=== PATIENT | male | born 1970 | race Caucasian/White ===

== ENCOUNTER 2021-07-01 11:30 | Emergency (ER) | payer OTHER, SELFPAY ==
--- NOTE | ~2021-07-01 | CT_ITS ---
EXAMINATION: CT SOFT TISSUE NECK WITH CONTRAST CLINICAL INFORMATION: Left-sided neck mass. COMPARISON: None TECHNIQUE: Following the intravenous administration of 100 mL of Omnipaque 350 intravenous contrast, helical imaging was performed in the axial plane with generation of coronal and sagittal reformatted images. This CT examination was performed using dose optimization techniques as appropriate, variously including the following: *Automated exposure control *Adjustment of mA and/or kV according to patient size (this includes techniques or standardized protocols for targeted exams where dose is matched to indication/reason for exam; i.e. extremities or head) *Use of iterative reconstruction technique DLP: 629 mGy-cm FINDINGS: There is a multiloculated solid and cystic mass anterior to the sternomastoid muscle and posterior submandibular gland and the submandibular space measuring 4.5 cm wide and approximately 5.42 cm and craniocaudad length and 3.9 cm in AP dimension. It corresponds to L3 space of the neck. The adjacent left submandibular and left parotid glands are normal. There are small shotty right neck lymph nodes visualized. The right parotid and submandibular glands are normal. No contour abnormality or pathologic enhancement is seen within the oral cavity or pharyngeal mucosal space. The laryngeal structures are normal. The parapharyngeal fat is preserved. The carotid sheath vasculature opacify normally. No extra mucosal soft tissue mass or fluid collection is seen. No retropharyngeal fluid collection is seen. The thyroid gland is normal. The superior mediastinum is unremarkable. The lung apices are clear. The mastoid air cells and visualized portions of the paranasal sinuses are well-aerated. The temporomandibular joints are normal. No periapical disease is identified. No osseous abnormalities are seen. The imaged portions of the brain parenchyma are unremarkable. Mild degenerative disc disease with mild ventral and posterior spondylosis C5-C6 disc level is noted. CT/CT soft tissue neck w con IMPRESSION: Multiloculated solid and cystic mass left neck level 3 space. Differential diagnoses includes lymphadenopathy or infection or inflammatory etiology. Metastatic disease should be considered in differential diagnosis but less likely. Question lymphoma. Recommend fine-needle aspiration biopsy by ultrasound.
[2021-07-01 12:42] VITALS: BP 142/70; PULSE 55; RESP 18; TEMP 36.7; O2SAT 100; BMI 25.8
[2021-07-01 13:06] LABS: IDNOW Serial# 08D9AD1C; Strep A Nucleic Acid Negative (Negative)
--- NOTE | 2021-07-01 13:29 | ED_ITS ---
HPI - General Adult General Chief complaint: General Medical <GABRIELA Woo - Last Filed: 07/01/21 16:32> Stated complaint: LUMP IN THROAT <GABRIELA Woo - Last Filed: 07/01/21 16:32> Time Seen by Provider: 07/01/21 13:05 <GABRIELA Woo - Last Filed: 07/01/21 16:32> Source: patient <GABRIELA Woo Last Filed: 07/01/21 16:32> Mode of arrival: ambulatory <GABRIELA Woo Last Filed: 07/01/21 16:32> Limitations: no limitations <GABRIELA Woo Last Filed: 07/01/21 16:32> History of Present Illness HPI narrative: 50-year-old healthy male presents to the ER with sore throat that started yesterday. He reports painful swallowing. Last night he said he felt like his airway was restricted. he also noted to have a lump on the left side of his neck. He states it has been there for couple weeks, but the girlfriend at the bedside no reports that it has been there for several months. he is a nonsmoker but occasionally vapes marijuana. He has no medical issues. He denies any fever, chills, headache, body aches, cough, shortness of breath or chest pain. He is not vaccinated for COVID-19. No known sick contacts. <GABRIELA Woo - Last Filed: 07/01/21 16:32> MD complaint: Sore throat <GABRIELA Woo - Last Filed: 07/01/21 16:32> Onset (ago): day(s) (1) <GABRIELA Woo - Last Filed: 07/01/21 16:32> Location: mouth and neck <GABRIELA Woo Last Filed: 07/01/21 16:32> Radiation: non-radiation <GABRIELA Woo Last Filed: 07/01/21 16:32> Severity: moderate <GABRIELA Woo Last Filed: 07/01/21 16:32> Severity scale (1-10): 6 <GABRIELA Woo Last Filed: 07/01/21 16:32> Quality: aching <GABRIELA Woo Last Filed: 07/01/21 16:32> Pain Consistency: intermittent <GABRIELA Woo Last Filed: 07/01/21 16:32> Relieving factors: none <GABRIELA Woo Last Filed: 07/01/21 16:32> Exacerbating factors: eating <GABRIELA Woo Last Filed: 07/01/21 16:32> Associated symptoms: denies other symptoms <GABRIELA Woo Last Filed: 07/01/21 16:32> Treatments prior to arrival: none <GABRIELA Woo Last Filed: 07/01/21 16:32> Related Data Home medications: Previous Rx's Medication Instructions Recorded amoxicillin 875 mg-potassium 1 tab PO Q12H #20 tab 07/01/21 clavulanate 125 mg tablet (Augmentin) <GABRIELA Woo Last Filed: 07/01/21 16:32> Allergies/adverse reactions: Allergies Allergy/AdvReac Type Severity Reaction Status Date / Time No Known Allergies Allergy Verified 07/01/21 12:41 [No Known Allergies*] <GABRIELA Woo Last Filed: 07/01/21 16:32> Review of Systems Review of Systems: Constitutional: No Fever, No Chills ENT/Mouth: + sore throat, No Rhinorrhea, + Swallowing Difficulty Cardiovascular: No Chest Pain, No SOB Respiratory: No Cough, No Sputum, No Wheezing, No dyspnea Gastrointestinal: No Nausea, No Vomiting, No abdominal Pain Musculoskeletal: No joint pain, No Myalgias Skin: No Skin Lesions, No rash Neuro: No Weakness, No Numbness, No Dizziness, No Headache Psych: + Anxiety/Panic Heme/Lymph: No Bruising, +Lymphadenopathy <GABRIELA Woo Last Filed: 07/01/21 16:32> [facility] Past Medical History Surgical History: Surgical History (Updated 07/01/21 @ 12:43 by Kristen Garcia RN) H/O removal of cyst <GABRIELA Woo Last Filed: 07/01/21 16:32> Physical Exam Vital Signs: Vital Signs: Last Vital Signs Temp 98.0 F 07/01/21 12:42 Pulse 55 07/01/21 12:42 Resp 18 07/01/21 12:42 BP 142/70 H 07/01/21 12:42 Pulse Ox 100 07/01/21 12:42 Body Mass Index 25.8 <GABRIELA Woo - Last Filed: 07/01/21 16:32> Vital Signs: Last Vital Signs Temp 98.0 F 07/01/21 12:42 Pulse 55 07/01/21 12:42 Resp 18 07/01/21 12:42 BP 142/70 H 07/01/21 12:42 Pulse Ox 100 07/01/21 12:42 Body Mass Index 25.8 <Rubio Hoyos MD - Last Filed: 07/01/21 13:39> Appearance: Alert. Oriented X3. No acute distress. HEENT: Left side of the neck with a 3 cm cystic like lesion on the lateral aspect that is somewhat mobile but with some firmness and adherence to the superior aspect. Minimal tenderness. No surrounding erythema no central fluctuance. Oropharynx with moist mucous membranes, bilateral tonsillar enlargement and erythema without exudate. Uvula midline. No submandibular or cervical chain lymphadenopathy palpable. CVS: Normal heart rate and rhythm. Pulses normal. Respiratory: No respiratory distress. Lungs are clear throughout. Skin: Skin warm and dry. Normal skin color. Normal skin turgor. No rashes. Extremities: Normal inspection, normal range of motion Neuro: Oriented X 3. No motor deficit. No sensory deficit. ambulates with a steady gait. <GABRIELA Woo - Last Filed: 07/01/21 16:32> Course Course Course Narrative: 50-year-old male presents to the ER with reports of painful swallowing and sore throat since yesterday along with a sizable left-sided neck mass that has been there for several months according to his girlfriend. Mass is somewhat mobile but appears to be fixed at the superior portion. Will get CT scan of the neck with contrast for further evaluation of the mass. <GABRIELA Woo - Last Filed: 07/01/21 16:32> Reevaluation(s) Reevaluation #1: I agree with history and plan. Patient with a fixed mass on left side of neck. The mass feels cystic. Will obtain CT of neck for what I feel might be a cystic thyroid mass. <Rubio Hoyos MD - Last Filed: 07/01/21 13:39> Time: 13:39 <Rubio Hoyos MD - Last Filed: 07/01/21 13:39> Reevaluation #2: strep negative and COVID negative. CT scan showing a 4.5 cm x 5.42 cm multi loculated solid and cystic mass in the neck level 3 space. Differential diagnosis remains quite extensive and includes lymphadenopathy versus infection versus inflammatory etiology. Also question of metastatic disease or lymphoma. Patient will require fine-needle aspiration by ultrasound To make a definitive diagnosis. Dr. Flores was contacted and is agreeable to see the patient in the office to arrange for a biopsy. Patient agreeable with plan will follow-up with surgery. Stable for DC home. Will give a empiric course of Augmentin in the event that etiology is infectious. <GABRIELA Woo - Last Filed: 07/01/21 16:32> Medical Decision Making Lab Data Result diagrams: : 07/01/21 13:46 07/01/21 13:46 <GABRIELA Woo - Last Filed: 07/01/21 16:32> Labs: Lab Results 07/01/21 07/01/21 07/01/21 Range/Units 12:47 13:21 13:46 WBC 4.4 L (4.8-10.8) X10*3/uL RBC 4.90 (4.60-5.80) X10*6/uL Hgb 15.1 (14.0-18.0) g/dl Hct 43.6 (42.0-52.0) % MCV 89.0 (80.0-98.0) fL MCH 30.8 (27.0-33.0) pg MCHC 34.6 (31.0-36.0) g/dl RDW 11.6 (11.0-16.0) % Plt Count 192 (160-400) X10*3/uL MPV 10.3 (9.4-12.4) fL Immature Gran % (Auto) 0.7 H (0.0-0.4) % Neut % (Auto) 53.4 (45-73) % Lymph % (Auto) 32.7 (20-40) % [place] % (Auto) 11.3 H (2-11) % Eos % (Auto) 1.4 (0-4) % Baso % (Auto) 0.5 (0-2) % Lymph # (Auto) 1.5 (1.2-4.9) X10*3/uL [place] # (Auto) 0.5 (0.1-1.2) X10*3/uL Eos # (Auto) 0.1 (0.0-0.4) X10*3/uL Baso # (Auto) 0.0 (0.0-0.2) X10*3/uL Abs Immat Gran (auto) 0.03 (0.00-0.03) X10*3/uL Absolute Neuts (auto) 2.4 (2.0-8.3) x10*3/uL Absolute Nucleated RBC 0.000 (0.0-0.012) X10*3/uL Nucleated RBC % (auto) 0.0 (0.0-0.2) /100WBC Sodium (135-145) mmol/L Potassium (3.3-5.1) mmol/L Chloride (96-108) mmol/L Carbon Dioxide (22-29) mmol/L Anion Gap (12-20) BUN (9-16) mg/dL Creatinine (0.5-1.4) mg/dL Estim Creat Clear Calc Estimated GFR Random Glucose (60-115) mg/dL Calcium (8.4-10.2) mg/dL COVID-19 (JAK) Negative (Negative) COVID-19 Clin Com See Note S. pyogenes GrpA JAY Negative (Negative) 07/01/21 Range/Units 13:46 WBC (4.8-10.8) X10*3/uL RBC (4.60-5.80) X10*6/uL Hgb (14.0-18.0) g/dl Hct (42.0-52.0) % MCV (80.0-98.0) fL MCH (27.0-33.0) pg MCHC (31.0-36.0) g/dl RDW (11.0-16.0) % Plt Count (160-400) X10*3/uL MPV (9.4-12.4) fL Immature Gran % (Auto) (0.0-0.4) % Neut % (Auto) (45-73) % Lymph % (Auto) (20-40) % [place] % (Auto) (2-11) % Eos % (Auto) (0-4) % Baso % (Auto) (0-2) % Lymph # (Auto) (1.2-4.9) X10*3/uL [place] # (Auto) (0.1-1.2) X10*3/uL Eos # (Auto) (0.0-0.4) X10*3/uL Baso # (Auto) (0.0-0.2) X10*3/uL Abs Immat Gran (auto) (0.00-0.03) X10*3/uL Absolute Neuts (auto) (2.0-8.3) x10*3/uL Absolute Nucleated RBC (0.0-0.012) X10*3/uL Nucleated RBC % (auto) (0.0-0.2) /100WBC Sodium 141 (135-145) mmol/L Potassium 4.2 (3.3-5.1) mmol/L Chloride 105 (96-108) mmol/L Carbon Dioxide 31 H (22-29) mmol/L Anion Gap 9 L (12-20) BUN 14 (9-16) mg/dL Creatinine 0.97 (0.5-1.4) mg/dL Estim Creat Clear Calc 93.1 Estimated GFR > 60 Random Glucose 90 (60-115) mg/dL Calcium 9.5 (8.4-10.2) mg/dL COVID-19 (JAK) (Negative) COVID-19 Clin Com S. pyogenes GrpA JAY (Negative) <GABRIELA Woo - Last Filed: 07/01/21 16:32> Lab Results 07/01/21 07/01/21 07/01/21 Range/Units 12:47 13:21 13:46 WBC 4.4 L (4.8-10.8) X10*3/uL RBC 4.90 (4.60-5.80) X10*6/uL Hgb 15.1 (14.0-18.0) g/dl Hct 43.6 (42.0-52.0) % MCV 89.0 (80.0-98.0) fL MCH 30.8 (27.0-33.0) pg MCHC 34.6 (31.0-36.0) g/dl RDW 11.6 (11.0-16.0) % Plt Count 192 (160-400) X10*3/uL MPV 10.3 (9.4-12.4) fL Immature Gran % (Auto) 0.7 H (0.0-0.4) % Neut % (Auto) 53.4 (45-73) % Lymph % (Auto) 32.7 (20-40) % [place] % (Auto) 11.3 H (2-11) % Eos % (Auto) 1.4 (0-4) % Baso % (Auto) 0.5 (0-2) % Lymph # (Auto) 1.5 (1.2-4.9) X10*3/uL [place] # (Auto) 0.5 (0.1-1.2) X10*3/uL Eos # (Auto) 0.1 (0.0-0.4) X10*3/uL Baso # (Auto) 0.0 (0.0-0.2) X10*3/uL Abs Immat Gran (auto) 0.03 (0.00-0.03) X10*3/uL Absolute Neuts (auto) 2.4 (2.0-8.3) x10*3/uL Absolute Nucleated RBC 0.000 (0.0-0.012) X10*3/uL Nucleated RBC % (auto) 0.0 (0.0-0.2) /100WBC Sodium (135-145) mmol/L Potassium (3.3-5.1) mmol/L Chloride (96-108) mmol/L Carbon Dioxide (22-29) mmol/L Anion Gap (12-20) BUN (9-16) mg/dL Creatinine (0.5-1.4) mg/dL Estim Creat Clear Calc Estimated GFR Random Glucose (60-115) mg/dL Calcium (8.4-10.2) mg/dL COVID-19 (JAK) Negative (Negative) COVID-19 Clin Com See Note S. pyogenes GrpA JAY Negative (Negative) 07/01/21 Range/Units 13:46 WBC (4.8-10.8) X10*3/uL RBC (4.60-5.80) X10*6/uL Hgb (14.0-18.0) g/dl Hct (42.0-52.0) % MCV (80.0-98.0) fL MCH (27.0-33.0) pg MCHC (31.0-36.0) g/dl RDW (11.0-16.0) % Plt Count (160-400) X10*3/uL MPV (9.4-12.4) fL Immature Gran % (Auto) (0.0-0.4) % Neut % (Auto) (45-73) % Lymph % (Auto) (20-40) % [place] % (Auto) (2-11) % Eos % (Auto) (0-4) % Baso % (Auto) (0-2) % Lymph # (Auto) (1.2-4.9) X10*3/uL [place] # (Auto) (0.1-1.2) X10*3/uL Eos # (Auto) (0.0-0.4) X10*3/uL Baso # (Auto) (0.0-0.2) X10*3/uL Abs Immat Gran (auto) (0.00-0.03) X10*3/uL Absolute Neuts (auto) (2.0-8.3) x10*3/uL Absolute Nucleated RBC (0.0-0.012) X10*3/uL Nucleated RBC % (auto) (0.0-0.2) /100WBC Sodium 141 (135-145) mmol/L Potassium 4.2 (3.3-5.1) mmol/L Chloride 105 (96-108) mmol/L Carbon Dioxide 31 H (22-29) mmol/L Anion Gap 9 L (12-20) BUN 14 (9-16) mg/dL Creatinine 0.97 (0.5-1.4) mg/dL Estim Creat Clear Calc 93.1 Estimated GFR > 60 Random Glucose 90 (60-115) mg/dL Calcium 9.5 (8.4-10.2) mg/dL COVID-19 (JAK) (Negative) COVID-19 Clin Com S. pyogenes GrpA JAY (Negative) <Rubio Hoyos MD - Last Filed: 07/01/21 13:39> Discharge Plan Discharge Clinical Impression: Mass of lateral neck Pharyngitis Qualifiers: Pharyngitis/tonsillitis etiology: unspecified etiology Qualified Code(s): J02.9 - Acute pharyngitis, unspecified <GABRIELA Woo - Last Filed: 07/01/21 16:32> Patient Disposition: Home, Self-Care <GABRIELA Woo - Last Filed: 07/01/21 16:32> Instructions: Pharyngitis (ED), Needle Biopsy (DC) <GABRIELA Woo - Last Filed: 07/01/21 16:32> Additional Instructions: Your CT scan today showed Multiloculated solid and cystic mass left neck level 3 space. Differential diagnoses includes lymphadenopathy or infection or inflammatory etiology. Metastatic disease should be considered in differential diagnosis but less likely. Question lymphoma. Recommend fine-needle aspiration biopsy by ultrasound Take the prescribed antibiotic for the next 10 days. Follow up with Dr. Flores for arragement of biopsy. <GABRIELA Woo - Last Filed: 07/01/21 16:32> Prescriptions: New amoxicillin-pot clavulanate [Augmentin] 875-125 mg tablet 1 tab PO Q12H Qty: 20 RF: 0 <GABRIELA Woo - Last Filed: 07/01/21 16:32> Referrals: Dewayne Flores MD [Physician] - 2 days (Multiloculated solid and cystic mass left neck level 3 space. Differential diagnoses includes lymphadenopathy or infection or inflammatory etiology. Metastatic disease should be considered in differential diagnosis but less likely. Question lymphoma. Recommend fine-needle aspiration biopsy by ultrasound) <GABRIELA Woo - Last Filed: 07/01/21 16:32> Interventions: ED Discharge Assessment Last Done: 07/01/21 15:38 <GABRIELA Woo - Last Filed: 07/01/21 16:32> Discharge Date/Time: 07/01/21 15:41 <GABRIELA Woo - Last Filed: 07/01/21 16:32>
[2021-07-01 13:43] LABS: COVID-19 Test Negative (Negative); IDNOW Serial# 9DD0AD1C
[2021-07-01 13:54] LABS: MANUAL DIFF FLAG NO
[2021-07-01 13:58] LABS: Basophils Percent Auto 0.5 % (0-2); Eosinophils Absolute Auto 0.1 X10*3/uL (0.0-0.4); Eosinophils Percent Auto 1.4 % (0-4); Hematocrit 43.6 % (42.0-52.0); Hemoglobin 15.1 g/dl (14.0-18.0); Imm Gran Abs Auto 0.03 X10*3/uL (0.00-0.03); Imm Gran Pct Auto 0.7 % (0.0-0.4); Lymphocytes Absolute Auto 1.5 X10*3/uL (1.2-4.9); Lymphocytes Percent Auto 32.7 % (20-40); Mean Corpuscular HGB Conc 34.6 g/dl (31.0-36.0); Mean Corpuscular Hemoglobin 30.8 pg (27.0-33.0); Mean Platelet Volume 10.3 fL (9.4-12.4); Monocytes Absolute Auto 0.5 X10*3/uL (0.1-1.2); Monocytes Percent Auto 11.3 % (2-11); Neutrophils Absolute Auto 2.4 x10*3/uL (2.0-8.3); Neutrophils Percent Auto 53.4 % (45-73); Platelet Count 192 X10*3/uL (160-400); Red Cell Distribution Width 11.6 % (11.0-16.0); White Blood Count 4.4 X10*3/uL (4.8-10.8)
[2021-07-01 14:09] LABS: Anion Gap 9 (12-20); Blood Urea Nitrogen 14 mg/dL (9-16); Calcium 9.5 mg/dL (8.4-10.2); Carbon Dioxide 31 mmol/L (22-29); Chloride 105 mmol/L (96-108); Creatinine Clr Calc Pharmacy 93.1; Estimated Glomerular Filt Rate > 60; Glucose Random 90 mg/dL (60-115); Potassium 4.2 mmol/L (3.3-5.1); Sodium 141 mmol/L (135-145)
[2021-07-01] MEDS: iohexoL 350 MG/ML 100 ML INFUS..BTL IV (14:25)
== END 2021-07-01 15:41 | disposition home or self-care (01) ==
PROVIDERS: Physician Assistant; Emergency Provider Emergency Medicine; PCP Internal Medicine
DX: R22.1 Localized swelling, mass and lump, neck (principal); Z20.822 Contact with and (suspected) exposure to COVID-19; J02.9 Acute pharyngitis, unspecified
CPT/HCPCS: 36415; 70491; 80048; 85025; 87635; 87651; 99284; Q9967

== ENCOUNTER 2021-07-25 10:57 | Outpatient (REF) | payer OTHER, SELFPAY | END 2021-07-25 10:58 | disposition home or self-care (01) | LOC: HO.LNP 10:57 | PROVIDERS: PCP Internal Medicine; Referring Provider Internal Medicine; Visit Provider Surgery | DX: R22.1 Localized swelling, mass and lump, neck (principal) | CPT/HCPCS: 10021; 88173; 88305; 88341; 88342; 99202 ==

== ENCOUNTER 2022-01-18 18:47 | Emergency (ER) | payer OTHER, SELFPAY ==
--- NOTE | 2022-01-18 | ECG_ITS ---
Test Reason : CHEST PAIN Blood Pressure : / mmHG Vent. Rate : 063 BPM Atrial Rate : 063 BPM P-R Int : 132 ms QRS Dur : 092 ms QT Int : 384 ms P-R-T Axes : 078 040 041 degrees QTc Int : 392 ms Normal sinus rhythm Nonspecific T wave abnormality Abnormal ECG No previous ECGs available Referred By: Generic ED Physician Electronically Signed By:Mark Reed
--- NOTE | ~2022-01-18 | XR_ITS ---
EXAMINATION: XR CHEST CLINICAL INFORMATION: Chest pain. COMPARISON: None TECHNIQUE: 2 views of the chest were obtained. FINDINGS: Normal appearance of the cardiomediastinal silhouette. No focal airspace opacity, pleural effusion or pneumothorax. No acute osseous abnormalities. XR/XR chest 2V IMPRESSION: No acute cardiopulmonary findings.
[2022-01-18 19:01] VITALS: BP 132/85; PULSE 60; RESP 16; TEMP 36.8; O2SAT 99; BMI 25.8
[2022-01-18 19:18] LABS: MANUAL DIFF FLAG NO
[2022-01-18 19:19] LABS: Basophils Percent Auto 0.3 % (0-2); Eosinophils Absolute Auto 0.1 X10*3/uL (0.0-0.4); Eosinophils Percent Auto 1.8 % (0-4); Hematocrit 38.5 % (42.0-52.0); Hemoglobin 13.7 g/dl (14.0-18.0); Imm Gran Abs Auto 0.03 X10*3/uL (0.00-0.03); Imm Gran Pct Auto 0.8 % (0.0-0.4); Lymphocytes Absolute Auto 0.6 X10*3/uL (1.2-4.9); Mean Corpuscular HGB Conc 35.6 g/dl (31.0-36.0); Mean Corpuscular Hemoglobin 30.4 pg (27.0-33.0); Mean Corpuscular Volume 85.6 fL (80.0-98.0); Mean Platelet Volume 9.2 fL (9.4-12.4); Monocytes Absolute Auto 0.3 X10*3/uL (0.1-1.2); Monocytes Percent Auto 8.9 % (2-11); Neutrophils Absolute Auto 2.8 x10*3/uL (2.0-8.3); Neutrophils Percent Auto 72.2 % (45-73); Platelet Count 195 X10*3/uL (160-400); Red Cell Distribution Width 11.7 % (11.0-16.0); White Blood Count 3.8 X10*3/uL (4.8-10.8)
[2022-01-18 19:31] LABS: Anion Gap 13 (12-20); Blood Urea Nitrogen 13 mg/dL (9-16); Calcium 9.1 mg/dL (8.4-10.2); Carbon Dioxide 29 mmol/L (22-29); Chloride 99 mmol/L (96-108); Estimated Glomerular Filt Rate > 60; Glucose Random 101 mg/dL (60-115); Potassium 4.1 mmol/L (3.3-5.1); Sodium 137 mmol/L (135-145)
[2022-01-18 19:37] LABS: Troponin-I High Sensitivity < 3.5 ng/L (<3.5-35.0)
--- NOTE | 2022-01-18 21:39 | ED_ITS ---
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 The patient as he has a burning feeling any tries to swallow and this is despite using opiate pain medicines and topical lidocaine. The patient has not eaten in a few days due to the pain. States that is even hard for him to swallow his saliva. He did have some burning in his upper chest but states he believes that is due to throat discomfort and radiation. He denies any fever or shortness of breath, denies abdominal pain, does feel hunger pains. Pain is 10/10, burning, worse with swallowing Related Data Previous Rx's Medication Instructions Recorded ondansetron 8 mg disintegrating 8 mg PO Q8H #50 tabs 12/10/21 tablet lidocaine HCl 2 % mucosal solution 1 appl mucous membrane QID #300 mL 01/07/22 (Lidocaine Viscous) sodium polystyrene sulfonate 15 g PO BID #453.6 grams 01/07/22 morphine 10 mg/5 mL oral solution 10 mg (5 mL) PO Q8H PRN Pain #100 01/15/22 mL morphine 30 mg tablet,extended 30 mg PO Q12H #60 tabs 01/15/22 release (MS Contin) oxycodone 5 mg tablet 5 mg PO Q4H PRN Breakthrough Pain, 01/17/22 Moderate #60 tabs hydromorphone 1 mg/mL oral liquid 2 mg (2 mL) PO Q4H PRN pain #60 mL 01/18/22 Allergies Allergy/AdvReac Type Severity Reaction Status Date / Time No Known Allergies Allergy Verified 01/18/22 19:08 [No Known Allergies*] Review of Systems Review of Systems: As per HPI Constitutional: Constitutional: Denies fever(s) Eyes: Eyes: Reports no additional eye complaints Cardiovascular: Cardiovascular: Reports no additional cardiovascular complaints Respiratory: Respiratory: Reports no additional respiratory complaints Gastrointestinal: Gastrointestinal: Reports no additional gastrointestinal complaints PMFSH Past Medical History Medical History Mass of left side of neck Surgical History H/O removal of cyst Family History Family History Maternal Grandmother Lung cancer Social History Social History Household Members: Friend(s) Housing: House Are you a primary hospice spiritual care coordinator to a significant other at home: No Do you presently have visiting nurse or other home services: No Patient Tobacco Use Status: Never used Tobacco Advance Directives: No Advance Directives Information Provided: No service: No Current occupational status: unemployed Physical Exam ED Vital Signs: Vital Signs - 24 hr 01/18/22 19:01 Temperature 98.3 F Pulse Rate 60 Respiratory Rate 16 Blood Pressure 132/85 Pulse Oximetry 99 Oxygen Delivery Method Room Air BMI result Body Mass Index 25.8 Const Other: Patient is tolerating secretions normally, does appear somewhat uncomfortable appearing, does not appear dehydrated General: no acute distress Orientation/consciousness: patient oriented x3 HENMT Head: Yes normal to inspection General nose exam: Normal external nose present Mouth: moist mucous membranes Throat: Yes posterior oropharynx normal, Yes tonsils normal and Yes uvula midline Eyes Eyelids: Yes eyelids normal Conjunctivae: conjunctivae normal Pupils: Equal, round and reactive pupils present Neck Neck: Yes supple Resp Effort & Inspection: normal respiratory effort Auscultation: clear to auscultation bilaterally Cardio Rate: regular rate Rhythm: regular rhythm Heart sounds: S1 normal heart sound present, S2 normal heart sound present, no gallops, no murmurs and no rubs GI Inspection: No distended Palpation (GI): Soft to palpation and nontender Auscultation: normal bowel sounds Skin General skin exam: other (Warm and dry) Neuro General: patient oriented x3 and CN's II-XI intact bilaterally Cranial nerves: Yes Equal, round and reactive pupils present Extrem General: Yes no pedal edema Psych Affect: normal affect Attitude: cooperative Medical Decision Making MDM Narrative Medical decision making narrative: Patient with severe throat discomfort, undergoing radiation chemotherapy for head neck cancer. Patient described of severe burning feeling with trying to swallow. Patient states he was unable the eat or drink. Labs are unremarkable with no evidence of dehydration on his chemistry. Patient was given normal saline 1 L IV. He was given Dilaudid 1 mg IV, also a GI cocktail. He did have improvement in his symptoms and was able to drink some leo silver and eat some pudding. Will prescribe Dilaudid suspension for the patient to take instead of oxycodone. The patient is advised the follow-up with his oncologist tomorrow 4 re-evaluation regarding continuation of his radiation therapy Lab Data Result diagrams: 01/18/22 19:13 01/18/22 19:13 Labs: Lab Results 01/18/22 01/18/22 01/18/22 Range/Units 19:13 19:13 19:13 WBC 3.8 L (4.8-10.8) X10*3/uL RBC 4.50 L (4.60-5.80) X10*6/uL Hgb 13.7 L (14.0-18.0) g/dl Hct 38.5 L (42.0-52.0) % MCV 85.6 (80.0-98.0) fL MCH 30.4 (27.0-33.0) pg MCHC 35.6 (31.0-36.0) g/dl RDW 11.7 (11.0-16.0) % Plt Count 195 (160-400) X10*3/uL MPV 9.2 L (9.4-12.4) fL Immature Gran % (Auto) 0.8 H (0.0-0.4) % Neut % (Auto) 72.2 (45-73) % Lymph % (Auto) 16.0 L (20-40) % [place] % (Auto) 8.9 (2-11) % Eos % (Auto) 1.8 (0-4) % Baso % (Auto) 0.3 (0-2) % Lymph # (Auto) 0.6 L (1.2-4.9) X10*3/uL [place] # (Auto) 0.3 (0.1-1.2) X10*3/uL Eos # (Auto) 0.1 (0.0-0.4) X10*3/uL Baso # (Auto) 0.0 (0.0-0.2) X10*3/uL Abs Immat Gran (auto) 0.03 (0.00-0.03) X10*3/uL Absolute Neuts (auto) 2.8 (2.0-8.3) x10*3/uL Absolute Nucleated RBC 0.000 (0.0-0.012) X10*3/uL Nucleated RBC % (auto) 0.0 (0.0-0.2) /100WBC Sodium 137 (135-145) mmol/L Potassium 4.1 (3.3-5.1) mmol/L Chloride 99 (96-108) mmol/L Carbon Dioxide 29 (22-29) mmol/L Anion Gap 13 (12-20) BUN 13 (9-16) mg/dL Creatinine 0.94 (0.5-1.4) mg/dL Estim Creat Clear Calc 95.0 Estimated GFR > 60 Random Glucose 101 (60-115) mg/dL Calcium 9.1 (8.4-10.2) mg/dL Troponin I High Sens < 3.5 (<3.5-35.0) ng/L Imaging Data Chest x-ray: Radiologist's impression: IMPRESSION: No acute cardiopulmonary findings. ECG Data Attestation: I personally reviewed and interpreted this ECG as follows: Interpretation: Sinus rhythm with a rate of 63. Baseline artifact. T-wave flattening in leads V2 through V4, somewhat difficult to interpret due to artifact. Discharge Plan Discharge Clinical Impression: Odynophagia Patient Disposition: Home, Self-Care Additional Instructions: Try to keep drinking liquids small amount of the time. Try to eat soft foods such as pudding, Jell-O. He can also try supplement shakes such as Ensure. Follow up with your oncologist Thursday. Use the liquid Dilaudid as prescribed instead of the oxycodone Prescriptions: New hydromorphone 1 mg/mL liquid 2 mg PO Q4H PRN (Reason: pain) Qty: 60 0RF Rx Instructions: Partial Fill upon patient request. No Action ondansetron 8 mg Tablet,Disintegrating 8 mg PO Q8H Qty: 50 4RF sodium polystyrene sulfonate Powder 15 g PO BID Qty: 453.6 3RF lidocaine HCl [Lidocaine Viscous] 2 % Solution 1 appl MUCOUS MEMBRANE QID Qty: 300 4RF morphine [MS Contin] 30 mg Tablet Extended Release 30 mg PO Q12H Qty: 60 0RF Rx Instructions: Partial Fill upon patient request. morphine 10 mg/5 mL Solution 10 mg PO Q8H PRN (Reason: Pain) Qty: 100 0RF Rx Instructions: Partial Fill upon patient request. oxycodone 5 mg Tablet 5 mg PO Q4H PRN (Reason: Breakthrough Pain, Moderate) Qty: 60 0RF Rx Instructions: Take 1-2 every 4-6 hours as needed . Discharge Date/Time: 01/19/22 00:12
[2022-01-18] MEDS: HYDROmorphone HCl 1 MG/ML SYRINGE IVPUSH ×2 (22:40→23:53)
[2022-01-18] MEDS: 0.9 % Sodium Chloride 1,000 ML 999 ML IV (22:46)
== END 2022-01-19 00:12 | disposition home or self-care (01) ==
PROVIDERS: Emergency Provider Emergency Medicine; PCP Internal Medicine
DX: R13.10 Dysphagia, unspecified (principal); R07.89 Other chest pain; R42 Dizziness and giddiness; R53.83 Other fatigue; Z79.899 Other long term (current) drug therapy
CPT/HCPCS: 36415; 71046; 80048; 84484; 85025; 93005; 96374; 96375; 99282; 99284; J1170

== ENCOUNTER 2022-01-23 15:14 | Inpatient (IN) | payer OTHER, SELFPAY ==
[2022-01-22] VITALS (18 sets, daily range): BP systolic 128–163; BP diastolic 60–96; PULSE 68–109; RESP 14–20; TEMP 36.3–37.2; O2SAT 97–100; BMI 25.8
[2022-01-22] MEDS: Midazolam HCl/PF 2 MG/2 ML VIAL IVPUSH (13:29)
--- NOTE | 2022-01-22 13:54 | PC.NURSE ---
patient asked and given suction/yankauer. He is able to maintain secretions, but states it hurts really bad . given for comfort
--- NOTE | 2022-01-22 14:59 | MHC.SHP ---
Pre-Procedural Eval Section A Date of Service: 01/22/22 The patient is an INPATIENT: No Changes since office visit: No Cold of Flu in the past 2 weeks, No New Medical Problems, No Changes in Medication and No Patient answered all questions The History & Physical has been completed within 30 days and I have reviewed it.: Yes Section B Chief Complaint: Dysphagia, Allergies: Allergies Allergy/AdvReac Type Severity Reaction Status Date / Time No Known Allergies Allergy Verified 01/22/22 13:44 [No Known Allergies*] Plan I have reviewed the history and physical and performed a pertinent physical examination on my patient. No changes have occurred unless specified.
--- NOTE | 2022-01-22 15:03 | P.CONAN_ITS ---
[facility] Active Problems Active Problems: All Active Problems (Updated 01/20/22 @ 00:02 by Kimberlee Costello) Squamous cell carcinoma of neck (Acute) Mass of left side of neck (Acute) Past Medical History Functional capacity: independent ambulation Family History Family History Maternal Grandmother Lung cancer Family history of problems with anesthesia: No Surgical History Surgical History H/O removal of cyst History of Problems with Anesthesia: No Social History Social History Household Members: Friend(s) Housing: House Are you a primary clinical manager home care to a significant other at home: No Do you presently have visiting nurse or other home services: No Patient Tobacco Use Status: Never used Tobacco Are you DNR?: No Advance Directives: No Advance Directives Information Provided: Yes service: No Current occupational status: unemployed Meds Allergies Allergy/AdvReac Type Severity Reaction Status Date / Time No Known Allergies Allergy Verified 01/22/22 13:44 [No Known Allergies*] Exam Exam Date and Time: January 22, 2022 1503 Height,Weight and Vital Signs: Height 5 ft 9 in Weight 79.379 kg Last Vital Signs Temp 97.4 F 01/22/22 13:25 Pulse 75 01/22/22 13:25 Resp 18 01/22/22 13:25 BP 135/75 01/22/22 13:25 Pulse Ox 98 01/22/22 13:25 O2 Del Method 01/22/22 13:25 Airway Mallampati Class: IV TM Dist: <=3cm Neck ROM: Full Heart: RRR Lungs: CTA Assessment and Plan Final Anesthetic Review Family History of Problems with Anesthesia: No History of Problems with Anesthesia: No ASA Class: III Final Preanesthetic Review: No Changes in Pt Med Stat, Meds/Allgs Chart Reviewed, Consent Obtained/Reviewed and Anes Risks/Benef Reviewed Patient Risk: Intermediate Procedure Risk: Intermediate Anesthetic Plan Anesthetic Plan: GA Disposition: Standard PACU
--- NOTE | 2022-01-22 15:29 | HP_ITS ---
DATE OF SERVICE: 01/22/2022 HISTORY OF PRESENT ILLNESS: Mr. Bianchi is seen in consultation at the request of Dr. Zamora. He is a pleasant 51-year-old man, who is evaluated for G-tube placement. He has a history of squamous cell carcinoma of the neck and is undergoing chemoradiation in preparation for possible surgery. He has been developed significant odynophagia and has been unable to eat solid food and even has difficulty swallowing secretions due to the pain. Feeding tube placement has been requested by Dr. Zamora. The patient denies any prior history of GI disease including peptic ulcer disease, dysphagia, or swallowing problems. He has never had abdominal surgery. PAST MEDICAL HISTORY: Squamous cell carcinoma of the head and neck as above. He denies other medical or surgical illnesses. CURRENT MEDICATIONS: His current medication list is reviewed in the short-stay chart. ALLERGIES: THERE ARE NONE REPORTED. FAMILY HISTORY: This is reviewed with the patient and is noncontributory. SOCIAL HISTORY: There is no current tobacco, alcohol, or substance abuse. REVIEW OF SYSTEMS: SKIN: No pruritus. HEENT: Negative. CARDIOPULMONARY: No shortness of breath or chest pain. GASTROINTESTINAL: As above. GENITOURINARY: Negative. NEUROPSYCHIATRIC: Negative. PHYSICAL EXAMINATION: GENERAL: Shows a pleasant male, lying on the stretcher, using a Yankauer suction to remove his oral secretions. VITAL SIGNS: Stable. SKIN: Anicteric. HEENT: Shows no scleral icterus. NECK: Deferred. LUNGS: Clear. HEART: Shows a regular rate and rhythm. S1, S2. No murmur. ABDOMEN: Soft without focal masses or tenderness. Bowel sounds are present. No organomegaly is noted. EXTREMITIES: Without edema. RADIOLOGY REPORTS AND LABORATORY STUDIES: Reviewed. IMPRESSION: 1. Squamous cell carcinoma of the head and neck. 2. Severe chemoradiation related odynophagia. I discussed upper endoscopy with feeding tube placement with the patient. He understands risks and benefits and agrees to proceed. MD ERROL Vaughan/ISHA / [phone] MTDD
--- NOTE | 2022-01-22 15:47 | PC.NURSE ---
left off unit at 1546 and gave report to jessica bates.
--- NOTE | 2022-01-22 16:06 | P.CONAN_ITS ---
[facility] Active Problems Active Problems: All Active Problems (Updated 01/20/22 @ 00:02 by Kimberlee Costello) Squamous cell carcinoma of neck (Acute) Mass of left side of neck (Acute) Past Medical History Functional capacity: independent ambulation Family History Family History Maternal Grandmother Lung cancer Family history of problems with anesthesia: No Surgical History Surgical History H/O removal of cyst History of Problems with Anesthesia: No Social History Social History Household Members: Friend(s) Housing: House Are you a primary career development consultant to a significant other at home: No Do you presently have visiting nurse or other home services: No Patient Tobacco Use Status: Never used Tobacco Are you DNR?: No Advance Directives: No Advance Directives Information Provided: Yes service: No Current occupational status: unemployed Meds Allergies Allergy/AdvReac Type Severity Reaction Status Date / Time No Known Allergies Allergy Verified 01/22/22 13:44 [No Known Allergies*] Active Medications: Current Medications Cefazolin Sodium/Dextrose (Ancef) 2 gm in 50 mls @ 100 mls/hr IV ONCE ONE Stop: 01/22/22 16:14 Exam Exam Date and Time: January 22, 2022 1606 Height,Weight and Vital Signs: Height 5 ft 9 in Weight 79.379 kg Last Vital Signs Temp 97.4 F 01/22/22 13:25 Pulse 75 01/22/22 13:25 Resp 18 01/22/22 13:25 BP 135/75 01/22/22 13:25 Pulse Ox 98 01/22/22 13:25 O2 Del Method 01/22/22 13:25 Airway Mallampati Class: IV (Can not open his mouth) TM Dist: <=3cm Neck ROM: Full Assessment and Plan Final Anesthetic Review Family History of Problems with Anesthesia: No History of Problems with Anesthesia: No NPO: Yes ASA Class: III Final Preanesthetic Review: No Changes in Pt Med Stat, Meds/Allgs Chart Reviewed, Consent Obtained/Reviewed and Anes Risks/Benef Reviewed Patient Risk: Intermediate Procedure Risk: Low Anesthetic Plan Anesthetic Plan: GA Disposition: Standard PACU
--- NOTE | 2022-01-22 17:05 | P.HPHOSP_ITS ---
History of Present Illness Date of Service: 01/22/22 Chief Complaint: Dysphagia and Odynophagia P 51-year-old man, who was admitted for G-tube placement. He has a history of squamous cell carcinoma of the neck and is undergoing chemoradiation in preparation for possible surgery.? He has been having lots of pain in the neck and is not able eat and therefore a PEG was arranged. I saw him just after surgery and is rather sedated and not able to offer much history but is hemodynamicall stable. Review of Systems Review of Systems: Yes Unobtainable due to mental status [facility] Medical History Mass of left side of neck Squamous cell carcinoma of neck Functional capacity: independent ambulation Family History Maternal Grandmother Lung cancer Surgical History H/O removal of cyst Social History Household Members: Other Household Members Other:: mother Housing: House Are you a primary care management associate to a significant other at home: No Do you presently have visiting nurse or other home services: No Patient Tobacco Use Status: Never used Tobacco Substance Use Type: Marijuana Substance Use Frequency: Occasionally Last Used Substance Other:: years ago Currently Displaying Signs/Symptoms of Drug Intoxication Withdrawal: No Any prior treatment program specific to substance use: No Have you been hit, kicked, punched, or otherwise hurt by someone within the past year? If so, by whom?: No Do you feel safe in your current relationship?: Yes Is there a partner from a previous relationship who is making you feel unsafe now?: No Are you made to feel afraid or neglected: No Are you DNR?: No Advance Directives: No Advance Directives Information Provided: Yes Do you have thoughts of harming others: None Do you have a plan to hurt others: No Plan How much weight loss: 2-13 pounds Eating poorly because of decreased appetite: Yes Nutrition Risks: Difficulty swallowing Poor oral hygiene: No service: No Current occupational status: unemployed Meds Allergies Allergy/AdvReac Type Severity Reaction Status Date / Time No Known Allergies Allergy Verified 01/22/22 13:44 [No Known Allergies*] Active Medications: Current Medications Fentanyl (Fentanyl Citrate/Pf 100 Mcg/2 Ml Vial) 50 mcg IVPUSH Q5M PRN; Protocol PRN Reason: Pain, Severe (Pain Scale 7-10) Lorazepam (Lorazepam 2 Mg/Ml Vial) 1 mg IVPUSH Q4H PRN PRN Reason: Anxiety Morphine Sulfate (Morphine Sulfate 4 Mg/Ml Cartridge) 3 mg IVPUSH Q4H PRN; Protocol PRN Reason: Pain, Severe (Pain Scale 7-10) Ondansetron HCl (Ondansetron Hcl 4 Mg/2 Ml Vial) 4 mg IVPUSH ONCE PRN PRN Reason: Nausea and Vomiting Oxycodone HCl (Oxycodone Hcl Immed Release 5 Mg Tablet) 10 mg PO ONCE PRN PRN Reason: Pain, Severe (Pain Scale 7-10) Physical Exam Vital Signs and Narrative: Vital Signs: Last Vital Signs Temp 97.4 F 01/22/22 13:25 Pulse 75 01/22/22 13:25 Resp 18 01/22/22 13:25 BP 135/75 01/22/22 13:25 Pulse Ox 98 01/22/22 13:25 O2 Del Method 01/22/22 13:25 BMI result Body Mass Index 25.8 Const: Other: General: no acute distress Resp: CTA bilateral CVS: S1,S2,RRR GI: +BS, NT, no distention Skin: No rash Neuro: motor grossly intact Psych: appropriate affect Results Labs CBC and Chem 7: 01/23/22 05:51 Assessment and Plan (1) Mass of left side of neck: (2) Squamous cell carcinoma of neck: Plan Odynophagia due to SQ cell carcinoma of neck s/p PEG today Plan: Observe overnight, hydrate, morphine for pain, ativan for anxiety, nutrional eval for food recommendation in the morning. Quality Stroke Does the patient have a stroke diagnosis?: No VTE Prior VTE?: No VTE Risk Level:: Medical - moderate - high VTE Device Contraindication: Treatment Not Tolerated VTE Drug Contraindication: N/A - Med Ordered
--- NOTE | 2022-01-22 17:12 | PM.OP ---
Brief Operative Note Date of Service: 01/22/22 Pre-op diagnosis: odynophagia Post-op diagnosis: same Procedure: egd/peg placement Surgeon: Simon Fisher Anesthesia: GETA and MAC Was an Park Recreation Manager used for this Procedure?: No Estimated blood loss (mL): 2 Pathology: other (antral biopsies) Condition: stable Disposition: PACU
--- NOTE | 2022-01-22 17:45 | PC.NURSE ---
Patient took off simple mask at 1730. O2 sat stable 97-99%. At 1739 O2 sat decreased to 89. RR 12, shallow resps. HR 70, SR. Simple mask 8L back on, patient told to deep breathe. O2 sat continue to decrease to 79%. Non rebreather set to 15L. O2 100%. RR 14. HR 77. BP 135/78. Dr Srivastava aware and at bedside. Patient responding to commands, states no pain or nausea. patient sleepy but opens eyes on command.
[2022-01-22] MEDS: HYDROmorphone HCl 0.5 MG/0.5 ML SYRINGE 0.25 MG IVPUSH (18:50)
[2022-01-22] MEDS: Mag&Al/Sim/Diphenhyd/Lidocaine 10 ML ORAL.SUSP PO (18:57)
[2022-01-22 18:58] LABS: COVID-19 Test Negative (Negative); IDNOW Serial# 16C4AD1C
[2022-01-22] MEDS: Dextrose 5 % 1,000 ML 125 ML IVCONT (20:19)
--- NOTE | 2022-01-22 21:26 | PHA.MEDREC ---
Patient is here to figure out a better pain control. He has recently tried several medications but has experienced the most relief from hydromorphone. Currently has a fentanyl 12 mch/hr patch ordered. Was ordered glycopyrrolate for saliva control but was not covered by insurance and has not yet been able to fill. Pharmacy Consult ? Medication Reconciliation Pharmacy has completed the medication reconciliation.
[2022-01-22] MEDS: HYDROmorphone HCl 0.5 MG/0.5 ML SYRINGE IVPUSH (21:36)
[2022-01-22] MEDS: Pantoprazole Sodium 40 MG/10 ML VIAL IVPUSH (22:13)
--- NOTE | 2022-01-22 23:08 | PM.EVENT ---
Event Note Date of Service: 01/22/22 Event Note: GI see dictations for full details. EGD showed mild gastritis. PEG placed and antral bxs taken. PPI for gastritis. start feedings 01/23. May use g tube for meds now.
[2022-01-22] MEDS: oxyCODONE HCl Immed Release 5 MG TABLET 10 MG PO (23:57)
[2022-01-22] MEDS: LORazepam 2 MG/ML VIAL 1 MG IVPUSH (23:59)
[2022-01-23] VITALS (7 sets, daily range): BP systolic 104–137; BP diastolic 59–73; PULSE 57–74; RESP 16–18; TEMP 36.8–37.6; O2SAT 96–100; BMI 25.8
--- NOTE | 2022-01-23 01:46 | OP_ITS ---
SURGEON: Simon Fisher MD INDICATIONS: Odynophagia in a patient undergoing chemoradiation for squamous cell carcinoma of the neck. PREOPERATIVE DIAGNOSIS: POSTOPERATIVE DIAGNOSIS: PROCEDURE PERFORMED: Upper endoscopy with placement of percutaneous endoscopic gastrostomy tube. ESTIMATED BLOOD LOSS: COMPLICATIONS: ANESTHESIA: ASSISTANTS: SPECIMENS: MEDICATIONS: General anesthesia. DESCRIPTION OF PROCEDURE: The history and physical performed. The risks and benefits of the procedure were explained to the patient. Informed consent was obtained. The patient was placed in the supine position. The Olympus video gastroscope was introduced into the esophagus, stomach, and duodenum. Examination was performed. The scope was removed. He tolerated the procedure well and was taken to recovery area in stable condition. FINDINGS: Upper endoscopy: 1. Esophagus: The esophagus was normal. There was some blood in the hypopharynx prior to intubation of the esophagus. 2. Stomach: The stomach showed mild gastritis in the antrum. Biopsies were obtained. 3. Duodenum: The bulb and second portion were normal. 4. A suitable site was localized on the anterior abdominal wall using transillumination of the endoscopic light source and endoscopic verification of digital impression. The site was sterilely prepped and draped and infiltrated with 1% xylocaine. A small incision was made with a scalpel and a hollow needle with plastic catheter over it was passed into the gastric lumen on the 1st attempt. A guidewire was passed through the catheter after the needle was removed. The guidewire was grasped with a snare, passed through the endoscope. The endoscope and snare were removed from the patient, leaving the guidewire in position. A 20-Japanese traction removable gastrostomy tube was attached to the guidewire and placed in satisfactory position using the pull technique. This catheter was secured with an external bolster. The catheter was trimmed and a Y adapter was applied as was Povidine ointment and bacitracin and a drain sponge. The endoscope was reinserted into the patient and endoscopy verified adequate positioning of the G-tube. IMPRESSION: 1. Gastritis. 2. G-tube placement. RECOMMENDATIONS: 1. The G-tube may be used for medications tonight. Do not start tube feeds until the a.m. 2. Start omeprazole 20 mg daily for gastritis. MD ERROL Vaughan/ISHA / [id number]
[2022-01-23] MEDS: HYDROmorphone HCl 0.5 MG/0.5 ML SYRINGE IVPUSH ×5 (05:33→23:16)
[2022-01-23] MEDS: Dextrose 5 % 1,000 ML 125 ML IVCONT ×3 (05:34→20:16)
[2022-01-23] MEDS: Pantoprazole Sodium 40 MG/10 ML VIAL IVPUSH (05:34)
[2022-01-23 06:30] LABS: Hematocrit 33.9 % (42.0-52.0); Hemoglobin 12.3 g/dl (14.0-18.0); Mean Corpuscular HGB Conc 36.3 g/dl (31.0-36.0); Mean Corpuscular Volume 85.4 fL (80.0-98.0); Mean Platelet Volume 9.3 fL (9.4-12.4); Platelet Count 183 X10*3/uL (160-400); Red Blood Count 3.97 X10*6/uL (4.60-5.80); Red Cell Distribution Width 11.8 % (11.0-16.0); White Blood Count 4.2 X10*3/uL (4.8-10.8)
--- NOTE | 2022-01-23 10:07 | HO.POSTANES ---
Post Anesthesia Evaluation Post Anesthesia Evaluation Vital Signs: Vital Signs Temp Pulse Resp BP Pulse Ox O2 Del Method 01/23/22 08:33 98.3 F 57 18 109/63 98 Room Air 01/23/22 03:38 98.8 F 65 18 113/65 100 Room Air 01/23/22 00:00 98.7 F 74 18 137/73 100 Room Air Anesthesia: General Endotracheal-GETA Mental Status: Awake Pain Control: Satisfactory Nausea/Vomiting: None Hydration: Adequate Anesthesia-Related Issues: No Anes. Related Issues
--- NOTE | 2022-01-23 10:15 | HE.PHANOTE ---
RE FENTANYL PER DR SQUIRES, 25 MCG PATCH PLUS 12 MCG PATCH FOR TOTAL 37 MCG
--- NOTE | 2022-01-23 10:21 | MHC.CLN ---
RE: CONSULT PT WITH NEW GTUBE-DISCUSSED CASE WITH DR SQUIRES RECOMMEND OSMOLITE 1.5 AT MAX GOAL RATE 60ML/HR AND 300ML FREE WATER FLUSHES Q 6 HRS TO PROVIDE 2160KCALS (27KCALS/KG), 90G PROTEIN (1.1G/KG), 2297ML TOTAL WATER FROM FORMULA AND FLUSHES (29ML/KG) START FORMULA AT 20ML/HR AND INCREASE BY 10ML Q 4 HRS UNTIL MAX GOAL IS ACHIEVED MONITOR TOLERANCE, RESIDUALS AND LYTES IF PT WISHES TO SWITCH TO BOLUS FEEDINGS UPON DISCHARGE; RECOMMEND OSMOLITE 1.5 6 CARTONS/DAY WITH 300ML FREE WATER FLSUHES Q 6 HRS TO PROVIDE 2130KCALS (27KCALS/KG), 89.4G PROTEIN (1.1G/KG), 2286ML TOTAL WATER FROM FORMULA AND FLUSHES (28.8ML/KG) SEE FULL CLINICAL NUTRITION ASSESSMENT
--- NOTE | 2022-01-23 10:26 | PM.GIPN ---
Subjective Subjective Date of Service: 01/23/22 Interval History: some discomfort with moving and coughing Critical Care Time (minutes): 0 Physical Exam Vital Signs: Vital Signs: Last Vital Signs Temp 98.3 F 01/23/22 08:33 Pulse 57 01/23/22 08:33 Resp 18 01/23/22 08:33 BP 109/63 01/23/22 08:33 Pulse Ox 98 01/23/22 08:33 O2 Del Method 01/23/22 08:33 O2 Flow Rate 15 01/22/22 18:04 FiO2 98 01/22/22 17:25 BMI result Body Mass Index 25.8 GI: Other: g tube site is intact abd is soft Objective Data Labs CBC & Chem 7: 01/23/22 05:51 Labs: Laboratory Results - last 24 hr 01/22/22 01/23/22 18:17 05:51 WBC 4.2 L RBC 3.97 L Hgb 12.3 L Hct 33.9 L MCV 85.4 MCH 31.0 MCHC 36.3 H RDW 11.8 Plt Count 183 MPV 9.3 L Absolute Nucleated RBC 0.000 Nucleated RBC % (auto) 0.0 COVID-19 (JAK) Negative COVID-19 Clin Com See Note Procedures Date of Service Date of Service: 01/23/22 Progress Note: A&P Assessment and plan (1) Odynophagia: Status: Acute Assessment and Plan: doing well after g tube placement explained that some discomfort at site is normal ok to use tube for feeds. Time Spent With Patient Time: Total time spent is greater than 50% in coordination of care (as documented) at patient's floor/unit and/or counseling patient: Quality Stroke Does the patient have a stroke diagnosis?: No VTE Prior VTE?: No VTE Risk Level:: Surgical - low VTE Device Contraindication: Treatment Not Indicated VTE Drug Contraindication: Treatment Not Indicated
[2022-01-23] MEDS: Lidocaine HCl Viscous 2 % 15 ML SOLUTION MUCOUS MEM ×2 (10:35→20:19)
[2022-01-23] MEDS: fentaNYL 12 MCG PATCH.TD72 TRANSDERMA (10:36)
[2022-01-23] MEDS: fentaNYL 25 MCG PATCH.TD72 TRANSDERMA (10:37)
--- NOTE | 2022-01-23 11:11 | HO.PM.IMPN ---
Subjective Subjective Date of Service: 01/24/22 Interval History: f/u PEG placement and now with intractable pain Review of Systems pain, no fever Physical Exam Vital Signs: Vital Signs: Last Vital Signs Temp 98.3 F 01/23/22 08:33 Pulse 57 01/23/22 08:33 Resp 18 01/23/22 08:33 BP 109/63 01/23/22 08:33 Pulse Ox 98 01/23/22 08:33 O2 Del Method 01/23/22 08:33 O2 Flow Rate 15 01/22/22 18:04 FiO2 98 01/22/22 17:25 BMI result Body Mass Index 25.8 Const: Other: General: AO X 3, no acute distress Resp: CTA bilateral CVS: S1,S2,RRR GI: +BS, NT, no distention Skin: No rash, PEG site ok Neuro: motor grossly intact Psych: appropriate affect Objective Data Active Medications Fentanyl (Fentanyl Citrate/Pf 100 Mcg/2 Ml Vial) 50 mcg IVPUSH Q5M PRN; Protocol PRN Reason: Pain, Severe (Pain Scale 7-10) Fentanyl (Fentanyl 12 Mcg Patch.Td72) 12 mcg TRANSDERMA Q72H [facility] Last Admin: 01/23/22 10:36 Dose: 12 mcg Documented By: ROHIT Comments: 12mcg patch removed from right upper arm witness Evelyn Barroso Fentanyl (Fentanyl 25 Mcg Patch.Td72) 25 mcg TRANSDERMA Q72H [facility] Last Admin: 01/23/22 10:37 Dose: 25 mcg Documented By: ROHIT Hydromorphone HCl (Hydromorphone Hcl 0.5 Mg/0.5 Ml Syringe) 0.5 mg IVPUSH Q4H PRN; Protocol PRN Reason: Breakthrough Pain Last Admin: 01/23/22 08:42 Dose: 0.5 mg Documented By: ROHIT Dextrose (D5w) 1,000 mls @ 125 mls/hr IVCONT .Q8H [facility] Last Admin: 01/23/22 10:30 Dose: Not Given Documented By: ROHIT Non-Admin Reason: IV Running Lidocaine HCl (Lidocaine Hcl Viscous 2 % 15 Ml Solution) 15 ml MUCOUS MEM QID [facility] Last Admin: 01/23/22 10:35 Dose: 15 ml Documented By: ROHIT Lorazepam (Lorazepam 2 Mg/Ml Vial) 1 mg IVPUSH Q4H PRN PRN Reason: Anxiety Last Admin: 01/22/22 23:59 Dose: 1 mg Documented By: HUMBLE Non-Formulary Medication (Glycopyrrolate) 1.7 mg PO QID [facility] Non-Formulary Medication (Hydromorphone) 2 mg PO Q4H PRN PRN Reason: pain, severe Non-Formulary Medication (Sodium Polystyrene Sulfonate) 15 gm PO BID [facility] Ondansetron HCl (Ondansetron Hcl 4 Mg/2 Ml Vial) 4 mg IVPUSH ONCE PRN PRN Reason: Nausea and Vomiting Pantoprazole Sodium (Pantoprazole Sodium 40 Mg/10 Ml Vial) 40 mg IVPUSH DAILY@0630 [facility] Last Admin: 01/23/22 05:34 Dose: 40 mg Documented By: HUMBLE Labs CBC & Chem 7: 01/23/22 05:51 Labs: Laboratory Results - last 24 hr 01/22/22 01/23/22 18:17 05:51 MCV 85.4 MCH 31.0 MCHC 36.3 H RDW 11.8 Plt Count 183 MPV 9.3 L Absolute Nucleated RBC 0.000 Nucleated RBC % (auto) 0.0 COVID-19 (JAK) Negative COVID-19 Clin Com See Note Assessment and Plan (1) Odynophagia: Status: Acute Plan SC of the neck causing odynophagia--s/p PEG, tube feed started, Pain management with dilaudid, fentanyl patch, outpatient follow up with oncology Quality Stroke Does the patient have a stroke diagnosis?: No VTE Prior VTE?: No VTE Risk Level:: Medical - moderate - high VTE Device Contraindication: Treatment Not Tolerated VTE Drug Contraindication: N/A - Med Ordered
[2022-01-23] MEDS: HYDROmorphone HCl 1 MG/ML SYRINGE IVPUSH (12:32)
--- NOTE | 2022-01-23 13:07 | MHC.CM.PN ---
Addendum entered by Kari Medina RN 01/23/22 14:59: [facility] does not take patient's insurance. Referral sent to [facility] for Tubefeeds Addendum entered by Kari Medina RN 01/23/22 13:52: [facility] not able to accept patient because he is not an established patient with Dr. Foote. Clarified with patient, who reports he was assigned Dr. Foote by his insurance, but has not seen him yet. He was agreeable to appointment; scheduled new patient appointment for February 10 at 2:15pm. provided patient with appointment information and added it to his DC Plan. Original Note: Met [facility] patient to discuss dc planning.He lives with his mother and is independent ADLs. Dewayne Foote. He is new GI tube and receiving tube feeds. PCP . He is agreeable with [facility] and chose [facility]. He is agreeable to referral to [facility] for Tube feeds and equipment. Singh also requested having suction at home with praveena. He reports it has been beneficial for him while here. Messaged Dr. Zamora and she is agreeable with referral for intermittent suction with praveena at home and agreeable to completing any paperwork needed from vendor. Educated Singh on HCP and provided him with written form and instructions. He wants to read form before deciding whether to complete HCP. CM to readdress with patient. Referrals sent to [facility], [facility], and [facility].
[2022-01-23] MEDS: LORazepam 2 MG/ML VIAL 1 MG IVPUSH (22:51)
[2022-01-24] MEDS: Dextrose 5 % 1,000 ML 125 ML IVCONT ×2 (04:07→11:54)
[2022-01-24] MEDS: HYDROmorphone HCl 0.5 MG/0.5 ML SYRINGE IVPUSH ×2 (05:01→09:23)
[2022-01-24] MEDS: LORazepam 2 MG/ML VIAL 1 MG IVPUSH ×3 (05:05→21:21)
[2022-01-24] MEDS: Pantoprazole Sodium 40 MG/10 ML VIAL IVPUSH (05:06)
[2022-01-24 08:00] VITALS: BP 101/64; PULSE 70; RESP 18; TEMP 37.1
[2022-01-24] MEDS: Lidocaine HCl Viscous 2 % 15 ML SOLUTION MUCOUS MEM ×2 (08:55→20:16)
--- NOTE | 2022-01-24 11:04 | MHC.CLN ---
F/U OSMOLITE 1.5 TUBE FEEDING RUNNING AT MAX GOAL RATE 60 ML/HOUR. TUBE FEED PROVIDES: OSMOLITE 1.5 AT 60 ML PER HOUR AND 300 ML FREE WATER FLUSHES Q 6 HOURS PROVIDES 2160KCALS (27KCALS/KG), 90G PROTEIN (1.1G/KG), 2297ML TOTAL WATER FROM FORMULA AND FLUSHES (29ML/KG). MONITOR TOLERANCE, RESIDUALS AND LYTES. IF PT WISHES TO SWITCH TO BOLUS FEEDINGS UPON DISCHARGE; RECOMMEND OSMOLITE 1.5 6 CARTONS/DAY WITH 300ML FREE WATER FLUSHES Q 6 HRS TO PROVIDE 2130KCALS (27KCALS/KG), 89.4G PROTEIN (1.1G/KG), 2286ML TOTAL WATER FROM FORMULA AND FLUSHES (28.8ML/KG). APPEARS TO BE TOLERATING CURRENT TUBE FEEDING. MONITOR TOLERANCE, RESIDUALS AND LYTES.
--- NOTE | 2022-01-24 14:23 | MHC.CM.PN ---
Addendum entered by Juli Booth 01/24/22 14:28: PT WILL DC TOMORROW MORNING [facility] WILL DELIVER EARLY TOMORROW AFTERNOON Original Note: PT REPORTS HE WILL BE STAYING WITH HIS MOTHER AT [address] [place] [id number] [place]. HE IS AWARE [facility] WILL BE DELIVERING HIS TUBE FEED/SUPPLIES HE REPORTS HE WOULD PREFER TO BE ON THE PUMP RATHER THAN THE BOLUS FEEDS ORDERS SENT TO [facility] WHO HAVE INDICATED THEY COULD DELIVER TOMORROW
[2022-01-24 15:58] VITALS: BP 119/74; PULSE 65; RESP 17; TEMP 37.1; O2SAT 97
[2022-01-25] VITALS: BP 115/60; PULSE 65; RESP 18; TEMP 37.3; O2SAT 97
[2022-01-25] MEDS: HYDROmorphone HCl 0.5 MG/0.5 ML SYRINGE IVPUSH (02:09)
[2022-01-25] MEDS: LORazepam 2 MG/ML VIAL 1 MG IVPUSH ×5 (02:15→23:36)
[2022-01-25] MEDS: Pantoprazole Sodium 40 MG/10 ML VIAL IVPUSH (05:40)
[2022-01-25] MEDS: Enoxaparin Sodium 40 MG/0.4 ML SYRINGE SUBCUT (07:29)
[2022-01-25] MEDS: Lidocaine HCl Viscous 2 % 15 ML SOLUTION MUCOUS MEM ×3 (07:29→17:48)
[2022-01-25 08:00] VITALS: BP 103/66; PULSE 78; TEMP 36.8; O2SAT 95
--- NOTE | 2022-01-25 08:46 | P.PNIM_ITS ---
Subjective Subjective Date of Service: 01/25/22 Interval History: f/u PEG placement, pain is better Review of Systems pain, no fever Physical Exam Vital Signs: Vital Signs: Last Vital Signs Temp 99.2 F 01/25/22 00:00 Pulse 65 01/25/22 00:00 Resp 18 01/25/22 00:00 BP 115/60 01/25/22 00:00 Pulse Ox 97 01/25/22 00:00 O2 Del Method 01/25/22 00:00 O2 Flow Rate 96 01/23/22 23:58 FiO2 98 01/22/22 17:25 BMI result Body Mass Index 25.8 Const: Other: General: AO X 3, no acute distress Resp: CTA bilateral CVS: S1,S2,RRR GI: +BS, NT, no distention Skin: No rash, PEG site ok Neuro: motor grossly intact Psych: appropriate affect Objective Data Active Medications Enoxaparin Sodium (Enoxaparin Sodium 40 Mg/0.4 Ml Syringe) 40 mg SUBCUT Q24H [facility] Last Admin: 01/25/22 07:29 Dose: 40 mg Documented By: IJEOMA Fentanyl (Fentanyl 50 Mcg Patch.Td72) 50 mcg TRANSDERMA Q72H [facility] Hydromorphone HCl (Hydromorphone Hcl 4 Mg Tablet) 5 mg G-TUBE Q4H PRN PRN Reason: Pain, Severe (Pain Scale 7-10) Lidocaine HCl (Lidocaine Hcl Viscous 2 % 15 Ml Solution) 15 ml MUCOUS MEM QID [facility] Last Admin: 01/25/22 07:29 Dose: 15 ml Documented By: IJEOMA Lorazepam (Lorazepam 2 Mg/Ml Vial) 1 mg IVPUSH Q4H PRN PRN Reason: Anxiety Last Admin: 01/25/22 07:30 Dose: 1 mg Documented By: IJEOMA Non-Formulary Medication (Glycopyrrolate) 1.7 mg PO QID [facility] Non-Formulary Medication (Hydromorphone) 2 mg PO Q4H PRN PRN Reason: pain, severe Non-Formulary Medication (Sodium Polystyrene Sulfonate) 15 gm PO BID [facility] Ondansetron HCl (Ondansetron Hcl 4 Mg/2 Ml Vial) 4 mg IVPUSH ONCE PRN PRN Reason: Nausea and Vomiting Pantoprazole Sodium (Pantoprazole Sodium 40 Mg/10 Ml Vial) 40 mg IVPUSH CAIN LY@0630 [facility] Last Admin: 01/25/22 05:40 Dose: 40 mg Documented By: MAGDIEL Labs CBC & Chem 7: 01/23/22 05:51 Assessment and Plan (1) Odynophagia: Status: Acute Plan SC of the neck causing odynophagia--s/p PEG, tube feed started and tolerating, Pain management with dilaudid, fentanyl patch, outpatient follow up with oncology--> increase Fentanyl to 50 and Dilaudid 5 mg PO Q4 ..Try to get home today baring any barier for tube feed at home Quality Stroke Does the patient have a stroke diagnosis?: No VTE Prior VTE?: No VTE Risk Level:: Medical - moderate - high VTE Device Contraindication: Treatment Not Tolerated VTE Drug Contraindication: N/A - Med Ordered
[2022-01-25] MEDS: HYDROmorphone HCl 2 MG TABLET 5 MG G-TUBE ×4 (10:31→23:39)
[2022-01-25] MEDS: fentaNYL 50 MCG PATCH.TD72 TRANSDERMA (10:32)
--- NOTE | 2022-01-25 10:48 | PC.NURSE ---
wASTED 12MCG AND 25MCG PATCHES. nEW PAT 50mcg applied to right upper arm
--- NOTE | 2022-01-25 12:29 | MHC.CM.PN ---
cm spoke w/[facility] liaison Chery at 12:20pm, Chery confirmed [facility] will not be able to deliver pump/supplies/feed until Thursday d/t needing to clarify orders after hours yesterday. Plan will be for d/c Thursday when delivery can take place. Cm will cont to follow d/c needs.
[2022-01-25 15:57] VITALS: BP 108/72; PULSE 76; RESP 18; TEMP 36.4; O2SAT 97
[2022-01-26] VITALS: BP 106/77; PULSE 91; RESP 18; TEMP 36.4; O2SAT 97
[2022-01-26] MEDS: HYDROmorphone HCl 2 MG TABLET 5 MG G-TUBE ×2 (04:26→08:34)
[2022-01-26] MEDS: LORazepam 2 MG/ML VIAL 1 MG IVPUSH ×4 (04:28→21:32)
[2022-01-26 07:41] VITALS: BP 127/76; PULSE 75; RESP 16; TEMP 37.2; O2SAT 92
[2022-01-26] MEDS: Lidocaine HCl Viscous 2 % 15 ML SOLUTION MUCOUS MEM ×4 (08:34→21:32)
[2022-01-26] MEDS: Enoxaparin Sodium 40 MG/0.4 ML SYRINGE SUBCUT (08:34)
--- NOTE | 2022-01-26 10:29 | HO.PM.IMPN ---
Subjective Subjective Date of Service: 01/26/22 Interval History: f/u PEG placement, pain is betty controlled Review of Systems pain, no fever Physical Exam Vital Signs: Vital Signs: Last Vital Signs Temp 98.9 F 01/26/22 07:41 Pulse 75 01/26/22 07:41 Resp 16 01/26/22 07:41 BP 127/76 01/26/22 07:41 Pulse Ox 92 01/26/22 07:41 O2 Del Method 01/26/22 07:41 O2 Flow Rate 96 01/23/22 23:58 FiO2 98 01/22/22 17:25 BMI result Body Mass Index 25.8 Const: Other: General: AO X 3, no acute distress Resp: CTA bilateral CVS: S1,S2,RRR GI: +BS, NT, no distention Skin: No rash, PEG site ok Neuro: motor grossly intact Psych: appropriate affect GI: Other: g tube site is intact abd is soft Objective Data Active Medications Enoxaparin Sodium (Enoxaparin Sodium 40 Mg/0.4 Ml Syringe) 40 mg SUBCUT Q24H [facility] Last Admin: 01/26/22 08:34 Dose: 40 mg Documented By: IJEOMA Fentanyl (Fentanyl 50 Mcg Patch.Td72) 50 mcg TRANSDERMA Q72H [facility] Last Admin: 01/25/22 10:32 Dose: 50 mcg Documented By: IJEOMA Hydromorphone HCl (Hydromorphone Hcl 2 Mg Tablet) 5 mg G-TUBE Q4H PRN PRN Reason: Pain, Severe (Pain Scale 7-10) Last Admin: 01/26/22 08:34 Dose: 5 mg Documented By: IJEOMA Lidocaine HCl (Lidocaine Hcl Viscous 2 % 15 Ml Solution) 15 ml MUCOUS MEM QID [facility] Last Admin: 01/26/22 08:34 Dose: 15 ml Documented By: IJEOMA Lorazepam (Lorazepam 2 Mg/Ml Vial) 1 mg IVPUSH Q4H PRN PRN Reason: Anxiety Last Admin: 01/26/22 04:28 Dose: 1 mg Documented By: MORRINL Non-Formulary Medication (Glycopyrrolate) 1.7 mg PO QID [facility] Non-Formulary Medication (Hydromorphone) 2 mg PO Q4H PRN PRN Reason: pain, severe Non-Formulary Medication (Sodium Polystyrene Sulfonate) 15 gm PO BID [facility] Ondansetron HCl (Ondansetron Hcl 4 Mg/2 Ml Vial) 4 mg IVPUSH ONCE PRN PRN Reason: Nausea and Vomiting Labs CBC & Chem 7: 01/23/22 05:51 Assessment and Plan (1) Odynophagia: Status: Acute Plan SC of the neck causing odynophagia--s/p PEG, tube feed started and tolerating, Pain management with dilaudid, fentanyl patch, outpatient follow up with oncology--> increase Fentanyl to 50 and increase Dilaudid to 6 mg PO Q4 ..Try to get home today baring any barier for tube feed at home anticipated dc tomorrow, tube feed material cannot be delivered until tomorrow Quality Stroke Does the patient have a stroke diagnosis?: No VTE Prior VTE?: No VTE Risk Level:: Medical - moderate - high VTE Device Contraindication: Treatment Not Tolerated VTE Drug Contraindication: N/A - Med Ordered
[2022-01-26] MEDS: Lactated Ringers 1,000 ML 125 ML IVCONT (13:28)
[2022-01-26] MEDS: HYDROmorphone HCl 2 MG TABLET 6 MG G-TUBE ×3 (13:29→21:31)
[2022-01-26 16:00] VITALS: BP 108/64; PULSE 76; RESP 14; TEMP 36.4; O2SAT 96
[2022-01-26 23:59] VITALS: BP 116/70; PULSE 74; RESP 16; TEMP 37.4; O2SAT 95
[2022-01-27] MEDS: LORazepam 2 MG/ML VIAL 1 MG IVPUSH ×3 (01:21→10:14)
[2022-01-27] MEDS: HYDROmorphone HCl 2 MG TABLET 6 MG G-TUBE ×4 (01:22→15:55)
[2022-01-27] MEDS: Lactated Ringers 1,000 ML 125 ML IVCONT ×2 (05:54→06:02)
[2022-01-27] MEDS: Magnesium Hydrox/Alum Hydrox 30 ML ORAL.SUSP PO (05:55)
[2022-01-27 07:49] VITALS: BP 115/72; PULSE 67; RESP 18; TEMP 36.9; O2SAT 95
[2022-01-27] MEDS: Enoxaparin Sodium 40 MG/0.4 ML SYRINGE SUBCUT (07:49)
[2022-01-27] MEDS: Lidocaine HCl Viscous 2 % 15 ML SOLUTION MUCOUS MEM (07:49)
--- NOTE | 2022-01-27 10:40 | HO.PM.IMPN ---
Subjective Subjective Date of Service: 01/27/22 Interval History: f/u PEG placement, pain is betty, some soreness in throat Review of Systems pain, no fever Physical Exam Vital Signs: Vital Signs: Last Vital Signs Temp 98.4 F 01/27/22 07:49 Pulse 67 01/27/22 07:49 Resp 18 01/27/22 07:49 BP 115/72 01/27/22 07:49 Pulse Ox 95 01/27/22 07:49 O2 Del Method 01/27/22 07:49 O2 Flow Rate 96 01/23/22 23:58 FiO2 98 01/22/22 17:25 BMI result Body Mass Index 25.8 Const: Other: General: AO X 3, no acute distress Resp: CTA bilateral CVS: S1,S2,RRR GI: +BS, NT, no distention Skin: No rash, PEG site ok Neuro: motor grossly intact Psych: appropriate affect Objective Data Active Medications Enoxaparin Sodium (Enoxaparin Sodium 40 Mg/0.4 Ml Syringe) 40 mg SUBCUT Q24H [facility] Last Admin: 01/27/22 07:49 Dose: 40 mg Documented By: JAYMIEEMA Fentanyl (Fentanyl 50 Mcg Patch.Td72) 50 mcg TRANSDERMA Q72H [facility] Last Admin: 01/25/22 10:32 Dose: 50 mcg Documented By: NGENOAL Hydromorphone HCl (Hydromorphone Hcl 2 Mg Tablet) 6 mg G-TUBE Q4H PRN PRN Reason: Pain, Severe (Pain Scale 7-10) Last Admin: 01/27/22 10:08 Dose: 6 mg Documented By: JAYMIEEMA Lactated Ringer's (Lr) 1,000 mls @ 125 mls/hr IVCONT .Q8H [facility] Last Admin: 01/27/22 06:02 Dose: 125 mls/hr Documented By: JESSICA Lidocaine HCl (Lidocaine Hcl Viscous 2 % 15 Ml Solution) 15 ml MUCOUS MEM QID [facility] Last Admin: 01/27/22 07:49 Dose: 15 ml Documented By: CASTRO Lorazepam (Lorazepam 2 Mg/Ml Vial) 1 mg IVPUSH Q4H PRN PRN Reason: Anxiety Last Admin: 01/27/22 10:14 Dose: 1 mg Documented By: JAYMIEEMA Magnesium Hydroxide (Milk Of Magnesia 30 Ml Oral.Susp) 30 ml G-TUBE DAILY PRN PRN Reason: Constipation Non-Formulary Medication (Glycopyrrolate) 1.7 mg PO QID [facility] Non-Formulary Medication (Hydromorphone) 2 mg PO Q4H PRN PRN Reason: pain, severe Non-Formulary Medication (Sodium Polystyrene Sulfonate) 15 gm PO BID [facility] Omeprazole (Omeprazole 20 Mg/10 Ml Susp.Recon) 40 mg PO DAILY@0630 [facility] Ondansetron HCl (Ondansetron Hcl 4 Mg/2 Ml Vial) 4 mg IVPUSH ONCE PRN PRN Reason: Nausea and Vomiting Labs CBC & Chem 7: 01/23/22 05:51 Assessment and Plan (1) Odynophagia: Status: Acute Plan SC of the neck causing odynophagia--s/p PEG, tube feed started and tolerating, Pain management with dilaudid, fentanyl patch, outpatient follow up with oncology--> increase Fentanyl to 50 and increase Dilaudid to 6 mg PO Q4 Prilosec for GERD..Try to get home today baring any barier for tube feed at home anticipated dc today, Quality Stroke Does the patient have a stroke diagnosis?: No VTE Prior VTE?: No VTE Risk Level:: Medical - moderate - high VTE Device Contraindication: Treatment Not Tolerated VTE Drug Contraindication: N/A - Med Ordered
--- NOTE | 2022-01-27 11:49 | MHC.CM.PN ---
CM MET W/PT TO VERIFY INSURANCE, ADDRESS AND CC IN CASE [facility] IS NOT RETURNED, PT'S FIANCE WAS WITH PT AT BEDSIDE AND ASSISTED W/GETTING INFORMATION, PT ASKING ABOUT SUCTION MACHINE AND CM NOTIFIED [facility]ORY WHO WILL CHECK W/[facility] TO SEE IF INSURANCE WILL AUTH. PER RESPIRATORY WOULD BE ABLE TO SET UP FOR D/C TODAY IF APPROVED.
--- NOTE | 2022-01-27 13:12 | MHC.CLN ---
F/U OSMOLITE 1.5 TUBE FEEDING RUNNING AT MAX GOAL RATE 60 ML/HOUR. TUBE FEED PROVIDES: OSMOLITE 1.5 AT 60 ML PER HOUR AND 300 ML FREE WATER FLUSHES Q 6 HOURS PROVIDES 2160KCALS (27KCALS/KG), 90G PROTEIN (1.1G/KG), 2297ML TOTAL WATER FROM FORMULA AND FLUSHES (29ML/KG). MONITOR TOLERANCE, RESIDUALS AND LYTES. IF PT WISHES TO SWITCH TO BOLUS FEEDINGS UPON DISCHARGE; RECOMMEND OSMOLITE 1.5 6 CARTONS/DAY WITH 300ML FREE WATER FLUSHES Q 6 HRS TO PROVIDE 2130KCALS (27KCALS/KG), 89.4G PROTEIN (1.1G/KG), 2286ML TOTAL WATER FROM FORMULA AND FLUSHES (28.8ML/KG). PROVIDED PATIENT WITH 6 CASES OF DONATED OSMOLITE 1.5 IN CARTONS FOR HOME USE IF DESIRED. APPEARS TO BE TOLERATING CURRENT TUBE FEEDING. MONITOR TOLERANCE, RESIDUALS AND LYTES.
--- NOTE | 2022-01-27 15:28 | PM.DS ---
DS: Providers Provider Date of Service: 01/27/22 Date of admission: 01/23/22 15:14 Primary care physician: Dewayne Foote MD DS: Diagnosis Discharge Diagnosis (1) Odynophagia: Status: Acute DS: Summary Hospital Course Hospital Course: Chief Complaint: Dysphagia and Odynophagia P 51-year-old man, who was admitted for G-tube placement. He has a history of squamous cell carcinoma of the neck and is undergoing chemoradiation in preparation for possible surgery.?? He has been having lots of pain in the neck and is not able? eat and therefore a PEG was arranged. I saw him just after surgery and is rather sedated and not able to offer much history but is hemodynamicall stable. Hospital course: Patient had a PEG placed and started tube feed the next day. He has been having excruciating pain and Fentanyl dose has been titrated up to 50 mcg every 72 hours, and dilaudid has been titrated up to 6 mg every 4 hours with much better pain control.. His respiratory status is stable with respiration rate around 18 and normal blood pressures. To follow up with oncology for further management. Arrangement has been made to get ube feed at home. Time Spent with Patient Time attestation: Total time spent providing and/or coordinating discharge services: Discharge coordination time: Greater than 30 minutes Quality: Safe Use of Opioids Does Pt have an Active Cancer Diagnosis on the Problem List?: No Quality: Stroke Does the patient have a stroke diagnosis?: No Physical Exam Vital Signs: Vital Signs: Last Vital Signs Temp 98.4 F 01/27/22 07:49 Pulse 67 01/27/22 07:49 Resp 18 01/27/22 07:49 BP 115/72 01/27/22 07:49 Pulse Ox 95 01/27/22 07:49 O2 Del Method 01/27/22 07:49 O2 Flow Rate 96 01/23/22 23:58 FiO2 98 01/22/22 17:25 BMI result Body Mass Index 25.8 Const: Other: General: AO X 3, no acute distress Resp: CTA bilateral CVS: S1,S2,RRR GI: +BS, NT, no distention Skin: No rash Neuro: motor grossly intact Psych: appropriate affect DS: Data Data Completed and Pending Completed studies during hospitalization [Text1]: Pending at discharge 01/22/22 16:26 Surgical [PTH] Routine Discharge Plan Discharge Anticipated Discharge Date/Time: 01/27/22 15:24 Patient Disposition: Home Health Service Discharge Diagnosis: Dysphagia Referrals: [facility] [Other] - 1 Day ([facility] FOR DELIVERY OF TUBE FEED AND SUPPLIES, DELIVERY WILL ARRIVE TODAY 01/25. ) [facility] [Other] - 1 Day (SUCTION SUPPLIES AND MACHINE, PLEASE CALL SOON YO GET HOME FOR DELIVERY) Dewayne Foote MD [Primary Care Provider] - 02/10/22 2:15 pm Discharge Medications: New scopolamine base 1 mg over 3 days Patch 3 Day 1 patch TRANSDERMAL Q3D Qty: 10 3RF fentanyl 50 mcg/hr Patch 72 Hour 50 mcg transdermal Q72H Qty: 12 0RF Rx Instructions: Partial Fill upon patient request. hydromorphone 2 mg Tablet 6 mg G-tube Q4H PRN (Reason: Pain, Severe (Pain Scale 7-10)) Qty: 240 0RF Rx Instructions: Partial Fill upon patient request. Continued ondansetron 8 mg Tablet,Disintegrating 8 mg PO Q8H Qty: 50 4RF sodium polystyrene sulfonate Powder 15 g PO BID Qty: 453.6 3RF lidocaine HCl [Lidocaine Viscous] 2 % Solution 1 appl MUCOUS MEMBRANE QID Qty: 300 4RF Prilosec 10 mg Susp,Delayed Release For Recon 20 mg PO DAILY Qty: 300 4RF glycopyrrolate 1.7 mg Tablet,Disintegrating 1.7 mg PO QID Qty: 100 4RF Rx Instructions: administer on an empty stomach, at least 1 hour before or 2 hours after food/meal(s) lansoprazole [Prevacid] 30 mg Capsule,Delayed Release(Dr/Ec) 30 mg PO DAILY Qty: 30 3RF Discontinued fentanyl 12 mcg/hr Patch 72 Hour 1 patch TRANSDERMAL Q72H Qty: 3 0RF Rx Instructions: Partial Fill upon patient request. hydromorphone 1 mg/mL liquid 2 mg PO Q4H PRN (Reason: pain, severe) Qty: 60 0RF Rx Instructions: Partial Fill upon patient request. Discharge Orders: Discharge Order (Routine); Ordered 01/27/22 Ordered By: Nilesh Kaplan Diet: advance to usual diet Activity on Discharge: As tolerated Stand Alone Forms: Patient Portal Discharge page Care Plan Goals: improve pain control and nutrition Health Concerns: Head and neck cancer Plan of Treatment: Tube feed as directed Pain control with Dilaudid and Fentanyl stricly as prescribed Follow up with Dr. Zamora Assessment: As follow
--- NOTE | 2022-01-27 15:47 | MHC.CM.PN ---
PT DISCHARGING W/[facility] FOR GTUBE SUPPLIES/FEED AND [facility] FOR SUCTION MACHINE AND SUPPLIES, PT'S FIANCE FOR TRANSPORT
--- NOTE | 2022-01-31 10:52 | MHC.HEMONC ---
Pt called to say that he still feels badly . He is nauseous, not reuben tube feedings, not sleeping and aching all over . He is too fatigued to crush pills and wants all liquid medicine . I told him most important thing besides his pain control is to get calories into him. I told him I would speak to Carolyn PUGH at [facility] as he has appt with him there later in afternoon and she can evaluate him then. She will review crushing of meds. She will reach out to me with any concerns.
== END 2022-01-27 16:56 | disposition home health service (06) | DRG 815 ==
LOC: HO.SSS 15:14 → HO.S3 15:14
PROVIDERS: Internal Medicine Gastroenterology; Admitting Provider Internal Medicine; PCP Internal Medicine; Visit Provider Internal Medicine
PROC: 0DJ08ZZ Inspection of Upper Intestinal Tract, Via Natural or Artificial Opening Endoscopic (ICD-10-PCS; CPT 43235; principal; 2022-01-22 14:20)
DX: T66.XXXA Radiation sickness, unspecified, initial encounter (principal); R13.10 Dysphagia, unspecified; C44.42 Squamous cell carcinoma of skin of scalp and neck; G89.3 Neoplasm related pain (acute) (chronic); Z20.822 Contact with and (suspected) exposure to COVID-19; Z79.899 Other long term (current) drug therapy
CPT/HCPCS: 43246; 36415; 85027; 87635; 88305; 88342; J0690; J1100; J1170; J1650; J2060; J2250; J2405; J3010

== ENCOUNTER → 2022-02-14 11:39 | Day surgery (SDC) | payer OTHER, SELFPAY ==
[2022-02-14] VITALS (19 sets, daily range): BP systolic 98–111; BP diastolic 57–75; PULSE 12–83; RESP 10–16; TEMP 36.4–36.9; O2SAT 94–100; BMI 22.9
--- NOTE | ~2022-02-14 | IR_ITS ---
PROCEDURE: IR INSERTION OF TUNNEL CATHETER CLINICAL INFORMATION: Head and neck cancer for chemotherapy. COMPARISON: None. TECHNIQUE: Procedure risks and benefits including bleeding, infection and pneumothorax were discussed with the patient and informed consent was obtained. All elements of maximal sterile barrier technique followed including use of cap, mask, sterile gown, sterile gloves, a sterile full body drape and hand hygiene. Also followed skin preparation with 2% chlorhexidine for cutaneous antisepsis, and sterile ultrasound preparation with sterile gel and probe cover when applicable. The right neck and upper chest were prepped and draped in usual sterile fashion. Skin and soft tissues of the right lower neck were anesthetized with 1% lidocaine. A small incision was made. Using ultrasound guidance and a 5 Tongan micropuncture system, right internal jugular vein access was obtained. Over an 018 wire, a 5 Tongan dilator was positioned in the SVC. The skin and soft tissues of the right upper anterior chest were anesthetized with 1% lidocaine with epinephrine. A small incision was made. Using blunt dissection, subcutaneous pocket was created. A subcutaneous tunnel from the chest incision was anesthetized with 1% lidocaine with epinephrine. Using a tunneler, a 6.6 Tongan single lumen catheter was tunneled from the chest to the neck incision. The catheter was attached to the port. The port was positioned in the subcutaneous pocket and secured using 220 nonabsorbable sutures. An 035 guidewire was advanced through the 5 Tongan dilator into the IVC. 5 Tongan dilator was exchanged for a 7 Tongan peel-away sheath. Using bent wire technique, catheter length was estimated and the catheter was cut. Catheter length is 23 cm. The catheter was fed through the peel-away sheath. The neck incision was closed using a 4-0 absorbable subcuticular suture. The chest was closed using 330 absorbable interrupted sutures followed by a running 4-0 absorbable subcuticular suture. The port was accessed. The port had good blood return, flushed easily with 5 mL 100 unit per mL heparin solution. Real-time ultrasound guidance was used to document vein patency. A formal ultrasound picture was recorded. Fluoroscopy time 0.3 minutes. DAP 218CT 1/sq cm. 1 saved fluoroscopic image and one saved ultrasound image. Patient received Versed 2 mg and fentanyl 100 mcg intravenously during the procedure and Kefzol 2 g IV. Conscious sedation was provided by the registered nurse under my direct supervision. Total sedation time was 42 minutes. FINDINGS: There is a right internal jugular Port-A-Cath with tip projecting over the SVC. IR/IR cvc insert tunnel w prt/sales account leader IMPRESSION: Right internal jugular 6.6 Tongan single-lumen dignity Port-A-Cath placement.
[2022-02-14 12:26] LABS: INTERNATIONAL NORM RATIO 1.1 (0.9-1.1)
[2022-02-14 12:29] LABS: Partial Thromboplastin Time 32.3 SEC (24.1-38.0)
[2022-02-14] MEDS: Lidocaine HCl 1 % MPF 5 ML VIAL SUBCUT (14:10)
--- NOTE | 2022-02-14 14:44 | HO.RADPN ---
RADIOLOGY Narrative Narrative: RIJ 6.6 fr Dignity port placed. Tip at cavoatrial junction.
[2022-02-14] MEDS: HYDROmorphone HCl 2 MG/ML VIAL IVPUSH (15:35)
--- NOTE | 2022-02-14 21:28 | PHA.MEDREC ---
Pharmacy Consult ? Medication Reconciliation Pharmacy has completed the medication reconciliation.
== END ==
PROVIDERS: Radiology Diagnostic Radiology; PCP Internal Medicine; Visit Provider Radiology Diagnostic Radiology
DX: Z45.2 Encounter for adjustment and management of vascular access device (principal); C77.0 Secondary and unspecified malignant neoplasm of lymph nodes of head, face and neck; C76.0 Malignant neoplasm of head, face and neck
CPT/HCPCS: 36415; 36561; 70450; 74176; 80053; 85025; 85610; 85730; 93005; 96361; 96374; 96375; 99152; 99153; 99284; C1769; C1788; J0690; J1170; J1642; J2250; J2405; J2765; J3010

== ENCOUNTER 2022-02-14 19:46 | Emergency (ER) | payer OTHER, SELFPAY ==
--- NOTE | ~2022-02-14 | CT_ITS ---
EXAMINATION: CT HEAD WITHOUT CONTRAST CLINICAL INFORMATION: Dizziness. COMPARISON: None. TECHNIQUE: Contiguous axial imaging was performed from the skull base to vertex without intravenous administration of contrast. Coronal and sagittal reformatted images are performed at the CT scanner. [This CT examination was performed using dose optimization techniques as appropriate, variously including the following: *Automated exposure control *Adjustment of mA and/or kV according to patient size (this includes techniques or standardized protocols for targeted exams where dose is matched to indication/reason for exam; i.e. extremities or head) *Use of iterative reconstruction technique] DLP: 702.57+5.12 mGy-cm. FINDINGS: There is no evidence of acute intracranial hemorrhage or territorial infarction. No abnormal mass-effect or midline shift is seen. Fernandez to white matter differentiation is well preserved. No extra-axial fluid collections are identified. The ventricles are normal in size. There is no abnormal attenuation within the brain parenchyma. There is no osseous abnormality. The mastoid air cells and visualized portions of the paranasal sinuses are well-aerated. CT/CT head/brain wo con IMPRESSION: No acute intracranial pathology.
--- NOTE | ~2022-02-14 | CT_ITS ---
EXAMINATION: CT ABDOMEN AND PELVIS WITHOUT CONTRAST CLINICAL INFORMATION: Rule out free air COMPARISON: None TECHNIQUE: Multidetector volumetric imaging was performed from the superior aspect of the liver through the pubic symphysis. Sagittal and coronal reformatted images were obtained on the technologist's workstation. This CT examination was performed using dose optimization techniques as appropriate, variously including the following: *Automated exposure control *Adjustment of mA and/or kV according to patient size (this includes techniques or standardized protocols for targeted exams where dose is matched to indication/reason for exam; i.e. extremities or head) *Use of iterative reconstruction technique DLP: 601 mGy-cm FINDINGS: LUNG BASES: Minimal dependent bibasilar atelectasis. LIVER, GALLBLADDER, AND BILIARY TREE: 1 cm low-density cyst in the lateral segment left liver lobe. Subcentimeter hypodense probable cyst in the peripheral posterior segment right liver lobe, too small to characterize. Normal liver attenuation. No biliary ductal dilation. The gallbladder is unremarkable with no evidence of radiopaque gallstones, gallbladder wall thickening, or obvious pericholecystic inflammatory changes. PANCREAS: Unremarkable. SPLEEN: Size. No splenic lesion. 1.6 cm splenule noted. ADRENAL GLANDS: Unremarkable. KIDNEYS AND URETERS: 3.9 cm right upper pole renal cyst, simple in appearance. No other renal lesions. No hydronephrosis. No radiodense renal calculi. No perinephric stranding or collections. BLADDER: Unremarkable. GASTROINTESTINAL TRACT: Percutaneous G-tube appropriately positioned in the lower body of the stomach. No dilated bowel loops. No bowel wall thickening. Normal appendix. No ascites. No intra-abdominal free air. ABDOMINAL WALL: No significant hernia is appreciated. LYMPH NODES: No lymphadenopathy. VASCULAR: Unremarkable. PELVIC VISCERA: Unremarkable. OSSEOUS STRUCTURES: No acute fracture or suspicious osseous lesion. CT/CT abdomen pelvis wo con IMPRESSION: 1. No evidence of intra-abdominal free air or other acute intra-abdominal process.
[2022-02-14 19:48] VITALS: BP 109/64; PULSE 63; RESP 18; TEMP 36.4; O2SAT 100; BMI 22.9
--- NOTE | 2022-02-14 20:18 | ED_ITS ---
HPI - General Adult General Chief complaint: General Medical Stated complaint: arrived from PACU Time Seen by Provider: 02/14/22 20:05 Source: patient Mode of arrival: ambulatory Limitations: no limitations History of Present Illness HPI narrative: This is a 51 years old male with history of the head and neck cancer, he was sent here by a the PACU because nausea and vomiting, the patient received today of Port-A-Cath by the IR service in was sent to PACU where he continued to vomit. Onset (ago): hour(s) (4) Radiation: non-radiation Severity: moderate Relieving factors: none Exacerbating factors: none Related Data Home Medications Medication Instructions Recorded Confirmed sucralfate 100 mg/mL oral 10 ml PO QID 02/11/22 02/14/22 suspension scopolamine base 1 mg over 3 days 1 patch transdermal Q3D 02/14/22 02/14/22 transdermal patch Previous Rx's Medication Instructions Recorded ondansetron 8 mg disintegrating 8 mg PO Q8H #50 tabs 12/10/21 tablet lansoprazole 30 mg capsule,delayed 30 mg PO DAILY #30 caps 01/24/22 release (Prevacid) fentanyl 50 mcg/hr transdermal 50 mcg transdermal Q72H #12 ea 01/27/22 patch melatonin 5 mg tablet 5 mg PO BEDTIME PRN sleep #60 tabs 01/27/22 hydromorphone 1 mg/mL oral liquid 1 mg PO Q8-10H PRN Breakthrough 02/11/22 (Dilaudid) Pain, Severe #100 mL lorazepam 2 mg/mL oral concentrate 0.5 mg (0.25 mL) PO BID PRN 02/11/22 Anxiety #200 mL Allergies Allergy/AdvReac Type Severity Reaction Status Date / Time No Known Allergies Allergy Verified 02/11/22 15:57 [No Known Allergies*] Review of Systems Review of Systems: Yes all other systems are reviewed and are negative Eyes: Eyes: Reports no additional eye complaints Cardiovascular: Cardiovascular: Reports no additional cardiovascular c omplaints Respiratory: Respiratory: Reports no additional respiratory complaints Musculoskeletal: Musculoskeletal: Reports no additional musculoskeletal complaints Neurologic: Reports system reviewed and no additional complaints, except as documented PMFSH Past Medical History Medical History Gastrostomy tube in place Mass of left side of neck Squamous cell carcinoma of neck Surgical History H/O removal of cyst Family History Family History Maternal Grandmother Lung cancer Social History Social History Household Members: Other Household Members Other:: mother Housing: House Are you a primary child care supervisor to a significant other at home: No Do you presently have visiting nurse or other home services: No Patient Tobacco Use Status: Never used Tobacco Substance Use Type: Marijuana Advance Directives: No Advance Directives Information Provided: Yes service: No Current occupational status: unemployed Physical Exam ED Vital Signs: Vital Signs - 24 hr 02/14/22 19:48 02/14/22 23:20 Temperature 97.5 F Pulse Rate 63 75 Respiratory Rate 18 12 Blood Pressure 109/64 110/87 Pulse Oximetry 100 98 Oxygen Delivery Method Room Air Room Air BMI result Body Mass Index 22.9 Const General: cooperative Nutritional Appearance: average body habitus Orientation/consciousness: patient oriented x3 HENMT Head: Yes normal to inspection Face and sinus: Yes normal facial exam Chest Chest palpation & inspection: normal inspection of the chest Resp Effort & Inspection: normal respiratory effort Auscultation: clear to auscultation bilaterally Cardio Jugular venous distension: no JVD Rate: regular rate Rhythm: regular rhythm GI Inspection: Yes normal to inspection Palpation (GI): Soft to palpation, not firm and nontender Skin General skin exam: no rashes or lesions noted Rashes: no rashes Neuro General: patient oriented x3 Cranial nerves: Yes CN's II-XII intact bilaterally Course Reevaluation(s) Reevaluation #1: He is feeling better at this time, IV fluid still infusing, CT scan of the abdomen pelvis was negative a head CT was negative, electrolytes are within normal limit BUN and creatinine normal, his vital signs are stable, is afebrile and normotensive not tachycardic. Anticipate discharge home Medical Decision Making Lab Data Result diagrams: 02/14/22 20:56 02/14/22 20:56 Labs: Lab Results 02/14/22 02/14/22 Range/Units 20:56 20:56 WBC 2.9 L (4.8-10.8) X10*3/uL RBC 3.46 L (4.60-5.80) X10*6/uL Hgb 10.8 L (14.0-18.0) g/dl Hct 29.9 L (42.0-52.0) % MCV 86.4 (80.0-98.0) fL MCH 31.2 (27.0-33.0) pg MCHC 36.1 H (31.0-36.0) g/dl RDW 12.4 (11.0-16.0) % Plt Count 188 D (160-400) X10*3/uL MPV 8.9 L (9.4-12.4) fL Immature Gran % (Auto) 1.7 H (0.0-0.4) % Neut % (Auto) 72.9 (45-73) % Lymph % (Auto) 10.8 L (20-40) % [place] % (Auto) 14.6 H (2-11) % Eos % (Auto) 0.0 (0-4) % Baso % (Auto) 0.0 (0-2) % Lymph # (Auto) 0.3 L (1.2-4.9) X10*3/uL [place] # (Auto) 0.4 (0.1-1.2) X10*3/uL Eos # (Auto) 0.0 (0.0-0.4) X10*3/uL Baso # (Auto) 0.0 (0.0-0.2) X10*3/uL Abs Immat Gran (auto) 0.05 H (0.00-0.03) X10*3/uL Absolute Neuts (auto) 2.1 (2.0-8.3) x10*3/uL Absolute Nucleated RBC 0.000 (0.0-0.012) X10*3/uL Nucleated RBC % (auto) 0.0 (0.0-0.2) /100WBC Sodium 140 (135-145) mmol/L Potassium 4.5 D (3.3-5.1) mmol/L Chloride 107 (96-108) mmol/L Carbon Dioxide 27 (22-29) mmol/L Anion Gap 11 L (12-20) BUN 10 (9-16) mg/dL Creatinine 0.77 (0.5-1.4) mg/dL Estim Creat Clear Calc 119.1 Estimated GFR > 60 Random Glucose 107 (60-115) mg/dL Calcium 8.5 (8.4-10.2) mg/dL Total Bilirubin 0.5 (0.0-1.0) mg/dL AST 18 (5-37) U/L ALT 15 (0-40) U/L Alkaline Phosphatase 60 (39-117) U/L Total Protein 6.2 L (6.5-8.0) g/dL Albumin 3.5 (3.5-5.0) g/dL Imaging Data CT scan - abdomen: Radiologist's impression: SPLEEN: Size. No splenic lesion. 1.6 cm splenule noted.? ADRENAL GLANDS: Unremarkable.? KIDNEYS AND URETERS: 3.9 cm right upper pole renal cyst, simple in appearance. No other renal lesions. No hydronephrosis. No radiodense renal calculi. No perinephric stranding or collections.? BLADDER: Unremarkable.? GASTROINTESTINAL TRACT: Percutaneous G-tube appropriately positioned in the lower body of the stomach. No dilated bowel loops. No bowel wall thickening. Normal appendix. No ascites. No intra-abdominal free air.? ABDOMINAL WALL: No significant hernia is appreciated.? LYMPH NODES: No lymphadenopathy. VASCULAR: Unremarkable. PELVIC VISCERA: Unremarkable.? OSSEOUS STRUCTURES: No acute fracture or suspicious osseous lesion.? CT/CT abdomen pelvis wo con IMPRESSION: ? 1. No evidence of intra-abdominal free air or other acute intra-abdominal process.? ? ECG Data Attestation: I personally reviewed and interpreted this ECG as follows: Pacemaker model: EKG shows normal sinus rhythm a rate [address]-T changes in V3 toV4 Discharge Plan Discharge Clinical Impression: Vomiting, Cancer of head and neck Patient Disposition: Home, Self-Care Instructions: Acute Nausea and Vomiting (ED) Prescriptions: No Action fentanyl 50 mcg/hr Patch 72 Hour 50 mcg transdermal Q72H Qty: 12 0RF Rx Instructions: Partial Fill upon patient request. melatonin 5 mg tablet 5 mg PO BEDTIME PRN (Reason: sleep) Qty: 60 0RF ondansetron 8 mg Tablet,Disintegrating 8 mg PO Q8H Qty: 50 4RF lansoprazole [Prevacid] 30 mg Capsule,Delayed Release(Dr/Ec) 30 mg PO DAILY Qty: 30 3RF sucralfate 100 mg/mL Suspension 10 ml PO QID Rx Instructions: swish in mouth and swallow; use after food/drink lorazepam 2 mg/mL Concentrate 0.5 mg PO BID PRN (Reason: Anxiety) Qty: 200 0RF hydromorphone [Dilaudid] 1 mg/mL Liquid 1 mg PO Q8-10H PRN (Reason: Breakthrough Pain, Severe) Qty: 100 0RF Rx Instructions: Partial Fill upon patient request. scopolamine base 1 mg over 3 days patch 3 day 1 patch TRANSDERMAL Q3D Referrals: Dewayne Foote MD [Primary Care Provider] - 3 days
[2022-02-14] MEDS: Metoclopramide HCl 10 MG/2 ML VIAL IVPUSH (20:47)
[2022-02-14] MEDS: 0.9 % Sodium Chloride 1,000 ML 999 ML IVCONT ×2 (20:48→23:35)
[2022-02-14 21:00] LABS: MANUAL DIFF FLAG NO
[2022-02-14 21:01] LABS: Hematocrit 29.9 % (42.0-52.0); Hemoglobin 10.8 g/dl (14.0-18.0); Imm Gran Abs Auto 0.05 X10*3/uL (0.00-0.03); Imm Gran Pct Auto 1.7 % (0.0-0.4); Lymphocytes Absolute Auto 0.3 X10*3/uL (1.2-4.9); Lymphocytes Percent Auto 10.8 % (20-40); Mean Corpuscular HGB Conc 36.1 g/dl (31.0-36.0); Mean Corpuscular Hemoglobin 31.2 pg (27.0-33.0); Mean Corpuscular Volume 86.4 fL (80.0-98.0); Mean Platelet Volume 8.9 fL (9.4-12.4); Monocytes Absolute Auto 0.4 X10*3/uL (0.1-1.2); Monocytes Percent Auto 14.6 % (2-11); Neutrophils Absolute Auto 2.1 x10*3/uL (2.0-8.3); Neutrophils Percent Auto 72.9 % (45-73); Platelet Count 188 X10*3/uL (160-400); Red Blood Count 3.46 X10*6/uL (4.60-5.80); Red Cell Distribution Width 12.4 % (11.0-16.0); White Blood Count 2.9 X10*3/uL (4.8-10.8)
[2022-02-14 21:18] LABS: Alanine Aminotransferase 15 U/L (0-40); Albumin Level 3.5 g/dL (3.5-5.0); Alkaline Phosphatase 60 U/L (39-117); Anion Gap 11 (12-20); Aspartate Amino Transferase 18 U/L (5-37); Bilirubin Total 0.5 mg/dL (0.0-1.0); Blood Urea Nitrogen 10 mg/dL (9-16); Calcium 8.5 mg/dL (8.4-10.2); Carbon Dioxide 27 mmol/L (22-29); Chloride 107 mmol/L (96-108); Creatinine Clr Calc Pharmacy 119.1; Estimated Glomerular Filt Rate > 60; Glucose Random 107 mg/dL (60-115); Potassium 4.5 mmol/L (3.3-5.1); Sodium 140 mmol/L (135-145); Total Protein 6.2 g/dL (6.5-8.0)
--- NOTE | 2022-02-14 21:51 | ECG_ITS ---
Test Reason : DIZZINESS Blood Pressure : / mmHG Vent. Rate : 069 BPM Atrial Rate : 069 BPM P-R Int : 142 ms QRS Dur : 092 ms QT Int : 422 ms P-R-T Axes : 080 043 059 degrees QTc Int : 452 ms Sinus rhythm with marked sinus arrhythmia Nonspecific T wave abnormality Abnormal ECG When compared with ECG of 18-JAN-2022 18:58, QT has lengthened Referred By: Dorian Tomlinson Electronically Signed By:DELVIS COVARRUBIAS MD
[2022-02-14 23:20] VITALS: BP 110/87; PULSE 75; RESP 12; O2SAT 98
--- NOTE | 2022-02-15 03:54 | PC.NURSE ---
verbal order from DR. Wilcox for famotidine 20mg IVP
[2022-02-15 03:55] VITALS: BP 107/74; PULSE 87; RESP 13; TEMP 36.9; O2SAT 97
[2022-02-15] MEDS: Famotidine/PF 20 MG/2 ML VIAL IVPUSH (03:58)
== END 2022-02-15 04:02 | disposition home or self-care (01) ==
PROVIDERS: Emergency Provider Emergency Medicine; PCP Internal Medicine
DX: R11.2 Nausea with vomiting, unspecified (principal); C76.0 Malignant neoplasm of head, face and neck; F12.90 Cannabis use, unspecified, uncomplicated; Z93.1 Gastrostomy status; Z79.899 Other long term (current) drug therapy
CPT/HCPCS: 36415; 70450; 74176; 80053; 85025; 93005; 96361; 96374; 96375; 99284; J2765

== ENCOUNTER 2022-02-25 15:31 | Inpatient (IN) | payer OTHER, SELFPAY ==
--- NOTE | ~2022-02-25 | FL_ITS ---
EXAMINATION: XR GI SERIES CLINICAL INFORMATION: Abdominal pain COMPARISON: None TECHNIQUE: With the patient lying on the table, barium was injected through the gastrostomy tube. Multiple fluoroscopic images were performed in various obliquities. FINDINGS: A total of 60 mL of barium with 110 mL of saline was injected through the gastrostomy tube, filling the stomach with contrast. There is normal contour of the stomach. No evidence of reflux throughout the entirety of the examination. Contrast slowly passed from the stomach into the duodenum. There is no outlet obstruction, although passages somewhat slow. Normal C-sweep of the duodenum. FLUOROSCOPY TIME: 3.5 minutes DOSE AREA PRODUCT: 30.274 Gy-cm2 (mahmood-centimeter squared) FL/FL upper GI series IMPRESSION: Limited upper GI examination. No gastroesophageal reflux is seen. Somewhat slow emptying of the stomach into the duodenum slow duodenal transit. Normal anatomic positioning.
[2022-02-25 15:37] VITALS: BP 98/72; PULSE 94; TEMP 37.1; O2SAT 96; BMI 23.3
--- NOTE | 2022-02-25 15:37 | ED_ITS ---
HPI - Weakness General Chief complaint: General Medical Stated complaint: gen. medical Time Seen by Provider: 02/25/22 15:37 Source: patient Mode of arrival: wheelchair Limitations: no limitations History of Present Illness HPI Narrative: patient currently undergoing chemo and radiation for head and neck cancer. He was brought to the ED by oncology for 35 lbs weight loss and is unable to tolerate gtube feedings. The expectation is that he will need to be admitted and assessed by GI MD Complaint: generalized weakness Onset (ago): week(s) Duration: constant Location: generalized Severity: severe Relieving factors: none Exacerbating factors: none Related Data Home Medications Medication Instructions Recorded Confirmed ondansetron 8 mg disintegrating 8 mg PO Q8H PRN Nausea 02/25/22 02/25/22 tablet Previous Rx's Medication Instructions Recorded melatonin 5 mg tablet 5 mg PO BEDTIME PRN sleep #60 tabs 01/27/22 hydromorphone 1 mg/mL oral liquid 1 mg PO Q8-10H PRN Breakthrough 02/11/22 (Dilaudid) Pain, Severe #100 mL lorazepam 2 mg/mL oral concentrate 0.5 mg (0.25 mL) PO BID PRN 02/11/22 Anxiety #200 mL fentanyl 50 mcg/hr transdermal 50 mcg transdermal Q72H #12 ea 02/18/22 patch Allergies Allergy/AdvReac Type Severity Reaction Status Date / Time No Known Allergies Allergy Verified 02/11/22 15:57 [No Known Allergies*] Review of Systems Constitutional: Constitutional: Reports no additional constitutional complaints Eyes: Eyes: Reports no additional eye complaints ENT: Denies dizziness Cardiovascular: Cardiovascular: Reports no additional cardiovascular complaints Respiratory: Respiratory: Reports as per HPI Gastrointestinal: Gastrointestinal: Reports no additional gastrointestinal complaints Musculoskeletal: Musculoskeletal: Reports no additional musculoskeletal complaints Integumentary/Breasts: Skin/Breast: Denies rash Neurologic: Reports system reviewed and no additional complaints, except as documented, Denies dizziness and Denies Sensory deficit (Neuro) Psychiatric: Psychiatric: Denies anxiety PMFSH Past Medical History Medical History Gastrostomy tube in place Mass of left side of neck Squamous cell carcinoma of neck Surgical History H/O removal of cyst Family History Family History Maternal Grandmother Lung cancer Social History Social History Household Members: Other Household Members Other:: mother Housing: House Are you a primary director of career resources to a significant other at home: No Do you presently have visiting nurse or other home services: No Patient Tobacco Use Status: Never used Tobacco Substance Use Type: Marijuana Advance Directives: No Advance Directives Information Provided: No service: No Current occupational status: unemployed Physical Exam Vital Signs: Vital Signs: Last Vital Signs Temp 98.4 F 02/25/22 20:06 Pulse 88 02/25/22 20:06 Resp 16 02/25/22 20:06 BP 91/63 02/25/22 20:06 Pulse Ox 96 02/25/22 20:06 O2 Del Method 02/25/22 20:06 BMI result Body Mass Index 23.3 Const: Other: thin frail male Orientation/consciousness: oriented to person and patient oriented x3 Limitations: no limitations HEENT: Head: Yes normal to inspection Ears: external ears normal General nose exam: Normal external nose present Mouth: Normal oral and palatal mucosa present and oropharynx normal Throat: Yes posterior oropharynx normal Eyes: General: appearance normal, both eyes and all related structures Neck: Other: supple Neck: Yes normal visual inspection Chest: Chest palpation & inspection: normal inspection of the chest Resp: Auscultation: clear to auscultation bilaterally Cardio: Jugular venous distension: no JVD Rate: regular rate Rhythm: regular rhythm Heart sounds: S1 normal heart sound present and S2 normal heart sound present GI: Other: gtube in place Palpation (GI): Soft to palpation, nontender and No hepatospl enomegaly present Auscultation: normal bowel sounds : General: Yes no CVA tenderness Back/Spine/Pelvis: Back: no CVA tenderness Skin: General skin exam: no rashes or lesions noted Neuro: General: oriented to person and patient oriented x3 Cranial nerves: Yes CN's II-XII intact bilaterally Motor exam (neuro): 5/5 motor strength present throughout Sensory Exam: No Sensory deficit (Neuro) Extrem: General: Yes normal to inspection Psych: Appearance: grossly normal Course Reevaluation(s) Reevaluation #1: Patient to be admitted for hydration and GI work up Time: 16:08 MDM - Weakness Lab Data Labs: Lab Results 02/25/22 Range/Units 15:48 COVID-19 ([facility]) Negative (Negative) COVID-19 Clin Com See Note Discharge Plan Discharge Clinical Impression: Weakness, Abnormal weight loss, 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
[2022-02-25] MEDS: 0.9 % Sodium Chloride 500 ML 999 ML IV (16:05)
[2022-02-25 16:08] VITALS: BP 103/67; PULSE 89; RESP 18; O2SAT 96
[2022-02-25 16:08] LABS: COVID-19 Test Negative (Negative)
--- NOTE | 2022-02-25 16:09 | PC.NURSE ---
Port to right chest intact, accessed prior to arrival from Oncology. Patent with good blood return. Fluids started as ordered. Pt request suction available PRN d/t painful swallowing. VSS. Resting with eyes closed. Plan for admission.
--- NOTE | 2022-02-25 16:55 | PM.IMHP ---
History of Present Illness Date of Service: 02/25/22 Chief Complaint: Abdominal pain 51-year-old male with diagnosis of primary squamous cell carcinoma of head and neck currently undergoing chemo and radiation complains of abdominal pain which G-tube feedings. He states he has tried overnight feedings, gravity feedings, and most recently bolus feedings. He states the tube functions but shortly thereafter he develops diffuse severe abdominal pain and he has been unable to successfully utilizes feedings. He is noted to have a 35 lb weight loss s since starting tube feedings. He will be admitted for GI consult at the request of Oncology Review of Systems Review of Systems: Denies chest pain Denies shortness of breath Denies nausea vomiting diarrhea Admits to abdominal pain that occurs immediately after tube feeding; denies mechanical tube dysfunction PMFSH Medical History Gastrostomy tube in place Mass of left side of neck Squamous cell carcinoma of neck Family History Maternal Grandmother Lung cancer Surgical History H/O removal of cyst Social History Household Members: Other Household Members Other:: mother Housing: House Are you a primary medicare nurse to a significant other at home: No Do you presently have visiting nurse or other home services: No Patient Tobacco Use Status: Never used Tobacco Substance Use Type: Marijuana Advance Directives: No Advance Directives Information Provided: No service: No Current occupational status: unemployed Meds Allergies Allergy/AdvReac Type Severity Reaction Status Date / Time No Known Allergies Allergy Verified 02/11/22 15:57 [No Known Allergies*] Active Medications: Current Medications Enoxaparin Sodium (Enoxaparin Sodium 40 Mg/0.4 Ml Syringe) 40 mg SUBCUT Q24H [facility] Pharmacy Consult (Consult Rx Perform Med Rec) 1 each MISCELLANE ONCE PRN PRN Reason: Consult order Sodium Chloride (0.9 % Sodium Chloride Flush 3 Ml Syringe) 3 ml IVFLUSH QSHIFT [facility] Home Medications Medication Instructions Recorded Confirmed Last Taken Type sucralfate 100 mg/mL oral 10 ml PO QID 07/12/22 07/19/22 Unknown History suspension Physical Exam Vital Signs and Narrative: Vital Signs: Last Vital Signs Temp 98.7 F 02/25/22 15:37 Pulse 89 02/25/22 16:08 Resp 18 02/25/22 16:08 BP 103/67 02/25/22 16:08 Pulse Ox 96 02/25/22 16:08 O2 Del Method 02/25/22 16:08 BMI result Body Mass Index 23.3 Const: Other: Ill-appearing male no acute distress Resp: Other: Clear to auscultation bilaterally no rales rhonchi wheezes Cardio: Other: No S4; positive S1-S2; no S3 murmurs rubs or gallops GI: Other: Soft mildly tender diffusely across abdomen. Bowel sounds quiet. G-tube site clean dry intact Extrem: Other: No edema bilaterally Results Labs Labs: Laboratory Results - last 24 hr 02/25/22 15:48 COVID-19 ([facility]) Negative COVID-19 Clin Com See Note Assessment and Plan (1) Primary squamous cell carcinoma of head and neck: Status: Acute (2) Abdominal pain: Status: Acute Plan 51-year-old male with known history of primary squamous cell carcinoma of the head and neck status post G-tube insertion presents with abdominal pain post feeding. At this time he was attempting bolus feedings; states the feedings and still without issue however there severe pain thereafter. He was seen in Oncology and sent to ER for admission for GI consult 1. Abdominal pain in the backdrop of primary squamous cell carcinoma head neck requiring G-tube feedings -will hold G-tube feedings in favor of TPN -GI consult in a.m. -will medicate for pain with Dilaudid in Ativan -IV pantoprazole Full code Lovenox Will require 2 midnights going forward secondary to need for the parental nutrition while abnormal G2 function is investigated. This cannot be achieved in a less acute setting Quality Stroke Does the patient have a stroke diagnosis?: No VTE Prior VTE?: No VTE Risk Level:: Medical - moderate - high VTE Device Contraindication: Treatment Not Indicated VTE Drug Contraindication: N/A - Med Ordered
--- NOTE | 2022-02-25 17:14 | PHA.MEDREC ---
MED REC COMPLETE, NO ISSUES Pharmacy Consult ? Medication Reconciliation Pharmacy has completed the medication reconciliation.
[2022-02-25] MEDS: Enoxaparin Sodium 40 MG/0.4 ML SYRINGE SUBCUT (18:06)
[2022-02-25] MEDS: fentaNYL 50 MCG PATCH.TD72 TRANSDERMA (19:34)
[2022-02-25] MEDS: Midazolam HCl/PF 2 MG/2 ML VIAL 0.5 MG IVPUSH ×2 (19:38→23:34)
[2022-02-25] MEDS: HYDROmorphone HCl 1 MG/ML SYRINGE IVPUSH ×2 (19:38→23:34)
[2022-02-25 20:06] VITALS: BP 91/63; PULSE 88; RESP 16; TEMP 36.9; O2SAT 96
--- NOTE | 2022-02-25 21:37 | MHC.CM.PN ---
Attempted to meet with admitted patient with bed assignment pending. Pt very uncomfortable. Requests CM to meet with patient later. Pt has squamous cell CA of head/neck. Has GT in place. Not tolerating GT feedings. 35 lb weight loss. Currently having chemo/radiation. Has [employer] [facility]. CM will need to meet with patient again regarding PCP, HCP, DME/services and D/c plan. CM to follow for d/c needs.
[2022-02-26] VITALS (11 sets, daily range): BP systolic 97–119; BP diastolic 58–72; PULSE 69–92; RESP 14–20; TEMP 36.1–36.9; O2SAT 92–100
--- NOTE | 2022-02-26 00:25 | PC.NURSE ---
I assumed nursing care of Singh at 1900. Singh is being admitted for hydration and to rest his belly/hold G-tube feedings. Singh is very soft spoken, states he can not speak up because when he does it causes increased R neck pain. He has a flat affect, is extremely irritable and seems frustrated when he has to ring his call jade for pain medicines - he prefers we bring it to him every 4 hours without having to ask. Singh has a Yankeur suction at the bedside placed to CLWS so that he can use it to assist with removing oral secretions rather than swallowing them, which causes R neck pain to increase significantly. He is taking occasional ice chips to keep his mouth moist. Respirations are non-labored, room air sat's 95% or better, RR WNL, no cyanosis. He denies chest pain. No nausea. No vomiting. he states his diffuse abdominal achiness is 4-5/10 and his R sided neck pain is 5-6/10 but it will shoot up to a 10 quickly. Singh is aware that he is awaiting an inpatient bed assignment. i moved Singh from bed 10 to bed 12 as there was no functioning television in bed 12. Shortly after arrival to bed 10 he asked if he could be mvoed tonother room because its too loud and bright here. IO informed him there were no options currently but if there was an option throughout the night I would move him. He didn't reply to this.
[2022-02-26] MEDS: Midazolam HCl/PF 2 MG/2 ML VIAL 0.5 MG IVPUSH (04:42)
[2022-02-26] MEDS: HYDROmorphone HCl 1 MG/ML SYRINGE IVPUSH ×8 (04:42→22:38)
[2022-02-26] MEDS: ondansetron HCL 4 MG/2 ML VIAL IVPUSH (06:52)
[2022-02-26] MEDS: Lactated Ringers 1,000 ML 80 ML IVCONT (06:53)
--- NOTE | 2022-02-26 07:24 | PC.NURSE ---
Addendum entered by Elisabet Mark 02/26/22 08:14: RN spoke with Dr Zamarripa, changed versed dose to 2mg IV q 4hours. med was administered to patient. Patient then asking for Dilaudid at same time, RN informed patient that we can reassess after versed given as med may make patient tired and fall asleep and do not want to given too much sedative medication at once. Original Note: RN in room with patient, patient requesting iv versed and something to make him go to sleep or else in about 30 minutes he is going to start vomiting. informed patient that he is not due for Versed for about another hour. Patient also c/o abdominal, RN offered IV Dilaudid. patient states he can not take that right now as it is going to make him dehydrated. RN explained to patient that he is receiving IV fluids and will continuously be hydrated through his IV. patient again requesting versed and told RN please go find someone who will give me versed . informed patient that if he is not due for med it can not be administered. informed patient that RN will reach out to his provider about about concerns. text sent to Dr Zamarripa, waiting for a message back at this time.
[2022-02-26] MEDS: Midazolam HCl/PF 2 MG/2 ML VIAL IVPUSH ×4 (07:46→22:38)
[2022-02-26 09:06] LABS: MANUAL DIFF FLAG NO
[2022-02-26 09:08] LABS: Basophils Percent Auto 0.7 % (0-2); Hematocrit 30.5 % (42.0-52.0); Hemoglobin 10.9 g/dl (14.0-18.0); Imm Gran Abs Auto 0.06 X10*3/uL (0.00-0.03); Imm Gran Pct Auto 2.1 % (0.0-0.4); Lymphocytes Absolute Auto 0.4 X10*3/uL (1.2-4.9); Lymphocytes Percent Auto 14.1 % (20-40); Mean Corpuscular HGB Conc 35.7 g/dl (31.0-36.0); Mean Corpuscular Hemoglobin 31.1 pg (27.0-33.0); Mean Corpuscular Volume 86.9 fL (80.0-98.0); Mean Platelet Volume 9.6 fL (9.4-12.4); Monocytes Absolute Auto 0.5 X10*3/uL (0.1-1.2); Monocytes Percent Auto 15.5 % (2-11); Neutrophils Absolute Auto 1.9 x10*3/uL (2.0-8.3); Neutrophils Percent Auto 66.6 % (45-73); Platelet Count 134 X10*3/uL (160-400); Red Blood Count 3.51 X10*6/uL (4.60-5.80); Red Cell Distribution Width 13.1 % (11.0-16.0); White Blood Count 2.9 X10*3/uL (4.8-10.8)
--- NOTE | 2022-02-26 09:27 | MHC.CM.PN ---
Attempted to meet with patient in regards to discharge planning. Patient currently sleeping. No family present. Will attempt to meet again. Continue to monitor for d/c needs.
[2022-02-26 09:31] LABS: Alanine Aminotransferase 15 U/L (0-40); Albumin Level 3.4 g/dL (3.5-5.0); Alkaline Phosphatase 58 U/L (39-117); Anion Gap 14 (12-20); Aspartate Amino Transferase 15 U/L (5-37); Bilirubin Total 0.7 mg/dL (0.0-1.0); Blood Urea Nitrogen 17 mg/dL (9-16); Calcium 8.4 mg/dL (8.4-10.2); Carbon Dioxide 24 mmol/L (22-29); Chloride 105 mmol/L (96-108); Creatinine Clr Calc Pharmacy 116.7; Estimated Glomerular Filt Rate > 60; Glucose Random 79 mg/dL (60-115); Potassium 4.1 mmol/L (3.3-5.1); Sodium 139 mmol/L (135-145); Total Protein 6.1 g/dL (6.5-8.0)
[2022-02-26] MEDS: Pantoprazole Sodium 40 MG/10 ML VIAL IVPUSH ×2 (10:37→22:59)
[2022-02-26] MEDS: Lactated Ringers 1,000 ML 150 ML IVCONT ×2 (10:38→16:33)
--- NOTE | 2022-02-26 11:21 | MHC.CLN ---
CONSULT PER DR ANDERSON FOR PPN; REVIEWED LABS RECOMMEND D10AA4.25 AT 45ML/HR TO PROVIDE 551KCALS, 46G PROTEIN DISCUSSED WITH PHARMACY REPLETE LYTES NEEED DAY 2: INCREASE PPN TO D10AA4.25 AT 65ML/HR TO PROVIDE [id number], 66G PROTEIN CHECK TRIGS FULL CLINICAL NUTRITION ASSESSMENT TO FOLLOW
[2022-02-26 12:00] LABS: Magnesium 1.7 mg/dL (1.6-2.6); Phosphorus 3.7 mg/dL (2.7-4.5); Triglycerides 91 mg/dL
--- NOTE | 2022-02-26 15:18 | P.PNIM_ITS ---
Subjective Subjective Date of Service: 02/26/22 Interval History: Pain control was poor overnight. Significant reflux with any oral intake Review of Systems Denies chest pain Denies shortness of breath Denies nausea vomiting diarrhea Admits to abdominal pain that occurs immediately after tube feeding; denies mechanical tube dysfunction Physical Exam Vital Signs: Vital Signs: Last Vital Signs Temp 98.0 F 02/26/22 00:30 Pulse 69 02/26/22 14:18 Resp 16 02/26/22 14:18 BP 106/61 02/26/22 14:18 Pulse Ox 100 02/26/22 14:18 O2 Del Method 02/26/22 14:18 BMI result Body Mass Index 23.3 Const: Other: Ill-appearing male no acute distress Resp: Other: Clear to auscultation bilaterally no rales rhonchi wheezes Cardio: Other: No S4; positive S1-S2; no S3 murmurs rubs or gallops GI: Other: Soft mildly tender diffusely across abdomen. Bowel sounds quiet. G-tube site clean dry intact Extrem: Other: No edema bilaterally Objective Data Active Medications Enoxaparin Sodium (Enoxaparin Sodium 40 Mg/0.4 Ml Syringe) 40 mg SUBCUT Q24H [facility] Last Admin: 02/25/22 18:06 Dose: 40 mg Documented By: AMARILIS Fentanyl (Fentanyl 50 Mcg Patch.Td72) 50 mcg TRANSDERMA Q72H [facility] Hydromorphone HCl (Hydromorphone Hcl 1 Mg/Ml Syringe) 1 mg IVPUSH Q2H PRN; Protocol PRN Reason: Pain, Severe (Pain Scale 7-10) Last Admin: 02/26/22 11:56 Dose: 1 mg Documented By: LESTER Lactated Ringer's (Lr) 1,000 mls @ 150 mls/hr IVCONT .Q6H40M [facility] Last Admin: 02/26/22 10:38 Dose: 150 mls/hr Documented By: FILEMONOPESantino Multivitamins 18.5 ml/ Trace Metals 1.9 ml/ Amino Acids/Electrolytes/Dextrose 1,080 mls @ 45 mls/hr IV DAILY@1800 [facility] Stop: 02/27/22 17:59 Midazolam HCl (Midazolam Hcl/Pf 2 Mg/2 Ml Vial) 2 mg IVPUSH Q4H PRN PRN Reason: anxiety/restlessness Last Admin: 02/26/22 12:04 Dose: 2 mg Documented By: LESTER Ondansetron HCl (Ondansetron Hcl 4 Mg/2 Ml Vial) 4 mg IVPUSH Q8H PRN PRN Reason: Nausea and Vomiting Last Admin: 02/26/22 06:52 Dose: 4 mg Documented By: JUSTIN Pantoprazole Sodium (Pantoprazole Sodium 40 Mg/10 Ml Vial) 40 mg IVPUSH BID@0630,1630 [facility] Last Admin: 02/26/22 10:37 Dose: 40 mg Documented By: LESTER Comments: give now per dr lorenzo Pharmacy Consult (Consult Rx Perform Med Rec) 1 each MISCELLANE ONCE PRN PRN Reason: Consult order Sodium Chloride (0.9 % Sodium Chloride Flush 3 Ml Syringe) 3 ml IVFLUSH QSHIFT [facility] Last Admin: 02/26/22 14:07 Dose: Not Given Documented By: LESTER Non-Admin Reason: IV Running Labs CBC & Chem 7: 02/26/22 08:57 02/26/22 08:57 Labs: Laboratory Results - last 24 hr 02/25/22 02/26/22 02/26/22 15:48 08:57 08:57 MCV 86.9 MCH 31.1 MCHC 35.7 RDW 13.1 Plt Count 134 L D MPV 9.6 Immature Gran % (Auto) 2.1 H Neut % (Auto) 66.6 Lymph % (Auto) 14.1 L [place] % (Auto) 15.5 H Eos % (Auto) 1.0 Baso % (Auto) 0.7 Lymph # (Auto) 0.4 L [place] # (Auto) 0.5 Eos # (Auto) 0.0 Baso # (Auto) 0.0 Abs Immat Gran (auto) 0.06 H Absolute Neuts (auto) 1.9 L Absolute Nucleated RBC 0.000 Nucleated RBC % (auto) 0.0 Anion Gap 14 Estim Creat Clear Calc 116.7 Estimated GFR > 60 Random Glucose 79 Calcium 8.4 D Phosphorus 3.7 Magnesium 1.7 Total Bilirubin 0.7 AST 15 ALT 15 Alkaline Phosphatase 58 Total Protein 6.1 L D Albumin 3.4 L Triglycerides 91 COVID-19 (JAK) Negative COVID-19 Clin Com See Note Assessment and Plan (1) Abdominal pain: Status: Acute (2) Primary squamous cell carcinoma of head and neck: Status: Acute Plan 51-year-old male with known history of primary squamous cell carcinoma of the head and neck status post G-tube insertion presents with abdominal pain post feeding. At this time he was attempting bolus feedings; states the feedings and still without issue however there severe pain thereafter. He was seen in Oncology and sent to ER for admission for GI consult 1. Abdominal pain in the backdrop of primary squamous cell carcinoma head neck requiring G-tube feedings -will hold G-tube feedings in favor of TPN... Started today -GI consult in a.m. -will medicate for pain with Dilaudid/midazolam -IV pantoprazole Full code Lovenox Will require ongoing hospitalization for parental nutrition pending abdominal pain workup Quality Stroke Does the patient have a stroke diagnosis?: No VTE Prior VTE?: No VTE Risk Level:: Medical - moderate - high VTE Device Contraindication: Treatment Not Indicated VTE Drug Contraindication: N/A - Med Ordered
--- NOTE | 2022-02-26 15:34 | PM.EVENT ---
Event Note Date of Service: 02/26/22 Event Note: GI consult dictated GI series via g-tube ordered.
[2022-02-26] MEDS: Enoxaparin Sodium 40 MG/0.4 ML SYRINGE SUBCUT (18:46)
--- NOTE | 2022-02-26 20:03 | PC.NURSE ---
Pt admitted to unit at 1720. Within minutes pt's father called the unit reporting that pt was in pain and that his pain wasn't being managed appropriately.Pt wasn't due for PRN dilauded or PRN versed. Pt was extremely angry, aggressive, verbalized that he'd jump out the window if he wasn't able to get some relief and sleep. Dr. Pickard ordered an additional dose of dilauded 1mg, which was given. After the admissions assessment and TPN administration, pt received dilauded and versed on PRN time due. Pt wearing 02 @ 2L, resting quietly at shift change, resperations at [address] Sandoval also ordered Narcan if needed.
[2022-02-27] MEDS: ondansetron HCL 4 MG/2 ML VIAL IVPUSH ×2 (00:18→12:55)
[2022-02-27] MEDS: HYDROmorphone HCl 1 MG/ML SYRINGE IVPUSH ×6 (00:38→10:06)
[2022-02-27 03:41] VITALS: BP 107/63; PULSE 88; RESP 18; TEMP 36.6; O2SAT 100
--- NOTE | 2022-02-27 04:00 | CONS_ITS ---
DATE OF SERVICE: 02/26/2022 REFERRING PHYSICIAN: Ralph Zamarripa DO REASON FOR CONSULTATION: Abdominal pain and vomiting, status post G-tube placement. HISTORY OF PRESENT ILLNESS: The patient is a pleasant 51-year-old man, known to me from recent evaluation. He was hospitalized earlier in January and underwent upper endoscopy with placement of a feeding tube because of a history of squamous cell carcinoma of the neck and difficulty with swallowing while undergoing chemoradiation. The feeding tube was placed uneventfully and verified in position post placement. Findings at that time also included gastritis, for which he was started on omeprazole 20 mg daily. He states he has been taking this at home, but has noted generalized crampy abdominal discomfort, which usually occurs after tube feedings and some vomiting. He was evaluated in the emergency department after being referred from the oncology department and admitted to the hospital. Recent imaging studies include an abdominopelvic CT on February 14, which was reviewed. This showed the G-tube appropriately positioned in the lower body of the stomach with no significant findings with respect to the GI tract. Laboratory studies have documented some pancytopenia, likely related to his treatment and chemistries have been fairly unremarkable. PAST MEDICAL HISTORY: Squamous cell carcinoma of the neck, undergoing chemoradiation with recent odynophagia and G-tube placement as above. There were no other medical or surgical illnesses reported. CURRENT MEDICATIONS: His current medication list is reviewed in the chart. ALLERGIES: THERE ARE NONE REPORTED. FAMILY HISTORY: This is reviewed with the patient and is noncontributory. SOCIAL HISTORY: There is no reported substance abuse. REVIEW OF SYSTEMS: SKIN: No pruritus. HEENT: Negative. CARDIOPULMONARY: No shortness of breath or chest pain. GASTROINTESTINAL: As above. GENITOURINARY: Negative. NEUROPSYCHIATRIC: Negative. PHYSICAL EXAMINATION: GENERAL: Shows a pleasant male lying in bed. VITAL SIGNS: Reviewed in the electronic medical record and are stable. SKIN: Anicteric. HEENT: Shows no scleral icterus. NECK: Without lymphadenopathy or thyromegaly. LUNGS: Clear. HEART: Shows a regular rate and rhythm. S1, S2. No murmur. ABDOMEN: Soft. Bowel sounds are present. There is no guarding or rebound. There is no focal tenderness. The G-tube site appears intact. EXTREMITIES: Without edema. LABORATORY DATA: Reviewed as is his imaging study from the . IMPRESSION: Abdominal pain and vomiting, status post G-tube placement. I have recommended further evaluation with an upper GI series via the G-tube to assess for evidence of any problems in terms of material preferentially entering the esophagus, although I do not think this is the case based on the G-tube position. If the G-tube seems to be functioning appropriately after the upper GI series, I would recommend starting him on tube feeds 3 times daily and using dicyclomine 3 to 4 times daily prior to feedings to minimize any intestinal spasm that could be contributing to his symptoms. I would also keep him on a high-dose proton-pump inhibitor for better acid suppressive therapy. Thanks for asking me to see him. I will follow him in the hospital with you. MD ERROL Vaughan/ISHA / [phone]
[2022-02-27] MEDS: Lactated Ringers 1,000 ML 150 ML IVCONT ×4 (04:43→22:26)
[2022-02-27] MEDS: Midazolam HCl/PF 2 MG/2 ML VIAL IVPUSH ×2 (05:20→22:30)
[2022-02-27] MEDS: Pantoprazole Sodium 40 MG/10 ML VIAL IVPUSH ×2 (05:29→17:51)
[2022-02-27 07:15] VITALS: BP 131/69; PULSE 84; RESP 16; TEMP 36.4; O2SAT 96
--- NOTE | 2022-02-27 09:28 | MHC.CM.PN ---
PATIENT DOES NOT WISH TO PARTICIPATE IN ANY DISCUSSION WITH ANY STAFF, WITH THE EXCEPTION OF RN AND GI DOC WHO PUT MY G-TUBE IN PATIENT REPORTS THAT HE HAS ANSWERED ASSESSMENT QUESTIONS A MILLION TIMES AND EXPRESSES FRUSTRATION OVER REPEATING HIMSELF. NO HPC ON FILE AND HE DOES NOT RESPOND TO QUESTIONS REGARDING ONE HE ASKS THAT THE LIGHTS REMAIN OFF IN HIS ROOM. HE ALSO ASKS THAT STAFF DOES NOT SPEAK WITH PATIENT'S MOTHER, BUT WE CAN SPEAK WITH SAVANNAH WHO IS IDENTIFIED GIRLFRIEND. HE DOES NOT GIVE CONTACT NUMBER FOR SAVANNAH HE DOES NOT GIVE ADDRESS FOR WHERE HE LIVES NOW BUT DOES STATE THAT HE DOES NOT LIVE IN [place]. CASE MANAGEMENT AVAILABLE TO ASSIST WITH DC PLANS IF ANY SERVICES ARE RECOMMENDED
--- NOTE | 2022-02-27 10:23 | MHC.CLN ---
F/U REVIEWED LABS DAY 2: INCREASE PPN TO D10AA4.25 AT 65ML/HR TO PROVIDE 796KCALS, 66G PROTEIN DISCUSSED WITH PHARMACY; TRIGS WNL REPLETE LYTES NEEED FULL CLINICAL NUTRITION ASSESSMENT TO FOLLOW
--- NOTE | 2022-02-27 10:28 | PC.NURSE ---
For closer monitoring and pain management patient transferred as IMC patient to ICU.
--- NOTE | 2022-02-27 11:28 | HO.PM.IMPN ---
Subjective Subjective Date of Service: 02/27/22 Interval History: Pain control poor overnight. Reflux severe Review of Systems Denies chest pain Denies shortness of breath Denies nausea vomiting diarrhea Admits to abdominal pain that occurs immediately after tube feeding; denies mechanical tube dysfunction Physical Exam Vital Signs: Vital Signs: Last Vital Signs Temp 97.6 F 02/27/22 07:15 Pulse 84 02/27/22 07:15 Resp 16 02/27/22 07:15 BP 131/69 02/27/22 07:15 Pulse Ox 96 02/27/22 07:15 O2 Del Method 02/27/22 07:15 O2 Flow Rate 2 02/27/22 07:15 BMI result Body Mass Index 23.3 Const: Other: Ill-appearing male no acute distress Resp: Other: Clear to auscultation bilaterally no rales rhonchi wheezes Cardio: Other: No S4; positive S1-S2; no S3 murmurs rubs or gallops GI: Other: Soft mildly tender diffusely across abdomen. Bowel sounds quiet. G-tube site clean dry intact Extrem: Other: No edema bilaterally Objective Data Active Medications Enoxaparin Sodium (Enoxaparin Sodium 40 Mg/0.4 Ml Syringe) 40 mg SUBCUT Q24H [facility] Last Admin: 02/26/22 18:46 Dose: 40 mg Documented By: TREASURE Fentanyl (Fentanyl 50 Mcg Patch.Td72) 50 mcg TRANSDERMA Q72H [facility] Hydromorphone HCl (Hydromorphone Hcl 1 Mg/Ml Syringe) 1 mg IVPUSH Q2H PRN; Protocol PRN Reason: Pain, Severe (Pain Scale 7-10) Last Admin: 02/27/22 10:06 Dose: 1 mg Documented By: MILAGROS Lactated Ringer's (Lr) 1,000 mls @ 150 mls/hr IVCONT .Q6H40M [facility] Last Admin: 02/27/22 04:43 Dose: 150 mls/hr Documented By: ONOFRE Multivitamins 18.5 ml/ Trace Metals 1.9 ml/ Amino Acids/Electrolytes/Dextrose 1,080 mls @ 45 mls/hr IV DAILY@1800 [facility] Stop: 02/27/22 17:59 Last Admin: 02/26/22 18:37 Dose: 45 mls/hr Documented By: TREASURE Midazolam HCl (Midazolam Hcl/Pf 2 Mg/2 Ml Vial) 2 mg IVPUSH Q4H PRN PRN Reason: anxiety/restlessness Last Admin: 02/27/22 05:20 Dose: 2 mg Documented By: ONOFRE Naloxone HCl (Naloxone Hcl 0.4 Mg/Ml Vial) 0.04 mg IVPUSH Q5M PRN PRN Reason: Respiratory Rate < 10 Ondansetron HCl (Ondansetron Hcl 4 Mg/2 Ml Vial) 4 mg IVPUSH Q8H PRN PRN Reason: Nausea and Vomiting Last Admin: 02/27/22 00:18 Dose: 4 mg Documented By: ONOFRE Pantoprazole Sodium (Pantoprazole Sodium 40 Mg/10 Ml Vial) 40 mg IVPUSH BID@0630,1630 [facility] Last Admin: 02/27/22 05:29 Dose: 40 mg Documented By: ONOFRE Pharmacy Consult (Consult Rx Perform Med Rec) 1 each MISCELLANE ONCE PRN PRN Reason: Consult order Sodium Chloride (0.9 % Sodium Chloride Flush 3 Ml Syringe) 3 ml IVFLUSH QSHIFT [facility] Last Admin: 02/27/22 08:37 Dose: Not Given Documented By: MILAGROS Non-Admin Reason: IV Running Labs CBC & Chem 7: 02/26/22 08:57 02/26/22 08:57 Labs: Laboratory Results - last 24 hr 02/26/22 08:57 Phosphorus 3.7 Magnesium 1.7 Triglycerides 91 Assessment and Plan (1) Primary squamous cell carcinoma of head and neck: Status: Acute Plan 51-year-old male with known history of primary squamous cell carcinoma of the head and neck status post G-tube insertion presents with abdominal pain post feeding. At this time he was attempting bolus feedings; states the feedings and still without issue however there severe pain thereafter. He was seen in Oncology and sent to ER for admission for GI consult 1. Abdominal pain in the backdrop of primary squamous cell carcinoma head neck requiring G-tube feedings -given poor pain control, will moved ICU as border to facilitate morphine drip -will hold on G-tube study until pain control improved. Continue TPN -continue midazolam as ordered -IV pantoprazole Full code Lovenox Will require ongoing hospitalization for parental nutrition pending abdominal pain workup. Long discussion regarding code status undertaken with patient. Understands the gravity of his situation however his daughter is EN route from [place]. He states once he sees his daughter and has a chance to talk to her he would like to be comfort measures. Will maintain highest level of comfort in the safe as possible environment until that happens Quality Stroke Does the patient have a stroke diagnosis?: No VTE Prior VTE?: No VTE Risk Level:: Medical - moderate - high VTE Device Contraindication: Treatment Not Indicated VTE Drug Contraindication: N/A - Med Ordered
[2022-02-27 12:00] VITALS: BP 114/70; PULSE 81; RESP 13; TEMP 37.3; O2SAT 100
[2022-02-27 12:19] LABS: Albumin Level 3.2 g/dL (3.5-5.0); Anion Gap 10 (12-20); Blood Urea Nitrogen 7 mg/dL (9-16); Calcium 8.4 mg/dL (8.4-10.2); Carbon Dioxide 31 mmol/L (22-29); Chloride 97 mmol/L (96-108); Creatinine Clr Calc Pharmacy 133.7; Estimated Glomerular Filt Rate > 60; Glucose Random 123 mg/dL (60-115); Magnesium 1.5 mg/dL (1.6-2.6); Phosphorus 2.8 mg/dL (2.7-4.5); Potassium 4.2 mmol/L (3.3-5.1); Sodium 134 mmol/L (135-145)
[2022-02-27 12:49] VITALS: BP 114/70; PULSE 77; RESP 11; O2SAT 100
[2022-02-27] MEDS: Morphine Sulfate/NS 100 MG/100 ML PLAST..BAG IVCONT (12:49)
[2022-02-27 16:00] VITALS: BP 109/67; PULSE 65; RESP 12; O2SAT 100
[2022-02-27] MEDS: Enoxaparin Sodium 40 MG/0.4 ML SYRINGE SUBCUT (17:49)
[2022-02-27] MEDS: 0.9 % Sodium Chloride Flush 3 ML SYRINGE IVFLUSH (17:51)
[2022-02-27 20:00] VITALS: BP 101/61; PULSE 72; RESP 10; O2SAT 97
[2022-02-28] VITALS (11 sets, daily range): BP systolic 93–109; BP diastolic 56–75; PULSE 62–82; RESP 9–15; TEMP 36.8–37.2; O2SAT 92–100; BMI 23.3
[2022-02-28] MEDS: Lactated Ringers 1,000 ML 150 ML IVCONT ×3 (04:32→18:16)
[2022-02-28] MEDS: ondansetron HCL 4 MG/2 ML VIAL IVPUSH ×3 (07:36→21:37)
[2022-02-28] MEDS: Pantoprazole Sodium 40 MG/10 ML VIAL IVPUSH ×2 (07:38→16:29)
[2022-02-28] MEDS: 0.9 % Sodium Chloride Flush 3 ML SYRINGE IVFLUSH ×3 (07:39→23:34)
[2022-02-28 09:41] LABS: Anion Gap 9 (12-20); Blood Urea Nitrogen 5 mg/dL (9-16); Calcium 8.1 mg/dL (8.4-10.2); Carbon Dioxide 34 mmol/L (22-29); Chloride 97 mmol/L (96-108); Creatinine Clr Calc Pharmacy 139.7; Estimated Glomerular Filt Rate > 60; Glucose Random 118 mg/dL (60-115); Magnesium 1.5 mg/dL (1.6-2.6); Phosphorus 3.9 mg/dL (2.7-4.5); Potassium 3.8 mmol/L (3.3-5.1); Sodium 136 mmol/L (135-145); Triglycerides 80 mg/dL
--- NOTE | 2022-02-28 09:58 | MHC.CDI.CONC ---
CDI Concurrent Query Documentation Clarification: PHYSICIAN'S DOCUMENTATION REQUEST Date of Query: 02/28/22 0959 Patient Name: Singh Bianchi Admit Date: 02/25/22 Dear Doctor, A review of the medical record indicates additional documentation may be needed. Please review below and update the documentation accordingly. Clinical Indicators: Risk Factors/Clinical Indicators/Treatments GI Consult note 02/27 - Lab studies have documented some pancytopenia likely related to txt and chemistries have been fairly unremarkable. WBC 2.9 RBC 3.54 Plt 134 L Patient is on chemo/radiation for squamous cell carcinoma of neck and head. Based on the above, could you clarify in the Progress Notes which of the following is the most likely type of anemia you are evaluating, treating, and/or monitoring? Antineoplastic chemotherapy induced pancytopenia Other ? please specify Unable to determine Use of terms such as suspected, likely, concern for, or probable (associated with a specific diagnosis that is being evaluated, monitored, or treated as if it exists) are acceptable and can be coded in the inpatient setting, when documented at the time of discharge. Thank you, Ragini Ureña [facility], CDIS Extension: [phone] Please use your independent medical judgment in providing your response. THIS QUERY IS PART OF THE PERMANENT MEDICAL RECORD Provider Response: Other Other Diagnosis: Antineoplastic chemotherapy-induced pancytopenia
--- NOTE | 2022-02-28 10:03 | MHC.CM.PN ---
Addendum entered by Samantha Mcdonald 02/28/22 13:57: Pt is active with [facility] for tube feed supplies. [facility] is following for skilled RN visits with the option to convert to palliative/Hospice should pt decide on that. Of note, pt will need to give address of MD residence for initiation of services. Original Note: Attempted to meet with pt to discuss d/c planning: pt lying in bed with eye mask on requesting not to be disturbed. Pt would only state to CM that he had a residence locally to d/c to, had transportation and would be making all the decisions within the next few days. Per discussion with MD and RN, pt is waiting for the arrival of his dtr from [place]. He reportedly will be making goals of care decisions which seem to lean towards [facility]. CM did not discuss any of this with pt but will reapproach daily to offer assistance with d/c planning needs. At this time, pt is on an MSO4 gtt and TPN. Will refer to payor contracted infusion company and [facility] should he decide on TPN at home. CM to follow
--- NOTE | 2022-02-28 10:18 | MHC.CLN ---
RE: CONSULT PT REPORTED 35# WT LOSS UPON ADMISSION BUT PREVIOUS WT HX REVEALS 15# WT LOSS X 6 MONTHS. PT WITH 9% NONSIGNIFICANT WT LOSS X 6 MONTHS WITH CHEMO/RAD TX MAY BE CONTRIBUTING FACTORS FOR WT LOSS ALONG WITH CA DX. 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
--- NOTE | 2022-02-28 10:55 | P.PNIM_ITS ---
Subjective Subjective Date of Service: 02/28/22 Interval History: Fairly comfortable on morphine drip. Remains easily agitated Review of Systems Denies chest pain Denies shortness of breath Admits nausea vomiting diarrhea Admits to abdominal pain that occurs immediately after tube feeding; denies mechanical tube dysfunction Physical Exam Vital Signs: Vital Signs: Last Vital Signs Temp 99 F 02/28/22 04:00 Pulse 69 02/28/22 10:00 Resp 12 02/28/22 10:00 BP 106/75 02/28/22 10:00 Pulse Ox 93 02/28/22 10:00 O2 Del Method 02/28/22 08:00 O2 Flow Rate 1 02/28/22 08:00 BMI result Body Mass Index 23.3 Const: Other: Ill-appearing male no acute distress Resp: Other: Clear to auscultation bilaterally no rales rhonchi wheezes Cardio: Other: No S4; positive S1-S2; no S3 murmurs rubs or gallops GI: Other: Soft mildly tender diffusely across abdomen. Bowel sounds quiet. G-tube site clean dry intact Extrem: Other: No edema bilaterally Objective Data Active Medications Enoxaparin Sodium (Enoxaparin Sodium 40 Mg/0.4 Ml Syringe) 40 mg SUBCUT Q24H [facility] Last Admin: 02/27/22 17:49 Dose: 40 mg Documented By: JOHNSON Lactated Ringer's (Lr) 1,000 mls @ 150 mls/hr IVCONT .Q6H40M [facility] Last Admin: 02/28/22 04:32 Dose: 150 mls/hr Documented By: ANEUDY Morphine Sulfate () 100 mg in 100 mls @ 0 mls/hr IVCONT .Q0M [facility]; Protocol Last Admin: 02/27/22 12:49 Dose: 3.5 mg/hr, 3.5 mls/hr Documented By: JOHNSON Multivitamins 12.8 ml/ Trace Metals 1.3 ml/ Amino Acids/Electrolytes/Dextrose 1,560 mls @ 65 mls/hr IV DAILY@1800 [facility] Stop: 02/28/22 17:59 Last Admin: 02/27/22 17:59 Dose: 65 mls/hr Documented By: JOHNSON Midazolam HCl (Midazolam Hcl/Pf 2 Mg/2 Ml Vial) 2 mg IVPUSH Q4H PRN PRN Reason: anxiety/restlessness Last Admin: 02/27/22 22:30 Dose: 2 mg Documented By: ANEUDY Naloxone HCl (Naloxone Hcl 0.4 Mg/Ml Vial) 0.2 mg IVPUSH Q2M PRN PRN Reason: Excessive sedation or RR < 8 Ondansetron HCl (Ondansetron Hcl 4 Mg/2 Ml Vial) 4 mg IVPUSH Q8H PRN PRN Reason: Nausea and Vomiting Last Admin: 02/28/22 07:36 Dose: 4 mg Documented By: HALIMA Ondansetron HCl (Ondansetron Hcl 4 Mg/2 Ml Vial) 4 mg IVPUSH Q4H PRN PRN Reason: Nausea and Vomiting Pantoprazole Sodium (Pantoprazole Sodium 40 Mg/10 Ml Vial) 40 mg IVPUSH BID@0630,1630 [facility] Last Admin: 02/28/22 07:38 Dose: 40 mg Documented By: HALIMA Pharmacy Consult (Consult Rx Perform Med Rec) 1 each MISCELLANE ONCE PRN PRN Reason: Consult order Sodium Chloride (0.9 % Sodium Chloride Flush 3 Ml Syringe) 3 ml IVFLUSH QSHIFT [facility] Last Admin: 02/28/22 07:39 Dose: 3 ml Documented By: HALIMA Labs CBC & Chem 7: 02/26/22 08:57 02/28/22 09:13 Labs: Laboratory Results - last 24 hr 02/27/22 02/28/22 11:55 09:13 Anion Gap 10 L 9 L Estim Creat Clear Calc 133.7 139.7 Estimated GFR > 60 > 60 Random Glucose 123 H D 118 H Calcium 8.4 8.1 L Phosphorus 2.8 3.9 Magnesium 1.5 L 1.5 L Albumin 3.2 L 3.0 L Triglycerides 80 Assessment and Plan (1) Abdominal pain: Status: Acute (2) Primary squamous cell carcinoma of head and neck: Status: Acute Plan 51-year-old male with known history of primary squamous cell carcinoma of the head and neck status post G-tube insertion presents with abdominal pain post feeding. At this time he was attempting bolus feedings; states the feedings and still without issue however there severe pain thereafter. He was seen in Oncology and sent to ER for admission for GI consult 1. Abdominal pain in the backdrop of primary squamous cell carcinoma head neck requiring G-tube feedings -GI study through PEG tube this morning -based on results hopefully will start bolus feedings with dicyclomine 1-1/2 hour prior -if feeding tolerated; will transition to MS Contin liquid as tolerated with hopes to discharge to home prior to the arrival of is daughter Full code Gabriela Will require ongoing hospitalization for parental nutrition pending abdominal pain workup. Long discussion regarding code status undertaken with patient. Understands the gravity of his situation however his daughter is EN route from [place]. He states once he sees his daughter and has a chance to talk to her he would like to be comfort measures. Will maintain highest level of comfort in the safe as possible environment until that happens Quality Stroke Does the patient have a stroke diagnosis?: No VTE Prior VTE?: No VTE Risk Level:: Medical - moderate - high VTE Device Contraindication: Treatment Not Indicated VTE Drug Contraindication: N/A - Med Ordered
[2022-02-28] MEDS: HYDROmorphone HCl 1 MG/ML SYRINGE IVPUSH ×4 (14:13→21:57)
[2022-02-28] MEDS: Enoxaparin Sodium 40 MG/0.4 ML SYRINGE SUBCUT (18:15)
--- NOTE | 2022-02-28 18:49 | PC.NURSE ---
Assumed care at 0700. 0745 patient complaining of nausea with two episodes of dry heaving. Protonix IVP and Zofran IVP administered. Patient continuing to complain of intermittent nausea and new itchiness with continued 7/10 pain on Morphine SPRAGGER and Fentanyl 50mcg patch TD. Patient requesting Morphine SPRAGGER to stop. Dr Zamarripa notified and Morphine SPRAGGER discontinued and switched to Dilaudid 1mg IVP q2hr. 1730 - patient requesting Dilaudid for 7/10 pain but not due per EMAR. Patient stating I need more access to this medication Im here for pain management and my pain is not being managed . Patient educated on medication including dosing, schedule and side effects. Dr Zamarripa notified and spoke to patient via phone. No new orders at this time.
[2022-02-28] MEDS: fentaNYL 50 MCG PATCH.TD72 TRANSDERMA (22:11)
[2022-03-01] VITALS: BP 114/67; PULSE 66; RESP 12; O2SAT 96
[2022-03-01] MEDS: Lactated Ringers 1,000 ML 150 ML IVCONT ×2 (00:21→04:55)
[2022-03-01] MEDS: HYDROmorphone HCl 1 MG/ML SYRINGE IVPUSH ×10 (00:22→23:58)
[2022-03-01] MEDS: Midazolam HCl/PF 2 MG/2 ML VIAL IVPUSH ×4 (00:27→21:27)
[2022-03-01 03:27] VITALS: BP 104/67; PULSE 66; RESP 18; TEMP 37.1; O2SAT 95
[2022-03-01] MEDS: ondansetron HCL 4 MG/2 ML VIAL IVPUSH ×4 (05:01→21:27)
[2022-03-01] MEDS: Pantoprazole Sodium 40 MG/10 ML VIAL IVPUSH ×2 (05:04→15:20)
[2022-03-01 08:00] VITALS: BP 109/72; PULSE 67; RESP 12; TEMP 36.2; O2SAT 98
[2022-03-01] MEDS: 0.9 % Sodium Chloride Flush 3 ML SYRINGE IVFLUSH ×2 (09:15→15:23)
--- NOTE | 2022-03-01 09:53 | HO.PM.IMPN ---
Subjective Subjective Date of Service: 03/02/22 Interval History: seen in follow-up with abdominal pain related to cancer appeared comfortablecomfortable with IV dilaudid but now is complaining of headache . Review of Systems Abd pain +n/v Physical Exam Vital Signs: Vital Signs: Last Vital Signs Temp 97.1 F 03/01/22 08:00 Pulse 67 03/01/22 08:00 Resp 12 03/01/22 08:00 BP 109/72 03/01/22 08:00 Pulse Ox 98 03/01/22 08:00 O2 Del Method 03/01/22 08:00 O2 Flow Rate 1 02/28/22 12:00 BMI result Body Mass Index 23.3 Const: Other: Ill-appearing male no acute distress Resp: Other: Clear to auscultation bilaterally no rales rhonchi wheezes Cardio: Other: No S4; positive S1-S2; no S3 murmurs rubs or gallops GI: Other: Soft mildly tender diffusely across abdomen. Bowel sounds quiet. G-tube site clean dry intact Extrem: Other: No edema bilaterally Objective Data Active Medications Enoxaparin Sodium (Enoxaparin Sodium 40 Mg/0.4 Ml Syringe) 40 mg SUBCUT Q24H [facility] Last Admin: 02/28/22 18:15 Dose: 40 mg Documented By: HALIMA Hydromorphone HCl (Hydromorphone Hcl 1 Mg/Ml Syringe) 1 mg IVPUSH Q2H PRN; Protocol PRN Reason: Pain, Moderate (Pain Scale 4-6 Last Admin: 03/01/22 09:14 Dose: 1 mg Documented By: MARY Lactated Ringer's (Lr) 1,000 mls @ 150 mls/hr IVCONT .Q6H40M [facility] Last Admin: 03/01/22 04:55 Dose: 150 mls/hr Documented By: CHERRIE Multivitamins 11 ml/ Trace Metals 1.1 ml/ Amino Acids/Electrolytes 1,800 mls @ 75 mls/hr IV DAILY@1800 [facility] Stop: 03/01/22 17:59 Last Admin: 02/28/22 19:00 Dose: 75 mls/hr Documented By: ANA M Midazolam HCl (Midazolam Hcl/Pf 2 Mg/2 Ml Vial) 2 mg IVPUSH Q4H PRN PRN Reason: anxiety/restlessness Last Admin: 03/01/22 09:14 Dose: 2 mg Documented By: MARY Ondansetron HCl (Ondansetron Hcl 4 Mg/2 Ml Vial) 4 mg IVPUSH Q8H PRN PRN Reason: Nausea and Vomiting Last Admin: 03/01/22 09:14 Dose: 4 mg Documented By: MARY Ondansetron HCl (Ondansetron Hcl 4 Mg/2 Ml Vial) 4 mg IVPUSH Q4H PRN PRN Reason: Nausea and Vomiting Last Admin: 03/01/22 05:01 Dose: 4 mg Documented By: CHERRIE Pantoprazole Sodium (Pantoprazole Sodium 40 Mg/10 Ml Vial) 40 mg IVPUSH BID@0630,1630 [facility] Last Admin: 03/01/22 05:04 Dose: 40 mg Documented By: CHERRIE Pharmacy Consult (Consult Rx Perform Med Rec) 1 each MISCELLANE ONCE PRN PRN Reason: Consult order Sodium Chloride (0.9 % Sodium Chloride Flush 3 Ml Syringe) 3 ml IVFLUSH QSHIFT [facility] Last Admin: 03/01/22 09:15 Dose: 3 ml Documented By: MARY Labs CBC & Chem 7: 02/26/22 08:57 02/28/22 09:13 Assessment and Plan (1) Abdominal pain: Status: Acute (2) Primary squamous cell carcinoma of head and neck: Status: Acute Plan 51-year-old male with known history of primary squamous cell carcinoma of the head and neck status post G-tube coming in because of pain after feed--has tried continuous, gravity and bolus with same pain. Upper GI series 02/28 : Limited upper GI examination. No gastroesophageal reflux is seen. Somewhat slow emptying of the stomach into the duodenum slow duodenal transit. Normal anatomic positioning.? 1. Abdominal pain--etiology is no clear but appear to be related to feed? or more likely cancer. At this point his on tpn, not sure what the definitivie plan is. Continue Dilaudid for pain for now. Will reattempt tube feed 3 times a day as directed by GI: If the G-tube seems to be functioning appropriately after the upper GI series, I would recommend starting him on tube feeds 3 times daily and using dicyclomine 3 to 4 times daily prior to feedings to minimize any intestinal spasm that could be contributing to his symptoms.? I would also keep him on a high-dose proton-pump inhibitor for better acid suppressive therapy. Will require ongoing hospitalization for parental nutrition pending abdominal pain workup. Long discussion regarding code status undertaken with patient by Dr. Zamarripa, he Understands the gravity of his situation however his daughter is EN route from [place]. He states once he sees his daughter and has a chance to talk to her he would like to be comfort measures. Will maintain highest level of comfort in the safe as possible environment until that happens. Full code Lovenox Quality Stroke Does the patient have a stroke diagnosis?: No VTE Prior VTE?: No VTE Risk Level:: Medical - moderate - high VTE Device Contraindication: Treatment Not Indicated VTE Drug Contraindication: N/A - Med Ordered
[2022-03-01 15:25] VITALS: BP 102/67; PULSE 68; RESP 18; TEMP 36.9; O2SAT 97
[2022-03-01] MEDS: Enoxaparin Sodium 40 MG/0.4 ML SYRINGE SUBCUT (15:27)
[2022-03-01] MEDS: Fat Emulsions 20% 250 ML 25 ML IV (18:00)
[2022-03-01 19:47] VITALS: BP 118/72; PULSE 66; RESP 15; TEMP 36.7; O2SAT 96
[2022-03-01 23:48] VITALS: BP 121/71; PULSE 70; RESP 17; TEMP 36.2; O2SAT 100
--- NOTE | 2022-03-02 01:08 | PC.NURSE ---
Pt always on 04/12 pain, prn Dilaudid IV given every 2hrs , pt mentioned and asked about his PPI, none found on med ordered, pt made aware and assured MD be notified, Dr. Guerrero was notified and ordered Prilosec po but pt is NPO with no po med, pt had PPI dose earlier of the day as per RN note, pt assured to notified MD in AM about med, pt requested for Versed later of the night right after Dilaudid was given, became hard to arouse and O2 sats at 77% in RA, O2 at 3L/min via NC placed and O2 sats went on high 90s, rounded on pt frequently,, callbell in reach.
[2022-03-02] MEDS: ondansetron HCL 4 MG/2 ML VIAL IVPUSH ×5 (02:18→22:39)
[2022-03-02] MEDS: Midazolam HCl/PF 2 MG/2 ML VIAL IVPUSH ×3 (02:20→22:39)
[2022-03-02] MEDS: HYDROmorphone HCl 1 MG/ML SYRINGE IVPUSH ×10 (02:20→22:39)
[2022-03-02] MEDS: Fat Emulsions 20% 250 ML 25 ML IV ×2 (02:28→18:32)
[2022-03-02 03:50] VITALS: BP 122/69; PULSE 72; RESP 17; TEMP 36.8; O2SAT 97
[2022-03-02 07:17] VITALS: BP 112/67; PULSE 75; RESP 16; TEMP 36.1; O2SAT 98
[2022-03-02] MEDS: 0.9 % Sodium Chloride Flush 3 ML SYRINGE IVFLUSH (08:50)
[2022-03-02] MEDS: Pantoprazole Sodium 40 MG/10 ML VIAL IVPUSH (13:59)
[2022-03-02 16:00] VITALS: BP 124/79; PULSE 76; RESP 18; TEMP 36.5; O2SAT 97
--- NOTE | 2022-03-02 16:07 | PC.NURSE ---
Osmolite tube feeds ordered. Patient refusing. States that he has tried osmolite before and he couldn't tolerate. He said he could barely tolerate solution called Rey, but still had difficulty with that. Asking if he could have liquified food through the tube. Explained that was not possible. Informed patient that dietitian would be in tomorrow to help come up with a plan for nutrition. TPN continues to infuse at 75cc/hr. Patient reporting indigestion and belching. States he needs PPI or he is afraid he will vomit and will have increased pain. Dr. Kaplan notified. IV protonix ordered and given. Awaiting to see if an relief from medication. Patient requesting increase in dose of fentanyl patch from 50mcg to 75mcg. Patient states he believes it will help increase his appetite and therefore his nutrition. Current patch due to be changed tomorrow. Dr. Deluca wanted to keep current fentanyl patch dose until next patch change due.
[2022-03-02] MEDS: Famotidine/PF 20 MG/2 ML VIAL IVPUSH (17:05)
[2022-03-02] MEDS: Enoxaparin Sodium 40 MG/0.4 ML SYRINGE SUBCUT (18:42)
[2022-03-02 21:19] VITALS: BP 119/71; PULSE 79; RESP 16; TEMP 36.4; O2SAT 94
[2022-03-02 23:27] VITALS: BP 104/64; PULSE 81; RESP 16; TEMP 36.6; O2SAT 99
[2022-03-03] MEDS: 0.9 % Sodium Chloride Flush 3 ML SYRINGE IVFLUSH ×3 (00:07→16:00)
[2022-03-03] MEDS: Fat Emulsions 20% 250 ML 25 ML IV (00:07)
[2022-03-03] MEDS: HYDROmorphone HCl 1 MG/ML SYRINGE IVPUSH ×9 (01:02→22:51)
[2022-03-03 03:20] VITALS: BP 119/82; PULSE 95; RESP 18; TEMP 36.9; O2SAT 100
[2022-03-03] MEDS: ondansetron HCL 4 MG/2 ML VIAL IVPUSH ×4 (03:31→19:45)
[2022-03-03] MEDS: Midazolam HCl/PF 2 MG/2 ML VIAL IVPUSH ×3 (03:31→22:51)
[2022-03-03] MEDS: Pantoprazole Sodium 40 MG/10 ML VIAL IVPUSH ×2 (05:35→15:59)
[2022-03-03 08:00] VITALS: BP 107/71; PULSE 84; RESP 18; TEMP 36.7; O2SAT 98
--- NOTE | 2022-03-03 08:44 | MHC.HEMONC ---
Carolyn from [facility] radiation/oncology called for status update-informed pt remains inpatient at [facility] [place]
[2022-03-03 09:12] LABS: Anion Gap 12 (12-20); Blood Urea Nitrogen 15 mg/dL (9-16); Calcium 9.4 mg/dL (8.4-10.2); Carbon Dioxide 35 mmol/L (22-29); Chloride 96 mmol/L (96-108); Creatinine Clr Calc Pharmacy 118.2; Estimated Glomerular Filt Rate > 60; Glucose Random 106 mg/dL (60-115); Phosphorus 3.8 mg/dL (2.7-4.5); Sodium 138 mmol/L (135-145)
--- NOTE | 2022-03-03 11:11 | HO.PM.IMPN ---
Subjective Subjective Date of Service: 03/03/22 Interval History: cc: abd pain with tube feeds interval history:unable to tolerate feeds Cardiovascular Cardiovascular: Reports no additional cardiovascular complaints Respiratory Respiratory: Reports no additional respiratory complaints Physical Exam Vital Signs: Vital Signs: Last Vital Signs Temp 98.0 F 03/03/22 08:00 Pulse 84 03/03/22 08:00 Resp 18 03/03/22 08:00 BP 107/71 03/03/22 08:00 Pulse Ox 98 03/03/22 08:00 O2 Del Method 03/03/22 08:00 O2 Flow Rate 2 03/03/22 03:20 BMI result Body Mass Index 23.3 Const: Other: Ill-appearing male no acute distress Resp: Other: Clear to auscultation bilaterally no rales rhonchi wheezes Cardio: Other: No S4; positive S1-S2; no S3 murmurs rubs or gallops GI: Other: Soft mildly tender diffusely across abdomen. Bowel sounds quiet. G-tube site clean dry intact Extrem: Other: No edema bilaterally Objective Data Active Medications Dicyclomine HCl (Dicyclomine Hcl 10 Mg Capsule) 10 mg PO QIDACHS PRN PRN Reason: abd pain Enoxaparin Sodium (Enoxaparin Sodium 40 Mg/0.4 Ml Syringe) 40 mg SUBCUT Q24H [facility] Last Admin: 03/02/22 18:42 Dose: 40 mg Documented By: MUSA Fentanyl (Fentanyl 50 Mcg Patch.Td72) 50 mcg TRANSDERMA Q72H [facility] Hydromorphone HCl (Hydromorphone Hcl 1 Mg/Ml Syringe) 1 mg IVPUSH Q2H PRN; Protocol PRN Reason: Pain, Moderate (Pain Scale 4-6 Last Admin: 03/03/22 09:18 Dose: 1 mg Documented By: MILAGROS Multivitamins 11 ml/ Trace Metals 1.1 ml/ Amino Acids/Electrolytes 1,800 mls @ 75 mls/hr IV DAILY@1800 [facility] Stop: 03/03/22 17:59 Last Admin: 03/02/22 18:32 Dose: 75 mls/hr Documented By: MUSA Multivitamins 11 ml/ Trace Metals 1.1 ml/ Amino Acids/Electrolytes 1,800 mls @ 75 mls/hr IV DAILY@1800 [facility] Stop: 03/04/22 17:59 Fat Emulsion Intravenous (Intralipid) 150 mls @ 25 mls/hr IV DAILY@1800 [facility] Stop: 03/03/22 23:59 Fat Emulsion Intravenous (Intralipid) 150 mls @ 25 mls/hr IVCONT DAILY@1800 [facility] Stop: 03/04/22 05:59 Midazolam HCl (Midazolam Hcl/Pf 2 Mg/2 Ml Vial) 2 mg IVPUSH Q4H PRN PRN Reason: anxiety/restlessness Last Admin: 03/03/22 08:18 Dose: 2 mg Documented By: MILAGROS Ondansetron HCl (Ondansetron Hcl 4 Mg/2 Ml Vial) 4 mg IVPUSH Q4H PRN PRN Reason: Nausea and Vomiting Last Admin: 03/03/22 09:25 Dose: 4 mg Documented By: MILAGROS Pantoprazole Sodium (Pantoprazole Sodium 40 Mg/10 Ml Vial) 40 mg IVPUSH DAILY@0630 [facility] Last Admin: 03/03/22 05:35 Dose: 40 mg Documented By: PASCALE Pharmacy Consult (Consult Rx Perform Med Rec) 1 each MISCELLANE ONCE PRN PRN Reason: Consult order Sodium Chloride (0.9 % Sodium Chloride Flush 3 Ml Syringe) 3 ml IVFLUSH QSHIFT [facility] Last Admin: 03/03/22 08:19 Dose: 3 ml Documented By: MILAGROS Labs CBC & Chem 7: 02/26/22 08:57 03/03/22 08:18 Labs: Laboratory Results - last 24 hr 03/03/22 08:18 Anion Gap 12 Estim Creat Clear Calc 118.2 Estimated GFR > 60 Random Glucose 106 Calcium 9.4 D Phosphorus 3.8 Magnesium 2.0 Assessment and Plan (1) Abdominal pain: Status: Acute (2) Primary squamous cell carcinoma of head and neck: Status: Acute Plan 51-year-old male with known 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 Upper GI series 02/28 : Limited upper GI examination. No gastroesophageal reflux is seen. Somewhat slow emptying of the stomach into the duodenum slow duodenal transit. Normal anatomic positioning.? Abdominal pain--etiology is not clear but appear to be related to feed? or more likely cancer. At this point his on tpn. will try bentyl, conitnue ppi, restart fentanyl 50mcg q72, dilaudid for breakthrough. Full code Lovenox reason for continued hospitalization:requiring tpn, not tolerating gtube feeds Quality Stroke Does the patient have a stroke diagnosis?: No VTE Prior VTE?: No VTE Risk Level:: Medical - moderate - high VTE Device Contraindication: Treatment Not Indicated VTE Drug Contraindication: N/A - Med Ordered
[2022-03-03 11:14] VITALS: BP 103/71; PULSE 76; RESP 18; TEMP 36.9; O2SAT 99
[2022-03-03] MEDS: fentaNYL 50 MCG PATCH.TD72 TRANSDERMA (11:26)
--- NOTE | 2022-03-03 11:35 | MHC.CM.PN ---
Per CM understanding, Patient awaits a visit from his Daughter in [place] to decide on the plan of care. Patient is NOT yet established with a PCP(Dr. Foote) so VNA will not be an option, although it appears that Patient was active with [facility] for his PEG feeds. If Patient were to choose Hospice, Patient would likely need to consider Hospice at a SNF. CM will follow.
--- NOTE | 2022-03-03 11:56 | PC.NURSE ---
fentany patch 50mcg removed from right shoulder, new patch 50 mcg applied to left upper arm.. old patch disposed in sharp container near xis on S3E
--- NOTE | 2022-03-03 12:57 | MHC.CM.PN ---
MATTI received a call from Carolny (RN from Dr. King's Oncology office @ [phone]); Carolyn had questions that this MATTI was unable to address. MATTI forwarded Carolyn's contact info to Dr. Jones.
[2022-03-03] MEDS: fentaNYL 75 MCG PATCH.TD72 TRANSDERMA (13:34)
--- NOTE | 2022-03-03 13:54 | PC.NURSE ---
fentanyl dose changed from 50 mcg to 75. Old patch removed from left upper arm and placed in sharp disp. near pyxis on S3E
--- NOTE | 2022-03-03 15:16 | MHC.CLN ---
F/U TPN TO CONTINUE PT WITH ORDERS FOR TF OSMOLITE 1.5 BOLUS FEEDS BUT PT REFUSES TO TRIAL FEEDING OFFERED ELEMENTAL TF FORMULA VITAL 1.5 DISCUSSED WITH PT'S NURSE AND MD CONTINUE D15AA5 AT GOAL RATE 75ML/HR WITH 25ML OF 20% LIPIDS PROVIDES 1878 TOTAL KCALS (25KCALS/KG), 90G PROTEIN (1.2G/KG) DISCUSSED WITH PHARMACY; REPLETE LYTES NEEDED PT IS AWAITING ARRIVAL OF DAUGHTER FROM OUT OF TOWN AND POSSIBLE [employer] STATUS CHANGE WILL FOLLOW WITH TEAM
[2022-03-03 16:00] VITALS: BP 119/81; PULSE 92; RESP 18; TEMP 36.4; O2SAT 96
[2022-03-03] MEDS: Enoxaparin Sodium 40 MG/0.4 ML SYRINGE SUBCUT (19:29)
[2022-03-03 19:30] VITALS: BP 103/70; PULSE 76; RESP 18; TEMP 36.9; O2SAT 97
[2022-03-03 23:38] VITALS: BP 92/63; PULSE 95; RESP 18; TEMP 36.6; O2SAT 98
[2022-03-04] MEDS: ondansetron HCL 4 MG/2 ML VIAL IVPUSH ×4 (01:04→18:16)
[2022-03-04] MEDS: HYDROmorphone HCl 1 MG/ML SYRINGE IVPUSH ×10 (01:04→22:31)
[2022-03-04] MEDS: 0.9 % Sodium Chloride Flush 3 ML SYRINGE IVFLUSH ×4 (01:04→23:59)
[2022-03-04] MEDS: Midazolam HCl/PF 2 MG/2 ML VIAL IVPUSH ×3 (03:01→22:31)
[2022-03-04 03:40] VITALS: BP 115/68; PULSE 103; RESP 18; TEMP 36.8; O2SAT 98
[2022-03-04] MEDS: Pantoprazole Sodium 40 MG/10 ML VIAL IVPUSH ×2 (05:53→16:09)
[2022-03-04 07:28] VITALS: BP 101/65; PULSE 95; RESP 14; TEMP 36.4; O2SAT 94
[2022-03-04 07:28] LABS: Hematocrit 35.7 % (42.0-52.0); Hemoglobin 12.6 g/dl (14.0-18.0); Mean Corpuscular HGB Conc 35.3 g/dl (31.0-36.0); Mean Corpuscular Volume 87.7 fL (80.0-98.0); Mean Platelet Volume 9.7 fL (9.4-12.4); Platelet Count 165 X10*3/uL (160-400); Red Blood Count 4.07 X10*6/uL (4.60-5.80); Red Cell Distribution Width 13.8 % (11.0-16.0); White Blood Count 5.3 X10*3/uL (4.8-10.8)
[2022-03-04 07:59] LABS: Albumin Level 3.6 g/dL (3.5-5.0); Anion Gap 16 (12-20); Blood Urea Nitrogen 16 mg/dL (9-16); Carbon Dioxide 31 mmol/L (22-29); Chloride 96 mmol/L (96-108); Creatinine Clr Calc Pharmacy 111.1; Estimated Glomerular Filt Rate > 60; Glucose Fasting 101 mg/dL (60-99); Magnesium 1.8 mg/dL (1.6-2.6); Phosphorus 4.8 mg/dL (2.7-4.5); Potassium 4.6 mmol/L (3.3-5.1); Sodium 138 mmol/L (135-145); Triglycerides 134 mg/dL
--- NOTE | 2022-03-04 09:46 | HO.PM.IMPN ---
Subjective Subjective Date of Service: 03/04/22 Interval History: cc: abd pain with tube feeds interval history:complaining of ongoing mouth pain Cardiovascular Cardiovascular: Reports no additional cardiovascular complaints Respiratory Respiratory: Reports no additional respiratory complaints Physical Exam Vital Signs: Vital Signs: Last Vital Signs Temp 97.6 F 03/04/22 07:28 Pulse 95 03/04/22 07:28 Resp 14 03/04/22 07:28 BP 101/65 03/04/22 07:28 Pulse Ox 94 03/04/22 07:28 O2 Del Method 03/04/22 07:28 O2 Flow Rate 2 03/03/22 03:20 BMI result Body Mass Index 23.3 Const: Other: Ill-appearing male no acute distress Resp: Other: Clear to auscultation bilaterally no rales rhonchi wheezes Cardio: Other: No S4; positive S1-S2; no S3 murmurs rubs or gallops GI: Other: Soft mildly tender diffusely across abdomen. Bowel sounds quiet. G-tube site clean dry intact Extrem: Other: No edema bilaterally Objective Data Active Medications Dicyclomine HCl (Dicyclomine Hcl 10 Mg Capsule) 10 mg PO QIDACHS PRN PRN Reason: abd pain Enoxaparin Sodium (Enoxaparin Sodium 40 Mg/0.4 Ml Syringe) 40 mg SUBCUT Q24H [facility] Last Admin: 03/03/22 19:29 Dose: 40 mg Documented By: PASCALE Fentanyl (Fentanyl 75 Mcg Patch.Td72) 75 mcg TRANSDERMA Q72H [facility] Last Admin: 03/03/22 13:34 Dose: 75 mcg Documented By: MILAGROS Hydromorphone HCl (Hydromorphone Hcl 1 Mg/Ml Syringe) 1 mg IVPUSH Q2H PRN; Protocol PRN Reason: Pain, Moderate (Pain Scale 4-6 Last Admin: 03/04/22 08:06 Dose: 1 mg Documented By: NEGIN Multivitamins 11 ml/ Trace Metals 1.1 ml/ Amino Acids/Electrolytes 1,800 mls @ 75 mls/hr IV DAILY@1800 [facility] Stop: 03/04/22 17:59 Last Admin: 03/03/22 18:38 Dose: 75 mls/hr Documented By: MILAGROS Midazolam HCl (Midazolam Hcl/Pf 2 Mg/2 Ml Vial) 2 mg IVPUSH Q4H PRN PRN Reason: anxiety/restlessness Last Admin: 03/04/22 07:22 Dose: 2 mg Documented By: NEGIN Ondansetron HCl (Ondansetron Hcl 4 Mg/2 Ml Vial) 4 mg IVPUSH Q4H PRN PRN Reason: Nausea and Vomiting Last Admin: 03/04/22 08:12 Dose: 4 mg Documented By: NEGIN Pantoprazole Sodium (Pantoprazole Sodium 40 Mg/10 Ml Vial) 40 mg IVPUSH BID@0630,1630 [facility] Last Admin: 03/04/22 05:53 Dose: 40 mg Documented By: PASCALE Pharmacy Consult (Consult Rx Perform Med Rec) 1 each MISCELLANE ONCE PRN PRN Reason: Consult order Sodium Chloride (0.9 % Sodium Chloride Flush 3 Ml Syringe) 3 ml IVFLUSH QSHIFT [facility] Last Admin: 03/04/22 08:06 Dose: 3 ml Documented By: NEGIN Labs CBC & Chem 7: 03/04/22 05:48 03/04/22 05:48 Labs: Laboratory Results - last 24 hr 03/04/22 03/04/22 05:48 05:48 MCV 87.7 MCH 31.0 MCHC 35.3 RDW 13.8 Plt Count 165 MPV 9.7 Absolute Nucleated RBC 0.000 Nucleated RBC % (auto) 0.0 Anion Gap 16 Estim Creat Clear Calc 111.1 Estimated GFR > 60 Random Glucose TNP Fasting Glucose 101 H Calcium 9.0 Phosphorus 4.8 H Magnesium 1.8 Albumin 3.6 Triglycerides 134 Assessment and Plan (1) Abdominal pain: Status: Acute (2) Primary squamous cell carcinoma of head and neck: Status: Acute Plan 51-year-old male with known 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 Upper GI series 02/28 : Limited upper GI examination. No gastroesophageal reflux is seen. Somewhat slow emptying of the stomach into the duodenum slow duodenal transit. Normal anatomic positioning.? Abdominal pain--etiology is not clear but appear to be related to feed? or more likely cancer. At this point his on tpn. will try bentyl, continue ppi, increased fentanyl to 75mcg q72, dilaudid for breakthrough. head and neck cancer outpatient follow up with oncology and radonc, per radonc has been responding to therapy Full code Lovenox reason for continued hospitalization:requiring tpn, not tolerating gtube feeds Quality Stroke Does the patient have a stroke diagnosis?: No VTE Prior VTE?: No VTE Risk Level:: Medical - moderate - high VTE Device Contraindication: Treatment Not Indicated VTE Drug Contraindication: N/A - Med Ordered
--- NOTE | 2022-03-04 10:59 | MHC.CLN ---
F/U TPN TO CONTINUE PT WITH ORDERS FOR TF OSMOLITE 1.5 BOLUS FEEDS BUT PT CONTINUES TO REFUSE FEEDING CONTINUE D15AA5 AT GOAL RATE 75ML/HR WITH 25ML OF 20% LIPIDS PROVIDES 1878 TOTAL KCALS (25KCALS/KG), 90G PROTEIN (1.2G/KG) DISCUSSED WITH PHARMACY REPLETE LYTES NEEDED
[2022-03-04 11:03] VITALS: BP 116/77; PULSE 74; RESP 16; TEMP 37.1; O2SAT 97
--- NOTE | 2022-03-04 11:16 | MHC.CM.PN ---
Per MD in [place], Patient is not appropriate for [employer]. Patient is receiving TPN and the goal is for Patient to tolerate the Gtube feeds. Patient will not qualify for VNA d/t the fact that he is not yet established with his PCP/Dr. Foote. CM will continue to follow.
[2022-03-04 15:08] VITALS: BP 116/65; PULSE 78; RESP 20; TEMP 37.1; O2SAT 98
--- NOTE | 2022-03-04 15:09 | PM.HEMONCCN ---
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 Results revealed: Positive for malignancy consistent with poorly differentiated squamous cell carcinoma. 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 Malignant cells immuno-reactive with P 40, P 63 and P 16. Patient started concurrent chemoradiation therapy in January 2022. HPI - Consult Narrative Reason for consult: Patient requesting chemotherapy Narrative: Singh Bianchi is a 51 year old male with squamous cell carcinoma of neck who has been receiving concurrent chemo radiotherapy admitted for abdominal and oral pain. He presented on 02/25/2022 with complaints of abdominal pain related to G-tube feeding. This was after 4 weeks of radiation therapy. He developed diffuse abdominal pain and therefore was unable to receive radiation or chemotherapy for the last week. He continues to have sharp pain in the left side of his mouth. He is unable to swallow even saliva. His abdominal pain has improved. Tube feedings have been on hold. He wants to know if he can receive chemotherapy during hospitalization. He has been receiving liquid Dilaudid at home in addition to fentanyl patch. Review of Systems - Constitutional Reports no additional constitutional complaints, Reports lack of energy, Reports weakness - ENT Reports dry mouth, Reports mouth pain - Cardiovascular Reports no additional cardiovascular complaints - Respiratory Reports no additional respiratory complaints - Gastrointestinal Reports no additional gastrointestinal complaints - Neurologic Reports no additional neurologic complaints, Denies dizziness, Denies sensory deficit Oncology Screenings - ECOG Performance Status ECOG Performance Status: 2 [facility] Medical History: Medical History (Last Reviewed 02/25/22 @ 16:58 by Ralph Zamarripa DO) Gastrostomy tube in place Mass of left side of neck Squamous cell carcinoma of neck Family History: Family History (Last Reviewed 02/25/22 @ 16:58 by Ralph Zamarripa DO) Maternal Grandmother Lung cancer Surgical History: Surgical History (Last Reviewed 02/25/22 @ 16:58 by Ralph Zamarripa DO) H/O removal of cyst Social History: Social History (Last Reviewed 02/25/22 @ 16:58 by Ralph Zamarripa DO) Living Situation History: Household Members: Family Household Members Other:: mother Housing: House Are you a primary rn wound care to a significant other at home: No Do you presently have visiting nurse or other home services: No Tobacco History: Patient Tobacco Use Status: Never used Tobacco Substance Use History: Substance Use Type: Marijuana Occupation Assessmet: service: No Current occupational status: unemployed Home Medications and Allergies Current Medications: Current Medications Dicyclomine HCl (Dicyclomine Hcl 10 Mg Capsule) 10 mg PO QIDACHS PRN PRN Reason: abd pain Enoxaparin Sodium (Enoxaparin Sodium 40 Mg/0.4 Ml Syringe) 40 mg SUBCUT Q24H [facility] Last Admin: 03/03/22 19:29 Dose: 40 mg Fentanyl (Fentanyl 75 Mcg Patch.Td72) 75 mcg TRANSDERMA Q72H [facility] Last Admin: 03/03/22 13:34 Dose: 75 mcg Hydromorphone HCl (Hydromorphone Hcl 1 Mg/Ml Syringe) 1 mg IVPUSH Q2H PRN; Protocol PRN Reason: Pain, Moderate (Pain Scale 4-6 Last Admin: 03/04/22 13:27 Dose: 1 mg Multivitamins 11 ml/ Trace Metals 1.1 ml/ Amino Acids/Electrolytes 1,800 mls @ 75 mls/hr IV DAILY@1800 [facility] Stop: 03/04/22 17:59 Last Admin: 03/03/22 18:38 Dose: 75 mls/hr Potassium Chloride 28 meq/Sodium Chloride 70 meq/Magnesium Sulfate 10 meq/Potassium Phosphate 22 mmol/Calcium Gluconate 9.3 meq/Multivitamins 11 ml/ Trace Metals 1.1 ml/ Amino Acids/Dextrose 1,800 mls @ 75 mls/hr IV DAILY@1800 [facility] Stop: 03/05/22 17:59 Fat Emulsion Intravenous (Intralipid) 150 mls @ 25 mls/hr IV DAILY@1800 [facility] Stop: 03/04/22 23:59 Fat Emulsion Intravenous (Intralipid) 150 mls @ 25 mls/hr IV DAILY@0000 [facility] Stop: 03/05/22 05:59 Midazolam HCl (Midazolam Hcl/Pf 2 Mg/2 Ml Vial) 2 mg IVPUSH Q4H PRN PRN Reason: anxiety/restlessness Last Admin: 03/04/22 07:22 Dose: 2 mg Ondansetron HCl (Ondansetron Hcl 4 Mg/2 Ml Vial) 4 mg IVPUSH Q4H PRN PRN Reason: Nausea and Vomiting Last Admin: 03/04/22 13:31 Dose: 4 mg Pantoprazole Sodium (Pantoprazole Sodium 40 Mg/10 Ml Vial) 40 mg IVPUSH BID@0630,1630 [facility] Last Admin: 03/04/22 05:53 Dose: 40 mg Pharmacy Consult (Consult Rx Perform Med Rec) 1 each MISCELLANE ONCE PRN PRN Reason: Consult order Sodium Chloride (0.9 % Sodium Chloride Flush 3 Ml Syringe) 3 ml IVFLUSH QSHIFT [facility] Last Admin: 03/04/22 08:06 Dose: 3 ml Home Medications Medication Instructions Recorded Confirmed Type ondansetron 8 mg disintegrating 8 mg PO Q8H PRN Nausea 02/25/22 02/25/22 History tablet Allergies Allergy/AdvReac Type Severity Reaction Status Date / Time No Known Allergies Allergy Verified 02/11/22 15:57 [No Known Allergies*] Physical Exam Vital signs: Vital Signs Temp 98.7 F 03/04/22 11:03 Pulse 74 03/04/22 11:03 Resp 16 03/04/22 11:03 BP 116/77 03/04/22 11:03 Pulse Ox 97 03/04/22 11:03 O2 Del Method 03/04/22 11:03 O2 Flow Rate 2 03/03/22 03:20 Intake & Output 03/03/22 03/04/22 03/04/22 18:59 06:59 18:59 Intake Total 2160 / 2310.833 150.833 / 2310.833 149.167 / 149.167 Output Total 750 / 750 Balance 2160 / 1560.833 -599.167 / 1560.833 149.167 / 149.167 Urine Output (Average ml/kg/hr) 0.85 0.85 Intake: Intake, Oral Amount 360 / 360 Intake, IV Amount 1800 / 1950.833 150.833 / 1950.833 149.167 / 149.167 Fat Emulsions 20% 150 ml @ 25 150 / 150 mls/hr IV DAILY@1800 [facility] Rx#: [id number] AA 5 %/Calcium/Lytes/Dext 15 % 1800 / 1800 2,000 ml @ 75 mls/hr IV DAILY@ 1800 [facility] with MVI, Adult 11 ml with Trace Elements w/o chromium 1.1 ml Rx#:[id number] Fat Emulsions 20% 150 ml @ 25 0.833 / 0.833 149.167 / 149.167 mls/hr IVCONT DAILY@1800 [facility] Rx #:[id number] Output: Output, Urine Amount 750 / 750 Other: Meal Refused No No NPO No Yes Breakfast % Eaten 50% Lunch % Eaten 100% Number of Unmeasured Voids 1 1 Urine Urinal Bathroom Urine Color Hina Yellow Weight 73.6 kg - Constitutional Present: no acute distress - Routine HEENT Exam Head: Present: normal inspection Eye: Present: EOMI - Routine Neck Exam Present: supple - Routine Respiratory Exam Absent: accessory muscle use - Routine Cardiovascular Exam Cardiovascular: Present: S1, S2 - Routine Abdominal Exam Present: soft Hem/Onc Consult Result - Labs CBC & Chem 7: 03/04/22 05:48 03/04/22 05:48 Labs: Short CBC 03/04/22 Range/Units 05:48 WBC 5.3 (4.8-10.8) X10*3/uL Hgb 12.6 L (14.0-18.0) g/dl Hct 35.7 L (42.0-52.0) % Plt Count 165 (160-400) X10*3/uL BMP 03/04/22 05:48 Sodium 138 Potassium 4.6 Chloride 96 Carbon Dioxide 31 H BUN 16 Creatinine 0.83 Calcium 9.0 Liver Function 03/04/22 Range/Units 05:48 Albumin 3.6 (3.5-5.0) g/dL Assessment and Plan Patient Active problem list reviewed?: Yes (1) Primary squamous cell carcinoma of head and neck Status: Acute Assessment and plan: 1. This is a 51-year-old male with squamous cell carcinoma of head and neck. He started concurrent chemoradiation therapy on 12/31/2021. He has a G-tube and had been receiving tube feeds, he was admitted for diffuse abdominal pain on 02/25/2022. He has been seen by GI and recommendation was to restart G tubes along with dicyclomine and high-dose PPI. He is currently receiving TPN. Patient has not had radiation therapy in a few days. I have explained to him that chemotherapy would only be effective with radiation therapy. He wanted to know if he could be transferred back and forth to [facility] in order to receive radiation therapy. It was explained to him that would not be possible. As soon as his pain is under control and he is discharged from the hospital, he will be started back on chemoradiation therapy. For pain control he is on fentanyl and Dilaudid. Blood work shows improvement in pancytopenia. Thank you. - Time Spent With Patient Time Spent with Patient (in minutes): 20
[2022-03-04 19:23] VITALS: BP 112/85; PULSE 92; RESP 18; TEMP 36.9; O2SAT 99
[2022-03-04 23:45] VITALS: BP 114/70; PULSE 87; RESP 18; TEMP 36.8; O2SAT 99
[2022-03-05] MEDS: HYDROmorphone HCl 1 MG/ML SYRINGE IVPUSH ×11 (00:41→22:24)
[2022-03-05] MEDS: Midazolam HCl/PF 2 MG/2 ML VIAL IVPUSH ×2 (02:41→07:30)
[2022-03-05 03:35] VITALS: BP 99/64; PULSE 86; RESP 18; TEMP 36.6; O2SAT 99
[2022-03-05] MEDS: ondansetron HCL 4 MG/2 ML VIAL IVPUSH ×2 (04:47→17:39)
[2022-03-05] MEDS: Pantoprazole Sodium 40 MG/10 ML VIAL IVPUSH ×2 (06:05→15:39)
[2022-03-05 07:17] VITALS: BP 148/73; PULSE 86; RESP 16; TEMP 36.2; O2SAT 98
[2022-03-05] MEDS: 0.9 % Sodium Chloride Flush 3 ML SYRINGE IVFLUSH ×2 (07:31→13:43)
--- NOTE | 2022-03-05 09:45 | P.PNIM_ITS ---
Subjective Subjective Date of Service: 03/05/22 Interval History: cc: abd pain with tube feeds interval history:complaining of ongoing mouth pain Cardiovascular Cardiovascular: Reports no additional cardiovascular complaints Respiratory Respiratory: Reports no additional respiratory complaints Physical Exam Vital Signs: Vital Signs: Last Vital Signs Temp 97.2 F 03/05/22 07:17 Pulse 86 03/05/22 07:17 Resp 16 03/05/22 07:17 BP 148/73 H 03/05/22 07:17 Pulse Ox 98 03/05/22 07:17 O2 Del Method 03/05/22 07:17 O2 Flow Rate 2 03/03/22 03:20 BMI result Body Mass Index 23.3 Const: Other: Ill-appearing male no acute distress Resp: Other: Clear to auscultation bilaterally no rales rhonchi wheezes Cardio: Other: No S4; positive S1-S2; no S3 murmurs rubs or gallops GI: Other: Soft mildly tender diffusely across abdomen. Bowel sounds quiet. G-tube site clean dry intact Extrem: Other: No edema bilaterally Objective Data Active Medications Dicyclomine HCl (Dicyclomine Hcl 10 Mg Capsule) 10 mg PO QIDACHS PRN PRN Reason: abd pain Enoxaparin Sodium (Enoxaparin Sodium 40 Mg/0.4 Ml Syringe) 40 mg SUBCUT Q24H [facility] Last Admin: 03/03/22 19:29 Dose: 40 mg Documented By: BRANDIRISBrianne Fentanyl (Fentanyl 75 Mcg Patch.Td72) 75 mcg TRANSDERMA Q72H [facility] Last Admin: 03/03/22 13:34 Dose: 75 mcg Documented By: MILAGROS Hydromorphone HCl (Hydromorphone Hcl 1 Mg/Ml Syringe) 1 mg IVPUSH Q2H PRN; Protocol PRN Reason: Pain, Moderate (Pain Scale 4-6 Last Admin: 03/05/22 09:34 Dose: 1 mg Documented By: NEGIN Potassium Chloride 28 meq/Sodium Chloride 70 meq/Magnesium Sulfate 10 meq/Potassium Phosphate 22 mmol/Calcium Gluconate 9.3 meq/Multivitamins 11 ml/ Trace Metals 1.1 ml/ Amino Acids/Dextrose 1,800 mls @ 75 mls/hr IV DAILY@1800 [facility] Stop: 03/05/22 17:59 Last Admin: 03/04/22 17:50 Dose: 75 mls/hr Documented By: NEGIN Midazolam HCl (Midazolam Hcl/Pf 2 Mg/2 Ml Vial) 2 mg IVPUSH Q4H PRN PRN Reason: anxiety/restlessness Last Admin: 03/05/22 07:30 Dose: 2 mg Documented By: NEGIN Ondansetron HCl (Ondansetron Hcl 4 Mg/2 Ml Vial) 4 mg IVPUSH Q4H PRN PRN Reason: Nausea and Vomiting Last Admin: 03/05/22 09:35 Dose: 4 mg Documented By: NEGIN Pantoprazole Sodium (Pantoprazole Sodium 40 Mg/10 Ml Vial) 40 mg IVPUSH BID@0630,1630 [facility] Last Admin: 03/05/22 06:05 Dose: 40 mg Documented By: UNA Pharmacy Consult (Consult Rx Perform Med Rec) 1 each MISCELLANE ONCE PRN PRN Reason: Consult order Sodium Chloride (0.9 % Sodium Chloride Flush 3 Ml Syringe) 3 ml IVFLUSH QSHIFT [facility] Last Admin: 03/05/22 07:31 Dose: 3 ml Documented By: NEGIN Labs CBC & Chem 7: 03/04/22 05:48 03/04/22 05:48 Assessment and Plan (1) Abdominal pain: Status: Acute (2) Primary squamous cell carcinoma of head and neck: Status: Acute Plan 51-year-old male with known 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 Upper GI series 02/28 : Limited upper GI examination. No gastroesophageal reflux is seen. Somewhat slow emptying of the stomach into the duodenum slow duodenal transit. Normal anatomic positioning.? Abdominal pain--etiology is not clear but appear to be related to feed? or more likely cancer. At this point his on tpn. will try bentyl, continue ppi, increas ed fentanyl to 75mcg q72, dilaudid for breakthrough. will retry feeds head and neck cancer outpatient follow up with oncology and radonc, per radonc has been responding to therapy Full code Lovenox reason for continued hospitalization:requiring tpn, not tolerating gtube feeds Quality Stroke Does the patient have a stroke diagnosis?: No VTE Prior VTE?: No VTE Risk Level:: Medical - moderate - high VTE Device Contraindication: Treatment Not Indicated VTE Drug Contraindication: N/A - Med Ordered
--- NOTE | 2022-03-05 10:01 | MHC.CLN ---
F/U TPN TO CONTINUE PT WITH ORDERS FOR TF OSMOLITE 1.5 BOLUS FEEDS BUT PT CONTINUES TO REFUSE FEEDING CONTINUE D15AA5 AT GOAL RATE 75ML/HR WITH 25ML OF 20% LIPIDS. PROVIDES 1878 TOTAL KCALS (25KCALS/KG), 90G PROTEIN (1.2G/KG) DISCUSSED WITH PHARMACY REPLETE LYTES NEEDED
[2022-03-05 11:26] LABS: Hematocrit 33.7 % (42.0-52.0); Mean Corpuscular HGB Conc 35.6 g/dl (31.0-36.0); Mean Corpuscular Hemoglobin 31.4 pg (27.0-33.0); Mean Corpuscular Volume 88.2 fL (80.0-98.0); Mean Platelet Volume 9.5 fL (9.4-12.4); Platelet Count 138 X10*3/uL (160-400); Red Blood Count 3.82 X10*6/uL (4.60-5.80); Red Cell Distribution Width 13.8 % (11.0-16.0); White Blood Count 3.6 X10*3/uL (4.8-10.8)
--- NOTE | 2022-03-05 13:12 | MHC.CM.PN ---
PATIENT AGREES TO ATTEMPT TUBE FEEDS TODAY CASE MANAGEMENT FOLLOWING ALONG
[2022-03-05 13:48] LABS: Anion Gap 13 (12-20); Blood Urea Nitrogen 15 mg/dL (9-16); Calcium 9.1 mg/dL (8.4-10.2); Carbon Dioxide 35 mmol/L (22-29); Chloride 95 mmol/L (96-108); Creatinine Clr Calc Pharmacy 109.8; Estimated Glomerular Filt Rate > 60; Glucose Fasting 104 mg/dL (60-99); Magnesium 1.8 mg/dL (1.6-2.6); Potassium 4.7 mmol/L (3.3-5.1); Sodium 138 mmol/L (135-145)
[2022-03-05 13:51] LABS: Albumin Level 3.6 g/dL (3.5-5.0); Anion Gap 14 (12-20); Blood Urea Nitrogen 15 mg/dL (9-16); Carbon Dioxide 34 mmol/L (22-29); Chloride 95 mmol/L (96-108); Creatinine Clr Calc Pharmacy 109.8; Estimated Glomerular Filt Rate > 60; Glucose Random 105 mg/dL (60-115); Magnesium 1.9 mg/dL (1.6-2.6); Phosphorus 4.8 mg/dL (2.7-4.5); Potassium 4.7 mmol/L (3.3-5.1); Sodium 138 mmol/L (135-145); Triglycerides 37 mg/dL
--- NOTE | 2022-03-05 14:28 | MHC.CLN ---
NUTRITION PATIENT WANTS TO TRY BLENDERIZED TUBE FEEDING THAT HE PURCHASED. HAS NOT TRIED AT HOME. PRODUCT IS [employer], A [employer] PRODUCT. COMES IN PREBLENDED, READY TO FEED, NON RESEALABLE POUCH. MAKE NEED ADDITIONAL FLUID ADDED TO PREVENT CLOGGED TUBE. [employer], [employer]S AND BR[employer] RICE PROVIDES PER 237 ML SERVING 340 KCALS, 14 G PROTEIN, 181 ML FREE WATER. TO MEET NUTRITIONAL NEEDS, RECOMMEND 6 BOLUS SERVINGS (237 ML PER SERVING) TO PROVIDE 2040 KCALS (27.7 KCALS/KG); 84 G PROTEIN (1.14 G/KG); 1086 ML FREE WATER (14.76 ML/KG); ADDITIONAL WATER FLUSH 120 ML Q 4 HOURS; TOTAL FREE WATER (1086+720) 1806 ML (24.5 ML/KG). COMMUNICATED WITH INFECTION CONTROL NURSE ABOUT [employer] TO ADMINISTER PRODUCT. PRODUCT WITH 2 HOUR HANG TIME SO NOT SUITABLE FOR CONTINUOUS FEED. FOR BOLUS FEED, UPON OPENING POUCH, MUST BE REFRIGERATED, THEN DISCARDED AFTER 24 HOURS. DUE TO STORAGE CONCERNS, RD RECOMMENDS USE NEW POUCH OF PRODUCT FOR EACH BOLUS FEEDING. PATIENT REPORTS THAT HE HAS NOT TAKEN TUBE FEEDING IN ABOUT 1.[address] RECOMMENDS START BOLUS FEEDING AT 60 ML AND MONITOR FOR TOLERANCE. INCREASE BY 60 ML EVERY 4 HOURS UNTIL MAX BOLUS RATE OF 237 ML. MAX GOAL RATE 6 BOLUS SERVINGS (237 ML/SERVING); FREE WATER FLUSH 120 ML Q 4 HOURS. PATIENT CONTINUES WITH TPN. FOLLOW FOR TUBE FEED TOLERANCE AND ADJUST TPN NEEDED.
[2022-03-05 15:35] VITALS: BP 106/64; PULSE 73; RESP 17; TEMP 36.1; O2SAT 100
[2022-03-05] MEDS: Enoxaparin Sodium 40 MG/0.4 ML SYRINGE SUBCUT (17:46)
[2022-03-05] MEDS: Dicyclomine HCl 10 MG CAPSULE PO (18:35)
[2022-03-05 20:00] VITALS: BP 112/72; PULSE 76; RESP 17; TEMP 36.1; O2SAT 98
[2022-03-05 20:13] VITALS: RESP 20
[2022-03-05] MEDS: diphenhydrAMINE HCL 50 MG/ML VIAL 25 MG IVPUSH (21:57)
[2022-03-06] VITALS (11 sets, daily range): BP systolic 109–119; BP diastolic 60–77; PULSE 67–97; RESP 16–18; TEMP 35.5–36.8; O2SAT 94–99
[2022-03-06] MEDS: 0.9 % Sodium Chloride Flush 3 ML SYRINGE IVFLUSH ×4 (00:08→20:00)
[2022-03-06] MEDS: ondansetron HCL 4 MG/2 ML VIAL IVPUSH ×4 (00:40→23:37)
[2022-03-06] MEDS: Dicyclomine HCl 10 MG CAPSULE PO ×2 (00:40→13:28)
[2022-03-06] MEDS: Midazolam HCl/PF 2 MG/2 ML VIAL IVPUSH ×3 (01:30→22:33)
[2022-03-06] MEDS: HYDROmorphone HCl 1 MG/ML SYRINGE IVPUSH ×5 (01:31→22:33)
--- NOTE | 2022-03-06 04:20 | PC.NURSE ---
patient resting in bed at start of this 11-7 shift, vss, HOB up, voiding qs to bedisde urinal, and independently uses bedside yankar to clear oral secretions. patient due for g tube feeding by 0000 as per md/equipment man orders. explained amount and procedure to pt who stated he would try but not to increase the amount as indicated in his orders to increase by 60 ml every 4 hours to a max of 237 ml of toleration. pt willing for trying 60 ml, but then wanted pain medications first, then changed to nausea medicine and bentyl. after receiving these iv and with water via g tube he wanted to wait 20 minutes, however, he then had dry heaves and declined a gt feed. requested and given dilaudud and versed ivp 0130. pt able to then settle and nap. He stated to be agreeable to try a feeding early am. will continue to monitor closely
[2022-03-06] MEDS: Pantoprazole Sodium 40 MG/10 ML VIAL IVPUSH ×2 (05:57→17:12)
--- NOTE | 2022-03-06 07:41 | PC.NURSE ---
patient accepted gt feeding this am at 0630, however, would only try 60ml with h2o flush, tolerated well and report given to day rn to time and amount.
--- NOTE | 2022-03-06 09:00 | HO.PM.IMPN ---
Subjective Subjective Date of Service: 03/06/22 Interval History: cc: abd pain interval history: still reporting not tolerating feeds, severe pain, vomiting, however, often found resting comfortably, no reports of overt emesis from staff. Cardiovascular Cardiovascular: Reports no additional cardiovascular complaints Respiratory Respiratory: Reports no additional respiratory complaints Physical Exam Vital Signs: Vital Signs: Last Vital Signs Temp 96.4 F L 03/06/22 07:11 Pulse 67 03/06/22 07:01 Resp 18 03/06/22 07:11 BP 111/70 03/06/22 07:11 Pulse Ox 96 03/06/22 07:11 O2 Del Method 03/06/22 07:11 O2 Flow Rate 2 03/03/22 03:20 BMI result Body Mass Index 23.3 Const: Other: Ill-appearing male no acute distress Resp: Other: Clear to auscultation bilaterally no rales rhonchi wheezes Cardio: Other: No S4; positive S1-S2; no S3 murmurs rubs or gallops GI: Other: Soft mildly tender diffusely across abdomen. Bowel sounds quiet. G-tube site clean dry intact Extrem: Other: No edema bilaterally Objective Data Active Medications Dicyclomine HCl (Dicyclomine Hcl 10 Mg Capsule) 10 mg PO QIDACHS PRN PRN Reason: abd pain Last Admin: 03/06/22 00:40 Dose: 10 mg Documented By: UNA Enoxaparin Sodium (Enoxaparin Sodium 40 Mg/0.4 Ml Syringe) 40 mg SUBCUT Q24H [facility] Last Admin: 03/05/22 17:46 Dose: 40 mg Documented By: NEGIN Fentanyl (Fentanyl 75 Mcg Patch.Td72) 75 mcg TRANSDERMA Q72H [facility] Last Admin: 03/03/22 13:34 Dose: 75 mcg Documented By: MILAGROS Hydromorphone HCl (Hydromorphone Hcl 1 Mg/Ml Syringe) 1 mg IVPUSH Q2H PRN; Protocol PRN Reason: moderate pain Last Admin: 03/06/22 06:03 Dose: 1 mg Documented By: UNA Potassium Chloride 28 meq/Sodium Chloride 70 meq/Magnesium Sulfate 10 meq/Potassium Phosphate 22 mmol/Calcium Gluconate 9.3 meq/Multivitamins 11 ml/ Trace Metals 1.1 ml/ Amino Acids/Dextrose 1,800 mls @ 75 mls/hr IV DAILY@1800 [facility] Stop: 03/06/22 17:59 Last Admin: 03/05/22 17:45 Dose: 75 mls/hr Documented By: NEGIN Midazolam HCl (Midazolam Hcl/Pf 2 Mg/2 Ml Vial) 2 mg IVPUSH Q4H PRN PRN Reason: anxiety/restlessness Last Admin: 03/06/22 01:30 Dose: 2 mg Documented By: UNA Ondansetron HCl (Ondansetron Hcl 4 Mg/2 Ml Vial) 4 mg IVPUSH Q4H PRN PRN Reason: Nausea and Vomiting Last Admin: 03/06/22 00:40 Dose: 4 mg Documented By: UNA Pantoprazole Sodium (Pantoprazole Sodium 40 Mg/10 Ml Vial) 40 mg IVPUSH BID@0630,1630 [facility] Last Admin: 03/06/22 05:57 Dose: 40 mg Documented By: UNA Pharmacy Consult (Consult Rx Perform Med Rec) 1 each MISCELLANE ONCE PRN PRN Reason: Consult order Sodium Chloride (0.9 % Sodium Chloride Flush 3 Ml Syringe) 3 ml IVFLUSH QSHIFT [facility] Last Admin: 03/06/22 00:08 Dose: 3 ml Documented By: UNA Labs CBC & Chem 7: 03/05/22 11:16 03/05/22 11:07 Labs: Laboratory Results - last 24 hr 03/05/22 03/05/22 03/05/22 11:07 11:07 11:16 MCV 88.2 MCH 31.4 MCHC 35.6 RDW 13.8 Plt Count 138 L MPV 9.5 Absolute Nucleated RBC 0.000 Nucleated RBC % (auto) 0.0 Anion Gap 13 14 Estim Creat Clear Calc 109.8 109.8 Estimated GFR > 60 > 60 Random Glucose 105 Fasting Glucose 104 H Calcium 9.1 9.0 Phosphorus 4.8 H Magnesium 1.8 1.9 Albumin 3.6 Triglycerides 37 Assessment and Plan (1) Abdominal pain: Status: Acute (2) Primary squamous cell carcinoma of head and neck: Status: Acute Plan 51-year-old male with known 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 Upper GI series 02/28 : Limited upper GI examination. No gastroesophageal reflux is seen. Somewhat slow emptying of the stomach into the duodenum slow duodenal transit. Normal anatomic positioning.? Abdominal pain--etiology is not clear but appear to be related to feed? or more likely cancer. At this point his on tpn. continue bentyl, continue ppi, increased fentanyl to 75mcg q72, dilaudid for breakthrough. per staff appears to be tolerating his bolus feeds, though patient reports severe pain and vomiting will continue to try feeds and monitor closely head and neck cancer outpatient follow up with oncology and amyonc, per swetha has been responding to therapy Full code Lovenox reason for continued hospitalization:requiring tpn, not tolerating gtube feeds Quality Stroke Does the patient have a stroke diagnosis?: No VTE Prior VTE?: No VTE Risk Level:: Medical - moderate - high VTE Device Contraindication: Treatment Not Indicated VTE Drug Contraindication: N/A - Med Ordered
--- NOTE | 2022-03-06 10:45 | MHC.HEMONC ---
I visited pt in his inpatient room at his request. He is still using Yankour suction orally due to inability to swallow saliva. He has TPN infusing via port. He has patent GT but is struggling with tolerating feedings. He had 2 oz special formula that he brought from home (only one he has tolerated thus far). He had that last night and said it caused a little emesis. He is requiring IV Dilaudid, Versed IV and just had Fentanyl Patch increased to 75mcg. He still says his pain gets to a #7 when he talks. It is all in his neck area. He also says his abdomen is hurting. I spoke with Dr Li (Hospitalist) re: his case. He would like him to be able to be discharged once he tolerates GT feeds. I expressed concern over him leaving straight off IV Pain Meds without trial enteral meds. I have suggested Pain Management Consult and spoke with Beti, Personalized Living Manager for [facility] and she, in return, spoke to Dr Mcgovern and [facility] to inquire about a Consult while pt is still here. Dr Mcgovern will be able to see pt this afternoon. Dr Donis to order the Consult and I spoke to Dr Jones and pt to inform then.
--- NOTE | 2022-03-06 10:51 | MHC.CLN ---
F/U PT REFUSES TO TRIAL ALL TF PRODUCTS ON FORMULARY PATIENT WANTS TO TRY BLENDERIZED TUBE FEEDING THAT HE PURCHASED. PRODUCT IS [employer], A [employer] PRODUCT. COMES IN PREBLENDED, READY TO FEED, NON RESEALABLE POUCH. MAKE NEED ADDITIONAL FLUID ADDED TO PREVENT CLOGGED TUBE. [employer], [employer] PROVIDES PER 237 ML SERVING 340 KCALS, 14 G PROTEIN, 181 ML FREE WATER. OF NOTE:*PRODUCT WITH 2 HOUR HANG TIME SO NOT SUITABLE FOR CONTINUOUS FEED. FOR BOLUS FEED, UPON OPENING POUCH, MUST BE REFRIGERATED, THEN DISCARDED AFTER 24 HOURS. DUE TO STORAGE CONCERNS, RD RECOMMENDS USE NEW POUCH OF PRODUCT FOR EACH BOLUS FEEDING. TO MEET NUTRITIONAL NEEDS, RECOMMEND 6 BOLUS SERVINGS (237 ML PER SERVING) TO PROVIDE 2040 KCALS (27.7 KCALS/KG); 84 G PROTEIN (1.14 G/KG); 1086 ML FREE WATER (14.76 ML/KG) WITH 120 ML FREE WATER FLUSH Q 4 HOURS PROVIDES 1806 ML TOTAL WATER FROM FORMULA AND FLUSHES(24.5 ML/KG). START BOLUS FEEDING AT 60 ML AND MONITOR FOR TOLERANCE. INCREASE BY 60 ML EVERY 4 HOURS UNTIL MAX BOLUS RATE OF 237 ML 03/05/22 NSG REPORTS pt willing for trying 60 ml, but then wanted pain medications first, then changed to nausea medicine and bentyl.? after receiving these iv and with water via g tube he wanted to wait 20 minutes, however, he then had dry heaves and declined a gt feed....He stated to be agreeable to try a feeding early am. 03/06/22 NSG REPORTED: patient accepted gt feeding this am at 0630, however, would only try 60ml with h2o flush, tolerated well and report given to day rn to time and amount. 03/06/22 MD NOTED: still reporting not tolerating feeds, severe pain, vomiting, however, often found resting comfortably, no reports of overt emesis from staff. PT NOT AGREEABLE TO ADVANCE TO MAX GOAL BOLUS FEEDING RECOMMENDED AT THIS TIME RECOMMEND PATIENT CONTINUES WITH TPN; D15AA5 AT MAX GOAL RATE 75ML/HR WITH 25ML OF 20% LIPIDS PROVIDES 1878KCALS TOTAL (25KCALS/KG), 90G PROTEIN (1.2G/KG) REVIEWED LABS; DISCUSSED WITH PHARMACY FOLLOW FOR TUBE FEED TOLERANCE AND ADJUST TPN NEEDED.
[2022-03-06 11:55] LABS: Albumin Level 3.5 g/dL (3.5-5.0); Anion Gap 11 (12-20); Blood Urea Nitrogen 15 mg/dL (9-16); Calcium 8.9 mg/dL (8.4-10.2); Carbon Dioxide 32 mmol/L (22-29); Chloride 98 mmol/L (96-108); Creatinine Clr Calc Pharmacy 113.9; Estimated Glomerular Filt Rate > 60; Glucose Random 105 mg/dL (60-115); Magnesium 1.9 mg/dL (1.6-2.6); Phosphorus 4.7 mg/dL (2.7-4.5); Potassium 4.3 mmol/L (3.3-5.1); Sodium 137 mmol/L (135-145); Triglycerides 37 mg/dL
[2022-03-06] MEDS: fentaNYL 75 MCG PATCH.TD72 TRANSDERMA (12:17)
--- NOTE | 2022-03-06 15:47 | MHC.CM.PN ---
THIS SENIOR RD ENGINEER MET WITH PATIENT AND GIRLFRIEND SAVANNAH (PER REQUEST) PATIENT STARTED TO DISCUSS THE DETAILS OF HIS STAY AT [facility] AND T/W ASKED IN WHICH WAY CM CAN ASSIST. PATIENT STATES THAT HE FEELS HIS NEEDS ARE NOT BEING MET HERE, SPECIFICALLY PAIN. THIS SENIOR RD ENGINEER EXPLAINED THAT PATIENT HAS BEEN RECEIVING HIS MEDICATION FOR PAIN PATIENT STATES HE WANTS IT IV BECAUSE I THROW UP IF YOU PUT IT IN MY TUBE THIS SENIOR RD ENGINEER INTRODUCED A POSSIBLE PLAN FOR NEXT LEVEL OF CARE (SHORT TERM REHAB, PATIENT HAS NOT SECURED A VISIT WITH HIS PCP YET) PATIENT NOT READY TO DISCUSS THIS OPTION UNTIL HE MEETS WITH PAIN MANAGEMENT. PATIENT TELLS T/W THAT HE WANTS TO GET BACK TO HIS BASELINE PAIN MANAGEMENT WHEN ASKED WHEN THIS MANAGEMENT WAS ESTABLISHED, PATIENT STATES WHEN THEY PUT THE G-TUBE IN: I HAD A PATCH . PATIENT DOES GO ON TO MENTION THAT 'MY PAIN IS SO SERIOUS THAT I HAD TO BE IN THE ICU SAVANNAH AND PATIENT AWARE THAT PATIENT WAS NOT ICU LEVEL OF CARE, BUT THAT HIS CONTINUOUS MEDICATION COULD ONLY BE MANAGED IN THE ICU.
--- NOTE | 2022-03-06 17:03 | PC.NURSE ---
Patient reporting 9/10 pain to mouth and abdomen. Requesting pain medication and versed so he can sleep. Medicated with both and upon reassessing patient he is sleeping heavily. Stated he just wanted to sleep and not do his tube feeding. At @ 1330, told patient we should try to do feeding. Requested nausea medication and bentyl. Also requesting pain medication. Dilaudid changed from 1mg IV to 4mg via G-tube. Patient stated he would try it but not willingly and that he knows it will make him get sick. Above medications given to patient. Reassessed 1 hour later and he stated he did not vomit but the medication didn't change his pain level. Dr. Jones notified. Awaiting pain management clinic to see patient. Patient aware. Patient refused tube feeding. Dr. Jones aware.
[2022-03-06] MEDS: fentaNYL 50 MCG PATCH.TD72 100 MCG TRANSDERMA (17:12)
[2022-03-06] MEDS: Enoxaparin Sodium 40 MG/0.4 ML SYRINGE SUBCUT (17:14)
[2022-03-06] MEDS: Fat Emulsions 20% 250 ML 25 ML IV ×2 (17:50→22:36)
--- NOTE | 2022-03-06 18:07 | P.CNPAIN_ITS ---
Review of Systems Review of Systems: Denies chest pain Denies shortness of breath Denies nausea vomiting diarrhea Admits to abdominal pain that occurs immediately after tube feeding; denies mechanical tube dysfunction PMFSH Past Medical History Medical History Gastrostomy tube in place Mass of left side of neck Squamous cell carcinoma of neck Surgical History H/O removal of cyst Family History Family History Maternal Grandmother Lung cancer Social History Social History Household Members: Family Household Members Other:: mother Housing: House Are you a primary daycare manager to a significant other at home: No Do you presently have visiting nurse or other home services: No Alcohol intake: unknown Patient Tobacco Use Status: Never used Tobacco Substance Use Type: Marijuana service: No Current occupational status: unemployed Physical Exam Vital Signs: Vital Signs: Last Vital Signs Temp 97.9 F 03/06/22 15:46 Pulse 77 03/06/22 15:46 Resp 16 03/06/22 15:46 BP 119/77 03/06/22 15:46 Pulse Ox 98 03/06/22 15:46 O2 Del Method 03/06/22 15:46 O2 Flow Rate 2 03/03/22 03:20 BMI result Body Mass Index 23.3 HEENT: Other: Discoloration of the left side of the neck and left side of the face due to chemo and radiation therapy is noted. Resp: Effort & Inspection: normal respiratory effort, able to speak in complete sentences, normal respiratory pattern, no audible wheezes and no cough GI: Other: Presence of G-tube on anterior abdominal wall is noted Assessment and Plan (1) Abdominal pain: Status: Acute (2) Odynophagia: Status: Acute (3) Weakness: Status: Acute (4) Abnormal weight loss: Status: Acute (5) Primary squamous cell carcinoma of head and neck: Status: Acute (6) Facial pain syndrome: Status: Acute Plan This is the cancer patient who is suffering from severe left-sided face pain. Gasserian ganglion nerve block is indicated in his situation however it is not for him here. We can try to facilitate his transfer to the [facility] in [place] to perform his treatment there and to receive gasserian ganglion block. Possibility exist to try sphenopalatine palatine nerve block however after radiation treatment it carries increased risk of epistaxis. She might require transfer to facility with ENT services to treat epistaxis. Recommendations were given to increase his fentanyl patch to 100 micro PER hour. The patient is complaining pain 8/10 today. He is also receiving p.r.n. Dilaudid for breakthrough pain. 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 His condition however would require him to be in step-down unit for IV JAVA JSF DEVELOPER which is actually step up in the level of his care. It would require to be monitored with pulse oximetry and end-tidal CO2. The patient wants quick pain and GI symptoms improvement, discharge and continue ambulatory chemotherapy and radiation therapy. As of his discomfort, abdominal pain nausea vomiting heartburn and retching due to G-tube possibility probably exist to switch G-tube to J-tube, hopefully he can receive feeds through the J-tube and tolerated it better than G tube. This would involve minimally invasive abdominal surgery. Surgical consult is recommended for J-tube insertion and G-tube removal.
[2022-03-07] MEDS: HYDROmorphone HCl 1 MG/ML SYRINGE IVPUSH ×7 (00:38→21:38)
--- NOTE | 2022-03-07 01:20 | MHC.PIE ---
late entry 03/06 1900 p; pt c/o pain 10 mouth and neck asking for iv dilaudid - note; iv dilaudid dc'd and is now po. pt refusing for po dilaudid reporting it don't work and causes nausea. pt and 4yrs old in room, informed visiting hours end at 1999 i; dr lennon notified; iv dilaudid once now 2030 p; pt cont to c/o pain asking for iv dilaudid - note; pt cont to refuse po dilaudid. pt and 4yrs old still in room, again informed visiting hours end at 1999 i; dr lennon notified; iv dilaudid once now 2130 p; pt c/o pain coming back asking this rn to robyn dr for iv dilaudid now so he can take it in one hour. pt and 4yrs old still in room, again informed visiting hours end at 1999 i; dr lennon notified; iv dilaudid once now 0000 p; pt cont to c/o pain and cont to refuse po diladid. note; prn zofran and prn versed given per pt request, ice packs given numerous times i; dr lennon notified; new order dilaudid iv prn q2h e; pt now asleep in bed, will cont to monitor
[2022-03-07] MEDS: Midazolam HCl/PF 2 MG/2 ML VIAL IVPUSH ×3 (02:29→21:38)
[2022-03-07] MEDS: ondansetron HCL 4 MG/2 ML VIAL IVPUSH ×4 (05:19→21:39)
[2022-03-07] MEDS: Pantoprazole Sodium 40 MG/10 ML VIAL IVPUSH ×2 (05:19→16:45)
[2022-03-07 07:12] VITALS: BP 107/63; PULSE 90; RESP 18; TEMP 35.8; O2SAT 98
--- NOTE | 2022-03-07 09:16 | PM.HEMONCPN ---
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 Results revealed: Positive for malignancy consistent with poorly differentiated squamous cell carcinoma. Specimen mostly concerned training program assistant of necrotic cellular material. Malignant cells immuno-reactive with P 40, P 63 and P 16. Patient started concurrent chemoradiation therapy in January 2022. Interval History Interval history: Patient was sleeping comfortably. He is not in any pain at this time but reports need for Dilaudid every few hours. He tried tube feeds yesterday, he wants to try it again today but with Dilaudid given before he gets the 2 ft. He denies fever or chills. No chest pain, cough or shortness of breath. Review of Systems - Constitutional Reports as per HPI, Reports no additional constitutional complaints - ENT Reports no additional ear, nose, mouth, and throat complaints - Cardiovascular Reports no additional cardiovascular complaints - Respiratory Reports no additional respiratory complaints - Gastrointestinal Reports abdominal pain - Neurologic Reports no additional neurologic complaints, Denies dizziness, Denies sensory deficit, Reports weakness PMFSH Medical History: Medical History (Last Reviewed 02/25/22 @ 16:58 by Ralph Zamarripa DO) Gastrostomy tube in place Mass of left side of neck Squamous cell carcinoma of neck Family History: Family History (Last Reviewed 02/25/22 @ 16:58 by Ralph Zamarripa DO) Maternal Grandmother Lung cancer Surgical History: Surgical History (Last Reviewed 02/25/22 @ 16:58 by Ralph Zamarripa DO) H/O removal of cyst Social History: Social History (Last Reviewed 02/25/22 @ 16:58 by Ralph Zamarripa DO) Living Situation History: Household Members: Family Household Members Other:: mother Housing: House Are you a primary medicare sales executive to a significant other at home: No Do you presently have visiting nurse or other home services: No Tobacco History: Patient Tobacco Use Status: Never used Tobacco Substance Use History: Substance Use Type: Marijuana Occupation Assessmet: service: No Current occupational status: unemployed Home Medications and Allergies Current Medications: Current Medications Dicyclomine HCl (Dicyclomine Hcl 10 Mg Capsule) 10 mg PO QIDACHS PRN PRN Reason: abd pain Last Admin: 03/06/22 13:28 Dose: 10 mg Enoxaparin Sodium (Enoxaparin Sodium 40 Mg/0.4 Ml Syringe) 40 mg SUBCUT Q24H [facility] Last Admin: 03/06/22 17:14 Dose: 40 mg Fentanyl (Fentanyl 50 Mcg Patch.Td72) 100 mcg TRANSDERMA Q72H [facility] Last Admin: 03/06/22 17:12 Dose: 100 mcg Hydromorphone HCl (Hydromorphone Hcl 1 Mg/Ml Syringe) 1 mg IVPUSH Q2H PRN; Protocol PRN Reason: Breakthrough Pain Last Admin: 03/07/22 06:03 Dose: 1 mg Potassium Chloride 40 meq/Sodium Chloride 70 meq/Magnesium Sulfate 10 meq/Calcium Gluconate 9.3 meq/Multivitamins 11 ml/ Trace Metals 1.1 ml/ Amino Acids/Dextrose 1,800 mls @ 75 mls/hr IV DAILY@1800 [facility] Stop: 03/07/22 17:59 Last Admin: 03/06/22 17:50 Dose: 75 mls/hr Midazolam HCl (Midazolam Hcl/Pf 2 Mg/2 Ml Vial) 2 mg IVPUSH Q4H PRN PRN Reason: anxiety/restlessness Last Admin: 03/07/22 06:03 Dose: 2 mg Ondansetron HCl (Ondansetron Hcl 4 Mg/2 Ml Vial) 4 mg IVPUSH Q4H PRN PRN Reason: Nausea and Vomiting Last Admin: 03/07/22 05:19 Dose: 4 mg Pantoprazole Sodium (Pantoprazole Sodium 40 Mg/10 Ml Vial) 40 mg IVPUSH BID@0630,1630 [facility] Last Admin: 03/07/22 05:19 Dose: 40 mg Pharmacy Consult (Consult Rx Perform Med Rec) 1 each MISCELLANE ONCE PRN PRN Reason: Consult order Sodium Chloride (0.9 % Sodium Chloride Flush 3 Ml Syringe) 3 ml IVFLUSH QSHIFT [facility] Last Admin: 03/07/22 08:04 Dose: Not Given Home Medications Medication Instructions Recorded Confirmed Type ondansetron 8 mg disintegrating 8 mg PO Q8H PRN Nausea 02/25/22 02/25/22 History tablet Allergies Allergy/AdvReac Type Severity Reaction Status Date / Time No Known Allergies Allergy Verified 02/11/22 15:57 [No Known Allergies*] Exam Vital signs: Vital Signs Temp 96.4 F L 03/07/22 07:12 Pulse 90 03/07/22 07:12 Resp 18 03/07/22 07:12 BP 107/63 03/07/22 07:12 Pulse Ox 98 03/07/22 07:12 O2 Del Method 03/07/22 07:12 O2 Flow Rate 2 03/03/22 03:20 Intake & Output 03/06/22 03/07/22 03/07/22 18:59 06:59 18:59 Intake Total 1799 277 / 2077 Output Total 300 / 1200 900 / 1200 Balance 1500 / 877 -623 / 877 Urine Output (Average ml/kg/hr) 0.34 1.02 Intake: Intake, IV Amount 1799 / 2076 277 / 7 Fat Emulsions 20% 250 ml @ 25 277 / 277 mls/hr IV DAILY@1800 [facility] Rx#: [id number] Amino Acids 5 %/Dextrose 15 % 2 1800 / 1800 ,000 ml @ 75 mls/hr IV DAILY@ 1800 [facility] with Potassium Chloride 28 meq with Sodium Chloride 23.4% 70 meq with Magnesium Sulfate 10 meq with Potassium Phosphate 22 mmol with Calcium Gluconate 9.3 meq with MVI, Adult 11 ml with Trace Elements w/o chromium 1.1 ml Rx#:[id number] Output: Output, Urine Amount 300 / 1200 900 / 1200 Other: Meal Refused No NPO Yes No Dinner % Eaten 75% Number of Unmeasured Voids 2 Urine Urinal Urine Color Yellow Weight 73.6 kg BMI result Body Mass Index 23.3 - Constitutional Present: no acute distress - Routine HEENT Exam Head: Present: normal inspection - Routine Respiratory Exam Absent: accessory muscle use - Routine Cardiovascular Exam Cardiovascular: Present: S1, S2 - Routine Abdominal Exam Present: soft Data - Labs CBC & Chem 7: 03/05/22 11:16 03/06/22 11:15 Labs: 02/25/22 15:45 0.9 % Sodium Chloride [Ns] 500 ml IV 999 mls/hr 02/25/22 15:48 COVID-19 ID NOW ([place]) Stat 02/25/22 16:51 Cont. Telemetry w/Vital Sign limit Q4HR 02/25/22 16:52 NPO Diet 02/25/22 18:11 fentaNYL [Duragesic] 50 mcg TRANSDERMA ONCE ONE 02/25/22 18:23 HYDROmorphone HCl [Dilaudid] 1 mg IVPUSH Q2H PRN Midazolam HCl/PF [Versed] 0.5 mg IVPUSH Q4H PRN 02/26/22 06:40 ondansetron HCL [Zofran] 4 mg IVPUSH Q8H PRN 02/26/22 06:45 Lactated Ringers [Lr] 1,000 ml IVCONT 80 mls/hr 02/26/22 08:57 CBC W/AUTO DIFF [Complete Blood Count Auto Diff] Stat CMP [Comprehensive Met. Panel] Stat Magnesium Stat Phosphorus Stat Triglycerides Stat 02/26/22 10:30 Lactated Ringers [Lr] 1,000 ml IVCONT 150 mls/hr 02/26/22 11:34 Add Laboratory Test Stat 02/26/22 16:30 Pantoprazole Sodium [Protonix] 40 mg IVPUSH BID@0630,1630 02/26/22 17:39 HYDROmorphone HCl [Dilaudid] 1 mg IVPUSH ONCE ONE 02/26/22 18:00 MVI, Adult [Infuvite Adult] 18.5 ml Trace Elements w/o chromium [Tralement] 1.9 ml AA 4.25%/Calcium/Lytes/Dex 10% [Clinimix E 4.25%-10%] 2,000 ml IV DAILY@1800 02/27/22 08:35 HYDROmorphone HCl [Dilaudid] 1 mg IVPUSH ONCE ONE 02/27/22 11:55 Albumin Level Stat BMP [Basic Metabolic Panel] Stat Magnesium Stat Phosphorus Stat 02/27/22 13:00 Morphine Sulfate/NS 100 mg in 100 ml IVCONT Per Protocol mg/hr 02/27/22 18:00 MVI, Adult [Infuvite Adult] 12.8 ml Trace Elements w/o chromium [Tralement] 1.3 ml AA 4.25%/Calcium/Lytes/Dex 10% [Clinimix E 4.25%-10%] 2,000 ml IV DAILY@1800 02/28/22 FL upper GI series Routine 02/28/22 09:13 Albumin Level Stat BMP [Basic Metabolic Panel] Stat Magnesium Stat Phosphorus Stat Triglycerides Stat 02/28/22 14:04 HYDROmorphone HCl [Dilaudid] 1 mg IVPUSH Q2H PRN 02/28/22 14:07 HYDROmorphone HCl [Dilaudid] 1 mg .ROUTE .STK-MED ONE 02/28/22 18:00 Fat Emulsions 20% [Intralipid] 150 ml IV DAILY@1800 MVI, Adult [Infuvite Adult] 11 ml Trace Elements w/o chromium [Tralement] 1.1 ml AA 5 %/Calcium/Lytes/Dext 15 % [Clinimix E 5%-15%] 2,000 ml IV DAILY@179902/28/22 21:38 fentaNYL [Duragesic] 100 mcg TRANSDERMA ONCE ONE fentaNYL [Duragesic] 50 mcg TRANSDERMA ONCE ONE 03/01/22 00:00 Fat Emulsions 20% [Intralipid] 150 ml IV DAILY@03/01/22 18:00 Fat Emulsions 20% [Intralipid] 250 ml IV DAILY@1800 MVI, Adult [Infuvite Adult] 11 ml Trace Elements w/o chromium [Tralement] 1.1 ml AA 5 %/Calcium/Lytes/Dext 15 % [Clinimix E 5%-15%] 2,000 ml IV DAILY@179903/01/22 19:55 Omeprazole [PriLOSEC] 40 mg PO DAILY@62903/02/22 00:00 Fat Emulsions 20% [Intralipid] 250 ml IV DAILY@03/02/22 13:45 Pantoprazole Sodium [Protonix] 40 mg IVPUSH DAILY@62903/02/22 14:46 HYDROmorphone HCl [Dilaudid] 1 mg IVPUSH ONCE ONE 03/02/22 16:34 Famotidine/PF [Pepcid/PF] 20 mg IVPUSH ONCE ONE 03/02/22 18:00 Fat Emulsions 20% [Intralipid] 250 ml IV DAILY@1800 MVI, Adult [Infuvite Adult] 11 ml Trace Elements w/o chromium [Tralement] 1.1 ml AA 5 %/Calcium/Lytes/Dext 15 % [Clinimix E 5%-15%] 2,000 ml IV DAILY@1800 03/03/22 00:00 Fat Emulsions 20% [Intralipid] 250 ml IV DAILY@03/03/22 08:18 BMP [Basic Metabolic Panel] Stat Magnesium Stat Phosphorus Stat 03/03/22 11:00 fentaNYL [Duragesic] 50 mcg TRANSDERMA Q72H 03/03/22 12:00 fentaNYL [Duragesic] 75 mcg TRANSDERMA Q72H 03/03/22 18:00 Fat Emulsions 20% [Intralipid] 150 ml IV DAILY@1800 MVI, Adult [Infuvite Adult] 11 ml Trace Elements w/o chromium [Tralement] 1.1 ml AA 5 %/Calcium/Lytes/Dext 15 % [Clinimix E 5%-15%] 2,000 ml IV DAILY@1800 03/04/22 00:00 Fat Emulsions 20% [Intralipid] 150 ml IVCONT DAILY@1800 03/04/22 05:48 Albumin Level DAILY@0600 BMP [Basic Metabolic Panel Fasting] Routine Basic Metabolic Panel DAILY@0600 Complete Blood Count no Diff AM Magnesium DAILY@0600 Phosphorus DAILY@0600 Triglycerides DAILY@0600 03/04/22 18:00 Fat Emulsions 20% [Intralipid] 150 ml IV DAILY@1800 Potassium Chloride 28 meq Sodium Chloride 23.4% 70 meq Magnesium Sulfate 10 meq Potassium Phosphate [KPhos] 22 mmol Calcium Gluconate 9.3 meq MVI, Adult [Infuvite Adult] 11 ml Trace Elements w/o chromium [Tralement] 1.1 ml Amino Acids 5 %/Dextrose 15 % [Clinimix 5%-15%] 2,000 ml IV DAILY@1800 03/05/22 00:00 Fat Emulsions 20% [Intralipid] 150 ml IV DAILY@0000 03/05/22 11:07 Albumin Level Stat BMP [Basic Metabolic Panel Fasting] Routine Basic Metabolic Panel Stat Magnesium Routine Magnesium Stat Phosphorus Stat Triglycerides Stat 03/05/22 11:16 Complete Blood Count no Diff AM 03/05/22 14:56 HYDROmorphone HCl [Dilaudid] 1 mg IVPUSH Q2H PRN 03/05/22 18:00 Fat Emulsions 20% [Intralipid] 150 ml IV DAILY@1800 Potassium Chloride 28 meq Sodium Chloride 23.4% 70 meq Magnesium Sulfate 10 meq Potassium Phosphate [KPhos] 22 mmol Calcium Gluconate 9.3 meq MVI, Adult [Infuvite Adult] 11 ml Trace Elements w/o chromium [Tralement] 1.1 ml Amino Acids 5 %/Dextrose 15 % [Clinimix 5%-15%] 2,000 ml IV DAILY@1800 03/05/22 21:42 HYDROmorphone HCl [Dilaudid] 1 mg IVPUSH ONCE ONE diphenhydrAMINE HCL [Benadryl] 25 mg IVPUSH ONCE ONE 03/06/22 00:00 Fat Emulsions 20% [Intralipid] 150 ml IV DAILY@0000 03/06/22 09:28 HYDROmorphone HCl [Dilaudid] 4 mg G-TUBE Q4H PRN 03/06/22 11:15 Albumin Level Stat Basic Metabolic Panel Stat Magnesium Stat Phosphorus Stat Triglycerides Stat 03/06/22 18:00 Fat Emulsions 20% [Intralipid] 250 ml IV DAILY@1800 03/06/22 19:29 HYDROmorphone HCl [Dilaudid] 1 mg IVPUSH ONCE ONE 03/06/22 21:22 HYDROmorphone HCl [Dilaudid] 1 mg IVPUSH ONCE ONE 03/07/22 00:00 Fat Emulsions 20% [Intralipid] 250 ml IV DAILY@1800 Laboratory Last Values WBC 3.6 X10*3/uL (4.8-10.8) L 03/05/22 11:16 RBC 3.82 X10*6/uL (4.60-5.80) L 03/05/22 11:16 Hgb 12.0 g/dl (14.0-18.0) L 03/05/22 11:16 Hct 33.7 % (42.0-52.0) L 03/05/22 11:16 MCV 88.2 fL (80.0-98.0) 03/05/22 11:16 MCH 31.4 pg (27.0-33.0) 03/05/22 11:16 MCHC 35.6 g/dl (31.0-36.0) 03/05/22 11:16 RDW 13.8 % (11.0-16.0) 03/05/22 11:16 Plt Count 138 X10*3/uL (160-400) L 03/05/22 11:16 MPV 9.5 fL (9.4-12.4) 03/05/22 11:16 Immature Gran % (Auto) 2.1 % (0.0-0.4) H 02/26/22 08:57 Neut % (Auto) 66.6 % (45-73) 02/26/22 08:57 Lymph % (Auto) 14.1 % (20-40) L 02/26/22 08:57 [place] % (Auto) 15.5 % (2-11) H 02/26/22 08:57 Eos % (Auto) 1.0 % (0-4) 02/26/22 08:57 Baso % (Auto) 0.7 % (0-2) 02/26/22 08:57 Lymph # (Auto) 0.4 X10*3/uL (1.2-4.9) L 02/26/22 08:57 [place] # (Auto) 0.5 X10*3/uL (0.1-1.2) 02/26/22 08:57 Eos # (Auto) 0.0 X10*3/uL (0.0-0.4) 02/26/22 08:57 Baso # (Auto) 0.0 X10*3/uL (0.0-0.2) 02/26/22 08:57 Abs Immat Gran (auto) 0.06 X10*3/uL (0.00-0.03) H 02/26/22 08:57 Absolute Neuts (auto) 1.9 x10*3/uL (2.0-8.3) L 02/26/22 08:57 Absolute Nucleated RBC 0.000 X10*3/uL (0.0-0.012) 03/05/22 11:16 Nucleated RBC % (auto) 0.0 /100WBC (0.0-0.2) 03/05/22 11:16 Sodium 137 mmol/L (135-145) 03/06/22 11:15 Potassium 4.3 mmol/L (3.3-5.1) 03/06/22 11:15 Chloride 98 mmol/L (96-108) 03/06/22 11:15 Carbon Dioxide 32 mmol/L (22-29) H 03/06/22 11:15 Anion Gap 11 (12-20) L 03/06/22 11:15 BUN 15 mg/dL (9-16) 03/06/22 11:15 Creatinine 0.81 mg/dL (0.5-1.4) 03/06/22 11:15 Estim Creat Clear Calc 113.9 08/04/22 11:15 Estimated GFR > 60 03/06/22 11:15 Random Glucose 105 mg/dL (60-115) 03/06/22 11:15 Fasting Glucose 104 mg/dL (60-99) H 03/05/22 11:07 Calcium 8.9 mg/dL (8.4-10.2) 03/06/22 11:15 Phosphorus 4.7 mg/dL (2.7-4.5) H 03/06/22 11:15 Magnesium 1.9 mg/dL (1.6-2.6) 03/06/22 11:15 Total Bilirubin 0.7 mg/dL (0.0-1.0) 02/26/22 08:57 AST 15 U/L (5-37) 02/26/22 08:57 ALT 15 U/L (0-40) 02/26/22 08:57 Alkaline Phosphatase 58 U/L (39-117) 02/26/22 08:57 Total Protein 6.1 g/dL (6.5-8.0) L D 02/26/22 08:57 Albumin 3.5 g/dL (3.5-5.0) 03/06/22 11:15 Triglycerides 37 mg/dL 03/06/22 11:15 COVID-19 (JAK) Negative (Negative) 02/25/22 15:48 COVID-19 Clin Com See Note 02/25/22 15:48 - Imaging Radiologist's impression: ITS Impressions Upper GI Series 02/28/22 15:00 IMPRESSION: Limited upper GI examination. No gastroesophageal reflux is seen. Somewhat slow emptying of the stomach into the duodenum slow duodenal transit. Normal anatomic positioning. Assessment and Plan Patient Active problem list reviewed?: Yes (1) Primary squamous cell carcinoma of head and neck Status: Acute Assessment and plan: 1. This is a 51-year-old male with squamous cell carcinoma of head and neck. He started concurrent chemoradiation therapy on 12/31/2021. He has a G-tube and had been receiving tube feeds, he was admitted for diffuse abdominal pain on 02/25/2022. He has been seen by GI and recommendation was to restart G tubes along with dicyclomine and high-dose PPI. He has been receiving TPN. I spoke to his radiation oncologist Dr. King at [facility]. Patient has completed his radiation therapy, he missed last 4 days of treatment because of abdominal pain and hospitalizations. He does not intend to give him anymore radiotherapy. At this time goal of care is pain management and starting nutrition via G-tube. Appreciate Dr. Mcgovern's input. Fentanyl patch has been increased to 100 mcg transdermally, he seems more comfortable with this. He is also receiving IV Dilaudid as needed. Hopefully he will be able to resume G-tube feeds today. Thank you. - Time Spent With Patient Time Spent with Patient (in minutes): 15
[2022-03-07 09:50] LABS: Hematocrit 35.8 % (42.0-52.0); Hemoglobin 12.6 g/dl (14.0-18.0); Mean Corpuscular HGB Conc 35.2 g/dl (31.0-36.0); Mean Corpuscular Hemoglobin 31.3 pg (27.0-33.0); Mean Corpuscular Volume 88.8 fL (80.0-98.0); Mean Platelet Volume 9.7 fL (9.4-12.4); Platelet Count 146 X10*3/uL (160-400); Red Blood Count 4.03 X10*6/uL (4.60-5.80); Red Cell Distribution Width 13.8 % (11.0-16.0); White Blood Count 2.9 X10*3/uL (4.8-10.8)
[2022-03-07 10:00] LABS: Triglycerides 44 mg/dL
--- NOTE | 2022-03-07 10:52 | HO.PM.IMPN ---
Subjective Subjective Date of Service: 03/07/22 Interval History: Feels better this morning, started on IV Dilaudid overnight due to worsening pain, complaining of both abdominal and neck discomfort, no nausea no vomiting, is willing to try G-tube feedings today. 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 Neck no JVD. CVS regular rate rhythm, Respiratory lungs clear to auscultation, no respiratory distress, no wheeze, no rhonchi. Gastrointestinal abdomen soft, G-tube site with no redness, mild diffuse tenderness to palpation,bowel sounds audible, no guarding , no rigidity. Extremities no edema. Neuro nonfocal patient moving all 4 extremity speech clear. Skin no rash Psych appropriate affect Objective Data Active Medications Dicyclomine HCl (Dicyclomine Hcl 10 Mg Capsule) 10 mg PO QIDACHS PRN PRN Reason: abd pain Last Admin: 03/06/22 13:28 Dose: 10 mg Documented By: CARMEN Enoxaparin Sodium (Enoxaparin Sodium 40 Mg/0.4 Ml Syringe) 40 mg SUBCUT Q24H [facility] Last Admin: 03/06/22 17:14 Dose: 40 mg Documented By: MARY Fentanyl (Fentanyl 50 Mcg Patch.Td72) 100 mcg TRANSDERMA Q72H [facility] Last Admin: 03/06/22 17:12 Dose: 100 mcg Documented By: MARY Hydromorphone HCl (Hydromorphone Hcl 1 Mg/Ml Syringe) 1 mg IVPUSH Q2H PRN; Protocol PRN Reason: Breakthrough Pain Last Admin: 03/07/22 09:35 Dose: 1 mg Documented By: MILAGROS Potassium Chloride 40 meq/Sodium Chloride 70 meq/Magnesium Sulfate 10 meq/Calcium Gluconate 9.3 meq/Multivitamins 11 ml/ Trace Metals 1.1 ml/ Amino Acids/Dextrose 1,800 mls @ 75 mls/hr IV DAILY@1800 [facility] Stop: 03/07/22 17:59 Last Admin: 03/06/22 17:50 Dose: 75 mls/hr Documented By: SEBASTIAN Midazolam HCl (Midazolam Hcl/Pf 2 Mg/2 Ml Vial) 2 mg IVPUSH Q4H PRN PRN Reason: anxiety/restlessness Last Admin: 03/07/22 06:03 Dose: 2 mg Documented By: CLAUDINE Ondansetron HCl (Ondansetron Hcl 4 Mg/2 Ml Vial) 4 mg IVPUSH Q4H PRN PRN Reason: Nausea and Vomiting Last Admin: 03/07/22 05:19 Dose: 4 mg Documented By: CLAUDINE Pantoprazole Sodium (Pantoprazole Sodium 40 Mg/10 Ml Vial) 40 mg IVPUSH BID@0630,1630 [facility] Last Admin: 03/07/22 05:19 Dose: 40 mg Documented By: CLAUDINE Pharmacy Consult (Consult Rx Perform Med Rec) 1 each MISCELLANE ONCE PRN PRN Reason: Consult order Sodium Chloride (0.9 % Sodium Chloride Flush 3 Ml Syringe) 3 ml IVFLUSH QSHIFT [facility] Last Admin: 03/07/22 08:04 Dose: Not Given Documented By: MILAGROS Non-Admin Reason: FLUSHED WITH MED Labs CBC & Chem 7: 03/07/22 09:44 03/06/22 11:15 Labs: Laboratory Results - last 24 hr 03/06/22 03/07/22 03/07/22 11:15 09:44 09:44 MCV 88.8 MCH 31.3 MCHC 35.2 RDW 13.8 Plt Count 146 L MPV 9.7 Absolute Nucleated RBC 0.000 Nucleated RBC % (auto) 0.0 Anion Gap 11 L Estim Creat Clear Calc 113.9 Estimated GFR > 60 Random Glucose 105 Calcium 8.9 Phosphorus 4.7 H Magnesium 1.9 Albumin 3.5 Triglycerides 37 44 Assessment and Plan (1) Abdominal pain: Status: Acute (2) Odynophagia: Status: Acute (3) Weakness: Status: Acute (4) Abnormal weight loss: Status: Acute (5) Primary squamous cell carcinoma of head and neck: Status: Acute (6) Facial pain syndrome: Status: Acute Plan 51-year-old male with known history of primary squamous cell carcinoma of the head and neck status post chemo radiation therapy on 12/30, status post G-tube presented because of pain after feed--has tried continuous, gravity and bolus with same pain.? Upper GI series 02/28 :?Limited upper GI examination. No gastroesophageal reflux is seen. Somewhat slow emptying of the stomach into the duodenum slow duodenal transit. Normal anatomic positioning.? Abdominal pain- Persistent abdominal pain worse with G-tube feedings, patient placed back on IV Dilaudid overnight due to worsening pain -etiology is not clear but appear to be related to feed? or more likely cancer. Will continue TPN, as needed bentyl, continue iv ppi, fentanyl 100mcg q72, dose increased yesterday,iv dilaudid for breakthrough. 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 Mcgovern's will follow his recommendations, consult general surgery for J-tube Encourage out of bed and ambulation head and neck cancer Patient evaluated by Dr. Donis she spoke with radiation oncologist Dr. Gross at [facility] patient has completed his radiation and missed last 4 days of treatment because of abdominal pain and hospitalization he does not intend to give him any more radiotherapy outpatient follow up with oncology and radon, per radonc has been responding to therapy. Goal of care at this time is pain management and nutrition Full code Lovenox reason for continued hospitalization:requiring tpn, since not tolerating g tube feeds, and on IV analgesics Quality Stroke Does the patient have a stroke diagnosis?: No VTE Prior VTE?: No VTE Risk Level:: Medical - moderate - high VTE Device Contraindication: Treatment Not Indicated VTE Drug Contraindication: N/A - Med Ordered
--- NOTE | 2022-03-07 11:25 | MHC.CM.PN ---
PER ROUNDS, PLAN IS TO TRIAL PT ON G-TUBE FEEDS. DCP CONTINUES TO BE HOME WITH NO SERVICES (PT NOT EST W/A PCP) FAMILY TO TRANSPORT
[2022-03-07 12:00] VITALS: RESP 18
--- NOTE | 2022-03-07 12:15 | MHC.CLN ---
F/U CONTINUES WITH TPN; [id number] AT MAX GOAL RATE 75ML/HR WITH 25ML OF 20% LIPIDS PROVIDES 1878KCALS TOTAL (25KCALS/KG), 90G PROTEIN (1.2G/KG) REVIEWED LABS; DISCUSSED WITH PHARMACY LIMITED INTAKE OF PATIENT'S OWN REALFOOD BLEND TUBE FEEDING. DISCUSSED STARTING CONTINUOUS TUBE FEEDING AT LOW VOLUME. PATIENT REFUSING ANY FORMULA PROVIDED BY HOSPITAL. STATES THAT HE WANTS ANY REAL FOOD SUCH SMOOTHIES OR HIS REALFOOD BLEND THROUGH TUBE. TO MEET NUTRITIONAL NEEDS FROM PATIENT'S OWN REALFOOD BLEND, RECOMMEND 6 BOLUS SERVINGS (237 ML PER SERVING) TO PROVIDE 2040 KCALS (27.7 KCALS/KG); 84 G PROTEIN (1.14 G/KG); 1086 ML FREE WATER (14.76 ML/KG) WITH 120 ML FREE WATER FLUSH Q 4 HOURS PROVIDES 1806 ML TOTAL WATER FROM FORMULA AND FLUSHES(24.5 ML/KG). START BOLUS FEEDING AT 60 ML AND MONITOR FOR TOLERANCE. INCREASE BY 60 ML EVERY 4 HOURS UNTIL MAX BOLUS RATE OF 237 ML PRODUCT STORAGE CONCERNS OUTLINED N PRIOR RD NOTE. IF PATIENT AGREES, RECOMMEND FROM HOSPITAL FORMULARY OSMOLITE 1.5. START AT 20 ML PER HOUR, INCREASE 10 ML EVERY 4 HOURS TO MAX GOAL RATE OF 60 ML PER HOUR. FREE WATER FLUSH 120 ML EVERY 4 HOURS. PROVIDES 2160 KCALS (29.3 KCALS/KG); 90 G PROTEIN (1.22 G/KG); FREE WATER FORMULA PLUS JILQO=4105 ML (24.7 ML PER HOUR). FOLLOW FOR TUBE FEED TOLERANCE AND ADJUST TPN NEEDED.
--- NOTE | 2022-03-07 13:04 | PM.CNGS ---
History of Present Illness Consult details Consult date: 03/07/22 Requesting physician: Janae Osei Narrative: 51-year-old male patient with a known history of squamous cell carcinoma of the head neck being treated with chemo radiation admitted on 02/25/2022 with complaints of abdominal pain as well as neck pain. He underwent PEG tube placement on 01/22/2022 for feeding during the will radiation. He has attempted overnight feeds, gravity feeds and bolus feeds reports combination of severe diffuse abdominal pain nausea and vomiting. CT of the abdomen and pelvis was obtained which showed good placement of the tube within the body of the stomach. A contrast study through the tube also shows emptying of the stomach into the small bowel. Surgical consultation was requested to discuss possible J-tube placement instead of G-tube. He reports tolerating certain types at 2 feeds without difficulty however is not able to tolerate pain medications through the tube. He feels the narcotic leads to the nausea and vomiting. He does not tolerate the Osmolite 1.5 which causes increased abdominal pain. Review of Systems Review of Systems: Yes all other systems are reviewed and are negative Constitutional: Constitutional: Reports weight loss ENT: Reports dysphagia Gastrointestinal: Gastrointestinal: Reports abdominal pain, Reports dysphagia, Reports nausea and Reports vomiting PMFSH Past Medical History Medical History Gastrostomy tube in place Mass of left side of neck Squamous cell carcinoma of neck Family History Family History Maternal Grandmother Lung cancer Surgical History Surgical History H/O removal of cyst Social History Social History Household Members: Family Household Members Other:: mother Housing: House Are you a primary wound care technician to a significant other at home: No Do you presently have visiting nurse or other home services: No Alcohol intake: unknown Patient Tobacco Use Status: Never used Tobacco Substance Use Type: Marijuana service: No Current occupational status: unemployed Meds Allergies Allergy/AdvReac Type Severity Reaction Status Date / Time No Known Allergies Allergy Verified 02/11/22 15:57 [No Known Allergies*] Active Medications: Current Medications Dicyclomine HCl (Dicyclomine Hcl 10 Mg Capsule) 10 mg PO QIDACHS PRN PRN Reason: abd pain Last Admin: 03/06/22 13:28 Dose: 10 mg Enoxaparin Sodium (Enoxaparin Sodium 40 Mg/0.4 Ml Syringe) 40 mg SUBCUT Q24H [facility] Last Admin: 03/06/22 17:14 Dose: 40 mg Fentanyl (Fentanyl 50 Mcg Patch.Td72) 100 mcg TRANSDERMA Q72H [facility] Last Admin: 03/06/22 17:12 Dose: 100 mcg Hydromorphone HCl (Hydromorphone Hcl 1 Mg/Ml Syringe) 1 mg IVPUSH Q2H PRN; Protocol PRN Reason: Breakthrough Pain Last Admin: 03/07/22 11:48 Dose: 1 mg Potassium Chloride 40 meq/Sodium Chloride 70 meq/Magnesium Sulfate 10 meq/Calcium Gluconate 9.3 meq/Multivitamins 11 ml/ Trace Metals 1.1 ml/ Amino Acids/Dextrose 1,800 mls @ 75 mls/hr IV DAILY@1800 [facility] Stop: 03/07/22 17:59 Last Admin: 03/06/22 17:50 Dose: 75 mls/hr Potassium Chloride 40 meq/Sodium Chloride 50 meq/Magnesium Sulfate 10 meq/Calcium Gluconate 9.3 meq/Multivitamins 11 ml/ Trace Metals 1.1 ml/ Amino Acids/Dextrose 1,800 mls @ 75 mls/hr IV DAILY@1800 [facility] Fat Emulsion Intravenous (Intralipid) 150 mls @ 25 mls/hr IV DAILY@1800 [facility] Stop: 03/07/22 23:59 Fat Emulsion Intravenous (Intralipid) 150 mls @ 25 mls/hr IV DAILY@1800 [facility] Stop: 03/08/22 05:59 Midazolam HCl (Midazolam Hcl/Pf 2 Mg/2 Ml Vial) 2 mg IVPUSH Q4H PRN PRN Reason: anxiety/restlessness Last Admin: 03/07/22 06:03 Dose: 2 mg Ondansetron HCl (Ondansetron Hcl 4 Mg/2 Ml Vial) 4 mg IVPUSH Q4H PRN PRN Reason: Nausea and Vomiting Last Admin: 03/07/22 11:48 Dose: 4 mg Pantoprazole Sodium (Pantoprazole Sodium 40 Mg/10 Ml Vial) 40 mg IVPUSH BID@0630,1630 [facility] Last Admin: 03/07/22 05:19 Dose: 40 mg Pharmacy Consult (Consult Rx Perform Med Rec) 1 each MISCELLANE ONCE PRN PRN Reason: Consult order Sodium Chloride (0.9 % Sodium Chloride Flush 3 Ml Syringe) 3 ml IVFLUSH QSHIFT [facility] Last Admin: 03/07/22 08:04 Dose: Not Given Home Medications Medication Instructions Recorded Confirmed Last Taken Type ondansetron 8 mg disintegrating 8 mg PO Q8H PRN Nausea 02/25/22 02/25/22 Unknown History tablet Physical Exam Vital Signs: Vital Signs: Last Vital Signs Temp 96.4 F L 03/07/22 07:12 Pulse 90 03/07/22 07:12 Resp 18 03/07/22 07:12 BP 107/63 03/07/22 07:12 Pulse Ox 98 03/07/22 07:12 O2 Del Method 03/07/22 07:12 O2 Flow Rate 2 03/03/22 03:20 BMI result Body Mass Index 23.3 Const: Nutritional Appearance: thin Orientation/consciousness: patient oriented x3 Resp: Effort & Inspection: normal respiratory effort GI: Inspection: Yes G-tube present Palpation (GI): Tenderness to palpation present (GI) Neuro: General: patient oriented x3 Results Labs Result diagrams: 03/07/22 09:44 03/06/22 11:15 Labs: Abnormal lab results 03/07/22 Range/Units 09:44 WBC 2.9 L (4.8-10.8) X10*3/uL RBC 4.03 L (4.60-5.80) X10*6/uL Hgb 12.6 L (14.0-18.0) g/dl Hct 35.8 L (42.0-52.0) % Plt Count 146 L (160-400) X10*3/uL Short CBC 03/07/22 Range/Units 09:44 WBC 2.9 L (4.8-10.8) X10*3/uL Hgb 12.6 L (14.0-18.0) g/dl Hct 35.8 L (42.0-52.0) % Plt Count 146 L (160-400) X10*3/uL All other labs normal. Imaging Abdomen CT scan report/results: image reviewed CT scan - pelvis: image reviewed Assessment and Plan (1) Abdominal pain: Status: Acute (2) Abnormal weight loss: Status: Acute Plan 51-year-old male patient with primary squamous cell carcinoma of the head neck, status post PEG tube placement. The PEG tube placement is correct based on CT and contrast study. Patient reacts poorly to certain types of tube feeds, namely the Osmolite 1.5 but does better with more natural products. He may need alternative pain management strategies such as transdermal if unable to tolerate narcotics via PEG. I do not feel a J-tube benefit this patient and in fact may add to his discomfort. Acute for consult ting her service. Please re-consult for any new concerns. Procedures Date of Service Date of Service: 03/08/22
[2022-03-07] MEDS: 0.9 % Sodium Chloride Flush 3 ML SYRINGE IVFLUSH (14:16)
--- NOTE | 2022-03-07 15:36 | MHC.CLN ---
TUBE FEEDING PATIENT ASKED AND TEAM AGREED TO TRY [employer] STANDARD FORMULA THAT HE HAS, BUT DOES NOT USE, AT HOME. HAS 4 CARTONS AT HOME THAT WILL BE DELIVERED TO HIM TODAY. DISCUSSED TUBE FEEDING WITH ONCOLOGY RD AT [facility]) PER PATIENT REQUEST. TO MEET NUTRITIONAL NEEDS, RD RECOMMENDS [employer] STANDARD 1.4 NEVAEH/ML FORMULA, 4 CARTONS PER DAY. PROVIDES 1300 ML FORMULA, 1820 KCALS (24.7 KCALS/KG); 80 G PROTEIN (1.09 G/KG); 936 ML FREE WATER. ADD FLUSH 120 ML Q 4 HOURS, FOR TOTAL FREE WATER 1656 ML (22.5 ML/KG). RECOMMEND TUBE FEEDING VIA PUMP STARTING AT 20 ML PER HOUR. INCREASE 10 ML EVERY 4 HOURS TO MAX GOAL RATE OF 55 ML PER HOUR. CHECK RESIDUALS EVERY 4 HOURS. HOLD FEEDING FOR 2 HOURS IF >250 ML. PATIENT WITH HISTORY OF PAIN WITH TUBE FEEDING. MONITOR CLOSELY. [employer] STANDARD HAS HANG TIME OF 12 HOURS. COMMUNICATED NEED WITH [employer]. SHE WILL DELIVER PRODUCT SAMPLES, CARTONS AND CLOSED SYSTEM, ON THURSDAY. CONTINUES WITH TPN. MONITOR TUBE FEED TOLERANCE AND ADJUST TPN NEEDED.
[2022-03-07 15:55] VITALS: BP 134/74; PULSE 87; RESP 20; TEMP 36.3; O2SAT 98
--- NOTE | 2022-03-07 16:30 | PC.NURSE ---
Tube feed ready to start per a new order but patient wants zofran first and wait until his stomach fills better. States will let the nurse know when he is ready.
--- NOTE | 2022-03-07 18:52 | PC.NURSE ---
offered to start tube feeding,patient states is not feeling good,asking to retake VS because he feels like is getting a fever. VS taken and stable, patient still wants to wait to start feeding. Report given to upcoming RN .
[2022-03-07 20:00] VITALS: BP 102/65; PULSE 66; RESP 18; TEMP 36.5; O2SAT 99
[2022-03-08] VITALS: BP 110/73; PULSE 67; RESP 18; TEMP 36.6; O2SAT 100
[2022-03-08] MEDS: HYDROmorphone HCl 1 MG/ML SYRINGE IVPUSH ×5 (01:09→21:39)
[2022-03-08] MEDS: ondansetron HCL 4 MG/2 ML VIAL IVPUSH ×5 (01:09→21:40)
[2022-03-08] MEDS: Midazolam HCl/PF 2 MG/2 ML VIAL IVPUSH ×2 (01:09→05:19)
[2022-03-08] MEDS: 0.9 % Sodium Chloride Flush 3 ML SYRINGE IVFLUSH ×4 (01:19→23:51)
--- NOTE | 2022-03-08 03:49 | PC.NURSE ---
TUBE FEED STARTED AT 219 am at 20 ml/ h pts own tube feed. at 4 am pt c/o heart burn but will wait for protonix iv and continue with tube feed.
[2022-03-08 03:50] VITALS: BP 115/67; PULSE 73; RESP 18; TEMP 36.5; O2SAT 99
[2022-03-08] MEDS: Pantoprazole Sodium 40 MG/10 ML VIAL IVPUSH ×2 (05:19→16:32)
--- NOTE | 2022-03-08 06:40 | PC.NURSE ---
tube feed increased to 30 ml/h at 6 am pt states he is getting heartburn but he will try for while.
[2022-03-08 08:19] VITALS: BP 122/66; PULSE 90; RESP 18; TEMP 36.7; O2SAT 97
[2022-03-08 09:58] LABS: Anion Gap 12 (12-20); Blood Urea Nitrogen 18 mg/dL (9-16); Calcium 8.6 mg/dL (8.4-10.2); Carbon Dioxide 30 mmol/L (22-29); Chloride 101 mmol/L (96-108); Creatinine Clr Calc Pharmacy 118.2; Estimated Glomerular Filt Rate > 60; Glucose Fasting 96 mg/dL (60-99); Potassium 4.3 mmol/L (3.3-5.1); Sodium 139 mmol/L (135-145)
--- NOTE | 2022-03-08 10:29 | P.CNPS_ITS ---
History of Present Illness Date of Service: 03/08/2022 Chief Complaint: abdominal pain Reason for Consult: Medication Requesting physician: Janae Osei Discussed with referring provider: Yes Sources of Information: patient interviewed, chart reviewed and crisis/core team assessment reviewed HPI Narrative: Singh is a 51 y.o. male with diagnosis of primary squamous cell carcinoma of head and neck, completed radiation on 12/30/2021, admitted to [facility] at the request of oncology 02/25/22 due to complaints of abdominal pain with G-tube feedings. He states he has tried overnight feedings, gravity feedings, and most recently bolus feedings. He states the tube functions but shortly thereafter he develops diffuse severe abdominal pain and he has been unable to successfully utilizes feedings. He is noted to have a 35 lb weight loss s since starting tube feedings. Followed by GI. Pt had a upper GI exam on 02/28/22, which showed normal anatomic positioning, somewhat slowed emptying of the stomach. Pt?s pain is being managed with fentanyl, IV PPI, PRN Bentyl, IV reglan, and IV dilaudid. Pt is receiving G-tube feedings with TPN supplementing. Psych consultation requested for continued anxiety and resistance to treatment, i.e. he will refuse feedings due to fear that pain will come back. I evaluated the pt this evening he reports he is depressed but ?anyone would have depression in my situation.? He is generally opposed to psychiatric medications, says he does not want to take anything for depression or anxiety. Pt is ornery in presentation, not interested in clinical interview, disengaged. Pt does admit to having difficulty staying asleep, waking up throughout the night, finds it difficult to fall back to sleep. Says his issues with sleep are long standing, preceding current illness. Daytime energy is low. Denies nightmares.? Past Psychiatric History: -Denies Medical Evaluation Reviewed: Yes [facility] Medical History Gastrostomy tube in place Mass of left side of neck Squamous cell carcinoma of neck Surgical History H/O removal of cyst Diagnostics Vital Signs (24Hr): Vital Signs - 24 hr 03/07/22 12:00 03/07/22 15:55 03/07/22 20:00 Temperature 97.4 F 97.7 F Pulse Rate 87 66 Respiratory Rate 18 20 18 Blood Pressure 134/74 102/65 Pulse Oximetry 98 99 Oxygen Delivery Method Room Air Room Air 03/08/22 00:00 03/08/22 03:50 03/08/22 08:19 Temperature 97.9 F 97.7 F 98.0 F Pulse Rate 67 73 90 Respiratory Rate 18 18 18 Blood Pressure 110/73 115/67 122/66 Pulse Oximetry 100 99 97 Oxygen Delivery Method Room Air Room Air Room Air BMI result Body Mass Index 23.3 Labs Results: 03/07/22 09:44 03/09/22 12:09 Labs: Laboratory Results - last 48 hr 03/06/22 03/07/22 03/07/22 11:15 09:44 09:44 WBC 2.9 L RBC 4.03 L Hgb 12.6 L Hct 35.8 L MCV 88.8 MCH 31.3 MCHC 35.2 RDW 13.8 Plt Count 146 L MPV 9.7 Absolute Nucleated RBC 0.000 Nucleated RBC % (auto) 0.0 Sodium 137 Potassium 4.3 Chloride 98 Carbon Dioxide 32 H Anion Gap 11 L BUN 15 Creatinine 0.81 Estim Creat Clear Calc 113.9 Estimated GFR > 60 Random Glucose 105 Fasting Glucose Calcium 8.9 Phosphorus 4.7 H Magnesium 1.9 Albumin 3.5 Triglycerides 37 44 03/08/22 09:28 WBC RBC Hgb Hct MCV MCH MCHC RDW Plt Count MPV Absolute Nucleated RBC Nucleated RBC % (auto) Sodium 139 Potassium 4.3 Chloride 101 Carbon Dioxide 30 H Anion Gap 12 BUN 18 H Creatinine 0.78 Estim Creat Clear Calc 118.2 Estimated GFR > 60 Random Glucose Fasting Glucose 96 Calcium 8.6 Phosphorus Magnesium Albumin Triglycerides Imaging Radiology Impressions: ITS Impressions Upper GI Series 02/28/22 15:00 IMPRESSION: Limited upper GI examination. No gastroesophageal reflux is seen. Somewhat slow emptying of the stomach into the duodenum slow duodenal transit. Normal anatomic positioning. Mental Status Exam Mental Status Exam Narrative: A&O. Appears frail, laying down in bed, poor eye contact, attentive. No Tics or Tremors. No abnormal involuntary movements. Agitated, guarded, difficult to engage. Non-pressured speech, spontaneous with regular rate and rhythm, normal volume and prosody. No prolonged speech latency or dysarthria. Mood is ?depressed,? affect is dysphoric, agitated. Denies SI/SIB/HI upon inquiry. Denies A/VH or delusional thought content. Thoughts are perseverative. No known cognitive or memory impairment. Insight/ Judgment fair and adequate. Medications Medications Current Medications Dicyclomine HCl (Dicyclomine Hcl 10 Mg Capsule) 10 mg PO QIDACHS PRN PRN Reason: abd pain Last Admin: 03/06/22 13:28 Dose: 10 mg Enoxaparin Sodium (Enoxaparin Sodium 40 Mg/0.4 Ml Syringe) 40 mg SUBCUT Q24H [facility] Last Admin: 03/07/22 18:47 Dose: Not Given Fentanyl (Fentanyl 50 Mcg Patch.Td72) 100 mcg TRANSDERMA Q72H [facility] Last Admin: 03/06/22 17:12 Dose: 100 mcg Hydromorphone HCl (Hydromorphone Hcl 1 Mg/Ml Syringe) 1 mg IVPUSH Q8H PRN; Protocol PRN Reason: Breakthrough Pain Last Admin: 03/08/22 09:52 Dose: 1 mg Potassium Chloride 40 meq/Sodium Chloride 70 meq/Magnesium Sulfate 10 meq/Calcium Gluconate 9.3 meq/Multivitamins 11 ml/ Trace Metals 1.1 ml/ Amino Acids/Dextrose 1,800 mls @ 75 mls/hr IV DAILY@1800 [facility] Stop: 03/08/22 17:59 Last Admin: 03/07/22 18:46 Dose: 75 mls/hr Midazolam HCl (Midazolam Hcl/Pf 2 Mg/2 Ml Vial) 2 mg IVPUSH Q4H PRN PRN Reason: Anxiety Ondansetron HCl (Ondansetron Hcl 4 Mg/2 Ml Vial) 4 mg IVPUSH Q4H PRN PRN Reason: Nausea and Vomiting Last Admin: 03/08/22 10:07 Dose: 4 mg Pantoprazole Sodium (Pantoprazole Sodium 40 Mg/10 Ml Vial) 40 mg IVPUSH BID@0630,1630 [facility] Last Admin: 03/08/22 05:19 Dose: 40 mg Pharmacy Consult (Consult Rx Perform Med Rec) 1 each MISCELLANE ONCE PRN PRN Reason: Consult order Sodium Chloride (0.9 % Sodium Chloride Flush 3 Ml Syringe) 3 ml IVFLUSH QSHIFT [facility] Last Admin: 03/08/22 09:35 Dose: 3 ml Allergies Allergies Allergy/AdvReac Type Severity Reaction Status Date / Time No Known Allergies Allergy Verified 02/11/22 15:57 [No Known Allergies*] Assessment & Plan Assessment & Plan (1) Primary squamous cell carcinoma of head and neck: Status: Acute Code(s): C76.0 - Malignant neoplasm of head, face and neck (2) Major depression, single episode: Status: Acute Code(s): F32.9 - Major depressive disorder, single episode, unspecified Plan Singh is a 51 y.o. male with diagnosis of primary squamous cell carcinoma of head and neck, completed radiation on 12/30/2021, admitted to [facility] at the request of oncology 02/25/22 due to complaints of abdominal pain with G-tube feedings. Plan: Pt adamant that he does not want to be on a psychiatric medication, feels his episode of depression is situational, appears severely depressed and agitated. Discussed remeron, as pt is open to trialing a medication for sleep and in addition this may help with mood and anxiety sx. However, pt prefers to research this medication prior to start. Insists there are side effects I?m not telling him about. If pt is in agreement, recommend trial of remeron 15 mg QHS. I have shared this with Dr. Osei Thank you for this consultation. If you have any questions or concerns, please do not hesitate to contact psychiatry service. I spent minutes with the patient and/or on the patient floor today, greater than?50% of which was spent counseling/coordinating care. Patient educated on: diagnosis, medication risk/benefits and therapeutic strategies
--- NOTE | 2022-03-08 10:57 | PC.NURSE ---
tube feed rate increased to 40, no residual. water flushes as ordered. Patient is tolerating feeding fairly.
[2022-03-08 11:03] LABS: Magnesium 1.7 mg/dL (1.6-2.6); Phosphorus 3.7 mg/dL (2.7-4.5)
[2022-03-08 11:35] VITALS: BP 115/67; PULSE 96; RESP 16; TEMP 36.9; O2SAT 100
--- NOTE | 2022-03-08 12:57 | P.PNIM_ITS ---
Subjective Subjective Date of Service: 03/08/22 Interval History: Tolerating diet so far concerned about developing abdominal pain requesting Dilaudid to be given every 4 hours as needed, later complained of bloating requesting for medications to help elevate symptom, Did not complain of nausea vomiting, also requesting for versed. 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 Neck no JVD. CVS? regular rate rhythm, Respiratory lungs clear to auscultation, no respiratory distress, no wheeze, no rhonchi. Gastrointestinal abdomen soft, G-tube site with no redness, mild tenderness to palpation,bowel sounds audible, no guarding , no rigidity. Extremities no edema. Neuro nonfocal patient moving all 4 extremity speech clear. Skin no rash Psych appropriate affect Objective Data Active Medications Dicyclomine HCl (Dicyclomine Hcl 10 Mg Capsule) 10 mg PO QIDACHS PRN PRN Reason: abd pain Last Admin: 03/06/22 13:28 Dose: 10 mg Documented By: CARMEN Enoxaparin Sodium (Enoxaparin Sodium 40 Mg/0.4 Ml Syringe) 40 mg SUBCUT Q24H [facility] Last Admin: 03/07/22 18:47 Dose: Not Given Documented By: MILAGROS Non-Admin Reason: PT WANTS IT LATER Fentanyl (Fentanyl 50 Mcg Patch.Td72) 100 mcg TRANSDERMA Q72H [facility] Last Admin: 03/06/22 17:12 Dose: 100 mcg Documented By: MARY Hydromorphone HCl (Hydromorphone Hcl 1 Mg/Ml Syringe) 1 mg IVPUSH Q4H PRN; Protocol PRN Reason: Breakthrough Pain Potassium Chloride 40 meq/Sodium Chloride 70 meq/Magnesium Sulfate 10 meq/Calcium Gluconate 9.3 meq/Multivitamins 11 ml/ Trace Metals 1.1 ml/ Amino Acids/Dextrose 1,800 mls @ 75 mls/hr IV DAILY@1800 [facility] Stop: 03/08/22 17:59 Last Admin: 03/07/22 18:46 Dose: 75 mls/hr Documented By: MILAGROS Fat Emulsion Intravenous (Intralipid) 150 mls @ 25 mls/hr IV DAILY@1800 [facility] Stop: 03/08/22 23:59 Fat Emulsion Intravenous (Intralipid) 150 mls @ 25 mls/hr IV DAILY@0000 [facility] Stop: 03/09/22 05:59 Potassium Chloride 40 meq/Sodium Chloride 70 meq/Magnesium Sulfate 16 meq/Calcium Gluconate 9.3 meq/Multivitamins 11 ml/ Trace Metals 1.1 ml/ Amino Acids/Dextrose 1,800 mls @ 75 mls/hr IV DAILY@1800 [facility] Stop: 03/09/22 17:59 Metoclopramide HCl (Metoclopramide Hcl 10 Mg/2 Ml Vial) 5 mg IVPUSH Q6H PRN PRN Reason: Nausea and Vomiting Midazolam HCl (Midazolam Hcl/Pf 2 Mg/2 Ml Vial) 2 mg IVPUSH Q4H PRN PRN Reason: Anxiety Ondansetron HCl (Ondansetron Hcl 4 Mg/2 Ml Vial) 4 mg IVPUSH Q4H PRN PRN Reason: Nausea and Vomiting Last Admin: 03/08/22 10:07 Dose: 4 mg Documented By: MILAGROS Pantoprazole Sodium (Pantoprazole Sodium 40 Mg/10 Ml Vial) 40 mg IVPUSH BID@0630,1630 [facility] Last Admin: 03/08/22 05:19 Dose: 40 mg Documented By: SANDEE Pharmacy Consult (Consult Rx Perform Med Rec) 1 each MISCELLANE ONCE PRN PRN Reason: Consult order Sodium Chloride (0.9 % Sodium Chloride Flush 3 Ml Syringe) 3 ml IVFLUSH QSHIFT [facility] Last Admin: 03/08/22 09:35 Dose: 3 ml Documented By: MILAGROS Labs CBC & Chem 7: 03/07/22 09:44 03/08/22 09:28 Labs: Laboratory Results - last 24 hr 03/08/22 09:28 Anion Gap 12 Estim Creat Clear Calc 118.2 Estimated GFR > 60 Fasting Glucose 96 Calcium 8.6 Phosphorus 3.7 Magnesium 1.7 Assessment and Plan (1) Abdominal pain: Status: Acute (2) Odynophagia: Status: Acute (3) Weakness: Status: Acute (4) Abnormal weight loss: Status: Acute (5) Primary squamous cell carcinoma of head and neck: Status: Acute (6) Facial pain syndrome: Status: Acute Plan 51-year-old male with known history of primary squamous cell carcinoma of the head and neck status post chemo radiation therapy on 12/30, status post G-tube presented because of pain after feed--has tried continuous, gravity and bolus with same pain.? Upper GI series 02/28 :?Limited upper GI examination. No gastroesophageal reflux is seen. Somewhat slow emptying of the stomach into the duodenum slow duodenal transit. Normal anatomic positioning.? Abdominal pain- No complain of abdominal pain this a.m. tolerating G-tube feeding started overnight, but concerned of getting abd. pain with feedings Continue fentanyl patch 100 mcg Q 72 hours, continue IV PPI, as needed Bentyl, will wean IV Dilaudid Continue TPN until receiving full-dose feedings and tolerating without issues of nausea vomiting or worsening pain Again spoke with patient in length regarding importance of G-tube feedings to build up his strength and informed that he cannot be on long-term IV TPN due to risk of infections Patient evaluated by General surgery for G-tube insertion but they feel it will cause more issues with blockage and other complication Will add IV Reglan for bloating Encourage out of bed and ambulation Will obtain psych consultation for continued anxiety and resistance to deescalate treatment head and neck cancer Patient evaluated by Dr. Donis she spoke with radiation oncologist Dr. Gross at [facility] patient has completed his radiation and missed last 4 days of treatment because of abdominal pain and hospitalization he does not intend to give him any more radiotherapy outpatient follow up with oncology and rad onc, upon discharge Goal of care at this time is pain management and nutrition Full code Lovenox reason for continued hospitalization:requiring tpn, since just initiated on g tube feeds, and on IV analgesics Quality Stroke Does the patient have a stroke diagnosis?: No VTE Prior VTE?: No VTE Risk Level:: Medical - moderate - high VTE Device Contraindication: Treatment Not Indicated VTE Drug Contraindication: N/A - Med Ordered
[2022-03-08] MEDS: Metoclopramide HCl 10 MG/2 ML VIAL 5 MG IVPUSH ×2 (13:06→23:40)
[2022-03-08 15:31] VITALS: BP 127/69; PULSE 78; RESP 18; TEMP 36.7; O2SAT 98
[2022-03-08] MEDS: Enoxaparin Sodium 40 MG/0.4 ML SYRINGE SUBCUT (18:18)
[2022-03-08] MEDS: Fat Emulsions 20% 250 ML 25 ML IV (18:33)
--- NOTE | 2022-03-08 22:56 | PC.NURSE ---
Addendum entered by Raymond Preciado RN 03/08/22 23:00: tube feed residual at 80 ml at 2100 c/o some heart burn Original Note: Tube feed formula at 45 ml/h , attempted to increase but pt. refused.will reassess in later time.
[2022-03-09] VITALS: BP 112/65; PULSE 76; RESP 18; TEMP 36.6; O2SAT 100
[2022-03-09] MEDS: ondansetron HCL 4 MG/2 ML VIAL IVPUSH ×3 (01:14→21:32)
[2022-03-09] MEDS: Midazolam HCl/PF 2 MG/2 ML VIAL IVPUSH ×3 (01:14→23:01)
[2022-03-09] MEDS: Fat Emulsions 20% 250 ML 25 ML IV ×2 (01:20→23:19)
[2022-03-09 03:52] VITALS: BP 110/76; PULSE 87; RESP 18; TEMP 36.4; O2SAT 100
[2022-03-09] MEDS: Pantoprazole Sodium 40 MG/10 ML VIAL IVPUSH ×2 (05:14→17:05)
--- NOTE | 2022-03-09 05:38 | PC.NURSE ---
Addendum entered by Raymond Preciado RN 03/09/22 05:49: pt stated this morning his stomach feels better, because formula is not running. Original Note: tube feed was stopped at 2 am because pt didnt have any more formula from home. will resume in am when we get more formula . pt states
[2022-03-09] MEDS: HYDROmorphone HCl 1 MG/ML SYRINGE IVPUSH (06:07)
[2022-03-09 07:24] VITALS: BP 106/76; PULSE 77; RESP 18; TEMP 36.5; O2SAT 98
[2022-03-09] MEDS: 0.9 % Sodium Chloride Flush 3 ML SYRINGE IVFLUSH ×2 (09:26→17:06)
[2022-03-09 11:42] VITALS: BP 124/65; PULSE 55; RESP 18; TEMP 37.2; O2SAT 96
--- NOTE | 2022-03-09 12:20 | HO.PM.IMPN ---
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 Neck no JVD. CVS? regular rate rhythm, Respiratory lungs clear to auscultation, no respiratory distress, no wheeze, no rhonchi. Gastrointestinal abdomen soft, G-tube site with no redness, mild tenderness to palpation,bowel sounds audible, no guarding , no rigidity. Extremities no edema. Neuro nonfocal patient moving all 4 extremity speech clear. Skin no rash Psych appropriate affect Objective Data Active Medications Dicyclomine HCl (Dicyclomine Hcl 10 Mg Capsule) 10 mg PO QIDACHS PRN PRN Reason: abd pain Last Admin: 03/06/22 13:28 Dose: 10 mg Documented By: CARMEN Enoxaparin Sodium (Enoxaparin Sodium 40 Mg/0.4 Ml Syringe) 40 mg SUBCUT Q24H [facility] Last Admin: 03/08/22 18:18 Dose: 40 mg Documented By: MILAGROS Fentanyl (Fentanyl 50 Mcg Patch.Td72) 100 mcg TRANSDERMA Q72H [facility] Last Admin: 03/06/22 17:12 Dose: 100 mcg Documented By: MARY Hydromorphone HCl (Hydromorphone Hcl 1 Mg/Ml Syringe) 1 mg IVPUSH Q4H PRN; Protocol PRN Reason: Breakthrough Pain Last Admin: 03/09/22 06:07 Dose: 1 mg Documented By: JESSICA Potassium Chloride 40 meq/Sodium Chloride 70 meq/Magnesium Sulfate 16 meq/Calcium Gluconate 9.3 meq/Multivitamins 11 ml/ Trace Metals 1.1 ml/ Amino Acids/Dextrose 1,800 mls @ 75 mls/hr IV DAILY@1800 [facility] Stop: 03/09/22 17:59 Last Admin: 03/08/22 18:12 Dose: 75 mls/hr Documented By: MILAGROS Metoclopramide HCl (Metoclopramide Hcl 10 Mg/2 Ml Vial) 5 mg IVPUSH Q6H PRN PRN Reason: Nausea and Vomiting Last Admin: 03/08/22 23:40 Dose: 5 mg Documented By: JESSICA Midazolam HCl (Midazolam Hcl/Pf 2 Mg/2 Ml Vial) 2 mg IVPUSH Q4H PRN PRN Reason: Anxiety Last Admin: 03/09/22 06:07 Dose: 2 mg Documented By: JESSICA Ondansetron HCl (Ondansetron Hcl 4 Mg/2 Ml Vial) 4 mg IVPUSH Q4H PRN PRN Reason: Nausea and Vomiting Last Admin: 03/09/22 10:12 Dose: 4 mg Documented By: IJEOMA Pantoprazole Sodium (Pantoprazole Sodium 40 Mg/10 Ml Vial) 40 mg IVPUSH BID@0630,1630 [facility] Last Admin: 03/09/22 05:14 Dose: 40 mg Documented By: JESSICA Pharmacy Consult (Consult Rx Perform Med Rec) 1 each MISCELLANE ONCE PRN PRN Reason: Consult order Sodium Chloride (0.9 % Sodium Chloride Flush 3 Ml Syringe) 3 ml IVFLUSH QSHIFT [facility] Last Admin: 03/09/22 09:26 Dose: 3 ml Documented By: IJEOMA Labs CBC & Chem 7: 03/07/22 09:44 03/08/22 09:28 Assessment and Plan (1) Abdominal pain: Status: Acute (2) Odynophagia: Status: Acute (3) Weakness: Status: Acute (4) Abnormal weight loss: Status: Acute (5) Primary squamous cell carcinoma of head and neck: Status: Acute (6) Facial pain syndrome: Status: Acute Plan 51-year-old male with known history of primary squamous cell carcinoma of the head and neck status post chemo radiation therapy on 12/30, status post G-tube presented because of pain after feed--has tried continuous, gravity and bolus with same pain.? Upper GI series 02/28 :?Limited upper GI examination. No gastroesophageal reflux is seen. Somewhat slow emptying of the stomach into the duodenum slow duodenal transit. Normal anatomic positioning.? Abdominal pain- complaining of abdominal pain overnight, tolerating G-tube feeding , girlfriend brought organic formula that will be started this morning start from 40 mL/hour goal is 55 mL/hour, continue water boluses Continue fentanyl patch 100 mcg Q 72 hours, continue IV PPI, as needed Bentyl, IV Reglan for slow motility, wean IV Dilaudid gradually Continue TPN until receiving full-dose feedings and tolerating without issues of nausea vomiting or worsening pain Again spoke with patient in length regarding importance of G-tube feedings to build up his strength and informed that he cannot be on long-term IV TPN due to risk of infections , he is more receptive Patient evaluated by General surgery for G-tube insertion but they feel it will cause more issues with blockage and other complication Encourage out of bed and ambulation Seen by psych will follow their recommendation head and neck cancer Patient evaluated by Dr. Donis she spoke with radiation oncologist Dr. Gross at [facility] patient has completed his radiation and missed last 4 days of treatment because of abdominal pain and hospitalization he does not intend to give him any more radiotherapy, outpatient follow up with oncology and rad onc, upon discharge Goal of care at this time is pain management and nutrition Full code Lovenox reason for continued hospitalization:requiring tpn, since just initiated on g tube feeds, and on IV analgesics. Quality Stroke Does the patient have a stroke diagnosis?: No VTE Prior VTE?: No VTE Risk Level:: Medical - moderate - high VTE Device Contraindication: Treatment Not Indicated VTE Drug Contraindication: N/A - Med Ordered
[2022-03-09 12:34] LABS: Anion Gap 10 (12-20); Blood Urea Nitrogen 15 mg/dL (9-16); Calcium 8.6 mg/dL (8.4-10.2); Carbon Dioxide 31 mmol/L (22-29); Chloride 101 mmol/L (96-108); Creatinine Clr Calc Pharmacy 113.9; Estimated Glomerular Filt Rate > 60; Glucose Fasting 107 mg/dL (60-99); Sodium 138 mmol/L (135-145)
[2022-03-09] MEDS: Metoclopramide HCl 10 MG/2 ML VIAL 5 MG IVPUSH ×2 (12:44→20:57)
[2022-03-09] MEDS: HYDROmorphone HCl 1 MG/ML SYRINGE 0.5 MG IVPUSH (13:00)
[2022-03-09 13:15] LABS: Magnesium 1.8 mg/dL (1.6-2.6); Phosphorus 3.4 mg/dL (2.7-4.5)
[2022-03-09 15:25] VITALS: BP 119/65; PULSE 75; RESP 16; TEMP 36.6; O2SAT 98
[2022-03-09] MEDS: fentaNYL 50 MCG PATCH.TD72 100 MCG TRANSDERMA (17:05)
[2022-03-09] MEDS: Enoxaparin Sodium 40 MG/0.4 ML SYRINGE SUBCUT (17:05)
[2022-03-09 19:18] VITALS: BP 107/68; PULSE 86; RESP 16; TEMP 36.9; O2SAT 99
[2022-03-09] MEDS: HYDROmorphone HCl 0.5 MG/0.5 ML SYRINGE IVPUSH (22:58)
[2022-03-10] MEDS: Midazolam HCl/PF 2 MG/2 ML VIAL IVPUSH (05:26)
[2022-03-10] MEDS: HYDROmorphone HCl 0.5 MG/0.5 ML SYRINGE IVPUSH ×3 (05:26→21:19)
[2022-03-10] MEDS: Pantoprazole Sodium 40 MG/10 ML VIAL IVPUSH ×2 (05:26→16:14)
[2022-03-10 07:10] LABS: Anion Gap 13 (12-20); Blood Urea Nitrogen 16 mg/dL (9-16); Calcium 8.5 mg/dL (8.4-10.2); Carbon Dioxide 30 mmol/L (22-29); Chloride 102 mmol/L (96-108); Creatinine Clr Calc Pharmacy 126.3; Estimated Glomerular Filt Rate > 60; Glucose Fasting 87 mg/dL (60-99); Sodium 141 mmol/L (135-145)
[2022-03-10 07:17] VITALS: BP 104/64; PULSE 78; RESP 18; TEMP 36.6; O2SAT 97
[2022-03-10 08:05] LABS: Magnesium 1.9 mg/dL (1.6-2.6)
[2022-03-10 11:20] VITALS: BP 100/56; PULSE 100; RESP 18; TEMP 36.5; O2SAT 97
--- NOTE | 2022-03-10 13:24 | MHC.CM.PN ---
EMR REVIEWED, PER HOSPITALIST PT TOLERATING CONTINUOS FEED AND WANTS TO CHANGE TO BOLUS FEEDINGS, ANTIC PT WILL BE READY FOR D/C BY MONDAY 03/12, CM WILL CONT TO FOLLOW D/C NEEDS.
--- NOTE | 2022-03-10 14:32 | MHC.CLN ---
F/U TPN DISCONTINUED. 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 PRODUCT NOT ON HOSPITAL FORMULARY. DELIVERED TO UNIT AND DISCUSSED WITH NURSE. TUBE FEEDING RUNNING THIS MORNING ORGAIN AT 50 ML PER HOUR. PATIENT REPORTS THAT HE IS FEELING GOOD. PATIENT STATES THAT CURRENT FEEDING PRODUCT IS A MIX OF MICHAEL FARMS AND ORGAIN. NURSE CONFIRMED THAT PRODUCT IS ONLY ORGAIN HUNG IN NEW BAG AT 9:[address] RECOMMENDS DISCONTINUE ORGAIN PRODUCT FOR TUBE FEEDING PRODUCT MAY STAY UNREFRIGERATED FOR LIMITED TIME (2 HOURS) AND NOT INTENDED A SOLE SOURCE OF NUTRITION. NURSE AND RD DISCUSSED WITH PATIENT THAT PRODUCT IS NOT RECOMMENDED FOR TUBE FEEDING. NURSE SUGGESTED AND PATIENT AGREED TO MICHAEL FARMS 1.4 DILUTED TO HALF STRENGTH. PATIENT REQUESTED PLAN FOR PAIN MANAGEMENT IF NEEDED WITH FEEDING. DISCUSSED PLAN WITH PATIENT AND MD. RECOMMEND MICHAEL FARMS 1.4 DILUTED TO HALF STRENGTH, RUN AT 75 ML PER HOUR UNTIL 8/9 AM. HOLD WATER FLUSH WHILE TF DILUTED. ASSESS PATIENT FOR TUBE FEED TOLERANCE IN AM. RECOMMEND START MICHAEL FARMS 1.4 BOLUS FEEDING IN AM WITH START OF 60 ML PER HOUR, NOT DILUTED. INCREASE BY 60 ML EVERY 4 HOURS UNTIL MAX GOAL RATE OF 215 ML BOLUS IS REACHED. BOLUS 215 ML 6 TIMES DAILY IS MAX GOAL RATE (215 ML X 2=8306 ML FORMULA). FREE WATER FLUSH 120 ML Q 4 HOURS. FOUR 11 OZ CARTONS PER DAY FORMULA, PROVIDES 1300 ML FORMULA, 1820 KCALS (24.7 KCALS/KG); 80 G PROTEIN (1.09 G/KG); 936 ML FREE WATER. ADD FLUSH 120 ML Q 4 HOURS, FOR TOTAL FREE WATER 1656 ML (22.5 ML/KG).
--- NOTE | 2022-03-10 14:57 | P.PNIM_ITS ---
Subjective Subjective Date of Service: 03/10/22 Interval History: Complaining of abdominal bloating due to difficulty passing flatus, tolerating G-tube feedings no nausea no vomiting, no worsening pain, no acute issues overnight. 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 Neck no JVD. CVS? regular rate rhythm, Respiratory lungs clear to auscultation, no respiratory distress, no wheeze, no rhonchi. Gastrointestinal abdomen soft, G-tube site with no redness, nontender to palpation,bowel sounds audible, no guarding , no rigidity. Extremities no edema. Neuro nonfocal Skin no rash Psych appropriate affect Objective Data Active Medications Dicyclomine HCl (Dicyclomine Hcl 10 Mg Capsule) 10 mg PO QIDACHS PRN PRN Reason: abd pain Last Admin: 03/06/22 13:28 Dose: 10 mg Documented By: CARMEN Enoxaparin Sodium (Enoxaparin Sodium 40 Mg/0.4 Ml Syringe) 40 mg SUBCUT Q24H [facility] Last Admin: 03/09/22 17:05 Dose: 40 mg Documented By: IJEOMA Fentanyl (Fentanyl 50 Mcg Patch.Td72) 100 mcg TRANSDERMA Q72H [facility] Last Admin: 03/09/22 17:05 Dose: 100 mcg Documented By: IJEOMA Hydromorphone HCl (Hydromorphone Hcl 0.5 Mg/0.5 Ml Syringe) 0.5 mg IVPUSH Q2H PRN; Protocol PRN Reason: Breakthrough Pain Last Admin: 03/10/22 13:09 Dose: 0.5 mg Documented By: LISA-SABRINAFA Potassium Chloride 40 meq/Sodium Chloride 70 meq/Magnesium Sulfate 16 meq/Calcium Gluconate 9.3 meq/Multivitamins 11 ml/ Trace Metals 1.1 ml/ Amino Acids/Dextrose 1,800 mls @ 75 mls/hr IV DAILY@1800 [facility] Stop: 03/10/22 17:59 Last Admin: 03/09/22 18:20 Dose: 75 mls/hr Documented By: IJEOMA Metoclopramide HCl (Metoclopramide Hcl 10 Mg/2 Ml Vial) 5 mg IVPUSH Q6H PRN PRN Reason: Nausea and Vomiting Last Admin: 03/09/22 20:57 Dose: 5 mg Documented By: ROSSANA Midazolam HCl (Midazolam Hcl/Pf 2 Mg/2 Ml Vial) 2 mg IVPUSH Q4H PRN PRN Reason: Anxiety Last Admin: 03/10/22 05:26 Dose: 2 mg Documented By: ROSSANA Ondansetron HCl (Ondansetron Hcl 4 Mg/2 Ml Vial) 4 mg IVPUSH Q4H PRN PRN Reason: Nausea and Vomiting Last Admin: 03/09/22 21:32 Dose: 4 mg Documented By: ROSSANA Pantoprazole Sodium (Pantoprazole Sodium 40 Mg/10 Ml Vial) 40 mg IVPUSH BID@06 30,1630 [facility] Last Admin: 03/10/22 05:26 Dose: 40 mg Documented By: ROSSANA Pharmacy Consult (Consult Rx Perform Med Rec) 1 each MISCELLANE ONCE PRN PRN Reason: Consult order Sodium Chloride (0.9 % Sodium Chloride Flush 3 Ml Syringe) 3 ml IVFLUSH QSHIFT [facility] Last Admin: 03/10/22 06:45 Dose: Not Given Documented By: ROSASNA Non-Admin Reason: IV Running Labs CBC & Chem 7: 03/07/22 09:44 03/10/22 05:47 Labs: Laboratory Results - last 24 hr 03/10/22 05:47 Anion Gap 13 Estim Creat Clear Calc 126.3 Estimated GFR > 60 Fasting Glucose 87 Calcium 8.5 Phosphorus 4.0 Magnesium 1.9 Assessment and Plan (1) Abdominal pain: Status: Acute (2) Odynophagia: Status: Acute (3) Weakness: Status: Acute (4) Abnormal weight loss: Status: Acute (5) Primary squamous cell carcinoma of head and neck: Status: Acute (6) Facial pain syndrome: Status: Acute Plan 51-year-old male with known history of primary squamous cell carcinoma of the head and neck status post chemo radiation therapy on 12/30, status post G-tube presented because of pain after feed--has tried continuous, gravity and bolus with same pain.? Upper GI series 02/28 :?Limited upper GI examination. No gastroesophageal reflux is seen. Somewhat slow emptying of the stomach into the duodenum slow duodenal transit. Normal anatomic positioning.? Abdominal pain- complaining of abdominal bloating,gas but overall feels better in last 1-1/2day Tube feeding started Thursday evening 03/07 with [employer] standard formula, subsequently girlfriend brought oragain formula x 4 cans, that he received, this a.m. 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 only to tomorrow morning then feedings will be changed to bolus feeds at am will hold water boluses tonight Resume water boluses from tomorrow stable vitals and electrolytes Continue fentanyl patch 100 mcg Q 72 hours, patient wants to avoid using medications through G-tube therefore will increase fentanyl patch to 125 mcg if needed continue IV PPI, as needed Bentyl, IV Reglan for slow motility, wean IV Dilaudid gradually currently 0.5 q.2 hours DC TPN Patient evaluated by General surgery for G-tube insertion but they feel it will cause more issues with blockage and other complication Encourage out of bed and ambulation that will help with bloating and gas Seen by psych patient seems to have severe depression and agitation, psych recommended Remeron but patient wishes to research this medication prior to starting. head and neck cancer Patient evaluated by Dr. Donis she spoke with radiation oncologist Dr. Gross at [facility] patient has completed his radiation and missed last 4 days of treatment because of abdominal pain and hospitalization he does not intend to give him any more radiotherapy, outpatient follow up with oncology and rad onc, upon discharge Goal of care at this time is pain management and nutrition Full code Lovenox reason for continued hospitalization: since just initiated on g tube feeds, and on IV analgesics. Quality Stroke Does the patient have a stroke diagnosis?: No VTE Prior VTE?: No VTE Risk Level:: Medical - moderate - high VTE Device Contraindication: Treatment Not Indicated VTE Drug Contraindication: N/A - Med Ordered
[2022-03-10 15:34] VITALS: BP 126/73; PULSE 78; RESP 17; TEMP 36.2; O2SAT 98
[2022-03-10] MEDS: Enoxaparin Sodium 40 MG/0.4 ML SYRINGE SUBCUT (17:15)
[2022-03-10] MEDS: Metoclopramide HCl 10 MG/2 ML VIAL 5 MG IVPUSH (17:25)
--- NOTE | 2022-03-10 18:43 | PC.NURSE ---
MD assessed and spoke with pt this AM and this afternoon in regards to plan of care and discharge planning, dietitian also spoke with pt multiple times throughout the day in regards to tube feeds. Pt was on organic tube feeds this AM, bag changed around 0930, pt had no c/o at this time in regards to abd pain or discomfort. Afterwards TF were stopped and discarded d/t KF TF arriving to unit. Pt stated he cannot tolerate KF TF alone unless its diluted w/ organic TF from home. It was decided to dilute KF TF with water 50%/50% and increase rate w/ no H2O boluses, dietitian at bedside while discussing plan/methods for TF. Pt had no c/o of abd pain or discomfort until TF rate was increased to 65ml/hr. pt stated he was burping up the TF and feeling abd discomfort, TF were then decreased back to 60cc/hr and prn reglan was administered. MD stated to advance TF to goal of 75cc/hr with current mixture, plan to change TF from diluted TF to TF only (no water dilution) tomorrow. Pt's sister was updated by team as well prior to leaving this afternoon. Pt stated he is having a difficult time with TF changes and adjustments due to his history of pain and discomfort and current inability to tolerate certain types of TF's and rates. safety and fall precautions maintained. call jade within reach. pt encouraged to ambulate and be active
[2022-03-10 19:37] VITALS: BP 107/58; PULSE 70; RESP 16; TEMP 37.2; O2SAT 98
[2022-03-10] MEDS: 0.9 % Sodium Chloride Flush 3 ML SYRINGE IVFLUSH (21:26)
[2022-03-10] MEDS: ondansetron HCL 4 MG/2 ML VIAL IVPUSH (22:08)
[2022-03-10 23:41] VITALS: BP 109/69; PULSE 76; RESP 16; TEMP 36.4; O2SAT 100
[2022-03-11] MEDS: Midazolam HCl/PF 2 MG/2 ML VIAL IVPUSH ×2 (00:31→05:29)
[2022-03-11] MEDS: Pantoprazole Sodium 40 MG/10 ML VIAL IVPUSH (04:35)
[2022-03-11] MEDS: HYDROmorphone HCl 0.5 MG/0.5 ML SYRINGE IVPUSH ×2 (04:35→13:32)
[2022-03-11 06:26] LABS: Anion Gap 13 (12-20); Blood Urea Nitrogen 16 mg/dL (9-16); Calcium 8.6 mg/dL (8.4-10.2); Carbon Dioxide 31 mmol/L (22-29); Chloride 100 mmol/L (96-108); Creatinine Clr Calc Pharmacy 112.5; Estimated Glomerular Filt Rate > 60; Glucose Fasting 101 mg/dL (60-99); Sodium 140 mmol/L (135-145)
[2022-03-11 06:56] VITALS: BP 101/57; PULSE 74; RESP 18; TEMP 36.2; O2SAT 98
--- NOTE | 2022-03-11 08:54 | MHC.CLN ---
F/U PLAN TO TRIAL BOLUS TF NON DILUTED IN PREPARATION FOR DISCHARGED 03/11/22 ASSESS PATIENT FOR TUBE FEED TOLERANCE IN AM. RECOMMEND START MICHAEL FARMS 1.4 BOLUS FEEDING IN AM WITH START RATE OF 60 ML (NOT DILUTED) INCREASE BY 60 ML EVERY 4 HOURS UNTIL MAX GOAL RATE OF 215 ML BOLUS IS REACHED. BOLUS 215 ML 6 TIMES DAILY IS MAX GOAL RATE (215 ML X 0=5837 ML FORMULA) WITH 120ML FREE WATER FLUSHES Q 4 HOURS TO PROVIDE 1820KCALS, 80G PROTEIN, 1656ML TOTAL FREE WATER FROM FORMULA AND FLUSHES MONITOR TOLERANCE, RESIDUALS AND LYTES
[2022-03-11] MEDS: 0.9 % Sodium Chloride Flush 3 ML SYRINGE IVFLUSH ×3 (09:26→22:17)
[2022-03-11] MEDS: Metoclopramide HCl 10 MG/2 ML VIAL 5 MG IVPUSH ×3 (10:57→22:17)
[2022-03-11] MEDS: fentaNYL 100 MCG PATCH.TD72 TRANSDERMA (11:30)
[2022-03-11] MEDS: fentaNYL 25 MCG PATCH.TD72 TRANSDERMA (11:30)
[2022-03-11 12:00] VITALS: BP 122/54; PULSE 68; RESP 18; TEMP 36; O2SAT 98
--- NOTE | 2022-03-11 13:25 | P.PNIM_ITS ---
Subjective Subjective Date of Service: 03/11/22 Interval History: baseline facial + neck pain; going to call [facility] to discuss glossopharyngeal nerve or gasserian ganglion block tolerated 1st bolus feed with minimal abd bloating Review of Systems Review of Systems: Yes all other systems are reviewed and are negative Physical Exam Vital Signs: Vital Signs: Last Vital Signs Temp 96.8 F 03/11/22 12:00 Pulse 68 03/11/22 12:00 Resp 18 03/11/22 12:00 BP 122/54 L 03/11/22 12:00 Pulse Ox 98 03/11/22 12:00 O2 Del Method 03/11/22 12:00 O2 Flow Rate 2 03/03/22 03:20 BMI result Body Mass Index 23.3 Gen: in no acute distress HEENT: sclera anicteric, moist mucus membranes Neck: supple Lungs: clear to auscultation bilaterally Heart: regular rate and rhythm, no murmurs Abd: soft, non-tender, non-distended, G tube in place with no signs of infection or leakage Ext: no edema Skin: warm/well-perfused Neuro: alert and oriented x3, no focal findings Psych: appropriate affect Objective Data Active Medications Enoxaparin Sodium (Enoxaparin Sodium 40 Mg/0.4 Ml Syringe) 40 mg SUBCUT Q24H [facility] Last Admin: 03/10/22 17:15 Dose: 40 mg Documented By: JOSE MARTIN Fentanyl (Fentanyl 100 Mcg Patch.Td72) 100 mcg TRANSDERMA Q72H [facility] Last Admin: 03/11/22 11:30 Dose: 100 mcg Documented By: TREASURE Fentanyl (Fentanyl 25 Mcg Patch.Td72) 25 mcg TRANSDERMA Q72H [facility] Last Admin: 03/11/22 11:30 Dose: 25 mcg Documented By: TREASURE Hydromorphone HCl (Hydromorphone Hcl 0.5 Mg/0.5 Ml Syringe) 0.5 mg IVPUSH Q2H PRN; Protocol PRN Reason: Breakthrough Pain Last Admin: 03/11/22 04:35 Dose: 0.5 mg Documented By: CLAUDINE Metoclopramide HCl (Metoclopramide Hcl 10 Mg/2 Ml Vial) 5 mg IVPUSH Q4H PRN PRN Reason: abdominal bloating Last Admin: 03/11/22 10:57 Dose: 5 mg Documented By: TREASURE Midazolam HCl (Midazolam Hcl/Pf 2 Mg/2 Ml Vial) 2 mg IVPUSH Q4H PRN PRN Reason: Anxiety Last Admin: 03/11/22 05:29 Dose: 2 mg Documented By: CLAUDINE Omeprazole (Omeprazole 20 Mg/10 Ml Susp.Recon) 20 mg PO BID@0630,1630 [facility] Ondansetron HCl (Ondansetron Hcl 4 Mg/2 Ml Vial) 4 mg IVPUSH Q4H PRN PRN Reason: Nausea and Vomiting Last Admin: 03/10/22 22:08 Dose: 4 mg Documented By: CLAUDINE Pharmacy Consult (Consult Rx Perform Med Rec) 1 each MISCELLANE ONCE PRN PRN Reason: Consult order Sodium Chloride (0.9 % Sodium Chloride Flush 3 Ml Syringe) 3 ml IVFLUSH QSHIFT [facility] Last Admin: 03/11/22 09:26 Dose: 3 ml Documented By: TREASURE Labs CBC & Chem 7: 03/07/22 09:44 03/11/22 05:24 Labs: Laboratory Results - last 24 hr 03/11/22 05:24 Anion Gap 13 Estim Creat Clear Calc 112.5 Estimated GFR > 60 Fasting Glucose 101 H Calcium 8.6 Assessment and Plan (1) Abdominal pain: Status: Acute (2) Odynophagia: Status: Acute (3) Weakness: Status: Acute (4) Abnormal weight loss: Status: Acute (5) Primary squamous cell carcinoma of head and neck: Status: Acute (6) Facial pain syndrome: Status: Acute Plan hospital d#15 51yo M with SCC of head/neck s/p chemo/XRT and G-tube admitted with feeding intolerance. Intolerant of continuous/gravity/bolus regimens. Upper GI series 02/28 showed: No gastroesophageal reflux is seen. Somewhat slow emptying of the stomach into the duodenum slow duodenal transit. Normal anatomic positioning . GI consulted, no concerns for tube malfunction. Surgery consulted, no benefit from changing to J-tube. # tube feeding dependence # abd pain - IV ondansetron prn N/V, IV metoclopramide prn bloating - change IV PPI to oral suspension per GT - Nutrition following. plan is to start [employer] 1.4 bolus feeding 60 mL/hr, increase by 60 mL q4h uyntil max 215 mL bolus reached. goal 215 mL 6x daily. free water flush 120 mL 6 times daily. - TPN discontinued # chronic CA pain - increased fentanyl patch 100->125 mcg/hr, has prn IV hydromorphone (on oral solution per GT at home) - consider outpt gasserian ganglion or glossopharyngeal nerve block at [facility] # anxiety - prn IV midazolam, Psychiatry suggested mirtazapine but pt wishes to research prior to starting # SCC of head/neck - s/p radiation at [facility]- completed, missed last 4 days of treatment due to hospitalization, no further XRT planned, outpt f/u upon discharge # VTE ppx: LMWH In my clinical judgment, the patient requires continued hospitalization for the following reasons: tube feeding initiation, IV medications Quality Stroke Does the patient have a stroke diagnosis?: No VTE Prior VTE?: No VTE Risk Level:: Medical - moderate - high VTE Device Contraindication: Treatment Not Indicated VTE Drug Contraindication: N/A - Med Ordered
[2022-03-11] MEDS: ondansetron HCL 4 MG/2 ML VIAL IVPUSH ×2 (13:32→23:11)
[2022-03-11 15:50] VITALS: BP 113/69; PULSE 76; RESP 16; TEMP 36.6; O2SAT 97
--- NOTE | 2022-03-11 18:06 | PC.NURSE ---
After communicating with RD and MD, attempted to start new diet order. After flush, pt reported bloating, so 5mg reglan administered. 60ml bolus feed administered at 10:40. After initial assessment, pt reported continued bloating and pressure but initially no pain. MD made aware. At 1330, pt reported increased pain and bloating, after which PRN dilauded and zofran were administered. Agreed to try to give next bolus. made aware. At 1540, pt reported some relief from pain but was very resistant to continuing feed. Gave PRN reglan and agreed to try to start with new omeprazole solution via peg tube. At 1730 pt continued to be resistant to omeprazole and bolus feed and requested previous mixed solution feed. made aware.
[2022-03-11] MEDS: Enoxaparin Sodium 40 MG/0.4 ML SYRINGE SUBCUT (18:22)
[2022-03-12] VITALS: BP 103/62; PULSE 64; RESP 18; TEMP 36.7; O2SAT 99
[2022-03-12] MEDS: HYDROmorphone HCl 0.5 MG/0.5 ML SYRINGE IVPUSH ×3 (01:51→20:47)
[2022-03-12] MEDS: Midazolam HCl/PF 2 MG/2 ML VIAL IVPUSH (06:28)
--- NOTE | 2022-03-12 06:33 | PC.NURSE ---
pt agreeable for tube feed at 2300, per pt request reglan given pre feed and zofran given post feed with pt tolerating feed of 60ml and 120 water flush. pt started c/o bloating and pain, prn dilaudid given at 0150. 2nd tube feed attempted multiple times with pt refusing both feed and am med. [facility]
[2022-03-12 06:55] VITALS: BP 98/59; PULSE 68; RESP 18; TEMP 36.1; O2SAT 97
--- NOTE | 2022-03-12 09:04 | MHC.CLN ---
F/U BOLUS TUBE FEED OF [employer] 1.4 (NOT DILUTED) STARTED 03/11. PER NURSING NOTES, PATIENT HAS TAKEN TWO 60 ML BOLUS FEEDINGS ON 03/11 (AT 10:40 AM AND 11:30 PM). COMPLAINTS OF PAIN AND BLOATING. MEDICATIONS INCLUDE FENTANYL PATCH, DILAUDID, REGLAN, OMEPRAZOLE, ZOFRAN. CONTINUE ORDER FOR [employer] 1.4 BOLUS FEEDING WITH START RATE OF 60 ML (NOT DILUTED). INCREASE BY 60 ML EVERY 4 HOURS UNTIL MAX GOAL RATE OF 215 ML BOLUS IS REACHED. BOLUS 215 ML 6 TIMES DAILY IS MAX GOAL RATE (215 ML X 7=8264 ML FORMULA) WITH 120ML FREE WATER FLUSHES Q 4 HOURS TO PROVIDE 1820KCALS, 80G PROTEIN, 1656ML TOTAL FREE WATER FROM FORMULA AND FLUSHES. MONITOR TOLERANCE, RESIDUALS AND LYTES. IF PATIENT UNABLE TO ADVANCE TUBE FEEDING TO MEET NUTRITIONAL NEEDS, RECOMMEND NUTRITION VIA TPN.
--- NOTE | 2022-03-12 09:48 | MHC.CM.PN ---
Patient is not yet medically cleared for dc (IV Dilaudid r/t c/o pain and bloating with gtube feed attempts). Home remains the goal and CM will continue to follow.
--- NOTE | 2022-03-12 10:11 | HO.PM.IMPN ---
Subjective Subjective Date of Service: 03/12/22 Interval History: tolerated 60 mL bolus [employer] 1.4 x2 yesterday but then had abd pain/boating chronic head/neck pain Review of Systems Review of Systems: Yes all other systems are reviewed and are negative Physical Exam Vital Signs: Vital Signs: Last Vital Signs Temp 97 F 03/12/22 06:55 Pulse 68 03/12/22 06:55 Resp 18 03/12/22 06:55 BP 98/59 L 03/12/22 06:55 Pulse Ox 97 03/12/22 06:55 O2 Del Method 03/12/22 06:55 O2 Flow Rate 2 03/03/22 03:20 BMI result Body Mass Index 23.3 Gen: in no acute distress HEENT: sclera anicteric, moist mucus membranes Neck: supple Lungs: clear to auscultation bilaterally Heart: regular rate and rhythm, no murmurs Abd: soft, non-tender, non-distended, G tube in place with no signs of infection or leakage Ext: no edema Skin: warm/well-perfused Neuro: alert and oriented x3, no focal findings Psych: appropriate affect Objective Data Active Medications Enoxaparin Sodium (Enoxaparin Sodium 40 Mg/0.4 Ml Syringe) 40 mg SUBCUT Q24H [facility] Last Admin: 03/11/22 18:22 Dose: 40 mg Documented By: TREASURE Fentanyl (Fentanyl 100 Mcg Patch.Td72) 100 mcg TRANSDERMA Q72H [facility] Last Admin: 03/11/22 11:30 Dose: 100 mcg Documented By: TREASURE Fentanyl (Fentanyl 25 Mcg Patch.Td72) 25 mcg TRANSDERMA Q72H [facility] Last Admin: 03/11/22 11:30 Dose: 25 mcg Documented By: TREASURE Hydromorphone HCl (Hydromorphone Hcl 0.5 Mg/0.5 Ml Syringe) 0.5 mg IVPUSH Q2H PRN; Protocol PRN Reason: Breakthrough Pain Last Admin: 03/12/22 01:51 Dose: 0.5 mg Documented By: CLAUDINE Metoclopramide HCl (Metoclopramide Hcl 10 Mg/2 Ml Vial) 5 mg IVPUSH Q4H PRN PRN Reason: abdominal bloating Last Admin: 03/11/22 22:17 Dose: 5 mg Documented By: CLAUDINE Midazolam HCl (Midazolam Hcl/Pf 2 Mg/2 Ml Vial) 2 mg IVPUSH Q4H PRN PRN Reason: Anxiety Last Admin: 03/12/22 06:28 Dose: 2 mg Documented By: CLAUDINE Omeprazole (Omeprazole 20 Mg/10 Ml Susp.Recon) 20 mg PO BID@0630,1630 [facility] Last Admin: 03/12/22 06:32 Dose: Not Given Documented By: CLAUDINE Non-Admin Reason: Patient Refused Ondansetron HCl (Ondansetron Hcl 4 Mg/2 Ml Vial) 4 mg IVPUSH Q4H PRN PRN Reason: Nausea and Vomiting Last Admin: 03/11/22 23:11 Dose: 4 mg Documented By: CLAUDINE Pharmacy Consult (Consult Rx Perform Med Rec) 1 each MISCELLANE ONCE PRN PRN Reason: Consult order Sodium Chloride (0.9 % Sodium Chloride Flush 3 Ml Syringe) 3 ml IVFLUSH QSHIFT [facility] Last Admin: 03/11/22 22:17 Dose: 3 ml Documented By: CLAUDINE Labs CBC & Chem 7: 03/07/22 09:44 03/11/22 05:24 Assessment and Plan (1) Abdominal pain: Status: Acute (2) Odynophagia: Status: Acute (3) Weakness: Status: Acute (4) Abnormal weight loss: Status: Acute (5) Primary squamous cell carcinoma of head and neck: Status: Acute (6) Facial pain syndrome: Status: Acute Plan hospital d#16 51yo M with SCC of head/neck s/p chemo/XRT and G-tube admitted with feeding intolerance. Intolerant of continuous/gravity/bolus regimens. Upper GI series 02/28 showed: No gastroesophageal reflux is seen. Somewhat slow emptying of the stomach into the duodenum slow duodenal transit. Normal anatomic positioning . GI consulted, no concerns for tube malfunction. Surgery consulted, no benefit from changing to J-tube. # tube feeding dependence # abd pain - IV ondansetron prn N/V, try premedicating before bolus feed with higher dose of metoclopramide - PPI oral suspension - Nutrition following. continue plan of [employer] 1.4 bolus feeding 60 mL/hr, increase by 60 mL q4h until max 215 mL bolus reached. goal 215 mL 6x daily. free water flush 120 mL 6 times daily. - TPN discontinued - check electrolytes in am # chronic CA pain - increased fentanyl patch 100->125 mcg/hr 03/11/22, has prn IV hydromorphone (on oral solution per GT at home) - consider outpt gasserian ganglion or glossopharyngeal nerve block at [facility] # anxiety - prn IV midazolam, Psychiatry suggested mirtazapine but pt wishes to research prior to starting # SCC of head/neck - s/p radiation at [facility]- completed, missed last 4 days of treatment due to hospitalization, no further XRT planned, outpt f/u upon discharge # VTE ppx: LMWH In my clinical judgment, the patient requires continued hospitalization for the following reasons: tube feeding initiation, IV medications Quality Stroke Does the patient have a stroke diagnosis?: No VTE Prior VTE?: No VTE Risk Level:: Medical - moderate - high VTE Device Contraindication: Treatment Not Indicated VTE Drug Contraindication: N/A - Med Ordered
[2022-03-12] MEDS: 0.9 % Sodium Chloride Flush 3 ML SYRINGE IVFLUSH ×3 (10:30→17:40)
[2022-03-12] MEDS: Metoclopramide HCl 10 MG/2 ML VIAL 7.5 MG IVPUSH ×2 (10:30→16:25)
[2022-03-12 11:44] VITALS: BP 122/58; RESP 18; TEMP 36.6
[2022-03-12 15:19] VITALS: BP 155/68; PULSE 83; RESP 17; TEMP 36.3; O2SAT 97
[2022-03-12] MEDS: ondansetron HCL 4 MG/2 ML VIAL IVPUSH (17:40)
--- NOTE | 2022-03-12 18:14 | PC.NURSE ---
Discussed plan for day as well as increase in IV reglan with MD and pt. Began with 7.5mg reglan at 1100. Gave 60ml bolus of feed and 120ml free water per order at 1145 followed by PRN IV zofran. Pain control at around 1530. At 1600, gave additional dose of 7.5mg reglan, and at 1630, 120ml bolus and 120ml free water, followed by zofran. Pt reports feeling queasy, but improved from yesterday.
[2022-03-12 19:17] VITALS: BP 118/69; PULSE 75; RESP 16; TEMP 36.4; O2SAT 99
[2022-03-12 23:50] VITALS: BP 106/68; PULSE 69; RESP 18; TEMP 36.4; O2SAT 100
--- NOTE | 2022-03-12 23:56 | PC.NURSE ---
Pt was offered trial for feed. Patient refused feeding for the night. 03/12/22 2200
[2022-03-13] MEDS: Metoclopramide HCl 10 MG/2 ML VIAL 7.5 MG IVPUSH ×4 (01:57→23:08)
[2022-03-13] MEDS: ondansetron HCL 4 MG/2 ML VIAL IVPUSH ×3 (02:58→18:35)
--- NOTE | 2022-03-13 03:05 | PC.NURSE ---
03/13/2022 0300 pt attempted 120ml of bolus feeding. Patient was given Reglan 1 hr prior. After bolus was given Zofran was given. Patient does admit to some nausea, but is tolerating feeding.
[2022-03-13 03:50] VITALS: BP 121/71; PULSE 72; RESP 18; TEMP 37.1; O2SAT 97
[2022-03-13] MEDS: Midazolam HCl/PF 2 MG/2 ML VIAL IVPUSH (04:21)
[2022-03-13] MEDS: HYDROmorphone HCl 0.5 MG/0.5 ML SYRINGE IVPUSH ×2 (06:29→16:08)
[2022-03-13 08:00] VITALS: BP 111/70; PULSE 82; RESP 17; TEMP 36.1; O2SAT 98
[2022-03-13] MEDS: 0.9 % Sodium Chloride Flush 3 ML SYRINGE IVFLUSH ×3 (09:13→23:08)
[2022-03-13 11:29] VITALS: BP 121/61; PULSE 100; RESP 17; TEMP 36.6; O2SAT 99
--- NOTE | 2022-03-13 11:43 | HO.PM.IMPN ---
Subjective Subjective Date of Service: 03/13/22 Interval History: Yesterday, tolerated 60 mL bolus, then 120 mL bolus, then 60 mL bolus with some difficulty though slowly improving No vomiting Review of Systems Review of Systems: Yes all other systems are reviewed and are negative Physical Exam Vital Signs: Vital Signs: Last Vital Signs Temp 97.8 F 03/13/22 11:29 Pulse 100 03/13/22 11:29 Resp 17 03/13/22 11:29 BP 121/61 03/13/22 11:29 Pulse Ox 99 03/13/22 11:29 O2 Del Method 03/13/22 08:00 O2 Flow Rate 2 03/03/22 03:20 BMI result Body Mass Index 23.3 Gen: in no acute distress HEENT: sclera anicteric, moist mucus membranes Neck: supple Lungs: clear to auscultation bilaterally Heart: regular rate and rhythm, no murmurs Abd: soft, non-tender, non-distended, G tube in place with no signs of infection or leakage Ext: no edema Skin: warm/well-perfused Neuro: alert and oriented x3, no focal findings Psych: appropriate affect Objective Data Active Medications Enoxaparin Sodium (Enoxaparin Sodium 40 Mg/0.4 Ml Syringe) 40 mg SUBCUT Q24H [facility] Last Admin: 03/12/22 20:47 Dose: Not Given Documented By: GINA Non-Admin Reason: Patient Refused Fentanyl (Fentanyl 100 Mcg Patch.Td72) 100 mcg TRANSDERMA Q72H [facility] Last Admin: 03/11/22 11:30 Dose: 100 mcg Documented By: TREASURE Fentanyl (Fentanyl 25 Mcg Patch.Td72) 25 mcg TRANSDERMA Q72H [facility] Last Admin: 03/11/22 11:30 Dose: 25 mcg Documented By: TREASURE Hydromorphone HCl (Hydromorphone Hcl 0.5 Mg/0.5 Ml Syringe) 0.5 mg IVPUSH Q2H PRN; Protocol PRN Reason: Breakthrough Pain Last Admin: 03/13/22 06:29 Dose: 0.5 mg Documented By: ARIEL Metoclopramide HCl (Metoclopramide Hcl 10 Mg/2 Ml Vial) 7.5 mg IVPUSH Q4H PRN PRN Reason: abdominal bloating Last Admin: 03/13/22 10:49 Dose: 7.5 mg Documented By: IJEOMA Omeprazole (Omeprazole 20 Mg/10 Ml Susp.Recon) 20 mg PO BID@0630,1630 [facility] Last Admin: 03/13/22 05:43 Dose: Not Given Documented By: GINA Non-Admin Reason: Patient Refused Ondansetron HCl (Ondansetron Hcl 4 Mg/2 Ml Vial) 4 mg IVPUSH Q4H PRN PRN Reason: Nausea and Vomiting Last Admin: 03/13/22 09:12 Dose: 4 mg Documented By: IJEOMA Pharmacy Consult (Consult Rx Perform Med Rec) 1 each MISCELLANE ONCE PRN PRN Reason: Consult order Sodium Chloride (0.9 % Sodium Chloride Flush 3 Ml Syringe) 3 ml IVFLUSH QSHIFT [facility] Last Admin: 03/13/22 09:13 Dose: 3 ml Documented By: IJEOMA Labs CBC & Chem 7: 03/07/22 09:44 03/11/22 05:24 Assessment and Plan (1) Abdominal pain: Status: Acute (2) Odynophagia: Status: Acute (3) Weakness: Status: Acute (4) Abnormal weight loss: Status: Acute (5) Primary squamous cell carcinoma of head and neck: Status: Acute (6) Facial pain syndrome: Status: Acute Plan hospital d#17 51yo M with SCC of head/neck s/p chemo/XRT and G-tube admitted with feeding intolerance. Intolerant of continuous/gravity/bolus regimens. Upper GI series 02/28 showed: No gastroesophageal reflux is seen. Somewhat slow emptying of the stomach into the duodenum slow duodenal transit. Normal anatomic positioning . GI consulted, no concerns for tube malfunction. Surgery consulted, no benefit from changing to J-tube. # tube feeding dependence # abd pain - IV ondansetron prn N/V,premedicate before bolus feed with IV metoclopramide - PPI oral suspension bid - Nutrition following. continue plan of [employer] 1.4 bolus feeding 60 mL/hr, increase by 60 mL q4h until max 215 mL bolus reached. goal 215 mL 6x daily. free water flush 120 mL 6 times daily. start today with 120 mL bolus. - TPN discontinued - labs pending # chronic CA pain - increased fentanyl patch 100->125 mcg/hr 03/11/22, has prn IV hydromorphone (on oral solution per GT at home) - consider outpt gasserian ganglion or glossopharyngeal nerve block at [facility] # anxiety - prn IV midazolam, Psychiatry suggested mirtazapine but pt wishes to research prior to starting # SCC of head/neck - s/p radiation at [facility]- completed, missed last 4 days of treatment due to hospitalization, no further XRT planned, outpt f/u upon discharge # VTE ppx: LMWH In my clinical judgment, the patient requires continued hospitalization for the following reasons: tube feeding initiation, IV medications Quality Stroke Does the patient have a stroke diagnosis?: No VTE Prior VTE?: No VTE Risk Level:: Medical - moderate - high VTE Device Contraindication: Treatment Not Indicated VTE Drug Contraindication: N/A - Med Ordered
[2022-03-13] MEDS: Lactated Ringers 1,000 ML 100 ML IVCONT (13:02)
[2022-03-13 15:08] VITALS: BP 108/69; PULSE 99; RESP 18; TEMP 36.6; O2SAT 98
[2022-03-13 16:12] LABS: PLT CLUMP 1
[2022-03-13 16:14] LABS: Hematocrit 33.4 % (42.0-52.0); Mean Corpuscular HGB Conc 35.9 g/dl (31.0-36.0); Mean Corpuscular Hemoglobin 31.6 pg (27.0-33.0); Mean Corpuscular Volume 87.9 fL (80.0-98.0); Mean Platelet Volume 9.9 fL (9.4-12.4); Red Cell Distribution Width 13.5 % (11.0-16.0)
[2022-03-13 16:24] LABS: Alanine Aminotransferase 26 U/L (0-40); Albumin Level 3.5 g/dL (3.5-5.0); Alkaline Phosphatase 93 U/L (39-117); Anion Gap 12 (12-20); Aspartate Amino Transferase 21 U/L (5-37); Bilirubin Total 0.6 mg/dL (0.0-1.0); Blood Urea Nitrogen 18 mg/dL (9-16); Calcium 8.6 mg/dL (8.4-10.2); Carbon Dioxide 33 mmol/L (22-29); Chloride 98 mmol/L (96-108); Creatinine Clr Calc Pharmacy 100.2; Estimated Glomerular Filt Rate > 60; Glucose Random 99 mg/dL (60-115); Magnesium 1.8 mg/dL (1.6-2.6); Phosphorus 4.3 mg/dL (2.7-4.5); Platelet Count 97 X10*3/uL (160-400); Potassium 4.1 mmol/L (3.3-5.1); Sodium 139 mmol/L (135-145); Total Protein 6.6 g/dL (6.5-8.0); White Blood Count 4.1 X10*3/uL (4.8-10.8)
[2022-03-13] MEDS: Enoxaparin Sodium 40 MG/0.4 ML SYRINGE SUBCUT (17:52)
[2022-03-13 19:06] VITALS: BP 121/57; PULSE 102; RESP 18; TEMP 36.7; O2SAT 97
[2022-03-14] VITALS: BP 105/61; PULSE 90; RESP 18; TEMP 36.8; O2SAT 98
[2022-03-14] MEDS: ondansetron HCL 4 MG/2 ML VIAL IVPUSH ×2 (01:17→18:39)
[2022-03-14] MEDS: HYDROmorphone HCl 0.5 MG/0.5 ML SYRINGE IVPUSH ×2 (03:40→13:45)
[2022-03-14 03:51] VITALS: BP 109/62; PULSE 80; RESP 18; TEMP 36.2; O2SAT 98
[2022-03-14] MEDS: Midazolam HCl/PF 2 MG/2 ML VIAL IVPUSH (05:26)
[2022-03-14 08:00] VITALS: BP 101/60; PULSE 93; RESP 17; TEMP 36.5; O2SAT 98
[2022-03-14] MEDS: Metoclopramide HCl 10 MG/2 ML VIAL 7.5 MG IVPUSH ×2 (10:47→22:38)
[2022-03-14] MEDS: 0.9 % Sodium Chloride Flush 3 ML SYRINGE IVFLUSH ×3 (10:47→22:38)
[2022-03-14 11:33] VITALS: BP 111/66; PULSE 70; RESP 17; TEMP 36.4; O2SAT 97
--- NOTE | 2022-03-14 11:37 | MHC.CLN ---
F/U BOLUS TUBE FEED OF [email or web address] 1.4 (NOT DILUTED) STARTED 03/11. MAX GOAL RATE: BOLUS 215 ML SIX TIMES DAILY (215 ML X 9=9936 ML FORMULA) WITH 120ML FREE WATER FLUSHES Q 4 HOURS. PROVIDES 1806 KCALS (24.5 KCALS/KG); 80G PROTEIN (1.09 G/KG); 1649 ML TOTAL FREE WATER FROM FORMULA AND FLUSHES (22.4 ML/KG). MONITOR TOLERANCE, RESIDUALS AND LYTES. FOR COMPARISON OF PRODUCT NEEDED, 4-325 ML CARTONS [email or web address] STANDARD 1.4 PROVIDES 1300 ML FORMULA. PATIENT HAS NOT ACHIEVED MAX GOAL RATE OF FORMULA AND THEREFORE NOT MEETING NUTRITIONAL NEEDS. REPORTS OF ABDOMINAL TENDERNESS AND NAUSEA. NO VOMITING. DISCUSSED WITH NURSE. PATIENT HAS NOT CONSISTENTLY BEEN TAKING BOLUS FEEDINGS PER SCHEDULE. TOOK APPROXIMATELY 360 ML FORMULA YESTERDAY. REQUESTED/RECEIVED GATORADE AND PRUNE JUICE VIA G TUBE. OVERALL, APPEARS TO BE PROGRESSING WITH TUBE FEED TOLERANCE. CONTINUE TO FOLLOW TOLERANCE/ACCEPTANCE OF TUBE FEEDING. MAY REQUIRE TPN/PPN IF UNABLE TO MEET NUTRITIONAL NEEDS VIA G TUBE.
[2022-03-14] MEDS: fentaNYL 100 MCG PATCH.TD72 TRANSDERMA (11:48)
[2022-03-14] MEDS: fentaNYL 25 MCG PATCH.TD72 TRANSDERMA (11:48)
--- NOTE | 2022-03-14 11:53 | HO.PM.IMPN ---
Subjective Subjective Date of Service: 03/14/22 Interval History: yesterday tolerated 180 mL bolus x3 plus 60 mL + 120 mL prune juice with some difficulty chronic head/neck pain Review of Systems Review of Systems: Yes all other systems are reviewed and are negative Physical Exam Vital Signs: Vital Signs: Last Vital Signs Temp 97.5 F 03/14/22 11:33 Pulse 70 03/14/22 11:33 Resp 17 03/14/22 11:33 BP 111/66 03/14/22 11:33 Pulse Ox 97 03/14/22 11:33 O2 Del Method 03/14/22 11:33 O2 Flow Rate 2 03/03/22 03:20 BMI result Body Mass Index 23.3 Gen: in no acute d istress HEENT: scl era anicteric, tsering st mucus membranes Neck: supple Lung s: clear to auscul tation bilaterally Heart: regular ra te and rhythm, no murmurs Abd: soft, non-tender, non-d istended, G tube i n place with no si gns of infection o r leakage Ext: no edema Skin: warm/w ell-perfused Neuro : alert and orient ed x3, no focal fi ndings Psych: appr opriate affect Objective Data Active Medications Fentanyl (Fentanyl 100 Mcg Patch.Td72) 100 mcg TRANSDERMA Q72H [facility] Last Admin: 03/11/22 11:30 Dose: 100 mcg Documented By: TREASURE Fentanyl (Fentanyl 25 Mcg Patch.Td72) 25 mcg TRANSDERMA Q72H [facility] Last Admin: 03/11/22 11:30 Dose: 25 mcg Documented By: TREASURE Hydromorphone HCl (Hydromorphone Hcl 0.5 Mg/0.5 Ml Syringe) 0.5 mg IVPUSH Q2H PRN; Protocol PRN Reason: Breakthrough Pain Last Admin: 03/14/22 03:40 Dose: 0.5 mg Documented By: ONOFRE Metoclopramide HCl (Metoclopramide Hcl 10 Mg/2 Ml Vial) 7.5 mg IVPUSH Q4H PRN PRN Reason: abdominal bloating Last Admin: 03/14/22 10:47 Dose: 7.5 mg Documented By: JAGDISH Midazolam HCl (Midazolam Hcl/Pf 2 Mg/2 Ml Vial) 2 mg IVPUSH Q4H PRN PRN Reason: anxietyq Last Admin: 03/14/22 05:26 Dose: 2 mg Documented By: ONOFRE Omeprazole (Omeprazole 20 Mg/10 Ml Susp.Recon) 20 mg PO BID@0630,1630 [facility] Last Admin: 03/14/22 05:29 Dose: Not Given Documented By: ONOFRE Non-Admin Reason: Patient Refused Ondansetron HCl (Ondansetron Hcl 4 Mg/2 Ml Vial) 4 mg IVPUSH Q4H PRN PRN Reason: Nausea and Vomiting Last Admin: 03/14/22 01:17 Dose: 4 mg Documented By: ONOFRE Pharmacy Consult (Consult Rx Perform Med Rec) 1 each MISCELLANE ONCE PRN PRN Reason: Consult order Sodium Chloride (0.9 % Sodium Chloride Flush 3 Ml Syringe) 3 ml IVFLUSH QSHIFT [facility] Last Admin: 03/14/22 10:47 Dose: 3 ml Documented By: JAGDISH Labs CBC & Chem 7: 03/13/22 15:50 03/13/22 15:50 Labs: Laboratory Results - last 24 hr 03/13/22 03/13/22 15:50 15:50 MCV 87.9 MCH 31.6 MCHC 35.9 RDW 13.5 Plt Count 97 L D MPV 9.9 Absolute Nucleated RBC 0.000 Nucleated RBC % (auto) 0.0 Anion Gap 12 Estim Creat Clear Calc 100.2 Estimated GFR > 60 Random Glucose 99 Calcium 8.6 Phosphorus 4.3 Magnesium 1.8 Total Bilirubin 0.6 AST 21 ALT 26 Alkaline Phosphatase 93 D Total Protein 6.6 Albumin 3.5 Assessment and Plan (1) Abdominal pain: Status: Acute (2) Odynophagia: Status: Acute (3) Weakness: Status: Acute (4) Abnormal weight loss: Status: Acute (5) Primary squamous cell carcinoma of head and neck: Status: Acute (6) Facial pain syndrome: Status: Acute Plan hospital d#18 51yo M with SCC of head/neck s/p chemo/XRT and G-tube admitted with feeding intolerance. Intolerant of continuous/gravity/bolus regimens. Upper GI series 02/28 showed: No gastroesophageal reflux is seen. Somewhat slow emptying of the stomach into the duodenum slow duodenal transit. Normal anatomic positioning . GI consulted, no concerns for tube malfunction. Surgery consulted, no benefit from changing to J-tube. # tube feeding dependence # abd pain - IV ondansetron prn N/V,premedicate before bolus feed with IV metoclopramide - PPI oral suspension bid - Nutrition following. continue plan of Sh[employer] 1.4 bolus feeding to advance to goal max 215 mL bolus 6x daily. free water flush 120 mL 6 times daily. - TPN discontinued # chronic CA pain - increased fentanyl patch 100->125 mcg/hr 03/11/22, has prn IV hydromorphone (on oral solution per [facility] at home) - consider outpt gasserian ganglion or glossopharyngeal nerve block at [facility] # anxiety - prn IV midazolam, Psychiatry suggested mirtazapine but pt wishes to research prior to starting # SCC of head/neck - s/p radiation at [facility]- completed, missed last 4 days of treatment due to hospitalization, no further XRT planned, outpt f/u upon discharge # thrombocytopenia, mild - d/c LMWH, recheck CBC in AM # VTE ppx: SCDs In my clinical judgment, the patient requires continued hospitalization for the following reasons: tube feeding initiation, IV medications Quality Stroke Does the patient have a stroke diagnosis?: No VTE Prior VTE?: No VTE Risk Level:: Medical - moderate - high VTE Device Contraindication: Treatment Not Indicated VTE Drug Contraindication: N/A - Med Ordered
[2022-03-14 15:38] VITALS: BP 99/56; PULSE 75; RESP 16; TEMP 36.1; O2SAT 97
[2022-03-14 19:07] VITALS: BP 110/55; PULSE 73; RESP 18; TEMP 36.4; O2SAT 98
[2022-03-15] VITALS (7 sets, daily range): BP systolic 92–132; BP diastolic 56–66; PULSE 61–87; RESP 16–18; TEMP 36–36.7; O2SAT 95–99
[2022-03-15] MEDS: HYDROmorphone HCl 0.5 MG/0.5 ML SYRINGE IVPUSH ×3 (01:00→18:58)
[2022-03-15] MEDS: Midazolam HCl/PF 2 MG/2 ML VIAL IVPUSH ×2 (03:40→09:08)
--- NOTE | 2022-03-15 06:26 | PM.EVENT ---
Event Note Date of Service: 03/15/22 Event Note: Patient is hemoglobin reported to be 4.8 with hematocrit of 14.1, abnormal from previous, no acute bleed. Will repeat H&H to confirm before transfuising
--- NOTE | 2022-03-15 06:34 | PC.NURSE ---
Pt had a critical H+H level at 4.8/14.1, notified, Dr. Guerrero ordered for STAT repeat, awaiting for phleb at this moment.
[2022-03-15 08:37] LABS: Hemoglobin 11.2 g/dl (14.0-18.0)
[2022-03-15] MEDS: 0.9 % Sodium Chloride Flush 3 ML SYRINGE IVFLUSH (08:58)
[2022-03-15 09:34] LABS: Platelet Count 108 X10*3/uL (160-400)
--- NOTE | 2022-03-15 10:00 | PC.NURSE ---
Pt. requested gatorade through tube, 120 ml of gatorade was administered by this nurse along with 120 ml free water.
--- NOTE | 2022-03-15 11:47 | P.PNIM_ITS ---
Subjective Subjective Date of Service: 03/15/22 Interval History: Yesterday tolerated 520 mL of input during the day; overnight 60mL of formula + 90mL of prune juice + 60 mL of Gatorade No vomiting. Notes bloating/nausea Chronic jaw/neck/head pain Hb falsely low this am at 4.2 due to incorrect draw from port; repeat is 11.2 Review of Systems Review of Systems: Yes all other systems are reviewed and are negative Physical Exam Vital Signs: Vital Signs: Last Vital Signs Temp 97 F 03/15/22 11:22 Pulse 71 03/15/22 11:22 Resp 18 03/15/22 11:22 BP 92/63 03/15/22 11:22 Pulse Ox 98 03/15/22 11:22 O2 Del Method 03/15/22 11:22 O2 Flow Rate 2 03/03/22 03:20 BMI result Body Mass Index 23.3 Gen: in no acute distress HEENT: sclera anicteric, moist mucus membranes Neck: supple Lungs: clear to auscultation bilaterally Heart: regular rate and rhythm, no murmurs Abd: soft, non-tender, non-distended, G tube in place with no signs of infection or leakage Ext: no edema Skin: warm/well-perfused Neuro: alert and oriented x3, no focal findings Psych: appropriate affect ? Objective Data Active Medications Fentanyl (Fentanyl 100 Mcg Patch.Td72) 100 mcg TRANSDERMA Q72H ON LICENSE OF [facility] Last Admin: 03/14/22 11:48 Dose: 100 mcg Documented By: JAGDISH Fentanyl (Fentanyl 25 Mcg Patch.Td72) 25 mcg TRANSDERMA Q72H ON LICENSE OF [facility] Last Admin: 03/14/22 11:48 Dose: 25 mcg Documented By: JAGDISH Hydromorphone HCl (Hydromorphone Hcl 0.5 Mg/0.5 Ml Syringe) 0.5 mg IVPUSH Q2H PRN; Protocol PRN Reason: Breakthrough Pain Last Admin: 03/15/22 06:14 Dose: 0.5 mg Documented By: GONZALO Metoclopramide HCl (Metoclopramide Hcl 10 Mg/2 Ml Vial) 7.5 mg IVPUSH Q4H PRN PRN Reason: abdominal bloating Last Admin: 03/14/22 22:38 Dose: 7.5 mg Documented By: HO.CASTILM Midazolam HCl (Midazolam Hcl/Pf 2 Mg/2 Ml Vial) 2 mg IVPUSH Q4H PRN PRN Reason: anxietyq Last Admin: 03/15/22 09:08 Dose: 2 mg Documented By: NEGIN Omeprazole (Omeprazole 20 Mg/10 Ml Susp.Recon) 20 mg PO BID@0630,1630 ON LICENSE OF [facility] Last Admin: 03/15/22 06:05 Dose: Not Given Documented By: GONZALO Non-Admin Reason: Patient Refused Ondansetron HCl (Ondansetron Hcl 4 Mg/2 Ml Vial) 4 mg IVPUSH Q4H PRN PRN Reason: Nausea and Vomiting Last Admin: 03/14/22 18:39 Dose: 4 mg Documented By: JAGDISH Pharmacy Consult (Consult Rx Perform Med Rec) 1 each MISCELLANE ONCE PRN PRN Reason: Consult order Sodium Chloride (0.9 % Sodium Chloride Flush 3 Ml Syringe) 3 ml IVFLUSH QSHIFT ON LICENSE OF [facility] Last Admin: 03/15/22 08:58 Dose: 3 ml Documented By: NEGIN Labs CBC & Chem 7: 03/15/22 08:10 03/13/22 15:50 Labs: Laboratory Results - last 24 hr 03/15/22 03/15/22 05:30 08:10 MCV TNP MCH TNP MCHC TNP RDW TNP Plt Count TNP 108 L MPV TNP Absolute Nucleated RBC TNP Nucleated RBC % (auto) TNP Assessment and Plan (1) Abdominal pain: Status: Acute (2) Odynophagia: Status: Acute (3) Weakness: Status: Acute (4) Abnormal weight loss: Status: Acute (5) Primary squamous cell carcinoma of head and neck: Status: Acute (6) Facial pain syndrome: Status: Acute Plan hospital d#19 51yo M with SCC of head/neck s/p chemo/XRT and G-tube admitted with feeding intolerance. Intolerant of continuous/gravity/bolus regimens. Upper GI series 02/28 showed: No gastroesophageal reflux is seen. Somewhat slow emptying of the stomach into the duodenum slow duodenal transit. Normal anatomic positioning . GI consulted, no concerns for tube malfunction. Surgery consulted, no benefit from changing to J-tube. # tube feeding dependence # abd pain - IV ondansetron prn N/V,premedicate before bolus feed with IV metoclopramide - PPI oral suspension bid - Nutrition following. continue plan of Shayy Espinoza 1.4 bolus feeding to advance to goal max 215 mL bolus 6x daily. free water flush 120 mL 6 times daily. - TPN discontinued # chronic CA pain - increased fentanyl patch 100->125 mcg/hr 03/11/22, has prn IV hydromorphone (on oral solution per GT at home) - consider outpt gasserian ganglion or glossopharyngeal nerve block at [facility] # anxiety - prn IV midazolam, Psychiatry suggested mirtazapine but pt wishes to research prior to starting # SCC of head/neck - s/p radiation at [facility]- completed, missed last 4 days of treatment due to hospitalization, no further XRT planned, outpt f/u upon discharge # thrombocytopenia, mild - stable, LMWH d/c'ed # VTE ppx: SCDs In my clinical judgment, the patient requires continued hospitalization for the following reasons: tube feeding initiation, IV medications Quality Stroke Does the patient have a stroke diagnosis?: No VTE Prior VTE?: No VTE Risk Level:: Medical - moderate - high VTE Device Contraindication: Treatment Not Indicated VTE Drug Contraindication: N/A - Med Ordered
[2022-03-15] MEDS: ondansetron HCL 4 MG/2 ML VIAL IVPUSH ×2 (12:17→17:50)
[2022-03-15] MEDS: Metoclopramide HCl 10 MG/2 ML VIAL 7.5 MG IVPUSH (14:22)
--- NOTE | 2022-03-15 16:16 | PC.NURSE ---
Addendum, pt. was agreeable to trying bolus tube feed. This nurse administered 120 mls on prune juice, 180 mls of supplement, and 120 mls of free water. This nurse administered Zofran 45 minutes prior and Reglan after tube feeding by patient's request. This nurse followed up with pt. with little discomfort, pt aware of plan later this evening of another bolus tube feed attempt. Will continue to monitor.
--- NOTE | 2022-03-15 19:16 | PC.NURSE ---
Pt. agreeable to an additional tube feeding. This nurse administered Zofran and half hour later 120 ml of prune juice, 215 ml of tube feed, and 120 ml of free water, patient tolerated well.
[2022-03-16] MEDS: ondansetron HCL 4 MG/2 ML VIAL IVPUSH ×4 (00:33→23:28)
[2022-03-16 03:14] VITALS: BP 120/65; PULSE 60; RESP 17; TEMP 36.2; O2SAT 98
[2022-03-16] MEDS: Metoclopramide HCl 10 MG/2 ML VIAL 7.5 MG IVPUSH (03:27)
[2022-03-16] MEDS: Midazolam HCl/PF 2 MG/2 ML VIAL IVPUSH (04:58)
[2022-03-16 06:13] LABS: Hematocrit 29.7 % (42.0-52.0); Hemoglobin 10.5 g/dl (14.0-18.0); Mean Corpuscular HGB Conc 35.4 g/dl (31.0-36.0); Mean Corpuscular Hemoglobin 31.1 pg (27.0-33.0); Mean Corpuscular Volume 87.9 fL (80.0-98.0); Mean Platelet Volume 10.2 fL (9.4-12.4); Red Blood Count 3.38 X10*6/uL (4.60-5.80); Red Cell Distribution Width 13.3 % (11.0-16.0); White Blood Count 2.2 X10*3/uL (4.8-10.8)
[2022-03-16 06:16] LABS: Platelet Count 96 X10*3/uL (160-400)
[2022-03-16 06:42] LABS: Anion Gap 12 (12-20); Blood Urea Nitrogen 12 mg/dL (9-16); Calcium 8.2 mg/dL (8.4-10.2); Carbon Dioxide 32 mmol/L (22-29); Chloride 101 mmol/L (96-108); Creatinine Clr Calc Pharmacy 112.5; Estimated Glomerular Filt Rate > 60; Glucose Random 76 mg/dL (60-115); Potassium 3.8 mmol/L (3.3-5.1); Sodium 141 mmol/L (135-145)
[2022-03-16 07:49] VITALS: BP 105/56; PULSE 74; RESP 16; TEMP 36.9; O2SAT 98
--- NOTE | 2022-03-16 09:00 | PC.NURSE ---
PATIENT ALERT AND ORIENTED X4. REQUESTED G-TUBE GATORADE FEED AT THIS TIME. [id number] GATORADE AND 60ML OF STERILE WATER.
[2022-03-16] MEDS: 0.9 % Sodium Chloride Flush 3 ML SYRINGE IVFLUSH ×2 (09:03→17:24)
--- NOTE | 2022-03-16 10:27 | HO.PM.IMPN ---
Subjective Subjective Date of Service: 03/16/22 Interval History: tolerated approx 50% of total goal feed yesterday with some difficulty- bloating/nausea + abd pain very anxious head/neck pain chronic, stable Review of Systems Review of Systems: Yes all other systems are reviewed and are negative Physical Exam Vital Signs: Vital Signs: Last Vital Signs Temp 98.5 F 03/16/22 07:49 Pulse 74 03/16/22 07:49 Resp 16 03/16/22 07:49 BP 105/56 L 03/16/22 07:49 Pulse Ox 98 03/16/22 07:49 O2 Del Method 03/16/22 07:49 O2 Flow Rate 2 03/03/22 03:20 BMI result Body Mass Index 23.3 Gen: in no acute distress HEENT: sclera anicteric, moist mucus membranes Neck: supple Lungs: clear to auscultation bilaterally Heart: regular rate and rhythm, no murmurs Abd: soft, non-tender, non-distended, G tube in place with no signs of infection or leakage Ext: no edema Skin: warm/well-perfused Neuro: alert and oriented x3, no focal findings Psych: anxious ? Objective Data Active Medications Fentanyl (Fentanyl 100 Mcg Patch.Td72) 100 mcg TRANSDERMA Q72H [facility] Last Admin: 03/14/22 11:48 Dose: 100 mcg Documented By: JAGDISH Fentanyl (Fentanyl 25 Mcg Patch.Td72) 25 mcg TRANSDERMA Q72H [facility] Last Admin: 03/14/22 11:48 Dose: 25 mcg Documented By: JAGDISH Hydromorphone HCl (Hydromorphone Hcl 0.5 Mg/0.5 Ml Syringe) 0.5 mg IVPUSH Q2H PRN; Protocol PRN Reason: Breakthrough Pain Last Admin: 03/15/22 18:58 Dose: 0.5 mg Documented By: NEGIN Metoclopramide HCl (Metoclopramide Hcl 10 Mg/2 Ml Vial) 7.5 mg IVPUSH Q4H PRN PRN Reason: abdominal bloating Last Admin: 03/16/22 03:27 Dose: 7.5 mg Documented By: GONZALO Midazolam HCl (Midazolam Hcl/Pf 2 Mg/2 Ml Vial) 2 mg IVPUSH Q4H PRN PRN Reason: anxietyq Last Admin: 03/16/22 04:58 Dose: 2 mg Documented By: GONZALO Omeprazole (Omeprazole 20 Mg/10 Ml Susp.Recon) 20 mg PO BID@0630,1630 [facility] Last Admin: 03/16/22 05:45 Dose: Not Given Documented By: GONZALO Non-Admin Reason: Patient Refused Ondansetron HCl (Ondansetron Hcl 4 Mg/2 Ml Vial) 4 mg IVPUSH Q4H PRN PRN Reason: Nausea and Vomiting Last Admin: 03/16/22 09:52 Dose: 4 mg Documented By: MAI Pharmacy Consult (Consult Rx Perform Med Rec) 1 each MISCELLANE ONCE PRN PRN Reason: Consult order Sodium Chloride (0.9 % Sodium Chloride Flush 3 Ml Syringe) 3 ml IVFLUSH QSHIFT [facility] Last Admin: 03/16/22 09:03 Dose: 3 ml Documented By: MAI Labs CBC & Chem 7: 03/16/22 06:00 03/16/22 06:00 Labs: Laboratory Results - last 24 hr 03/16/22 03/16/22 06:00 06:00 MCV 87.9 MCH 31.1 MCHC 35.4 RDW 13.3 Plt Count 96 L MPV 10.2 Absolute Nucleated RBC 0.000 Nucleated RBC % (auto) 0.0 Anion Gap 12 Estim Creat Clear Calc 112.5 Estimated GFR > 60 Random Glucose 76 Calcium 8.2 L Assessment and Plan (1) Abdominal pain: Status: Acute (2) Odynophagia: Status: Acute (3) Weakness: Status: Acute (4) Abnormal weight loss: Status: Acute (5) Primary squamous cell carcinoma of head and neck: Status: Acute (6) Facial pain syndrome: Status: Acute Plan hospital d#20 51yo M with SCC of head/neck s/p chemo/XRT and G-tube admitted with feeding intolerance. Intolerant of continuous/gravity/bolus regimens. Upper GI series 02/28 showed: No gastroesophageal reflux is seen. Somewhat slow emptying of the stomach into the duodenum slow duodenal transit. Normal anatomic positioning . GI consulted, no concerns for tube malfunction. Surgery consulted, no benefit from changing to J-tube. # tube feeding dependence # abd pain - premedicate before bolus feed with metoclopramide (change IV to PO suspension today) - IV ondansetron prn N/V - PPI oral suspension bid - Nutrition following. continue plan of Shayy Espinoza 1.4 bolus feeding to advance to goal max 215 mL bolus 6x daily. tolerating free water flush 120 mL 6 times daily. - TPN discontinued # chronic CA pain - increased fentanyl patch 100->125 mcg/hr 03/11/22, has prn IV hydromorphone (on oral solution per PEG tube at home but not available in hospital)- decrease frequency - consider outpt gasserian ganglion or glossopharyngeal nerve block at [facility] # anxiety - try to wean off prn IV midazolam, use SL lorazepam # SCC of head/neck - s/p radiation at [facility]- completed, missed last 4 days of treatment due to hospitalization, no further XRT planned, outpt f/u upon discharge # thrombocytopenia, mild - stable, LMWH d/c'ed # VTE ppx: SCDs # dispo: plan home once tolerating around 4 full 215 mL boluses daily In my clinical judgment, the patient requires continued hospitalization for the following reasons: advancing tube feeds, pain contrl Quality Stroke Does the patient have a stroke diagnosis?: No VTE Prior VTE?: No VTE Risk Level:: Medical - moderate - high VTE Device Contraindication: Treatment Not Indicated VTE Drug Contraindication: N/A - Med Ordered
--- NOTE | 2022-03-16 10:30 | PC.NURSE ---
GIVEN G-TUBE FEED AT THIS TIME. TOTAL NPKITL=[id number]. STERILE FNWAX=[id number], PRUNE DHSFI=[id number], AND KCAL DORI=[id number]. PREMEDICATED WITH ZOFRAN, NO ISSUES WITH N/V AFTERWARD. ENCOURAGED INDEPENDENCE WITH G-TUBE FEEDS; EDUCATION AND INSTRUCTIONS PROVIDED AT THIS TIME.
[2022-03-16 15:46] VITALS: BP 104/60; PULSE 64; RESP 18; O2SAT 97
--- NOTE | 2022-03-16 17:11 | PC.NURSE ---
PATIENT ALERT AND ORIENTED X4. REFUSED G-TUBE FEEDING WHEN PROMPTED, OFFERED SEVERAL TIMES THROUGHOUT SHIFT. REINFORCED EDUCATION AND FREQUENCY OF FEEDINGS; PATIENT VERBALLY ACKNOWLEDGES. REFUSED PPI STATING IT DOES NOT HELP . FAMILY AT BEDSIDE.
--- NOTE | 2022-03-16 18:31 | PC.NURSE ---
PATIENT ABLE TO TOLERATE ANOTHER FEED AT THIS TIME. TOTAL FDBYUM=216RD; PRUNE QGBES=371DF, WATER=90ML, SKXW=[id number].
[2022-03-16 20:00] VITALS: BP 107/68; PULSE 85; RESP 18; TEMP 36.6; O2SAT 98
[2022-03-16 23:21] VITALS: BP 112/70; PULSE 70; RESP 18; TEMP 36.8; O2SAT 98
[2022-03-17] MEDS: LORazepam 1 MG TABLET SUBLINGUAL (01:20)
[2022-03-17] MEDS: HYDROmorphone HCl 0.5 MG/0.5 ML SYRINGE IVPUSH (02:27)
[2022-03-17 06:53] VITALS: BP 98/64; PULSE 72; RESP 16; TEMP 36.6; O2SAT 95
--- NOTE | 2022-03-17 09:58 | MHC.CM.PN ---
[facility] UPDATED WITH PROGRESS NOTE. ACCORDING TO [facility], PATIENT IS NOT YET ESTABLISHED WITH DR RAMON AND WILL NOT HAVE SERVICES UNTIL HE DOES SO CASE MANAGEMENT STILL FOLLOWING
[2022-03-17] MEDS: Ondansetron ODT 8 MG TAB.RAPDIS TRANSLINGU (10:43)
[2022-03-17] MEDS: 0.9 % Sodium Chloride Flush 3 ML SYRINGE IVFLUSH (10:44)
[2022-03-17 11:13] VITALS: BP 109/73; PULSE 78; RESP 18; TEMP 36.9; O2SAT 98
--- NOTE | 2022-03-17 12:05 | MHC.CLN ---
F/U BOLUS TUBE FEED OF [employer] STANDARD 1.4 STARTED 03/11. [employer] STANDARD 1.4 MAX GOAL RATE: BOLUS 215 ML SIX TIMES DAILY (215 ML X 1=1232 ML FORMULA) WITH 120ML FREE WATER FLUSHES Q 4 HOURS. PROVIDES 1806 KCALS (24.5 KCALS/KG); 80G PROTEIN (1.09 G/KG); 1649 ML TOTAL FREE WATER FROM FORMULA AND FLUSHES (22.4 ML/KG). MONITOR TOLERANCE, RESIDUALS AND LYTES. REVIEW OF DOCUMENTATION SHOWS THAT PATIENT HAS NOT ACHIEVED MAX GOAL RATE OF FORMULA AND THEREFORE NOT MEETING NUTRITIONAL NEEDS. IN ADDITION TO Swing[employer]ot 1.4, PATIENT RECEIVING VIA G TUBE PRUNE JUICE (PROVIDES 77 KCAL PER 100 ML) AND GATORADE (PROVIDES 24 KCAL PER 100 ML). REVIEW OF INTAKE ON 03/16 SHOWS 380 ML FORMULA (532 KCALS), 240 ML PRUNE JUICE (185 KCALS), 120 ML GATORADE (29 KCALS). TOTAL QUYCT=485; APPROXIMATELY 40% OF ESTIMATED ENERGY NEEDS. CONTINUE TO FOLLOW TOLERANCE/ACCEPTANCE OF TUBE FEEDING. MAY REQUIRE TPN/PPN IF UNABLE TO MEET NUTRITIONAL NEEDS VIA G TUBE.
[2022-03-17] MEDS: fentaNYL 50 MCG PATCH.TD72 TRANSDERMA (12:24)
[2022-03-17] MEDS: fentaNYL 100 MCG PATCH.TD72 TRANSDERMA (12:24)
--- NOTE | 2022-03-17 14:25 | HO.PM.IMPN ---
Subjective Subjective Date of Service: 03/17/22 Interval History: No acute issues overnight; pain controlled improving Review of Systems denies chest pain Denies shortness of breath Denies nausea vomiting diarrhea Denies fever chills Physical Exam Vital Signs: Vital Signs: Last Vital Signs Temp 98.5 F 03/17/22 11:13 Pulse 78 03/17/22 11:13 Resp 18 03/17/22 11:13 BP 109/73 03/17/22 11:13 Pulse Ox 98 03/17/22 11:13 O2 Del Method 03/17/22 11:13 O2 Flow Rate 2 03/03/22 03:20 BMI result Body Mass Index 23.3 Const: Other: Ill-appearing male no acute distress Resp: Other: Clear to auscultation bilaterally no rales rhonchi wheezes Cardio: Other: No S4; positive S1-S2; no S3 murmurs rubs or gallops GI: Other: Soft mildly tender diffusely across abdomen. Bowel sounds quiet. G-tube site clean dry intact Extrem: Other: No edema bilaterally Objective Data Active Medications Fentanyl (Fentanyl 100 Mcg Patch.Td72) 100 mcg TRANSDERMA Q72H [facility] Last Admin: 03/17/22 12:24 Dose: 100 mcg Documented By: RICHARD Fentanyl (Fentanyl 50 Mcg Patch.Td72) 50 mcg TRANSDERMA Q72H [facility] Last Admin: 03/17/22 12:24 Dose: 50 mcg Documented By: RICHARD Hydromorphone HCl (Hydromorphone Hcl 0.5 Mg/0.5 Ml Syringe) 0.5 mg IVPUSH Q4H PRN; Protocol PRN Reason: Breakthrough Pain Last Admin: 03/17/22 02:27 Dose: 0.5 mg Documented By: PASCALE Lorazepam (Lorazepam 1 Mg Tablet) 1 mg SUBLINGUAL Q4H PRN PRN Reason: Anxiety Last Admin: 03/17/22 01:20 Dose: 1 mg Documented By: ARIEL Metoclopramide HCl (Metoclopramide Hcl Oral Soln 10 Mg/10 Ml Solution) 5 mg PO Q4H PRN PRN Reason: abd bloating or sever eN/V Midazolam HCl (Midazolam Hcl/Pf 2 Mg/2 Ml Vial) 2 mg IVPUSH Q8H PRN PRN Reason: anxiety unrelived by lorazepam Omeprazole (Omeprazole 20 Mg/10 Ml Susp.Recon) 20 mg PO BID@0630,1630 [facility] Last Admin: 03/17/22 05:53 Dose: Not Given Documented By: PASCALE Non-Admin Reason: Patient Refused Ondansetron HCl (Ondansetron Hcl 4 Mg/2 Ml Vial) 4 mg IVPUSH Q4H PRN PRN Reason: Nausea and Vomiting Last Admin: 03/16/22 23:28 Dose: 4 mg Documented By: PASCALE Ondansetron HCl (Ondansetron Odt 8 Mg Tab.Rapdis) 8 mg TRANSLINGU Q8H PRN PRN Reason: Nausea and Vomiting Last Admin: 03/17/22 10:43 Dose: 8 mg Documented By: RICHARD Pharmacy Consult (Consult Rx Perform Med Rec) 1 each MISCELLANE ONCE PRN PRN Reason: Consult order Sodium Chloride (0.9 % Sodium Chloride Flush 3 Ml Syringe) 3 ml IVFLUSH QSHIFT [facility] Last Admin: 03/17/22 10:44 Dose: 3 ml Documented By: RICHARD Labs CBC & Chem 7: 03/16/22 06:00 03/16/22 06:00 Assessment and Plan (1) Abdominal pain: Status: Acute (2) Primary squamous cell carcinoma of head and neck: Status: Acute Plan 51-year-old male with known history of primary squamous cell carcinoma of the head and neck status post G-tube insertion presents with abdominal pain post feeding. At this time he was attempting bolus feedings; states the feedings and still without issue however there severe pain thereafter. He was seen in Oncology and sent to ER for admission for GI consult 1. Abdominal pain in the backdrop of primary squamous cell carcinoma head neck requiring G-tube feedings - advancing tube feeds with goal of 4 feedings 215 mL per feeding - asking for baseline pain controlled be improved; will increase fentanyl to 150. He declined short-term/ breakthrough meds at this time however stress that he will need to go home with something. He will assess breakthrough pain over the next 24 hours and reassess in a.m. Full code Lovenox requires ongoing hospitalization to stabilize tube feedings and establish adequate pain control Quality Stroke Does the patient have a stroke diagnosis?: No VTE Prior VTE?: No VTE Risk Level:: Medical - moderate - high VTE Device Contraindication: Treatment Not Indicated VTE Drug Contraindication: N/A - Med Ordered
[2022-03-17 15:39] VITALS: BP 106/64; PULSE 76; RESP 16; TEMP 36.4; O2SAT 97
[2022-03-18] VITALS: BP 112/65; PULSE 63; RESP 17; TEMP 36.6; O2SAT 97
[2022-03-18] MEDS: Ondansetron ODT 8 MG TAB.RAPDIS TRANSLINGU ×2 (00:59→17:26)
[2022-03-18] MEDS: LORazepam 1 MG TABLET SUBLINGUAL (02:24)
[2022-03-18 07:43] VITALS: BP 133/70; PULSE 84; RESP 16; TEMP 36; O2SAT 99
[2022-03-18] MEDS: Metoclopramide HCl 10 MG/2 ML VIAL IV ×2 (10:04→23:46)
[2022-03-18] MEDS: 0.9 % Sodium Chloride Flush 3 ML SYRINGE IVFLUSH ×2 (10:10→17:19)
--- NOTE | 2022-03-18 14:22 | P.PNIM_ITS ---
Subjective Subjective Date of Service: 03/18/22 Interval History: No acute issues overnight; pain controlled improving Review of Systems denies chest pain Denies shortness of breath Denies nausea vomiting diarrhea Denies fever chills Physical Exam Vital Signs: Vital Signs: Last Vital Signs Temp 96.8 F 03/18/22 07:43 Pulse 84 03/18/22 07:43 Resp 16 03/18/22 07:43 BP 133/70 03/18/22 07:43 Pulse Ox 99 03/18/22 07:43 O2 Del Method 03/18/22 07:43 O2 Flow Rate 2 03/03/22 03:20 BMI result Body Mass Index 23.3 Const: Other: Ill-appearing male no acute distress Resp: Other: Clear to auscultation bilaterally no rales rhonchi wheezes Cardio: Other: No S4; positive S1-S2; no S3 murmurs rubs or gallops GI: Other: Soft mildly tender diffusely across abdomen. Bowel sounds quiet. G-tube site clean dry intact Extrem: Other: No edema bilaterally Objective Data Active Medications Fentanyl (Fentanyl 100 Mcg Patch.Td72) 100 mcg TRANSDERMA Q72H [facility] Last Admin: 03/17/22 12:24 Dose: 100 mcg Documented By: RICHARD Fentanyl (Fentanyl 50 Mcg Patch.Td72) 50 mcg TRANSDERMA Q72H [facility] Last Admin: 03/17/22 12:24 Dose: 50 mcg Documented By: RICHARD Hydromorphone HCl (Hydromorphone Hcl 0.5 Mg/0.5 Ml Syringe) 0.5 mg IVPUSH Q4H PRN; Protocol PRN Reason: Breakthrough Pain Last Admin: 03/17/22 02:27 Dose: 0.5 mg Documented By: PASCALE Lorazepam (Lorazepam 1 Mg Tablet) 1 mg SUBLINGUAL Q4H PRN PRN Reason: Anxiety Last Admin: 03/18/22 02:24 Dose: 1 mg Documented By: PASCALE Metoclopramide HCl (Metoclopramide Hcl 10 Mg/2 Ml Vial) 10 mg IV Q4H PRN PRN Reason: Nausea and Vomiting Last Admin: 03/18/22 10:04 Dose: 10 mg Documented By: TREASURE Midazolam HCl (Midazolam Hcl/Pf 2 Mg/2 Ml Vial) 2 mg IVPUSH Q8H PRN PRN Reason: anxiety unrelived by lorazepam Omeprazole (Omeprazole 20 Mg/10 Ml Susp.Recon) 20 mg PO BID@0630,1630 [facility] Last Admin: 03/18/22 05:49 Dose: Not Given Documented By: PASCALE Non-Admin Reason: Patient Refused Ondansetron HCl (Ondansetron Hcl 4 Mg/2 Ml Vial) 4 mg IVPUSH Q4H PRN PRN Reason: Nausea and Vomiting Last Admin: 03/16/22 23:28 Dose: 4 mg Documented By: PASCALE Ondansetron HCl (Ondansetron Odt 8 Mg Tab.Rapdis) 8 mg TRANSLINGU Q8H PRN PRN Reason: Nausea and Vomiting Last Admin: 03/18/22 00:59 Dose: 8 mg Documented By: PASCALE Pharmacy Consult (Consult Rx Perform Med Rec) 1 each MISCELLANE ONCE PRN PRN Reason: Consult order Sodium Chloride (0.9 % Sodium Chloride Flush 3 Ml Syringe) 3 ml IVFLUSH QSHIFT [facility] Last Admin: 03/18/22 10:10 Dose: 3 ml Documented By: TREASURE Labs CBC & Chem 7: 03/16/22 06:00 03/16/22 06:00 Assessment and Plan (1) Abdominal pain: Status: Acute (2) Primary squamous cell carcinoma of head and neck: Status: Acute Plan 51-year-old male with known history of primary squamous cell carcinoma of the head and neck status post G-tube insertion presents with abdominal pain post feeding. At this time he was attempting bolus feedings; states the feedings and still without issue however there severe pain thereafter. He was seen in Oncology and sent to ER for admission for GI consult 1. Abdominal pain in the backdrop of primary squamous cell carcinoma head neck requiring G-tube feedings - advancing tube feeds with goal of 4 feedings 215 mL per feedin feedings yesterday vomited with 4th - asking for baseline pain controlled be improved; will increase fentanyl to 150. states baseline pain is improved however still concerned with vomiting around feedings. Advised alternating Reglan with Zofran prior to feedings Full code Lovenox requires ongoing hospitalization to stabilize tube feedings and establish adequate pain control Quality Stroke Does the patient have a stroke diagnosis?: No VTE Prior VTE?: No VTE Risk Level:: Medical - moderate - high VTE Device Contraindication: Treatment Not Indicated VTE Drug Contraindication: N/A - Med Ordered
[2022-03-18 16:00] VITALS: BP 98/58; PULSE 64; RESP 16; TEMP 36.4; O2SAT 95
--- NOTE | 2022-03-18 19:28 | PC.NURSE ---
Administered first bolus of 315ml feed and 120ml free water at from 1100 until about 1130 after a 1030 dose of reglan. Pt fell asleep during administration. No c/o nausea, pain or discomfort. Pt refused next bolus of 200ml feed and 120ml free water until 1800, after 1730 zofran sublingual. No c/o nausea, pain, or discomfort so far. Pt reports he thinks emesis last night due to too fast administration. Provided education about the time we can safely be in the room. He stated it should be an hour.
[2022-03-18 20:00] VITALS: BP 96/57; PULSE 74; RESP 16; TEMP 36.2; O2SAT 94
[2022-03-18 23:49] VITALS: BP 115/71; PULSE 68; RESP 17; TEMP 36.6; O2SAT 95
[2022-03-19 04:00] VITALS: BP 126/65; PULSE 73; RESP 16; TEMP 36.4; O2SAT 97
[2022-03-19] MEDS: LORazepam 1 MG TABLET SUBLINGUAL (04:20)
[2022-03-19] MEDS: 0.9 % Sodium Chloride Flush 3 ML SYRINGE IVFLUSH (10:16)
[2022-03-19] MEDS: Metoclopramide HCl 10 MG/2 ML VIAL IV (10:16)
[2022-03-19 10:56] VITALS: BP 112/64; PULSE 69; RESP 17; TEMP 36.8; O2SAT 97
--- NOTE | 2022-03-19 11:46 | MHC.CLN ---
F/U CONTINUE ORDER FOR BOLUS TUBE FEED OF [employer] STANDARD 1.4 AT MAX GOAL RATE. [employer] STANDARD 1.4 MAX GOAL RATE: BOLUS 215 ML SIX TIMES DAILY (215 ML X 9=2785 ML FORMULA) WITH 120ML FREE WATER FLUSHES Q 4 HOURS. PROVIDES 1806 KCALS (24.5 KCALS/KG); 80G PROTEIN (1.09 G/KG); 1649 ML TOTAL FREE WATER FROM FORMULA AND FLUSHES (22.4 ML/KG). MONITOR TOLERANCE, RESIDUALS AND LYTES. NOTE THAT VOLUME IS EQUIVALENT TO FOUR 325 ML CARTONS OF PRODUCT. REVIEW OF DOCUMENTATION SHOWS THAT PATIENT HAS NOT ACHIEVED MAX GOAL RATE OF FORMULA AND THEREFORE NOT MEETING NUTRITIONAL NEEDS. ON 03/17, HAD 3 BOLUS FEEDINGS AND VOMITED 4TH BOLUS. ON 03/18, APPEARS TO HAVE TAKEN/TOLERATED 415 ML FORMULA (581 KCALS). CONTINUE TO ADVANCE TO MAX GOAL RATE AND CONSIDER TPN IF NEEDED.
--- NOTE | 2022-03-19 12:18 | MHC.CM.PN ---
THIS INTELLIGENCE OPERATIONS MET WITH PATIENT TO DISCUSS RETURNING HOME WITH (OR WITHOUT) VNA SERVICES. PATIENT STATES THAT HE DOES NOT WANT TO GO HOME AND HAVE TO RETURN HERE IF HE 'GETS WORSE IT WAS EXPLAINED THAT PATIENT HAS A RIGHT TO RETURN IF HE FEELS HIS MEDICAL NEEDS ARE NOT MANAGED AT HOME, BUT THAT ATTEMPTS CAN BE MADE TO SECURE A VNA. HE IS AWARE THAT [facility] CANNOT OFFER HE IS NOT YET ESTABLISHED WITH DR RAMON PATIENT ASKS 'CAN I GET IV PAIN MEDICATION AT HOME? IT WAS EXPLAINED THAT PATIENT IS CURRENTLY USING A PATCH AND NOT ON CONTINUOUS IV PAIN MEDS HERE. ALTHOUGH SNF DO ACCEPT PATIENT'S ON CERTAIN IV MEDICATIONS, IT WOULD HAVE TO BE ORDERED AND THIS IS NOT INDICATED FOR PATIENT. PATIENT STATES THAT HE WANTS TO TOLERATE 4 FEEDS TODAY AND THE ABILITY TO TAKE PAIN MEDICATION THROUGH TUBE. PATIENT REPLIES I CANT BE KICKED OUT OF HERE THE MINUTE I CAN TAKE MY FEEDS. IT HAS TO BE A COUPLE OF DAYS SO I DO NOT HAVE TO COME BACK PATIENT REMINDED THAT HIS CARE CAN BE MANAGED AT HOME AND THAT HE LONGER NEEDS HOSPITAL LEVEL OF CARE HE IS AWARE (AND IN AGREEMENT) OF ATTEMPTS TO SECURE A VNA
--- NOTE | 2022-03-19 12:33 | P.PNIM_ITS ---
Subjective Subjective Date of Service: 03/19/22 Interval History: tolerated tube feeds x3 however state was nauseous at 4th feed. unwilling to try p.o. Reglan at this time Review of Systems denies chest pain Denies shortness of breath Denies vomiting diarrhea ; nausea after 4th feeding yesterday Denies fever chills Physical Exam Vital Signs: Vital Signs: Last Vital Signs Temp 98.2 F 03/19/22 10:56 Pulse 69 03/19/22 10:56 Resp 17 03/19/22 10:56 BP 112/64 03/19/22 10:56 Pulse Ox 97 03/19/22 10:56 O2 Del Method 03/19/22 10:56 O2 Flow Rate 2 03/03/22 03:20 BMI result Body Mass Index 23.3 Const: Other: Ill-appearing male no acute distress Resp: Other: Clear to auscultation bilaterally no rales rhonchi wheezes Cardio: Other: No S4; positive S1-S2; no S3 murmurs rubs or gallops GI: Other: Soft mildly tender diffusely across abdomen. Bowel sounds quiet. G-tube site clean dry intact Extrem: Other: No edema bilaterally Objective Data Active Medications Fentanyl (Fentanyl 100 Mcg Patch.Td72) 100 mcg TRANSDERMA Q72H [facility] Last Admin: 03/17/22 12:24 Dose: 100 mcg Documented By: RICHARD Fentanyl (Fentanyl 50 Mcg Patch.Td72) 50 mcg TRANSDERMA Q72H [facility] Last Admin: 03/17/22 12:24 Dose: 50 mcg Documented By: RICHARD Hydromorphone HCl (Hydromorphone Hcl 0.5 Mg/0.5 Ml Syringe) 0.5 mg IVPUSH Q4H PRN; Protocol PRN Reason: Breakthrough Pain Last Admin: 03/17/22 02:27 Dose: 0.5 mg Documented By: PASCALE Lorazepam (Lorazepam 1 Mg Tablet) 1 mg SUBLINGUAL Q4H PRN PRN Reason: Anxiety Last Admin: 03/19/22 04:20 Dose: 1 mg Documented By: ROSSANA Metoclopramide HCl (Metoclopramide Hcl 10 Mg/2 Ml Vial) 10 mg IV Q4H PRN PRN Reason: Nausea and Vomiting Last Admin: 03/19/22 10:16 Dose: 10 mg Documented By: TREASURE Midazolam HCl (Midazolam Hcl/Pf 2 Mg/2 Ml Vial) 2 mg IVPUSH Q8H PRN PRN Reason: anxiety unrelived by lorazepam Omeprazole (Omeprazole 20 Mg/10 Ml Susp.Recon) 20 mg PO BID@0630,1630 [facility] Last Admin: 03/19/22 04:54 Dose: Not Given Documented By: ROSSANA Non-Admin Reason: Patient Refused Ondansetron HCl (Ondansetron Hcl 4 Mg/2 Ml Vial) 4 mg IVPUSH Q4H PRN PRN Reason: Nausea and Vomiting Last Admin: 03/16/22 23:28 Dose: 4 mg Ondansetron HCl (Ondansetron Odt 8 Mg Tab.Rapdis) 8 mg TRANSLINGU Q8H PRN PRN Reason: Nausea and Vomiting Last Admin: 03/18/22 17:26 Dose: 8 mg Documented By: TREASURE Pharmacy Consult (Consult Rx Perform Med Rec) 1 each MISCELLANE ONCE PRN PRN Reason: Consult order Sodium Chloride (0.9 % Sodium Chloride Flush 3 Ml Syringe) 3 ml IVFLUSH QSHIFT [facility] Last Admin: 03/19/22 10:16 Dose: 3 ml Documented By: TREASURE Labs CBC & Chem 7: 03/16/22 06:00 03/16/22 06:00 Assessment and Plan (1) Primary squamous cell carcinoma of head and neck: Status: Acute (2) Odynophagia: Status: Acute Plan 51-year-old male with known history of primary squamous cell carcinoma of the head and neck status post G-tube insertion presents with abdominal pain post feeding. At this time he is attempting bolus feedings; states attempted 3 feedings without issue yesterday however 4th was nausea provoking. 1. Abdominal pain in the backdrop of primary squamous cell carcinoma head neck requiring G-tube feedings - advancing tube feeds with goal of 4 feedings 215 mL per feedin feedings yesterday vomited with 4th - Fentanyl increased to 150 mcg topically Q 3 days. Patient denies b reakthrough pain and refuses p.r.n. meds. Advised patient that we need to start moving to all GTube/topical meds to facilitate his discharge. He is very reluctant to do so and lately refuses with staff. When discussed with nursing he has fired multiple staff members and continues to be noncompliant with therapies and advice on treatment. Discussed with Renee Aquino XRT; there have been issues with compliance as well as staff issues. Per radiation oncologist there is no current plan to continue with XRT. Offered p.o. Reglan and along with ODT Zofran to facilitate discharge to home with VNA. Initially patient agreed however when administration time came he refused p.o. and demand ed IV Reglan. Will continue to encourage switch to total G-tube/ oral meds to facilitate discharge and to proceed with treatment Full code Lovenox requires ongoing hospitalization to stabilize tube feedings and establish adequate pain control Quality Stroke Does the patient have a stroke diagnosis?: No VTE Prior VTE?: No VTE Risk Level:: Medical - moderate - high VTE Device Contraindication: Treatment Not Indicated VTE Drug Contraindication: N/A - Med Ordered
--- NOTE | 2022-03-19 13:21 | MHC.CM.PN ---
PATIENT HAD A VISIT WITH DR RAMON TODAY THIS SENIOR CONSULTANT CALLED [phone] AND EXPLAINED THAT PATIENT IS STILL HERE STAFF STATES THAT PATIENT WILL HAVE TO CALL WHEN HE IS DC, HE WAS NOT EVEN SUPPOSED TO BE SCHEDULED THIS SENIOR CONSULTANT EXPLAINED THAT PATIENT [place] BE[place] [facility] [place]. THIS SENIOR CONSULTANT REMINDED THAT PATIENT WILL HAVE TO CALL WHEN HE IS DC
--- NOTE | 2022-03-19 13:54 | MHC.CM.PN ---
THIS CHANGE NUMBER OPERATOR (ALONG WITH PATIENT EXPERIENCE REGISTERED CLIENT ASSOCIATE) MET WITH PATIENT AND FATHER (WITH PATIENT PERMISSION) FATHER ASKED IF HIS DAUGHTER VEENA CAN BE CALLED HIS ADVOCATE AND IT WAS EXPLAINED THAT THERE IS NO WAY FOR THIS WRITE TO VERIFY WHO IS ON THE OTHER LINE AND PATIENT CAN SPEAK FOR HIMSELF. PATIENT AWARE THAT DUE TO MULTIPLE MISSED APPOINTMENTS WITH DR RAMON, HE IS GOING TO NEED ASSISTANCE IN SECURING A FOLLOW UP VISIT PATIENT ALSO AWARE THAT WE HOPE TO DC PATIENT TOMORROW HE TELLS THIS CHANGE NUMBER OPERATOR THAT IT IS RECOMMENDED THAT HE BE ABLE TO TOLERATE 4 FEEDS EACH DAY IT WAS AGAIN EXPLAINED THAT THIS CAN BE MANAGED AT HOME AND IS NOT HOSPITAL LEVEL OF CARE PATIENT STATES THAT HE MAY BE IN PAIN AT HOME AND HE MAY HAVE TO COME BACK PATIENT REMINDED THAT HE HAS TO FOLLOW UP WITH PAIN MANAGEMENT FOR HIS CONTINUED MEDICAL NEEDS OUTPATIENT FATHER VERBALIZES UNDERSTANDING OF PLAN.
[2022-03-19] MEDS: Ondansetron ODT 8 MG TAB.RAPDIS TRANSLINGU (15:37)
[2022-03-19 15:50] VITALS: BP 108/70; PULSE 73; RESP 16; TEMP 36.6; O2SAT 98
--- NOTE | 2022-03-19 19:42 | PC.NURSE ---
Pt tolerated 2 215ml bolus feeds this shift, at 1045 (30 minutes after administration of IV reglan) and 1600 (30 minutes after administration of sublingual zofran), with the stated goal of two more feeds during evening shift.
[2022-03-19] MEDS: ondansetron HCL 4 MG/2 ML VIAL IVPUSH (19:54)
[2022-03-19 23:15] VITALS: BP 93/55; PULSE 71; RESP 18; TEMP 36.7; O2SAT 96
[2022-03-20] MEDS: Metoclopramide HCl 10 MG/2 ML VIAL IV ×2 (01:34→10:33)
[2022-03-20] MEDS: Ondansetron ODT 8 MG TAB.RAPDIS TRANSLINGU (04:04)
--- NOTE | 2022-03-20 05:37 | PC.NURSE ---
pt was given IV zofran at approximately 2000 and tolerated 3rd G-tube feeding at 2100 -2150 (215ml bolus, with 120ml of prune juice followed by 120ml free water flush) At approximately 0130 pt requested IV Reglan prior to his next feeding and initialized next feeding at 0215 - 0305 to which he also tolerated (120ml of Prune juice followed by 30ml free water flush, followed by 100ml of feed, followed by 60ml free water flush). ODT Zofran given at 0400 at pt's request. Will continue to monitor. Pt feels as though he is being rushed to leave the hospital, despite not accomplishing goal of 4 full G-tube feeds. pt also concerned about anti-emetics that are compatible with G-tube upon discharge. Will continue to monitor.
[2022-03-20 08:00] VITALS: BP 120/65; RESP 19; TEMP 37.2; O2SAT 99
--- NOTE | 2022-03-20 10:21 | MHC.CM.PN ---
Pt d/c'd home today w/ no service d/t not having an established PCP in the community.
[2022-03-20] MEDS: Docusate Sodium 100 MG CAPSULE PO (10:33)
[2022-03-20] MEDS: fentaNYL 50 MCG PATCH.TD72 TRANSDERMA (10:34)
[2022-03-20] MEDS: 0.9 % Sodium Chloride Flush 3 ML SYRINGE IVFLUSH (10:34)
[2022-03-20] MEDS: fentaNYL 100 MCG PATCH.TD72 TRANSDERMA (10:34)
[2022-03-20] MEDS: Heparin Sodium,Porcine Flush 50 UNITS/5 ML SYRINGE IVFLUSH (11:05)
--- NOTE | 2022-03-28 10:12 | P.DS_ITS ---
DS: Providers Provider Date of Service: 03/28/22 Date of admission: 02/25/22 16:51 Date of discharge: 03/20/22 Primary care physician: Dewayne Foote MD Consults: 02/26/22 08:01 Consult to Gastroenterology Stat Consulting Provider: Jose Aleman Reason for consultation: Abdominal pain Has provider been notified: No 03/04/22 13:25 Consult to Hematology / Oncology Routine Consulting Provider: Roxane Donis Reason for consultation: head and neck cancer 03/06/22 10:46 Consult to Pain Management Routine Consulting Provider: Janusz Mcgovern Reason for consultation: acute on chronic koehler.head and neck cancer 03/07/22 11:05 Consult to General Surgery Routine Consulting Provider: Dewayne Flores Reason for consultation: j tube placement Has provider been notified: No 03/08/22 07:44 Consult to Psychiatry Routine Consulting Provider: Psych Covering Reason for consultation: anxiety /refusal of treatment Has provider been notified: No DS: Diagnosis Discharge Diagnosis (1) Primary squamous cell carcinoma of head and neck: Status: Acute (2) Odynophagia: Status: Acute DS: Summary Hospital Course Hospital Course: 51-year-old male with diagnosis of primary squamous cell carcinoma of head and neck currently undergoing chemo and radiation complains of abdominal pain which G-tube feedings.? He states he has tried overnight feedings, gravity feedings, and most recently bolus feedings.? He states the tube functions but shortly thereafter he develops diffuse severe abdominal pain and he has been unable to successfully utilizes feedings.? He is noted to have a 35 lb weight loss s since starting tube feedings.? He will be admitted for GI consult at the request of Oncology Hospital Course Admitted to general medical floor. Pain control secondary to tube feeds was issue along with jaw pain. Patient was switched from oral Dilaudid to IV Dilaudid and IV Versed. Patient was seen in consultation by Gastroenterology; upper GI through G-tube was performed which failed to demonstrate the presence of reflux and showed somewhat slow emptying of the stomach into the duodenum and slowed to what no transit. The tube was normal and anatomic positioning. Patient continued to state his pain was not well controlled on Dilaudid. Patient was subsequently transferred to ICU as a border and a morphine drip was initiated. Initially morphine drip was helpful however patient continued to be agitated about his pain ( throughout admission ); he demanded morphine be stopped and he be placed back on dilaudid and Versed. Patient was transferred back to the general medical floor where he continue received dilaudid /Versed as well as antiemetics. His agitation worsened to the point where he fired the majority of the staff that attempted to care for him. As is admission progressed, he was able to tolerate 3 tube feedings a day but continued to be extremely agitated intermittently. on the day of discharge, he was hemodynamically stable but extremely agitated. On the day of discharge, phone call was made to his sister and patient sister and this freelance copywriter had a conversation. The sister was in agreement that patient should be discharged to resume was course at home including radiation and chemotherapy as deemed appropriate by radiation oncology and hematology oncology. He was given scripts for Duragesic which was increased during his hospitalization along with liquid dilaudid as he previously was using prior to hospitalization. He was also given script for Reglan liquid that he could utilize through his tube. and he was discharged to follow-up with Dr. Foote and Renee Aquino radiation therapy. Time Spent with Patient Time attestation: Total time spent providing and/or coordinating discharge services: Discharge coordination time: Greater than 30 minutes Quality: Safe Use of Opioids Does Pt have an Active Cancer Diagnosis on the Problem List?: Yes Opioid Measure Date for [facility] Report: 02/26/22 Opio[address] Time for [facility] Report: 10:23 Quality: Stroke Does the patient have a stroke diagnosis?: No Physical Exam Vital Signs: Vital Signs: Last Vital Signs Temp 98.9 F 03/20/22 08:00 Pulse 71 03/19/22 23:15 Resp 19 03/20/22 08:00 BP 120/65 03/20/22 08:00 Pulse Ox 99 03/20/22 08:00 O2 Del Method 03/20/22 08:00 O2 Flow Rate 2 03/03/22 03:20 BMI result Body Mass Index 23.3 Const: Other: Ill-appearing male no acute distress Resp: Other: Clear to auscultation bilaterally no rales rhonchi wheezes Cardio: Other: No S4; positive S1-S2; no S3 murmurs rubs or gallops GI: Other: Soft mildly tender diffusely across abdomen. Bowel sounds quiet. G-tube site clean dry intact Extrem: Other: No edema bilaterally DS: Data Data Completed and Pending Completed studies during hospitalization [Text1]: Procedures Insertion of Feeding Device into Stomach, Percutaneous Endoscopic Approach (01/23/22) Discharge Plan Discharge Patient Disposition: Home Health Service Discharge Diagnosis: primary squamous cell carcinoma of head and neck Referrals: Dewayne Foote MD [Primary Care Provider] - (PATIENT HAS TO CALL [facility] TO SCHEDULE NEW PCP APPOINTMENT AND FOLLOW UP ) Discharge Medications: New fentanyl 50 mcg/hr Patch 72 Hour 50 mcg transdermal Q72H Qty: 10 0RF Rx Instructions: Partial Fill upon patient request. fentanyl 100 mcg/hr Patch 72 Hour 100 mcg transdermal Q72H Qty: 10 0RF Rx Instructions: Partial Fill upon patient request. metoclopramide HCl 5 mg/5 mL solution 10 mg PO Q6H 14 Days Qty: 560 2RF Continued melatonin 5 mg tablet 5 mg PO BEDTIME PRN (Reason: sleep) Qty: 60 0RF lorazepam 2 mg/mL Concentrate 0.5 mg PO BID PRN (Reason: Anxiety) Qty: 200 0RF hydromorphone [Dilaudid] 1 mg/mL Liquid 1 mg PO Q8-10H PRN (Reason: Breakthrough Pain, Severe) Qty: 100 0RF Rx Instructions: Partial Fill upon patient request. Changed ondansetron 8 mg tablet,disintegrating 8 mg PO Q8H PRN (Reason: Nausea) Qty: 60 0RF Discontinued fentanyl 50 mcg/hr Patch 72 Hour 50 mcg transdermal Q72H Qty: 12 0RF Rx Instructions: Partial Fill upon patient request. No Action lorazepam 0.5 mg Tablet 0.5 mg PO BID PRN (Reason: Anxiety) Qty: 50 0RF lansoprazole [Prevacid SoluTab] 15 mg Tablet,Disintegrat, Delay Rel 15 mg PO DAILY Qty: 30 4RF Discharge Orders: Discharge Order (Routine); Ordered 03/20/22 Ordered By: Ralph Zamarripa Diet: Advance to usual diet Activity on Discharge: As tolerated Stand Alone Forms: Patient Portal Discharge page Care Plan Goals: follow-up with Renee Aquino radiation oncology. . . They will call you with appointment follow-up with Dr. Foote in 1 week. . . Office will call you with appointment with Dr. Mcgovern has sent referral for nerve block in [place]. They will be in contact with you Health Concerns: resume tube feedings for feedings a day alternating Reglan and Zofran before feedings Plan of Treatment: Duragesic patches for a total of 150 mcg every 3 days; dilaudid liquid for breakthrough pain Assessment: see discharge summary Discharge Date/Time: 03/20/22 11:27
== END 2022-03-20 11:27 | disposition home health service (06) | DRG 861 ==
LOC: HO.ED 16:35 → HO.EDOVER 17:03 → HO.S3 02-26 14:18 → HO.ICU 02-27 09:50 → HO.S3 03-01 11:32
PROVIDERS: Family Medicine; Hospitalist; Internal Medicine; Admitting Provider Hospitalist; Emergency Provider Emergency Medicine; PCP Internal Medicine; Visit Provider Hospitalist
DX: G89.3 Neoplasm related pain (acute) (chronic) (principal); D61.810 Antineoplastic chemotherapy induced pancytopenia; C96.9 Malignant neoplasm of lymphoid, hematopoietic and related tissue, unspecified; F32.9 Major depressive disorder, single episode, unspecified; R13.10 Dysphagia, unspecified; F41.9 Anxiety disorder, unspecified; Z51.5 Encounter for palliative care; T45.1X5A Adverse effect of antineoplastic and immunosuppressive drugs, initial encounter; Z20.822 Contact with and (suspected) exposure to COVID-19; Z91.19 Patient's noncompliance with other medical treatment and regimen; Z93.1 Gastrostomy status; Z79.899 Other long term (current) drug therapy
CPT/HCPCS: 36415; 74240; 80048; 80053; 82040; 83735; 84100; 84478; 85014; 85018; 85025; 85027; 85049; 87635; 99285; J0610; J1170; J1200; J1642; J1650; J2250; J2270; J2405; J2765; J3475

== ENCOUNTER 2022-08-08 06:30 | Day surgery (SDC) | payer OTHER, SELFPAY ==
--- NOTE | 2022-08-07 10:23 | HO.ANESPROP2 ---
Documented by User: Juliana Treviño NP 08/07/22 12:24 HPI - Anesthesia Eval Consult details Narrative: 52yo M for Upper Endoscopy with g-tube removal Head and neck CA Pt denies any current medication. Previously on fentanyl patch and oral opioids PMFSH Active Problems Active Problems: All Active Problems (Updated 04/11/22 @ 14:21 by Hyacinth Zamora MD) Head and neck cancer (Acute) Glossopharyngeal neuralgia (Acute) Major depression, single episode (Acute) Facial pain syndrome (Acute) Odynophagia (Acute) Abnormal weight loss (Acute) Primary squamous cell carcinoma of head and neck (Acute) Past Medical History Medical History Gastrostomy tube in place Mass of left side of neck Squamous cell carcinoma of neck Family History Family History Maternal Grandmother Lung cancer Family history of problems with anesthesia: No Surgical History Surgical History (Updated 08/08/22 @ 06:42 by Lisa Yap RN) H/O removal of cyst Hx of esophagogastroduodenoscopy History of Problems with Anesthesia: No Social History Social History Household Members: Family Household Members Other:: mother Housing: House Are you a primary foster care social worker to a significant other at home: No Do you presently have visiting nurse or other home services: Yes Alcohol intake: unknown Patient Tobacco Use Status: Never used Tobacco Substance Use Type: Marijuana Advance Directives: No Advance Directives Information Provided: Yes service: No Current occupational status: unemployed Meds Allergies Allergy/AdvReac Type Severity Reaction Status Date / Time No Known Allergies Allergy Verified 08/08/22 06:42 [No Known Allergies*] Home Medications Medication Instructions Recorded Confirmed Last Taken Type No Known Home Meds 08/05/22 08/07/22 Unknown History Exam Exam Date and Time: August 07, 2022 1023 Pertinent Lab Results Pertinent Lab Results: Laboratory Tests 04/11/22 04/11/22 14:45 14:45 WBC 2.5 L Hgb 11.7 L Hct 33.2 L Plt Count 167 D Sodium 142 Potassium 3.9 Chloride 102 Carbon Dioxide 30 H BUN 11 Creatinine 0.88 Narrative Narrative: EKG 01/2022 Vent. Rate : 069 BPM ? ? Atrial Rate : 069 BPM ?? P-R Int : 142 ms? QRS Dur : 092 ms ? ? QT Int : 422 ms ? ? ? P-R-T Axes : 080 043 059 degrees ?? QTc Int : 452 ms ? Sinus rhythm with marked sinus arrhythmia Nonspecific T wave abnormality Abnormal ECG When compared with ECG of 18-JAN-2022 18:58, QT has lengthened Assessment and Plan Assessment Anesthesia Assessment: Chart Reviewed Final Anesthetic Review Family History of Problems with Anesthesia: No History of Problems with Anesthesia: No Documented by User: Hang Kirkpatrick MD 08/08/22 07:16 [facility] Past Medical History Medical History Gastrostomy tube in place Mass of left side of neck Squamous cell carcinoma of neck Family History Family History Maternal Grandmother Lung cancer Surgical History Surgical History (Updated 08/08/22 @ 06:42 by Lisa Yap RN) H/O removal of cyst Hx of esophagogastroduodenoscopy Social History Social History Household Members: Family Household Members Other:: mother Housing: House Are you a primary foster care social worker to a significant other at home: No Do you presently have visiting nurse or other home services: Yes Alcohol intake: unknown Patient Tobacco Use Status: Never used Tobacco Substance Use Type: Marijuana Advance Directives: No Advance Directives Information Provided: Yes service: No Current occupational status: unemployed Meds Allergies Allergy/AdvReac Type Severity Reaction Status Date / Time No Known Allergies Allergy Verified 08/08/22 06:42 [No Known Allergies*] Home Medications Medication Instructions Recorded Confirmed Last Taken Type No Known Home Meds 08/05/22 08/07/22 Unknown History Exam Airway Mallampati Class: III TM Dist: >3cm Neck ROM: Full Loose/Missing/Broken Teeth: No Heart: rrr Lungs: cta Assessment and Plan Final Anesthetic Review NPO: Yes ASA Class: III Final Preanesthetic Review: No Changes in Pt Med Stat, Meds/Allgs Chart Reviewed and Anes Risks/Benef Reviewed Patient Risk: Intermediate Procedure Risk: Intermediate Anesthetic Plan Anesthetic Plan: MAC:
[2022-08-08] VITALS (7 sets, daily range): BP systolic 108–125; BP diastolic 66–80; PULSE 56–84; RESP 11–16; TEMP 36.7–37.1; O2SAT 97–98; BMI 24.3
--- NOTE | 2022-08-08 00:05 | HP_ITS ---
DATE OF SERVICE: 08/08/2022 HISTORY OF PRESENT ILLNESS: The patient is a pleasant 52-year-old man who presents for G-tube removal. He has a history of squamous cell carcinoma of the neck, which is status post chemoradiation. He required G-tube placement earlier last year due to significant difficulty swallowing solids during his treatment. His hospital course was complicated by significant pain following the procedure requiring IV benzodiazepines and narcotics. There was also significant agitation during his hospitalization that lasted approximately 1 month and subsequently improved. He presents for removal of the G-tube under monitored anesthesia care, because of the above-noted complications, he is no longer using the G-tube and asked for to be removed. PAST MEDICAL HISTORY: 1. Squamous cell carcinoma of the neck as above. 2. G-tube placement. CURRENT MEDICATIONS: His current medication list is reviewed in the chart. ALLERGIES: THERE ARE NONE REPORTED. FAMILY HISTORY: This is reviewed with the patient and is noncontributory. SOCIAL HISTORY: There is no current tobacco, alcohol, or substance abuse. REVIEW OF SYSTEMS: SKIN: No pruritus. HEENT: As above. CARDIOPULMONARY: No shortness of breath or chest pain. GASTROINTESTINAL: As above. GENITOURINARY: Negative. NEUROPSYCHIATRIC: Negative. PHYSICAL EXAMINATION: GENERAL: Shows a pleasant male. Vital signs are stable. Lungs are clear. Heart is regular without murmurs. Abdomen is soft, g-tube site is intact. IMPRESSION: Status post G-tube placement for neck cancer. PLAN: Upper endoscopy with removal of the G-tube with monitored anesthesia care. Risks and benefits of the procedure have been discussed with the patient who understands and agrees to proceed. Endoscopic removal of the g-tube is medically necessary due to the patient's poor tolerance of g-tube placement previously. MD ERROL Vaughan/ISHA / [id number] JEOVANY
[2022-08-08] MEDS: Lactated Ringers 1,000 ML 100 ML IVCONT (06:59)
--- NOTE | 2022-08-08 07:28 | MHC.SHP ---
Pre-Procedural Eval Section A Date of Service: 08/08/22 The patient is an INPATIENT: No Changes since office visit: No Cold of Flu in the past 2 weeks, No New Medical Problems, No Changes in Medication and No Patient answered all questions The History & Physical has been completed within 30 days and I have reviewed it.: Yes Section B Chief Complaint: Dysphagia, Allergies: Allergies Allergy/AdvReac Type Severity Reaction Status Date / Time No Known Allergies Allergy Verified 08/08/22 06:42 [No Known Allergies*] Plan I have reviewed the history and physical and performed a pertinent physical examination on my patient. No changes have occurred unless specified. Time Spent With Patient Time: Total time managing care of this patient today ____ minutes.
--- NOTE | 2022-08-08 08:49 | PM.OP ---
Brief Operative Note Date of Service: 08/08/22 Pre-op diagnosis: scc neck gerd Post-op diagnosis: same Procedure: egd Surgeon: Simon Fisher Anesthesia: MAC Was an Test And Balance Engineer used for this Procedure?: No Estimated blood loss (mL): 2 Pathology: other Condition: stable Disposition: PACU
--- NOTE | 2022-08-08 09:15 | OP_ITS ---
SURGEON: Simon Fisher MD INDICATIONS: Gastroesophageal reflux disease and squamous cell carcinoma of the neck. PREOPERATIVE DIAGNOSIS: POSTOPERATIVE DIAGNOSIS: PROCEDURE PERFORMED: Upper endoscopy with biopsy and removal of G-tube. ESTIMATED BLOOD LOSS: COMPLICATIONS: ANESTHESIA: Monitored anesthesia care. ASSISTANTS: SPECIMENS: DESCRIPTION OF PROCEDURE: Date: 08/08/22. A history and physical was performed. The risks and benefits of the procedure were explained to the patient. Informed consent was obtained. The patient was placed in the supine position. The Olympus gastroscope was introduced into the esophagus, stomach, and duodenum. Examination was performed. The scope was removed. He tolerated the procedure well and was taken to recovery in stable condition. FINDINGS: 1. Esophagus: The esophagus showed some mild reflux changes just above the EG junction with some mild erythema, but no ulceration. Biopsies were obtained from the EG junction. 2. Stomach: The stomach showed the previously placed G-tube was in good position. Antral biopsies were obtained to evaluate for H. Pylori. 3. Duodenum: The bulb and second portion were normal. The G-tube was grasped with a retrieval net around the bolster that was intragastric. Next, the tube was cut at the level of the skin. The intragastric portion was removed with no complications and the endoscope was reinserted. The G-tube site appeared intact. The remainder of the stomach appeared normal, including retroflexed views. A dry sterile dressing was applied externally at the G-tube site, which appeared intact as well. IMPRESSION: 1. Gastroesophageal reflux disease. 2. Gastrostomy tube removal. RECOMMENDATIONS: 1. Follow up the biopsy results. 2. The dressing over the G-tube site may be removed after the site closes. MD ERROL Vaughan/ISHA / [id number] MTDD
[2022-08-08 10:31] LABS: Basophils Percent Auto 0.9 % (0-2); Eosinophils Absolute Auto 0.3 X10*3/uL (0.0-0.4); Eosinophils Percent Auto 8.5 % (0-4); Hematocrit 37.6 % (42.0-52.0); Hemoglobin 13.1 g/dl (14.0-18.0); Imm Gran Abs Auto 0.07 X10*3/uL (0.00-0.03); Lymphocytes Absolute Auto 1.1 X10*3/uL (1.2-4.9); Lymphocytes Percent Auto 31.9 % (20-40); MANUAL DIFF FLAG SCAN; Mean Corpuscular HGB Conc 34.8 g/dl (31.0-36.0); Mean Corpuscular Hemoglobin 30.9 pg (27.0-33.0); Mean Corpuscular Volume 88.7 fL (80.0-98.0); Mean Platelet Volume 9.1 fL (9.4-12.4); Monocytes Absolute Auto 0.7 X10*3/uL (0.1-1.2); Monocytes Percent Auto 20.8 % (2-11); Neutrophils Absolute Auto 1.3 x10*3/uL (2.0-8.3); Neutrophils Percent Auto 35.9 % (45-73); Platelet Count 147 X10*3/uL (160-400); Red Blood Count 4.24 X10*6/uL (4.60-5.80); Red Cell Distribution Width 11.8 % (11.0-16.0); SCAN SMEAR FLAG 1; White Blood Count 3.5 X10*3/uL (4.8-10.8)
[2022-08-08 10:41] LABS: Prothrombin Time 10.9 SEC (10.0-13.1)
[2022-08-08 10:43] LABS: Anion Gap 12 (12-20); Blood Urea Nitrogen 16 mg/dL (9-16); Carbon Dioxide 26 mmol/L (22-29); Chloride 109 mmol/L (96-108); Potassium 4.3 mmol/L (3.3-5.1); Sodium 143 mmol/L (135-145)
[2022-08-08 10:44] LABS: Partial Thromboplastin Time 28.1 SEC (26.0-36.4)
[2022-08-08 10:49] LABS: SLIDE REVIEW VERIFIED
== END 2022-08-08 10:40 | disposition home or self-care (01) ==
PROVIDERS: Radiology Diagnostic Radiology; PCP Internal Medicine; Visit Provider Internal Medicine Gastroenterology
PROC: 0DJ08ZZ Inspection of Upper Intestinal Tract, Via Natural or Artificial Opening Endoscopic (ICD-10-PCS; CPT 43235; principal; 2022-08-08 07:30)
DX: R13.10 Dysphagia, unspecified (principal); Z43.1 Encounter for attention to gastrostomy; K21.9 Gastro-esophageal reflux disease without esophagitis; C44.42 Squamous cell carcinoma of skin of scalp and neck; Z93.1 Gastrostomy status; F12.90 Cannabis use, unspecified, uncomplicated
CPT/HCPCS: 43239; 43247; 36415; 80051; 84520; 85025; 85610; 85730; 88305; 88342

== ENCOUNTER 2022-08-08 06:32 | Day surgery (SDC) | payer OTHER, SELFPAY ==
--- NOTE | ~2022-08-08 | IR_ITS ---
EXAMINATION: REMOVAL OF HOUX-U-BBLMBRGS CLINICAL INFORMATION: Head and neck cancer. Completion of chemotherapy and radiation therapy. Nduo-q-ttbncgci not needed. COMPARISON: None. TECHNIQUE: Following explaining removal of xsaf-s-dhwffmsm procedure, benefits and risk, a written consent was obtained. Patient was placed supine on fluoroscopy table and the right port area was cleaned and draped in usual sterile fashion. 1% lidocaine was administered profusely subcutaneously and deeper around the ejyd-c-xtxghfer. Conscious sedation was administered as well. A simple incision was performed at the junction of the port and the catheter. With blunt dissection the junction was identified and held gently by artery forceps. Both sutures around the vjby-t-tbyqgrly were identified and removed. Blunt dissection was performed around the port chamber and gently removed. The entire catheter of the abhs-t-jlfjvrmo was then gently pulled. Compression was applied at the insertion site to achieve complete hemostasis. 4-0 absorbable sutures were placed along the subcutaneous tissue followed by 3-0 absorbable skin sutures. Sterile dressing was placed subsequently. Patient had significant anxiety and pain during the exam. Conscious sedation with monitoring performed during the exam by the IR nurse and the performing radiologist. Conscious sedation time 53 minutes. IR/IR cvc remove tunnel w prt/commercial credit officer FINDINGS/IMPRESSION: Successful removal of 23 cm long right jugular port. There is mild bleeding approximately 10 to 15 mL noted. Fluoroscopy time: 0 Dose area product: 1 cGy.cm2.
[2022-08-08 07:01] VITALS: BMI 24.3
[2022-08-08 12:51] VITALS: BP 101/62; PULSE 59; RESP 16; TEMP 36.9; O2SAT 95
[2022-08-08] MEDS: LORazepam 1 MG TABLET PO (13:15)
[2022-08-08 13:16] VITALS: BP 104/75; PULSE 65; RESP 10; O2SAT 97
[2022-08-08 13:31] VITALS: BP 103/65; PULSE 60; RESP 12; O2SAT 97
[2022-08-08 13:46] VITALS: BP 104/66; PULSE 66; RESP 12; O2SAT 97
[2022-08-08] MEDS: oxyCODONE HCl Immed Release 5 MG TABLET PO (13:57)
[2022-08-08 14:01] VITALS: BP 109/72; PULSE 63; RESP 12; O2SAT 97
[2022-08-08 14:30] VITALS: BP 110/74; PULSE 66; RESP 16; TEMP 37.1; O2SAT 97
== END 2022-08-08 15:03 | disposition home or self-care (01) ==
PROVIDERS: PCP Internal Medicine; Visit Provider Radiology Diagnostic Radiology
PROC: (CPT 36590; principal; 2022-08-08 10:30)
DX: Z45.2 Encounter for adjustment and management of vascular access device (principal); C76.0 Malignant neoplasm of head, face and neck; Z92.21 Personal history of antineoplastic chemotherapy; Z92.3 Personal history of irradiation
CPT/HCPCS: 36590; 99152; 99153; J2250; J3010